=== PATIENT | male | born 1960 | race African-American/Black ===

== ENCOUNTER 2016-07-22 11:38 | Emergency (ER) | payer MEDICARE ==
--- NOTE | 2016-07-22 11:50 | ER Document Report ---
ED Medical Screen (RME) - General Stated Complaint: ABSCESS UNDER RIGHT ARM Mode of Arrival: Ambulatory Information source: Patient Notes: Patient complains of tender swollen knot under right axilla for the past 2 weeks. Patient states area has been gradually getting larger and more tender. I have greeted and performed a rapid initial assessment of this patient. A comprehensive ED assessment and evaluation of the patient, analysis of test results and completion of the medical decision making process will be conducted by additional ED providers. TRAVEL OUTSIDE OF THE [place] IN LAST 30 DAYS: No - Related Data Allergies/Adverse Reactions: naproxen [From Naprosyn] Allergy (Unknown, Verified 09/23/11 21:40) Past Medical History Endocrine Medical History: Reports: Hx Diabetes Mellitus Type 2 Past Surgical History: Reports: Hx Orthopedic Surgery - spine - Immunizations Hx Diphtheria, Pertussis, Tetanus Vaccination: Yes Physical Exam - Skin Irregularity with: Swelling, Tenderness, Inflammation - Right axilla
== END 2016-07-22 12:56 | disposition left against medical advice (07) ==
LOC: ER 11:38
DX: L02.411 Cutaneous abscess of right axilla (principal); E11.9 Type 2 diabetes mellitus without complications; Z53.20 Procedure and treatment not carried out because of patient's decision for unspecified reasons
CPT/HCPCS: 99281

== ENCOUNTER 2016-07-28 16:12 | Emergency (ER) | payer MEDICARE ==
[2016-07-28] MEDS ORDERED: SULFAMETHOXAZOLE/TRIMETHOPRIM 800-160 MG TABLET PO ONE (16:56)
[2016-07-28] MEDS ORDERED: ONDANSETRON 4 MG TAB.RAPDIS PO ONE (16:56)
[2016-07-28] MEDS ORDERED: OXYCODONE-ACETAMINOPHEN 5-325 MG TABLET PO ONE (16:56)
--- NOTE | 2016-07-28 16:57 | ER Document Report ---
ED Medical Screen (RME) - General Chief Complaint: Abscess Stated Complaint: ABSCESS UNDER RIGHT ARM Time seen by provider: 16:56 Mode of Arrival: Ambulatory Information source: Patient Notes: 55-year-old male with an abscess under his left axilla for one week. It started to get bigger and more painful. I have greeted and performed a rapid initial assessment of this patient. A comprehensive ED assessment, evaluation of the patient, analysis of test results , and completion of the medical decision making process will be contacted by additional ED providers. TRAVEL OUTSIDE OF THE [place] IN LAST 30 DAYS: No - Related Data Allergies/Adverse Reactions: naproxen [From Naprosyn] Allergy (Unknown, Verified 07/22/16 11:51) Past Medical History Endocrine Medical History: Reports: Hx Diabetes Mellitus Type 2 Renal/ Medical History: Denies: Hx Peritoneal Dialysis Past Surgical History: Reports: Hx Orthopedic Surgery - spine - Immunizations Hx Diphtheria, Pertussis, Tetanus Vaccination: Yes Physical Exam - Vital signs Vitals: Temp Pulse Resp BP Pulse Ox 97.9 F 77 16 132/77 H 100 07/28/16 16:40 07/28/16 16:40 07/28/16 16:40 07/28/16 16:40 07/28/16 16:40 Course - Vital Signs Vital signs: Temp Pulse Resp BP Pulse Ox 97.9 F 77 16 132/77 H 100 07/28/16 16:40 07/28/16 16:40 07/28/16 16:40 07/28/16 16:40 07/28/16 16:40
[2016-07-28] MEDS ORDERED: LIDOCAINE 1%/EPINEPHRINE INJ 20 ML VIAL INJ ONE (22:42)
--- NOTE | 2016-07-28 23:10 | ER Document Report ---
ED Skin Rash/Insect Bite/Abscs - General Mode of Arrival: Ambulatory Information source: Patient TRAVEL OUTSIDE OF THE [place] IN LAST 30 DAYS: No - HPI Patient complains to provider of: Other - abscess <ELISA TAYLOR - Last Filed: 07/28/16 23:05> <WANDER TORRES - Last Filed: 07/29/16 05:05> - General Chief Complaint: Abscess Stated Complaint: ABSCESS UNDER RIGHT ARM Notes: Patient is a 55 year old male who presents to the emergency department complaining of an abscess under his right upper arm near his armpit. Patient states that the swelling began about a week ago and has progressively worsened, patient states that the area is tender and painful to touch. Patient reports he has never had an abscess before. (ELISA TAYLOR) - Related Data Allergies/Adverse Reactions: naproxen [From Naprosyn] Allergy (Unknown, Verified 07/22/16 11:51) Past Medical History - General Information source: Patient - Social History Smoking Status: Unknown if Ever Smoked Family History: Reviewed & Not Pertinent Patient has suicidal ideation: No Patient has homicidal ideation: No Endocrine Medical History: Reports: Hx Diabetes Mellitus Type 2 Past Surgical History: Reports: Hx Orthopedic Surgery - spine - Immunizations Hx Diphtheria, Pertussis, Tetanus Vaccination: Yes <ELISA TAYLOR - Last Filed: 07/28/16 23:05> Review of Systems - Review of Systems Constitutional: No symptoms reported EENT: No symptoms reported Cardiovascular: No symptoms reported Respiratory: No symptoms reported Gastrointestinal: No symptoms reported Genitourinary: No symptoms reported Male Genitourinary: No symptoms reported Musculoskeletal: No symptoms reported Skin: See HPI, Other - abscess Hematologic/Lymphatic: No symptoms reported Neurological/Psychological: No symptoms reported -: Yes All other systems reviewed and negative <ELISA TAYLOR - Last Filed: 07/28/16 23:05> Physical Exam - Vital signs Interpretation: Normal - General General appearance: Appears well, Alert - HEENT Head: Normocephalic, Atraumatic - Respiratory Respiratory status: No respiratory distress - Extremities General lower extremity: Normal inspection - Neurological Neuro grossly intact: Yes Cognition: Normal Orientation: AAOx4 Messi Coma Scale Eye Opening: Spontaneous [place] Coma Scale Verbal: Oriented Messi Coma Scale Motor: Obeys Commands [place] Coma Scale Total: 15 Speech: Normal - Psychological Associated symptoms: Normal affect, Normal mood - Skin Skin Temperature: Warm Skin Moisture: Dry Skin Color: Normal Skin irregularity: Abscess - large abscess around 6cm in diameter that is located on proximal volar distal to the right axilla that is tender to palpation and fluctuant <ELISA TAYLOR - Last Filed: 07/28/16 23:05> Course <ELISA TAYLOR - Last Filed: 07/28/16 23:05> <WANDER TORRES - Last Filed: 07/29/16 05:05> - Re-evaluation Re-evalutation: 07/28 Patient is a 55-year-old male who comes in with an abscess to his right arm. Incision and drainage was performed. Purulent discharge. Packing was placed. Patient is to follow-up in 48-72 hours for packing removal and probable replacement. He'll be discharged home with doxycycline and and is to return sooner if he has any further concerns. No other complaints. Stable for discharge. (WANDER TORRES) - Vital Signs Vital signs: Temp Pulse Resp BP Pulse Ox 97.9 F 74 18 127/76 H 98 07/28/16 16:40 07/28/16 23:38 07/28/16 23:26 07/28/16 23:38 07/28/16 23:38 (ELISA TAYLOR) (WANDER TORRES) Procedures - Incision and Drainage Right Arm Type: Simple Anesthetic type: 1% Lidocaine w/epi Blade size: 11 I&D procedure: Betadine prep applied, Shurclens applied Incision Method: Incision made by scalpel Amount/type of drainage: 15 cc purulent d/c <WANDER TORRES - Last Filed: 07/29/16 05:05> Discharge <ELISA TAYLOR - Last Filed: 07/28/16 23:05> <WANDER TORRES - Last Filed: 07/29/16 05:05> - Discharge Clinical Impression: Abscess Condition: Stable Disposition: HOME, SELF-CARE Instructions: Abscess ([facility]), Post Incision and Drainage Additional Instructions: Please return within 2-3 days for re-evaluation, packing removal and replacement. Prescriptions: Doxycycline Hyclate 100 mg PO BID #20 capsule Scribe Attestation: 07/29/16 05:05 I personally performed the services described in the documentation, reviewed and edited the documentation which was dictated to the scribe in my presence, and it accurately records my words and actions. (WANDER TORRES) Scribe Documentation - Scribe Written by Scribe:: angela Nguyen, 07/28/16, [id number] acting as scribe for :: Negar <ELISA TAYLOR - Last Filed: 07/28/16 23:05>
[2016-07-28] MEDS ORDERED: HYDROCODONE/ACETAMINOPHEN 5-325 MG 6 TAB/DSPK PO PRN (23:26)
[2016-07-28 23:42] VITALS: BP 127/76
== END 2016-07-28 23:42 | disposition home or self-care (01) ==
LOC: ER 16:12
PROC: 0H9BXZZ Drainage of Right Upper Arm Skin, External Approach (ICD-10-PCS; principal; 2016-07-28)
DX: L02.413 Cutaneous abscess of right upper limb (principal); E11.9 Type 2 diabetes mellitus without complications
CPT/HCPCS: 99283; 87070; 87205; 87075; 87077; 87186; 10060; A9270 ×4; J3490; S0119

== ENCOUNTER 2016-07-30 21:39 | Emergency (ER) | payer MEDICARE ==
[2016-07-30] MEDS ORDERED: IBUPROFEN 600 MG TABLET PO ONE (22:09)
--- NOTE | 2016-07-30 22:09 | ER Document Report ---
ED Medical Screen (RME) - General Stated Complaint: WOUND RECHECK Time seen by provider: 22:08 Mode of Arrival: Ambulatory Information source: Patient Notes: 55-year-old male presents to ED for wound recheck for abscess to his right upper arm. He is was seen here on Friday for an I&D of the abscess and was told to return today for recheck and repack. He states he still in pain. I have greeted and performed a rapid initial assessment of this patient. A comprehensive ED assessment and evaluation of the patient, analysis of test results and completion of medical decision making process will be conducted by an additional ED providers. TRAVEL OUTSIDE OF THE [place] IN LAST 30 DAYS: No - Related Data Allergies/Adverse Reactions: naproxen [From Naprosyn] Allergy (Unknown, Verified 07/22/16 11:51) Past Medical History Endocrine Medical History: Reports: Hx Diabetes Mellitus Type 2 Renal/ Medical History: Denies: Hx Peritoneal Dialysis Past Surgical History: Reports: Hx Orthopedic Surgery - spine - Immunizations Hx Diphtheria, Pertussis, Tetanus Vaccination: Yes
--- NOTE | 2016-07-30 23:05 | ER Document Report ---
ED Skin Rash/Insect Bite/Abscs - General Mode of Arrival: Ambulatory Information source: Patient TRAVEL OUTSIDE OF THE [place] IN LAST 30 DAYS: No - HPI Patient complains to provider of: Skin rash/lesion, Tender/swollen area Onset: Other - see narrative Onset/Duration: Persistent Skin Character: Abscess Quality of rash: Painful Similar symptoms previously: Yes Recently seen / treated by doctor: Yes - General Chief Complaint: Wound Recheck Stated Complaint: WOUND RECHECK Notes: Patient is a 55-year-old male that presents to the emergency department today for an abscess recheck. Patient states he has been taking the antibiotic as prescribed. Patient had an I&D here in this emergency department on 07/22/16 and he was rechecked on 07/28/16. Patient states he feels like "there is still something in there". (IVON ASTUDILLO) - Related Data Allergies/Adverse Reactions: naproxen [From Naprosyn] Allergy (Unknown, Verified 07/22/16 11:51) Past Medical History - General Information source: Patient, [facility] Records - Social History Smoking Status: Current Every Day Smoker Cigarette use (# per day): Yes Chew tobacco use (# tins/day): No Frequency of alcohol use: Rare Drug Abuse: None Lives with: Family Family History: Reviewed & Not Pertinent Patient has suicidal ideation: No Patient has homicidal ideation: No Endocrine Medical History: Reports: Hx Diabetes Mellitus Type 2 Renal/ Medical History: Denies: Hx Peritoneal Dialysis GI Medical History: Reports: Hx Hiatal Hernia Past Surgical History: Reports: Hx Abdominal Surgery - hiatal hernia repair, Hx Orthopedic Surgery - l4-l5 w/ hardware - Immunizations Hx Diphtheria, Pertussis, Tetanus Vaccination: Yes Review of Systems - Review of Systems Constitutional: No symptoms reported EENT: No symptoms reported Cardiovascular: No symptoms reported Respiratory: No symptoms reported Gastrointestinal: No symptoms reported Genitourinary: No symptoms reported Male Genitourinary: No symptoms reported Musculoskeletal: No symptoms reported Skin: See HPI, Other - Abscess to right arm, recheck Hematologic/Lymphatic: No symptoms reported Neurological/Psychological: No symptoms reported -: Yes All other systems reviewed and negative Physical Exam - Vital signs Vitals: Temp Pulse Resp BP Pulse Ox 98.3 F 95 19 147/67 H 99 07/30/16 21:50 07/30/16 21:50 07/30/16 21:50 02/14/17 21:50 07/30/16 21:50 (IOVN ASTUDILLO) (WANDER TORRES) - Notes Notes: Physical Exam: General: Alert, appears well. HEENT: Normocephalic. Atraumatic. PERRL. Extraocular movements intact. Oropharynx clear. Neck: Supple. Respiratory: No respiratory distress. Abdominal: Normal Inspection. No distension. Extremities: Moves all four extremities. Neurological: Normal cognition. AAOx4. Normal speech. Psychological: Normal affect. Normal Mood. Skin: Abscess to right proximal, dorsal humerus with erythema and tenderness with palpation. (IVON ASTUDILLO) Course - Re-evaluation Re-evalutation: 07/30/16 Patient is a 55-year-old male who returns for abscess reevaluation. The patient had packing removed or replaced. No purulent discharge at this time. Wound is more shallow currently. Wound culture has not finalized. Patient is instructed to continue his antibiotics and call for results. Understands and agrees with plan. Return within 24-48 hours for reevaluation. (WANDER TORRES) - Vital Signs Vital signs: Temp Pulse Resp BP Pulse Ox 98.2 F 88 16 132/77 H 99 07/31/16 00:03 07/31/16 00:03 07/31/16 00:03 07/31/16 00:03 07/31/16 00:03 (IVON ASTUDILLO) (WANDER TORRES) Discharge - Discharge Clinical Impression: Abscess re-check Condition: Stable Disposition: HOME, SELF-CARE Instructions: Abscess ([facility]) Additional Instructions: Please return within 48 hours for wound re-evaluation. Please call [phone] for your wound culture results. Scribe Attestation: 07/31/16 03:44 I personally performed the services described in the documentation, reviewed and edited the documentation which was dictated to the scribe in my presence, and it accurately records my words and actions. (WANDER TORRES) Scribe Documentation - Scribe Written by Mayae:: Yulia Lucas, 07/30/2016 [id number] acting as scribe for :: Negar
[2016-07-30] MEDS ORDERED: LIDOCAINE 1%/EPINEPHRINE INJ 20 ML VIAL INJ ONE (23:06)
[2016-07-30] MEDS ORDERED: CEFTRIAXONE INJ 1000 MG VIAL IM ONE (23:40)
[2016-07-30] MEDS ORDERED: LIDOCAINE 1% INJ-PF (10 MG/ML) 30 ML SDV INFIL ONE (23:40)
[2016-07-31 00:17] VITALS: BP 132/77
== END 2016-07-31 00:15 | disposition home or self-care (01) ==
LOC: ER 21:39
DX: Z48.01 Encounter for change or removal of surgical wound dressing (principal); L02.413 Cutaneous abscess of right upper limb; E11.9 Type 2 diabetes mellitus without complications; F17.210 Nicotine dependence, cigarettes, uncomplicated
CPT/HCPCS: 99282; A9270; J3490 ×2; J0696

== ENCOUNTER 2016-11-26 16:21 | Emergency (ER) | payer MEDICARE ==
--- NOTE | 2016-11-26 18:13 | ER Document Report ---
ED Skin Rash/Insect Bite/Abscs - General Chief Complaint: Abscess Stated Complaint: ABSCESS Time Seen by Provider: 11/26/16 17:39 Mode of Arrival: Ambulatory Information source: Patient Notes: 56-year-old male presents to ED for abscess to the left axilla. States he has had this for about a month he has been squeezing it and getting drainage out of it but now there is no drainage coming out and the pain is increasing. Still has low back pain that he has chronic pain that goes down the left leg. TRAVEL OUTSIDE OF THE [place] IN LAST 30 DAYS: No - HPI Patient complains to provider of: Tender/swollen area Onset: Other - Noah Onset/Duration: Intermittent Quality of pain: Sharp, Throbbing Severity: Severe Pain Level: 5 Skin Character: Abscess - The patella, Other - There has back pain that is chronic Skin Temperature: Warm Quality of rash: Painful Identify cause: No Exacerbated by: Denies Relieved by: Denies Similar symptoms previously: Yes Recently seen / treated by doctor: No - Related Data Allergies/Adverse Reactions: naproxen [From Naprosyn] Allergy (Unknown, Verified 11/26/16 16:31) Past Medical History - General Information source: Patient - Social History Smoking Status: Current Every Day Smoker Cigarette use (# per day): Yes - 2-3 cigarettes a day Chew tobacco use (# tins/day): No Smoking Education Provided: Yes - Less than 2 minutes Frequency of alcohol use: None Drug Abuse: None Occupation: [employer] Lives with: Family Family History: None. denies: Arthritis, CAD, COPD, CVA, DM, Hyperlipidemia, Hypertension, Malignancy, Thyroid Disfunction Patient has suicidal ideation: No Patient has homicidal ideation: No - Past Medical History Cardiac Medical History: Reports: None Pulmonary Medical History: Reports: None EENT Medical History: Reports: None Neurological Medical History: Reports: None Endocrine Medical History: Reports: Hx Diabetes Mellitus Type 2 Renal/ Medical History: Reports: None Malignancy Medical History: Reports None GI Medical History: Reports: Hx Hiatal Hernia Musculoskeltal Medical History: Reports Hx Arthritis, Reports Hx Musculoskeletal Deformity, Reports Hx Musculoskeletal Trauma Skin Medical History: Reports Hx Cellulitis Psychiatric Medical History: Reports: None Traumatic Medical History: Reports: None Infectious Medical History: Reports: None Past Surgical History: Reports: Hx Abdominal Surgery - hiatal hernia repair, Hx Orthopedic Surgery - l4-l5 w/ hardware - Immunizations Hx Diphtheria, Pertussis, Tetanus Vaccination: Yes Review of Systems - Review of Systems Constitutional: No symptoms reported EENT: No symptoms reported Cardiovascular: No symptoms reported Respiratory: No symptoms reported Gastrointestinal: No symptoms reported Genitourinary: No symptoms reported Male Genitourinary: No symptoms reported Musculoskeletal: Back pain - Chronic pain states is nothing new to this pain is the same pain he always has in his lower back that goes down his left leg Skin: Other - Abscess 2 small to the left axilla Hematologic/Lymphatic: No symptoms reported Neurological/Psychological: No symptoms reported -: Yes All other systems reviewed and negative Physical Exam - Vital signs Vitals: Temp Pulse Resp BP Pulse Ox 98.5 F 94 16 116/68 97 11/26/16 16:31 11/26/16 16:31 11/26/16 16:31 11/26/16 16:31 11/26/16 16:31 Interpretation: Normal - General General appearance: Appears well, Alert - HEENT Head: Normocephalic, Atraumatic Eyes: Normal Pupils: PERRL - Respiratory Respiratory status: No respiratory distress Chest status: Nontender Breath sounds: Normal Chest palpation: Normal - Cardiovascular Rhythm: Regular Heart sounds: Normal auscultation Murmur: No - Abdominal Inspection: Normal Distension: No distension Bowel sounds: Normal Tenderness: Nontender Organomegaly: No organomegaly - Back Back: Normal, Tender. No: Deformity/step-off, CVA tenderness, Vertebra tenderness, Scars, Scoliosis, Wounds - Extremities General upper extremity: Normal inspection, Nontender, Normal color, Normal ROM , Normal temperature General lower extremity: Normal inspection, Nontender, Normal color, Normal ROM , Normal temperature, Normal weight bearing. No: Sole's sign - Neurological Neuro grossly intact: Yes Cognition: Normal Orientation: AAOx4 Messi Coma Scale Eye Opening: Spontaneous [place] Coma Scale Verbal: Oriented [place] Coma Scale Motor: Obeys Commands [place] Coma Scale Total: 15 Speech: Normal Motor strength normal: LUE, RUE, LLE, RLE Sensory: Normal - Psychological Associated symptoms: Normal affect, Normal mood - Skin Skin Temperature: Warm Skin Moisture: Dry Skin Color: Normal Skin irregularity: Abscess Location of irregularity: Other - Left axilla 2 Irregularity with: Swelling, Tenderness, Inflammation. negative: Warmth Course - Vital Signs Vital signs: Temp Pulse Resp BP Pulse Ox 98.4 F 91 18 124/63 99 11/26/16 18:34 11/26/16 18:34 11/26/16 18:34 11/26/16 18:34 11/26/16 18:34 Procedures - Incision and Drainage Left axilla Type: Multiple Anesthetic type: Other mL's of anesthetic: 0 Blade size: Other - 18-gauge needle 2 I&D procedure: Betadine prep applied, Sterile dressing applied Incision Method: Incision made with needle Amount/type of drainage: Drainage from either Discharge - Discharge Clinical Impression: Abscess Condition: Stable Disposition: HOME, SELF-CARE Instructions: Family Physicians / Practices Additional Instructions: ABSCESS: You have an abscess (boil). This a pus-forming infection, usually due to staph. Some boils may be left to drain on their own, but most require lancing. From the time the tender lump first appears, it may be three or four days before the abscess is ready to douglas. Local heat and rest help at this stage of treatment. An antibiotic may prevent spread of the infection. Once the abscess is opened, packing may be placed into it. This is done so pus is not sealed inside by premature closure of the cavity. The packing will be removed at your follow-up visit or you may be advised to remove it yourself at home. Sometimes this packing must be replaced a few times during healing. The wound will heal with surprisingly little scar. Depending on the size and location of an abscess, healing can take one to four weeks. You may shower and wash the area around the incision site two or three times a day. Antibiotics may be prescribed, but are usually not necessary after an abscess has been drained. If you develop fever, chills, worsening pain, or increasing swelling in the area, call the doctor or return immediately. POST INCISION AND DRAINAGE: You have had an incision made to allow drainage of an abscess. The incision must remain open so that pus and debris can drain from the wound. If the abscess cavity is large, packing is placed. This keeps the tissues from collapsing and trapping pus inside, while the body shrinks the cavity. The packing may need to be replaced every day or two. The physician will instruct you on the packing. Keep a bulky dressing over the area. Replace it if it becomes saturated with blood or pus. Do not disturb the packing (if present). You may shower and cleanse the area with gentle soap and warm water two or three times a day. Local warmth may be soothing, and may promote faster healing. Return if you develop high fever or chills, or if you note spreading redness, increasing swelling, or increasing tenderness. ORAL NARCOTIC MEDICATION: You have been given a prescription for pain control. This medication is a narcotic. It's best taken with food, as nausea can result if taken on an empty stomach. Don't operate machinery or drive within six hours of taking this medication. Do not combine this medicine with alcohol, or with any medication which can cause sedation (such as cold tablets or sleeping pills) unless you get permission from the physician. Narcotics tend to cause constipation. If possible, drink plenty of fluids and eat a diet high in fiber and fruits. CEPHALEXIN: The antibiotic you've been prescribed is a member of the cephalosporin class. This type of antibiotic covers a wide variety of infections, including those of the skin, lungs, and urinary tract. It's useful for staph infections. This antibiotic is slightly similar to the penicillin family. In rare cases , a person who is allergic to penicillin will also be allergic to this medication. If you have had a severe allergic reaction to penicillin, and have not taken this antibiotic since that time, notify your doctor. Antibiotics which cover many germs ("broad spectrum" antibiotics) are more likely to cause diarrhea or "yeast" infections. Women prone to vaginal yeast problems may suffer an attack after taking this antibiotic. In infants, oral thrush (white spots "stuck" on the cheek) or yeast diaper rash may result. See your doctor if these problems occur. Call at once if you develop itching, hives , shortness of breath, or lightheadedness. TRIMETHOPRIM-SULFA: You have been given a prescription for trimethoprim-sulfa (TMS, Septra, Bactrim). This is a combination antibiotic of the sulfa class, often used for urinary tract infections, middle ear infections, bronchitis, shigella intestinal infection, and Pneumocystis pneumonia. TMS is usually well-tolerated. Occasional side effects include nausea and decreased appetite. Septra is not recommended for infants less than two months of age. Do not take this medication if you have experienced severe side effects or allergy to sulfa medicine. You should stop this medicine at once and contact your physician if you develop any rash, joint pain, shortness of breath, bruising, or jaundice ( yellow color in the skin), or if you develop any other new or unusual symptoms. Epsom Salt Soaks Soak the wound area in a container of warm epsom salt water. If you can't get the wound area into a bucket or che, use a folded towel soaked in the epsom salt solution and apply to the area. Use clean hot tap water (about the temperature of a very warm bath), mixing in about one (1) teaspoon for every pint of water. Two gallon --> 16 teaspoons Epsom Salts One gallon --> 8 teaspoons Epsom Salts Two quarts --> 4 teaspoons Epsom Salts One quart --> 2 teaspoons Epsom Salts Soak the wound for about 20 minutes while gently moving it around in the water. Repeat this four (4) times a day. FOLLOW-UP CARE: Most simple abscesses will not require a follow up visit. If you had packing placed in the abscess, remove it as instructed by the physician. If you have been referred to a physician for follow-up care, call the physicians office for an appointment as you were instructed or within the next two days. If you experience worsening or a significant change in your symptoms, return to the Emergency Department at any time for re-evaluation. Prescriptions: Hydrocodone/Acetaminophen [[place] 5-325 mg Tablet] 1 tab PO Q6HP PRN #14 tablet PRN Reason: Cephalexin Monohydrate [Keflex 500 mg Capsule] 500 mg PO QID #20 capsule Sulfamethoxazole/Trimethoprim [Septra-Ds 800-160 mg Tablet] 1 tab PO BID #20 tablet Forms: Smoking Cessation Education
[2016-11-26] MEDS ORDERED: SULFAMETHOXAZOLE/TRIMETHOPRIM 800-160 MG TABLET PO ONE (18:17)
[2016-11-26] MEDS ORDERED: HYDROCODONE/ACETAMINOPHEN 5-325 MG TABLET PO ONE (18:17)
[2016-11-26] MEDS ORDERED: CEPHALEXIN 500 MG CAPSULE PO ONE (18:17)
[2016-11-26 18:36] VITALS: BP 124/63
== END 2016-11-26 18:35 | disposition home or self-care (01) ==
LOC: ER 16:21
PROC: 0H9CXZZ Drainage of Left Upper Arm Skin, External Approach (ICD-10-PCS; principal; 2016-11-26)
DX: L02.412 Cutaneous abscess of left axilla (principal); G89.29 Other chronic pain; M54.5 Low back pain; F17.210 Nicotine dependence, cigarettes, uncomplicated; E11.9 Type 2 diabetes mellitus without complications
CPT/HCPCS: 99283; 10061; A9270 ×3

== ENCOUNTER 2018-08-20 09:36 | Inpatient (IN) | payer MEDICARE ==
--- NOTE | 2018-08-20 10:43 | ER Document Report ---
ED Medical Screen (RME) - General Chief Complaint: Foot Pain Stated Complaint: LEFT TOE PAIN Time Seen by Provider: 08/20/18 10:41 Mode of Arrival: Ambulatory Information source: Patient Notes: This is a 57-year-old man with a history of insulin going diabetes who presents to the emergency room went to an officer to the left fifth toe along with erythema, warmth and tenderness over the foot. She denies fever. TRAVEL OUTSIDE OF THE [place] IN LAST 30 DAYS: No - Related Data Allergies/Adverse Reactions: naproxen [From Naprosyn] Allergy (Unknown, Verified 08/20/18 09:57) Past Medical History - Social History Chew tobacco use (# tins/day): No Frequency of alcohol use: None Drug Abuse: None Endocrine Medical History: Reports: Hx Diabetes Mellitus Type 2 Renal/ Medical History: Denies: Hx Peritoneal Dialysis GI Medical History: Reports: Hx Hiatal Hernia Musculoskeltal Medical History: Reports Hx Arthritis, Reports Hx Musculoskeletal Deformity, Reports Hx Musculoskeletal Trauma Skin Medical History: Reports Hx Cellulitis Past Surgical History: Reports: Hx Abdominal Surgery - hiatal hernia repair, Hx Orthopedic Surgery - l4-l5 w/ hardware - Immunizations Hx Diphtheria, Pertussis, Tetanus Vaccination: Yes Physical Exam - Vital signs Vitals: Temp Pulse Resp BP Pulse Ox 98.4 F 101 H 18 108/55 L 99 08/20/18 09:58 08/20/18 09:58 08/20/18 09:58 08/20/18 09:58 08/20/18 09:58 Course - Vital Signs Vital signs: Temp Pulse Resp BP Pulse Ox 98.4 F 101 H 18 108/55 L 99 08/20/18 09:58 08/20/18 09:58 08/20/18 09:58 08/20/18 09:58 08/20/18 09:58
--- NOTE | 2018-08-20 11:26 | RADIOLOGY REPORT (SQ) ---
EXAM DESCRIPTION: FOOT LEFT COMPLETE COMPLETED DATE/TIME: 08/20/2018 11:04 am REASON FOR STUDY: ulcer 5th toe. cellulitis COMPARISON: None. NUMBER OF VIEWS: Three views. TECHNIQUE: AP, lateral and oblique radiographic images acquired of the left foot. LIMITATIONS: None. FINDINGS: MINERALIZATION: Normal. BONES: No fracture or dislocation. No evidence of osteomyelitis. JOINTS: No effusions. SOFT TISSUES: No soft tissue swelling. No foreign body. OTHER: No other significant finding. IMPRESSION: There is no evidence of osteomyelitis. There is no acute finding. TECHNICAL DOCUMENTATION: JOB ID: [id number] [employer]- All Rights Reserved Reading location - IP/workstation name: [email or web address]
[2018-08-20] MEDS ORDERED: VANCOMYCIN HCL INJ 1000 MG VIAL IV ONE (11:33)
[2018-08-20] MEDS ORDERED: PIPERACILLIN/TAZOBACTAM 3.375 GM VIAL IV ONE (11:33)
[2018-08-20 11:34] LABS: ABSOLUTE BASOPHILS # (AUTO) 0.1 10^3/uL (0.0-0.2); ABSOLUTE EOSINOPHILS # (AUTO) 0.2 10^3/uL (0.0-0.6); ABSOLUTE LYMPHOCYTES (AUTO) 1.5 10^3/uL (0.5-4.7); ABSOLUTE MONOCYTES (AUTO) 0.5 10^3/uL (0.1-1.4); BASOPHILS % (AUTO) 1.2 % (0-2); EOSINOPHILS % (AUTO) 2.7 % (0-6); HEMATOCRIT 39.9 % (37.9-51.0); HEMOGLOBIN 13.4 g/dL (13.5-17.0); LYMPHOCYTES % (AUTO) 20.5 % (13-45); MEAN CORPUSCULAR HEMOGLOBIN 32.2 pg (27.0-33.4); MEAN CORPUSCULAR HGB CONC 33.6 g/dL (32.0-36.0); MEAN CORPUSCULAR VOLUME 96 fl (80-97); MONOCYTES % (AUTO) 6.9 % (3-13); PLATELET COUNT 268 10^3/uL (150-450); RED BLOOD COUNT 4.16 10^6/uL (4.35-5.55); RED CELL DISTRIBUTION WIDTH 13.5 % (11.5-14.0); SEGMENTED NEUTROPHILS % (AUTO) 68.7 % (42-78); TOTAL CELLS COUNTED % (AUTO) 100 %; WHITE BLOOD COUNT 7.2 10^3/uL (4.0-10.5)
[2018-08-20 11:55] LABS: ALANINE AMINOTRANSFERASE 24 U/L (21-72); ALBUMIN 4.6 g/dL (3.5-5.0); ALKALINE PHOSPHATASE 211 U/L (38-126); ANION GAP 12 (5-19); ASPARTATE AMINO TRANSFERASE 20 U/L (17-59); BILIRUBIN,DIRECT 0.2 mg/dL (0.0-0.4); BILIRUBIN,TOTAL 0.7 mg/dL (0.2-1.3); BLOOD UREA NITROGEN 6 mg/dL (7-20); CALCIUM 10.2 mg/dL (8.4-10.2); CARBON DIOXIDE 34 mmol/L (22-30); CHLORIDE 93 mmol/L (98-107); POTASSIUM 4.8 mmol/L (3.6-5.0); SODIUM 138.8 mmol/L (137-145)
[2018-08-20 12:04] LABS: GLUCOSE 581 mg/dL (75-110)
[2018-08-20] MEDS ORDERED: INSULIN REG, HUMAN 100 UNIT/ML 3 ML VIAL (PYX) IV ONE (12:38)
--- NOTE | 2018-08-20 12:51 | ER Document Report ---
ED General - General Chief Complaint: Foot Pain Stated Complaint: LEFT TOE PAIN Time Seen by Provider: 08/20/18 10:41 Mode of Arrival: Ambulatory TRAVEL OUTSIDE OF THE [place] IN LAST 30 DAYS: No - HPI Notes: Patient presents emergency department for evaluation of the left fifth toe wound. He is unsure as to how long it has been there. He states is been worse over the last several days. Denies any fever or chills. No nausea or vomiting. He is in fact a diabetic. He states he is not currently taking any medications for that. He is to have a primary care physician in [place]. He decided that was too long to drive so he has not seen a physician in some time. - Related Data Allergies/Adverse Reactions: naproxen [From Naprosyn] Allergy (Unknown, Verified 08/20/18 09:57) Past Medical History - General Information source: Patient - Social History Smoking Status: Current Every Day Smoker Chew tobacco use (# tins/day): No Frequency of alcohol use: None Drug Abuse: None Family History: None. denies: Arthritis, CAD, COPD, CVA, DM, Hyperlipidemia, Hypertension, Malignancy, Thyroid Disfunction Patient has suicidal ideation: No Patient has homicidal ideation: No Endocrine Medical History: Reports: Hx Diabetes Mellitus Type 2 Renal/ Medical History: Denies: Hx Peritoneal Dialysis GI Medical History: Reports: Hx Hiatal Hernia Musculoskeletal Medical History: Reports Hx Arthritis, Reports Hx Musculoskeletal Deformity, Reports Hx Musculoskeletal Trauma Skin Medical History: Reports Hx Cellulitis Past Surgical History: Reports: Hx Abdominal Surgery - hiatal hernia repair, Hx Orthopedic Surgery - l4-l5 w/ hardware - Immunizations Hx Diphtheria, Pertussis, Tetanus Vaccination: Yes Review of Systems - Review of Systems Constitutional: No symptoms reported Cardiovascular: No symptoms reported Respiratory: No symptoms reported Gastrointestinal: No symptoms reported Genitourinary: No symptoms reported Musculoskeletal: No symptoms reported Skin: See HPI Neurological/Psychological: No symptoms reported Physical Exam - Vital signs Vitals: Temp Pulse Resp BP Pulse Ox 98.4 F 101 H 18 108/55 L 99 08/20/18 09:58 08/20/18 09:58 08/20/18 09:58 08/20/18 09:58 08/20/18 09:58 - Notes Notes: Vital signs reviewed, please refer to chart. Patient is normocephalic, atraumatic. Pupils equal round, reactive to light. Neck is supple without meningismus. Heart is regular rate and rhythm. Lungs are clear to auscultation bilaterally. Abdomen is soft, nontender, normoactive bowel sounds throughout. Extremities without cyanosis, clubbing. Peripheral pulses are equal. Examination of the left foot yields a ulceration over the lateral aspect of the fifth phalanx. He has erythema with lymphangitic streaking that extends to the mid tibia. Extensive onychomycosis. Sensation is intact to light touch. Skin is warm and dry. Patient is awake, alert, neurological exam is nonfocal. Course - Re-evaluation Re-evalutation: 08/20/18 12:50 Patient presents emergency department for evaluation. He is a noncompliant diabetic. He no longer has any sort of medications for his diabetes. His white count is normal, but he does have an extensive lymphangitic infection. His x- ray was negative for signs of osteomyelitis, but his CRP is markedly elevated. Certainly x-ray is not sensitive enough to completely exclude it. He was treate d here with Zosyn and vancomycin. He does have a history of MRSA. Given IV insulin to cover for his marked hyperglycemia. I spoke with SHIVA Shankar, who will evaluate the patient. 08/20/18 12:51 08/20/18 14:13 SHIVA Hudson has evidently evaluated the patient. I did not speak to him directly following this evaluation. The patient was notified that he will be admitted to the hospital. Admission orders being placed. - Vital Signs Vital signs: Temp Pulse Resp BP Pulse Ox 98.4 F 101 H 18 108/55 L 99 08/20/18 09:58 08/20/18 09:58 08/20/18 09:58 08/20/18 09:58 08/20/18 09:58 - Laboratory Result Diagrams: 08/20/18 11:02 08/20/18 11:02 Laboratory results interpreted by me: 08/20/18 08/20/18 08/20/18 11:02 11:02 11:02 RBC 4.16 L Hgb 13.4 L Chloride 93 L Carbon Dioxide 34 H BUN 6 L Glucose 581 H* Alkaline Phosphatase 211 H C-Reactive Protein 41.7 H Discharge - Discharge Clinical Impression: Lymphangitis, Hyperglycemia Cellulitis Qualifiers: Site of cellulitis of extremity: toe Laterality: left Condition: Stable Disposition: ADMITTED INPATIENT Admitting Provider: Hospitalist - [facility] Unit Admitted: Medical Floor
[2018-08-20] MEDS ORDERED: INSULIN REG, HUMAN 100 UNIT/ML 3 ML VIAL (PYX) ONE (13:03)
[2018-08-20] MEDS ORDERED: ACETAMINOPHEN 325 MG TABLET PO PRN (13:42)
[2018-08-20] MEDS ORDERED: NORMAL SALINE 1000 ML 1,000 ML IV PRN (13:42)
[2018-08-20] MEDS ORDERED: GLUCAGON,HUMAN RECOMB 1 MG INJ IM PRN (13:49)
[2018-08-20] MEDS ORDERED: DEXTROSE 40% GEL 15 GM TUBE PO PRN ×2 (13:49)
[2018-08-20] MEDS ORDERED: DEXTROSE 50%-WATER 25 GM/50 ML DISP.SYRIN IV PRN ×2 (13:49)
--- NOTE | 2018-08-20 13:59 | PDOC H&P ---
History of Present Illness Admission Date/PCP: 08/20/18 Patient complains of: foot redness History of Present Illness: MEG GHOTRA is a 57 year old male presents to the ER with a complaint of foot pain and redness he states started approximately 3-4 days ago and has been getting progressively worse. When he woke this morning he noticed that the swelling and redness had moved from his left little toe to the fourth toe. He states he is having some pain from the area. He denies any drainage. Denies any fevers chills nausea vomiting constipation diarrhea. His previous PCP was located in [place] and he stated that was too far to travel. He has not been back to see his PCP in the last 2 months. Also states that his home blood sugars have been running over 300 for the past several days. Past Medical History Cardiac Medical History: Reports: Hypertension Endocrine Medical History: Reports: Diabetes Mellitus Type 2 GI Medical History: Reports: Hiatal Hernia Musculoskeltal Medical History: Reports: Arthritis Past Surgical History Past Surgical History: Reports: Orthopedic Surgery - l4-l5 w/ hardware Social History Smoking Status: Current Every Day Smoker Family History Family History: None. denies: Arthritis, CAD, COPD, CVA, DM, Hyperlipidemia, Hypertension, Malignancy, Thyroid Disfunction Parental Family History Reviewed: Yes Children Family History Reviewed: Yes Sibling(s) Family History Reviewed.: Yes Medication/Allergy Home Medications: Insulin Glargine,Hum.rec.anlog [Lantus] 100 unit SQ BID 09/23/11 Hydrocodone Bit/Acetaminophen [Hydrocodon-Acetaminophen 5-325] 1 each PO ASDIR PRN #15 tablet 07/24/15 Doxycycline Hyclate 100 mg PO BID #20 capsule 07/28/16 Cephalexin Monohydrate [Keflex 500 mg Capsule] 500 mg PO QID #20 capsule 11/26/16 Hydrocodone/Acetaminophen [[place] 5-325 mg Tablet] 1 tab PO Q6HP PRN #14 tablet 11/26/16 Sulfamethoxazole/Trimethoprim [Septra-Ds 800-160 mg Tablet] 1 tab PO BID #20 tablet 11/26/16 Allergies/Adverse Reactions: naproxen [From Naprosyn] Allergy (Unknown, Verified 08/20/18 09:57) Review of Systems Constitutional: ABSENT: chills, fatigue, fever(s), headache(s), night sweats, weakness Nose, Mouth, and Throat: ABSENT: sore throat Cardiovascular: ABSENT: edema, palpitations Gastrointestinal: ABSENT: abdominal pain, constipation, diarrhea, nausea, vomiting Integumentary: PRESENT: erythema. ABSENT: pruritus, rash Endocrine: ABSENT: polydipsia, polyuria Physical Exam Vital Signs: Temp Pulse Resp BP Pulse Ox 98.4 F 101 H 18 108/55 L 99 08/20/18 09:58 08/20/18 09:58 08/20/18 09:58 08/20/18 09:58 08/20/18 09:58 Intake & Output 08/19/18 08/20/18 08/21/18 06:59 06:59 06:59 Weight 59.9 kg General appearance: PRESENT: no acute distress, cooperative, thin Eye exam: PRESENT: EOMI, PERRLA. ABSENT: scleral icterus Mouth exam: PRESENT: moist, neck supple Neck exam: ABSENT: full ROM, JVD, lymphadenopathy, tenderness, thyromegaly, tracheal deviation Respiratory exam: PRESENT: clear to auscultation nora, unlabored Cardiovascular exam: PRESENT: RRR GI/Abdominal exam: PRESENT: normal bowel sounds, soft. ABSENT: ascites, tenderness Extremities exam: PRESENT: full ROM. ABSENT: tenderness Neurological exam: PRESENT: alert, oriented to person, oriented to place, oriented to time, oriented to situation Psychiatric exam: ABSENT: anxious Skin exam: PRESENT: other - Positive ulceration to the little toe of the left foot. Positive erythema and swelling along the lateral aspect of the left foot. No pus or drainage is expressed from the area. Results Laboratory Results: 08/20/18 11:02 08/20/18 11:02 08/20/18 08/20/18 08/20/18 11:02 11:02 11:02 WBC 7.2 RBC 4.16 L Hgb 13.4 L Hct 39.9 MCV 96 MCH 32.2 MCHC 33.6 RDW 13.5 Plt Count 268 Seg Neutrophils % 68.7 Lymphocytes % 20.5 Monocytes % 6.9 Eosinophils % 2.7 Basophils % 1.2 Absolute Neutrophils 5.0 Absolute Lymphocytes 1.5 Absolute Monocytes 0.5 Absolute Eosinophils 0.2 Absolute Basophils 0.1 Sodium 138.8 Potassium 4.8 Chloride 93 L Carbon Dioxide 34 H Anion Gap 12 BUN 6 L Creatinine 0.65 Est GFR ( Amer) > 60 Est GFR (Non-Af Amer) > 60 Glucose 581 H* Calcium 10.2 Total Bilirubin 0.7 AST 20 ALT 24 Alkaline Phosphatase 211 H C-Reactive Protein 41.7 H Total Protein 8.0 Albumin 4.6 Impressions: Foot X-Ray 08/20/18 10:41 IMPRESSION: There is no evidence of osteomyelitis. There is no acute finding. Assessment & Plan - Diagnosis (1) Cellulitis Qualifiers: Site of cellulitis of extremity: toe Laterality: left Is this a current diagnosis for this admission?: Yes Plan: We will admit to the medical floor. Surgical consult for the ulceration on his skin on his little toe. Patient on Vanco and Zosyn. Order an A1c to check his diabetes. In the meantime start him on sliding scale. (2) Diabetes type 2, uncontrolled Qualifiers: Glycemic state: with hyperglycemia Qualified Code(s): E11.65 - Type 2 diabetes mellitus with hyperglycemia Is this a current diagnosis for this admission?: Yes Plan: We will start the patient on sliding scale insulin. Diabetic diet. Order hemoglobin A1c. Adjust his medications accordingly. - Time Time Spent: 30 to 50 Minutes Medications reviewed and adjusted accordingly: Yes Anticipated discharge: Home
[2018-08-20] MEDS ORDERED: PIPERACILLIN/TAZOBACTAM 3.375 GM VIAL IV SCH (14:00)
[2018-08-20] MEDS: OXYCODONE-ACETAMINOPHEN 5-325 MG TABLET PO PRN (16:58)
[2018-08-20] MEDS: INSULIN REG, HUMAN 100 UNIT/ML 3 ML VIAL (PYX) SUBCUT SCH ×2 (16:59→23:00)
--- NOTE | 2018-08-20 20:19 | PDOC CONSULTATION ---
History of Present Illness Admission Date/PCP: 08/20/18 14:39 Patient complains of: Left foot pain and redness. History of Present Illness: MEG GHOTRA is a 57 year old male with diabetes who has noted pain at the lateral aspect of his left foot along with an ulcer in the last couple of days. He has noted some redness along this area but no drainage and no fever. Patient was noted with markedly elevated glucose in the ER. He has had no prior history of diabetic foot infections. No known history of peripheral vascular disease. Past Medical History Cardiac Medical History: Reports: Hypertension Endocrine Medical History: Reports: Diabetes Mellitus Type 2 GI Medical History: Reports: Hiatal Hernia Musculoskeltal Medical History: Reports: Arthritis Past Surgical History Past Surgical History: Reports: Orthopedic Surgery - l4-l5 w/ hardware, Other - Ventral hernia repair in the past Social History Smoking Status: Current Every Day Smoker Frequency of Alcohol Use: Rare Hx Recreational Drug Use: No Hx Prescription Drug Abuse: No Family History Family History: None. denies: Arthritis, CAD, COPD, CVA, DM, Hyperlipidemia, Hypertension, Malignancy, Thyroid Disfunction Parental Family History Reviewed: Yes - Father with diabetes Children Family History Reviewed: Yes Sibling(s) Family History Reviewed.: Yes Medication/Allergy Home Medications: No Home Medications 08/20/18 Allergies/Adverse Reactions: naproxen [From Naprosyn] Allergy (Unknown, Verified 08/20/18 09:57) Review of Systems All systems: reviewed and no additional remarkable complaints except as stated Musculoskeletal: PRESENT: as per HPI Neurological: PRESENT: tingling - Some paresthesias to his bilateral feet Physical Exam Vital Signs: Temp Pulse Resp BP Pulse Ox 98.2 F 91 16 123/67 98 08/20/18 16:42 08/20/18 16:42 08/20/18 16:42 08/20/18 16:42 08/20/18 16:42 Intake & Output 08/19/18 08/20/18 08/21/18 06:59 06:59 06:59 Weight 59.9 kg General appearance: PRESENT: cooperative Eye exam: PRESENT: conjunctiva pink Neck exam: PRESENT: other - Supple with no masses and no tenderness Respiratory exam: PRESENT: clear to auscultation nora Cardiovascular exam: PRESENT: RRR Pulses: PRESENT: +2 pedal pulses bilateral GI/Abdominal exam: PRESENT: other - Soft, nondistended, nontender to palpation. Extremities exam: PRESENT: other - Very subtle erythema along the distal lateral aspect of the left foot with no induration and very subtle edema. There is a small blister along the anterolateral aspect of the fourth toe. At the anterolateral aspect of the fifth toe there is a ulcer with overlying eschar and no drainage and no underlying fluctuance. No crepitus. There is some tenderness along the distal lateral aspect of the left foot. No abnormalities of the right foot are noted other than dystrophic nails. Patient has 2+ bilateral dorsalis pedis pulses. Results Laboratory Results: 08/20/18 11:02 08/20/18 11:02 08/20/18 08/20/18 08/20/18 11: 11: 11:02 WBC 7.2 RBC 4.16 L Hgb 13.4 L Hct 39.9 MCV 96 MCH 32.2 MCHC 33.6 RDW 13.5 Plt Count 268 Seg Neutrophils % 68.7 Lymphocytes % 20.5 Monocytes % 6.9 Eosinophils % 2.7 Basophils % 1.2 Absolute Neutrophils 5.0 Absolute Lymphocytes 1.5 Absolute Monocytes 0.5 Absolute Eosinophils 0.2 Absolute Basophils 0.1 Sodium 138.8 Potassium 4.8 Chloride 93 L Carbon Dioxide 34 H Anion Gap 12 BUN 6 L Creatinine 0.65 Est GFR ( Amer) > 60 Est GFR (Non-Af Amer) > 60 Glucose 581 H* Calcium 10.2 Total Bilirubin 0.7 AST 20 ALT 24 Alkaline Phosphatase 211 H C-Reactive Protein 41.7 H Total Protein 8.0 Albumin 4.6 Impressions: Foot X-Ray 08/20/18 10:41 IMPRESSION: There is no evidence of osteomyelitis. There is no acute finding. Assessment & Plan - Diagnosis (1) Cellulitis Qualifiers: Site of cellulitis of extremity: lower extremity Laterality: left Is this a current diagnosis for this admission?: Yes Plan: Cellulitis of the left lateral distal foot with associated ulcer on the fifth toe. I do not appreciate any evidence of undrained abscess. There is very subtle erythema and edema. Patient has good pedal pulses. Agree with admitting to the medical service on IV antibiotics and control of his hyperglycemia. Surgical service will follow closely along to ensure that he does not develop need for surgical debridement.
[2018-08-20] MEDS ORDERED: PIPERACILLIN SODIUM/TAZOBACTAM 3.375 GM in NORMAL SALINE 100 ML IV SCH (22:00)
[2018-08-20] MEDS ORDERED: VANCOMYCIN HCL INJ 1000 MG VIAL IV SCH (22:00)
[2018-08-20] MEDS: VANCOMYCIN HCL 1,000 MG in DEXTROSE 5%-WATER 250 ML IV SCH (23:01)
[2018-08-21] MEDS: PIPERACILLIN SODIUM/TAZOBACTAM 3.375 GM in NORMAL SALINE 100 ML IV SCH ×3 (01:09→18:24)
[2018-08-21] MEDS: OXYCODONE-ACETAMINOPHEN 5-325 MG TABLET PO PRN ×3 (01:58→20:01)
[2018-08-21 07:30] LABS: ABSOLUTE EOSINOPHILS # (AUTO) 0.2 10^3/uL (0.0-0.6); ABSOLUTE LYMPHOCYTES (AUTO) 2.4 10^3/uL (0.5-4.7); ABSOLUTE MONOCYTES (AUTO) 0.4 10^3/uL (0.1-1.4); ABSOLUTE NEUT (AUTO) 2.7 10^3/uL (1.7-8.2); BASOPHILS % (AUTO) 0.7 % (0-2); EOSINOPHILS % (AUTO) 3.5 % (0-6); HEMATOCRIT 35.3 % (37.9-51.0); HEMOGLOBIN 12.1 g/dL (13.5-17.0); LYMPHOCYTES % (AUTO) 42.3 % (13-45); MEAN CORPUSCULAR HEMOGLOBIN 32.2 pg (27.0-33.4); MEAN CORPUSCULAR HGB CONC 34.4 g/dL (32.0-36.0); MEAN CORPUSCULAR VOLUME 94 fl (80-97); MONOCYTES % (AUTO) 6.6 % (3-13); PLATELET COUNT 226 10^3/uL (150-450); RED BLOOD COUNT 3.77 10^6/uL (4.35-5.55); RED CELL DISTRIBUTION WIDTH 13.1 % (11.5-14.0); SEGMENTED NEUTROPHILS % (AUTO) 46.9 % (42-78); TOTAL CELLS COUNTED % (AUTO) 100 %; WHITE BLOOD COUNT 5.7 10^3/uL (4.0-10.5)
[2018-08-21 07:50] LABS: ANION GAP 9 (5-19); BLOOD UREA NITROGEN 9 mg/dL (7-20); CALCIUM 9.6 mg/dL (8.4-10.2); CARBON DIOXIDE 30 mmol/L (22-30); CHLORIDE 99 mmol/L (98-107); GLUCOSE 100 mg/dL (75-110); SODIUM 137.6 mmol/L (137-145)
[2018-08-21] MEDS: INSULIN REG, HUMAN 100 UNIT/ML 3 ML VIAL (PYX) SUBCUT SCH ×4 (08:00→22:26)
--- NOTE | 2018-08-21 08:28 | PROGRESS NOTE E ---
Progress Note NAME: MEG GHOTRA : 1960 AGE: 57Y DATE: 08/21/2018 ROOM: 207 SUBJECTIVE: The patient is currently sitting up in bed. He states that he feels a little better than when he came in. He feels that his redness has improved. The patient denies any nausea, vomiting, diarrhea. No shortness of breath, dizziness, chest pain. No fevers, chills. The patient has been afebrile. Blood pressure has been in a good range and the patient does not voice any other concerns at this time. REVIEW OF SYSTEMS: Rest of review of systems negative. MEDICATIONS: Medications have been reviewed. OBJECTIVE: GENERAL: The patient is a 57-year-old -[place] male who is awake, alert, and oriented to person, place, time, and situation. He is verbal, conversational, does not appear to be in any acute distress. VITAL SIGNS: Temperature is 98.2, pulse 74, respirations 18, blood pressure is 129/74, oxygen saturation is 97% on room air. SKIN: Warm and dry. No rash. Not diaphoretic. HEENT: Pupils equal, round, and reactive to light and accommodation. Conjunctiva is pink. No evidence of JVP. CARDIOVASCULAR SYSTEM: Heart is regular. There is no murmur or rub. CHEST: Clear, symmetrical, unlabored. ABDOMEN: Soft, nontender, nondistended. BACK: No CVA tenderness or sacral edema. EXTREMITIES: No clubbing, cyanosis, edema. PSYCHIATRIC: Appropriate affect, pleasant mood. DIAGNOSTICS: Lab values are as follows: Hematology obtained on 08/21/2018: WBCs are 5.7, hemoglobin is 12.1, hematocrit is 35.3, platelet count is 226,000. Chemistry obtained on 08/21/2018: A1c is 13.6, glucose this morning was 149. Blood cultures obtained on 08/20/2018 are still pending. IMPRESSION AND PLAN: 1. CELLULITIS OF THE LEFT FOOT. The patient continues on vanco and Zosyn. The patient has a previous history of MRSA. Will discuss the case with Dr. Anderson with wound care and follow. 2. UNCONTROLLED DIABETES MELLITUS TYPE 2 NONOBESE. The patient readily admits to noncompliance with this. His A1c is 13.8. I have continued basal dose insulin as well as sliding scale coverage. Glucoses appear in a good range. DISPOSITION: The patient is a FULL CODE. Pending patient's symptomatology and diagnostic findings, will re-evaluate in the a.m. Time spent on this followup including assessment, plan, physical examination, patient education, and review of records is 20 minutes. DICTATING PHYSICIAN: RUBINA JUNG NP [id number] PHY#: [id number] ID: [id number] JOB#: [id number] ACCT: [id number] cc: >
[2018-08-21 09:19] LABS: POTASSIUM 3.6 mmol/L (3.6-5.0)
[2018-08-21] MEDS ORDERED: ENOXAPARIN SODIUM INJ 40 MG/0.4 ML DISP.SYRIN SUBCUT SCH (10:00)
[2018-08-21] MEDS: VANCOMYCIN HCL 1,000 MG in DEXTROSE 5%-WATER 250 ML IV SCH ×2 (10:48→21:34)
--- NOTE | 2018-08-21 16:34 | PDOC PROGRESS REPORT ---
Subjective Progress Note for:: 08/21/18 Subjective:: no c/o Reason For Visit: CELLULITIS WITH DIABETIC ULCER Physical Exam Vital Signs: Temp Pulse Resp BP Pulse Ox 97.9 F 87 16 147/82 H 97 08/21/18 11:15 08/21/18 11:15 08/21/18 11:15 08/21/18 11:15 08/21/18 11:15 Intake & Output 08/20/18 08/21/18 08/22/18 06:59 06:59 06:59 Intake Total 250 Balance 250 Weight 61.9 kg General appearance: PRESENT: no acute distress Musculoskeletal exam: PRESENT: other - Left small digit with large area of necoris and paronichial cellulitis Results Laboratory Results: 08/21/18 06:23 08/21/18 06:23 08/21/18 08/21/18 06:23 06:23 WBC 5.7 RBC 3.77 L Hgb 12.1 L Hct 35.3 L MCV 94 MCH 32.2 MCHC 34.4 RDW 13.1 Plt Count 226 Seg Neutrophils % 46.9 Lymphocytes % 42.3 Monocytes % 6.6 Eosinophils % 3.5 Basophils % 0.7 Absolute Neutrophils 2.7 Absolute Lymphocytes 2.4 Absolute Monocytes 0.4 Absolute Eosinophils 0.2 Absolute Basophils 0.0 Sodium 137.6 Potassium 3.6 D Chloride 99 Carbon Dioxide 30 Anion Gap 9 BUN 9 Creatinine 0.54 Est GFR ( Amer) > 60 Est GFR (Non-Af Amer) > 60 Glucose 100 Calcium 9.6 Magnesium 2.0 Impressions: Foot X-Ray 08/20/18 10:41 IMPRESSION: There is no evidence of osteomyelitis. There is no acute finding. Assessment & Plan - Diagnosis (1) Gangrene of toe of left foot Is this a current diagnosis for this admission?: Yes - Plan Summary Plan Summary: A/ Left foot small toe gangrene with paronechial cellulitis Diabetes LLE sensate P/ Patient offered both options (conservative managment vs. toe amputation): he prefers the toe amputation. Plan: left small toe amputation tomorrow. Procedure, risks, benefits complications explained to family and patient, he understands all the above, his questions were answered and he decides to proceed.
[2018-08-21] MEDS ORDERED: GLUCAGON,HUMAN RECOMB 1 MG INJ SUBCUT PRN (16:35)
[2018-08-21] MEDS ORDERED: DEXTROSE 40% GEL 15 GM TUBE PO PRN ×2 (16:35)
[2018-08-21] MEDS ORDERED: DEXTROSE 50%-WATER 25 GM/50 ML DISP.SYRIN IV PRN ×2 (16:35)
[2018-08-21] MEDS: NORMAL SALINE 1000 ML 1,000 ML IV PRN (20:00)
--- NOTE | 2018-08-21 20:54 | EKG REPORT ---
SEVERITY:- OTHERWISE NORMAL ECG - SINUS RHYTHM BORDERLINE LEFT AXIS DEVIATION : Confirmed by: Ana Luisa Spaulding MD 21-Aug-2018 20:54:23
[2018-08-22] MEDS: PIPERACILLIN SODIUM/TAZOBACTAM 3.375 GM in NORMAL SALINE 100 ML IV SCH ×3 (02:58→22:11)
[2018-08-22] MEDS: NORMAL SALINE 1000 ML 1,000 ML IV PRN (06:01)
[2018-08-22] MEDS: INSULIN REG, HUMAN 100 UNIT/ML 3 ML VIAL (PYX) SUBCUT SCH ×4 (07:53→22:29)
[2018-08-22] MEDS ORDERED: FENTANYL CITRATE INJ/PF 100 MCG/2 ML AMPUL ONE (09:02)
[2018-08-22] MEDS ORDERED: PROPOFOL INJ 200 MG/20 ML VIAL IV ONE (09:02)
[2018-08-22] MEDS ORDERED: MIDAZOLAM 2 MG/2 ML INJ ONE (09:02)
[2018-08-22] MEDS ORDERED: ONDANSETRON HCL INJ/PF 4 MG/2 ML SDV ONE (09:02)
[2018-08-22] MEDS ORDERED: LIDOCAINE 1% INJ-PF (10 MG/ML) 30 ML SDV ONE (09:07)
[2018-08-22] MEDS ORDERED: BUPIVACAINE HCL 0.5 % INJ/PF 30 ML SDV ONE (09:07)
[2018-08-22] MEDS ORDERED: PROMETHAZINE HCL INJ 25 MG/1 ML VIAL IV PRN (09:26)
[2018-08-22] MEDS ORDERED: MEPERIDINE HCL/PF INJ 25 MG/1 ML DISP.SYRIN IV PRN (09:26)
[2018-08-22] MEDS ORDERED: DIPHENHYDRAMINE HCL 50 MG/ML VIAL IV PRN (09:26)
[2018-08-22] MEDS ORDERED: FENTANYL CITRATE INJ/PF 100 MCG/2 ML AMPUL IV PRN ×3 (09:26)
--- NOTE | 2018-08-22 10:29 | Operative Report ---
Nonrecallable Operative Report DATE OF SURGERY: 08/22/18 PREOPERATIVE DIAGNOSIS: ulcerated left small toe POSTOPERATIVE DIAGNOSIS: same OPERATION: left small toe amputation SURGEON: CAMERON HAMMER ANESTHESIA: LMAC - plus 20 mL 1% lidocaine TISSUE REMOVED OR ALTERED: left small toe COMPLICATIONS: none ESTIMATED BLOOD LOSS: none INTRAOPERATIVE FINDINGS: ulcerated > 50% skin surface left small toe PROCEDURE: see dictation
[2018-08-22] MEDS: MORPHINE SULFATE 10 MG/ML INJ IV PRN ×3 (12:26→20:04)
[2018-08-22] MEDS: ENOXAPARIN SODIUM INJ 40 MG/0.4 ML DISP.SYRIN SUBCUT SCH (12:29)
[2018-08-22] MEDS: VANCOMYCIN HCL 1,000 MG in DEXTROSE 5%-WATER 250 ML IV SCH (12:40)
[2018-08-22] MEDS: OXYCODONE-ACETAMINOPHEN 5-325 MG TABLET PO PRN ×2 (13:23→22:12)
--- NOTE | 2018-08-22 13:48 | OPERATIVE REPORT E ---
Operative Report NAME: MEG GHOTRA : 1960 AGE: 57Y DATE OF SURGERY: 08/22/2018 ROOM: 207 PREOPERATIVE DIAGNOSIS: ULCERATION LEFT SMALL TOE. POSTOPERATIVE DIAGNOSIS: ULCERATION LEFT SMALL TOE. OPERATION: AMPUTATION LEFT SMALL TOE. SURGEON: CAMERON HAMMER M.D. DRYING ROOM OPERATOR: None. ESTIMATED BLOOD LOSS: None. COMPLICATIONS: None. ANESTHESIA: IV sedation plus 30 mL of 1% lidocaine without epinephrine. FLUIDS: 800 mL TOURNIQUET TIME: 25 minutes. INDICATION/FINDINGS: This 57-year-old male with diabetes presented to the hospital complaining of left foot pain and found to have an ulcerated left small toe. On physical exam, there was no cellulitis; however, a large skin ulceration was covering more than 50% of the lateral aspect of the left small toe, and the patient was given the option to treat the area conservatively or to amputate it, and he decided to undergo amputation of the left small toe. PROCEDURE: The procedure was done in the operating room. The patient was placed in a supine position and IV sedation provided by the anesthesiologist via MAC. The left foot and leg were prepped and draped in the usual fashion. Turniquet was placed in the proximal left calf. The base of the left small toe was marked with a surgical marker to outline the line of incision. The foot was then exsanguinated with Esmarch bandage, and the tourniquet pressure was increased to 250 mmHg. The area was infiltrated with 1% lidocaine without epinephrine, and using a 15 blade following the surgical marker tracing, the toe was amputated. The tendons were divided and specimen was then removed from the surgical field and sent to Pathology. Using a periosteum elevator, the distal head of the 5th metatarsal bone was trimmed and removed with a rongeur. The cartilage was removed and the surface was smoothed with the rongeur as well. The edges of the skin were then approximated with deep inverted interrupted 2-0 Vicryl sutures. The skin was closed with interrupted mattress 3-0 Nylon sutures. Xeroform gauze, sterile dressings, ABDs, Kerlix, and Scooby bandage applied. The patient tolerated the procedure well and transferred to the recovery room in satisfactory condition. DICTATING PHYSICIAN: CAMERON HAMMER M.D. [id number] PHY#: [id number] ID: [id number] JOB#: [id number] ACCT: [id number] cc:CAMERON HAMMER M.D. > JONI
--- NOTE | 2018-08-22 16:18 | PROGRESS NOTE E ---
Progress Note NAME: MEG GHOTRA : 1960 AGE: 57Y DATE: 08/22/2018 ROOM: 207 SUBJECTIVE: The patient is to go to the OR today. Patient apparently has had some pain in the toe every night. The patient has had no reported episodes of vomiting nor diarrhea. He has been afebrile. Blood pressure has been in good range. The patient does not voice any specific concerns at this time. REVIEW OF SYSTEMS: The rest of the review of systems is negative. MEDICATIONS: Reviewed. OBJECTIVE: GENERAL: The patient is a 57-year-old -[place] male who is awake, alert. He is oriented to person, place, time and situation. He is verbal and conversational. Does not appear to be in distress. VITAL SIGNS: Temperature is 97.6, pulse 66, respirations 12, blood pressure is 101/63, oxygen saturation is 97% on room air. SKIN: Warm and dry. No rash. He is not diaphoretic. HEENT: Pupils equal, round, reactive to light and accommodation. Conjunctivae are pink. No evidence of JVP. HEART: Regular. No rub. CHEST: Clear, symmetrical, unlabored. ABDOMEN: Soft, nontender. EXTREMITIES: No edema. PSYCHIATRIC: Appropriate affect. Pleasant mood. DIAGNOSTICS: Lab values are as follows: Hematology obtained on 08/21/2018: WBCs are 5.7, hemoglobin is 12.1, hematocrit is 35.3, platelet count is 226,000. Chemistry obtained on 08/21/2018: Sodium is 137, potassium is 3.6, chloride is 99, carbon dioxide is 30, BUN 9, creatinine is 0.54, glucose 100. Calcium is 9.6. Magnesium is 2.0. Blood cultures obtained on 08/20/2018 revealed no growth. Wound cultures obtained on 08/21/2018 reveals gram-positive cocci in clusters. IMPRESSION AND PLAN: 1. CELLULIITS OF THE LEFT FOOT. The patient is to go to the OR today for amputation. Will continue MRSA coverage and follow. 2. UNCONTROLLED DIABETES MELLITUS, TYPE 2, IN THE NON-OBESE. The patient readily admits to noncompliance. Have resumed a basal dose of insulin and will continue with sliding scale coverage. DISPOSITION: The patient is a FULL CODE. Pending patient's symptomatology and diagnostic findings, will reevaluate in the a.m. Time spent on this followup, including assessment, plan, physical examination, patient education and review of records is 15 minutes. DICTATING PHYSICIAN: RUBINA JUNG NP [id number] PHY#: [id number] ID: [id number] JOB#: [id number] ACCT: [id number] cc: >
[2018-08-22] MEDS: VANCOMYCIN HCL 750 MG in DEXTROSE 5%-WATER 250 ML IV SCH (22:46)
[2018-08-23] MEDS: NORMAL SALINE 1000 ML 1,000 ML IV PRN (04:48)
[2018-08-23] MEDS: PIPERACILLIN SODIUM/TAZOBACTAM 3.375 GM in NORMAL SALINE 100 ML IV SCH ×2 (06:22→13:53)
[2018-08-23 06:24] LABS: HEMATOCRIT 31.4 % (37.9-51.0); HEMOGLOBIN 10.8 g/dL (13.5-17.0); MEAN CORPUSCULAR HEMOGLOBIN 32.8 pg (27.0-33.4); MEAN CORPUSCULAR HGB CONC 34.5 g/dL (32.0-36.0); MEAN CORPUSCULAR VOLUME 95 fl (80-97); PLATELET COUNT 234 10^3/uL (150-450); RED CELL DISTRIBUTION WIDTH 13.6 % (11.5-14.0); WHITE BLOOD COUNT 7.4 10^3/uL (4.0-10.5)
[2018-08-23] MEDS: VANCOMYCIN HCL 750 MG in DEXTROSE 5%-WATER 250 ML IV SCH ×3 (06:58→23:24)
[2018-08-23 06:59] LABS: ANION GAP 5 (5-19); BLOOD UREA NITROGEN 6 mg/dL (7-20); CALCIUM 8.6 mg/dL (8.4-10.2); CARBON DIOXIDE 27 mmol/L (22-30); CHLORIDE 103 mmol/L (98-107); GLUCOSE 158 mg/dL (75-110); POTASSIUM 3.9 mmol/L (3.6-5.0); SODIUM 135.3 mmol/L (137-145)
--- NOTE | 2018-08-23 07:57 | PDOC PROGRESS REPORT ---
Subjective Progress Note for:: 08/23/18 Subjective:: no c/o, comfortable Reason For Visit: CELLULITIS WITH DIABETIC ULCER Physical Exam Vital Signs: Temp Pulse Resp BP Pulse Ox 98.5 F 81 14 106/64 100 08/23/18 04:36 08/23/18 04:36 08/23/18 04:36 08/23/18 04:36 08/23/18 04:36 Intake & Output 08/22/18 08/23/18 08/24/18 05:59 06:59 06:59 Intake Total Output Total Balance Weight General appearance: PRESENT: no acute distress Extremities exam: PRESENT: other - LLE= foot ampoutation site C/D/I, no odor or drainage Results Laboratory Results: 08/23/18 05:04 08/23/18 05:04 08/23/18 08/23/18 05:04 05:04 WBC 7.4 RBC 3.30 L Hgb 10.8 L Hct 31.4 L MCV 95 MCH 32.8 MCHC 34.5 RDW 13.6 Plt Count 234 Sodium 135.3 L Potassium 3.9 Chloride 103 Carbon Dioxide 27 Anion Gap 5 BUN 6 L Creatinine 0.57 Est GFR ( Amer) > 60 Est GFR (Non-Af Amer) > 60 Glucose 158 H Calcium 8.6 Magnesium 1.8 Impressions: Foot X-Ray 08/20/18 10:41 IMPRESSION: There is no evidence of osteomyelitis. There is no acute finding. Assessment & Plan - Diagnosis (1) Gangrene of toe of left foot Is this a current diagnosis for this admission?: Yes - Plan Summary Plan Summary: A/ POD#1 after amoutation left small toe VSS, AF wound exam reveals surgical site C/D/I CBC with low H/H most likely dilutional P/ Stop IVF Stop IV narcotics Add Toradol oral Daily dressing changes PT to see patient for walker or wheelchair today Continue Bedrest No weight bearing on left foot allowed x 6 weeks
[2018-08-23] MEDS: OXYCODONE-ACETAMINOPHEN 5-325 MG TABLET PO PRN ×2 (08:37→17:28)
[2018-08-23] MEDS: INSULIN REG, HUMAN 100 UNIT/ML 3 ML VIAL (PYX) SUBCUT SCH ×4 (08:37→23:23)
[2018-08-23] MEDS: ENOXAPARIN SODIUM INJ 40 MG/0.4 ML DISP.SYRIN SUBCUT SCH (09:54)
[2018-08-23] MEDS: INSULIN GLARGINE,HUM.REC.ANLOG 300 UNIT/3 ML INSULN.PEN SUBCUT SCH (13:03)
--- NOTE | 2018-08-23 15:28 | PROGRESS NOTE E ---
Progress Note NAME: MEG GHOTRA : 1960 AGE: 57Y DATE: 08/23/2018 ROOM: 207 SUBJECTIVE: The patient is lying in bed. He states that he is sleepy today. His pain has been relatively well-controlled. Patient is postoperative day #1 from diabetic toe removal. The patient denies any nausea, vomiting, diarrhea. No shortness of breath, dizziness, chest pain. No fevers or chills. Patient has been afebrile. Blood pressure has been in good range. Patient does not voice any other concerns at this time. BRIEF HISTORY: Patient is a 57-year-old -Af[place] male that presented to the hospital with a wound of his left toe. The patient was seen by Surgery and was actually taken to the OR on 08/22/2018. The patient was covered in the interim with broad spectrum antibiotic coverage. The patient still has a pending intraoperative culture of gram-positive cocci. I have scaled antibiotics back, but will continue vancomycin until this is finalized. The patient may be able to discontinue antibiotics altogether, but just waiting to see what this reveals. REVIEW OF SYSTEMS: The rest of the review of systems is negative. MEDICATIONS: Reviewed. OBJECTIVE: GENERAL: The patient is a 57-year-old -[place] male who is awake, alert and oriented to person, place, time and situation. He is verbal and conversational. Does not appear to be in any acute distress. VITAL SIGNS: Temperature is 98.4, pulse is 99, respirations 16, blood pressure 124/69, oxygen saturation 95% on room air. SKIN: Warm and dry. No rash. Not diaphoretic. HEENT: Pupils equal, round, reactive to light and accommodation. Conjunctivae pink. No evidence of JVP. CVS: Heart is regular. No murmurs or rubs. CHEST: Symmetrical, unlabored. ABDOMEN: Nondistended. EXTREMITIES: No edema. Lower extremity is wrapped in appropriate dressing. DIAGNOSTICS: Lab values are as follows: Hematology obtained on 08/23/2018: WBCs are 9.4, hemoglobin is 10.9, hematocrit is 41.4, platelet count is 234,000. Chemistry obtained on 08/23/2018: Sodium is 135, potassium 3.9, chloride is 103, carbon dioxide 27, BUN 6, creatinine is 0.57, glucose 158, calcium is 8.6, magnesium is 1.8. IMPRESSION AND PLAN: 1. CELLULITIS OF THE LEFT FOOT. This does appear to be resolved. The patient is status post amputation day #1 of toes. Do appreciate Surgical help with this. The patient has a history of MRSA; therefore, will continue vanc until his culture is finalized. 2. UNCONTROLLED DIABETES MELLITUS TYPE 2 IN THE NON-OBESE. The patient readily admits to noncompliance. Have resumed his basal insulin and continue sliding scale coverage. DISPOSITION: The patient is a FULL CODE. Pending patient's symptomatology and diagnostic findings, will reevaluate in the a.m. Time spent on this followup, including assessment, plan, physical examination and patient education, is 20 minutes. DICTATING PHYSICIAN: RUBINA JUNG NP [id number] PHY#: [id number] ID: [id number] JOB#: [id number] ACCT: [id number] cc: >
[2018-08-23] MEDS: KETOROLAC TROMETHAMINE 10 MG TABLET PO PRN (16:06)
[2018-08-23 21:59] LABS: VANCOMYCIN,TROUGH 11.1 ug/mL (5.0-20.0)
[2018-08-24] MEDS: KETOROLAC TROMETHAMINE 10 MG TABLET PO PRN ×2 (00:35→10:17)
[2018-08-24] MEDS: OXYCODONE-ACETAMINOPHEN 5-325 MG TABLET PO PRN ×4 (01:57→22:20)
[2018-08-24] MEDS: VANCOMYCIN HCL 750 MG in DEXTROSE 5%-WATER 250 ML IV SCH ×3 (06:44→22:19)
[2018-08-24] MEDS: INSULIN REG, HUMAN 100 UNIT/ML 3 ML VIAL (PYX) SUBCUT SCH ×4 (08:01→22:24)
[2018-08-24] MEDS: ENOXAPARIN SODIUM INJ 40 MG/0.4 ML DISP.SYRIN SUBCUT SCH (10:17)
[2018-08-24] MEDS: INSULIN GLARGINE,HUM.REC.ANLOG 300 UNIT/3 ML INSULN.PEN SUBCUT SCH (10:17)
[2018-08-24] MEDS ORDERED: OXYCODONE-ACETAMINOPHEN 5-325 MG TABLET PO PRN ×2 (12:37→13:26)
--- NOTE | 2018-08-24 15:14 | PDOC PROGRESS REPORT ---
Subjective Progress Note for:: 08/24/18 Subjective:: 57 y.o. M with a PMH of HTN, DM, arthritis, hiatal hernia presents to [facility] with an ulcer on his 5th L toe. The patient readily admits to noncompliance with his HTN and DM medications. Following evaluation by surgery, the patient was taken to the OR on 08/22 for a toe amputation. Patient was seen this afternoon on rounds, he is resting comfortably in bed on room air. He endorses a moderate amount of pain to the left foot and surgical site. Patient states that IV Toradol does not offer any pain relief and the 1 tab of percocet is not enough. On exam, the L foot is pink, warm, dry. The surgical site is free of drainage, erythema or edema. +2 DP and PT pulses. Continue IV abx. NWB L foot. Will increase Percocet to 2 tablets. Reason For Visit: CELLULITIS WITH DIABETIC ULCER Physical Exam Vital Signs: Temp Pulse Resp BP Pulse Ox 97.8 F 71 16 140/73 H 99 08/24/18 11:14 08/24/18 11:14 08/24/18 11:14 08/24/18 11:14 08/24/18 11:14 Intake & Output 08/23/18 08/24/18 08/25/18 06:59 06:59 06:59 Intake Total 2190 500 Output Total 3075 650 Balance -885 -150 Weight 65.7 kg General appearance: PRESENT: thin Eye exam: PRESENT: conjunctiva pink, PERRLA Mouth exam: PRESENT: moist Teeth exam: PRESENT: poor dentation Neck exam: PRESENT: full ROM Respiratory exam: PRESENT: clear to auscultation nora, symmetrical, unlabored Cardiovascular exam: PRESENT: +S1, +S2 Pulses: PRESENT: normal radial pulses, normal dorsalis pedis pul Vascular exam: PRESENT: normal capillary refill GI/Abdominal exam: PRESENT: soft. ABSENT: distended, tenderness Rectal exam: PRESENT: deferred Extremities exam: PRESENT: full ROM. ABSENT: pedal edema Musculoskeletal exam: PRESENT: ambulatory, full ROM, tenderness - around the surgical site on L foot. ABSENT: normal inspection Neurological exam: PRESENT: alert, awake, oriented to person, oriented to place, oriented to time, oriented to situation Psychiatric exam: PRESENT: appropriate affect Skin exam: PRESENT: dry, intact, normal color Results Laboratory Results: 08/23/18 05:04 08/23/18 21:20 08/23/18 21:20 Creatinine 0.75 Est GFR ( Amer) > 60 Est GFR (Non-Af Amer) > 60 08/21/18 08:17 Toe - Diabetic Ulcer Gram Stain - Final 08/21/18 08:17 Toe - Diabetic Ulcer Wound Culture - Final Staphylococcus Aureus Impressions: Foot X-Ray 08/20/18 10:41 IMPRESSION: There is no evidence of osteomyelitis. There is no acute finding. Status: Imported from PACS Assessment & Plan - Diagnosis (1) Gangrene of toe of left foot Is this a current diagnosis for this admission?: Yes Plan: POD # 2 L 5th toe amputation Cellulitis appears to be resolved Surgical site is C/D/I Continue IV vancomycin 1-2 tablets of Percocet as needed Toradol IV as needed (2) Cellulitis Qualifiers: Site of cellulitis of extremity: lower extremity Laterality: left Is this a current diagnosis for this admission?: Yes Plan: Improved Status post amputation of left fifth toe Wound culture positive for staph aureus Continue IV vancomycin Vancomycin REGINALD 1 = good antibiotic coverage/penetration (3) Diabetes type 2, uncontrolled Qualifiers: Glycemic state: with hyperglycemia Qualified Code(s): E11.65 - Type 2 diabetes mellitus with hyperglycemia Is this a current diagnosis for this admission?: Yes Plan: Non-compliant Hgb A1c 13% Continue basal insulin and sliding scale coverage We will have childbirth educator meet with patient prior to discharge - Time Time Spent with patient: 15-24 minutes Medications reviewed and adjusted accordingly: Yes Anticipated discharge: Home - Inpatient Certification Based on my medical assessment, after consideration of the patient's comorbidities, presenting symptoms, or acuity I expect that the services needed warrant INPATIENT care.: Yes I certify that my determination is in accordance with my understanding of Medicare's requirements for reasonable and necessary INPATIENT services [42 CFR 412.3e].: Yes Medical Necessity: Need for IV Antibiotics, Risk of Complication if Not Cared For in Hospital
--- NOTE | 2018-08-24 16:14 | PDOC PROGRESS REPORT ---
Subjective Progress Note for:: 08/24/18 Subjective:: Patient has no complaints; states his uncle recently and needs to get to [place] for . Reason For Visit: CELLULITIS WITH DIABETIC ULCER Physical Exam Vital Signs: Temp Pulse Resp BP Pulse Ox 97.8 F 71 16 140/73 H 99 08/24/18 11:14 08/24/18 11:14 08/24/18 11:14 08/24/18 11:14 08/24/18 11:14 Intake & Output 08/23/18 08/24/18 08/25/18 06:59 06:59 06:59 Intake Total 2190 500 Output Total 3075 650 Balance -885 -150 Weight 65.7 kg General appearance: PRESENT: no acute distress Extremities exam: PRESENT: other - Dressing removed, sutures intact; minimal erythema dorsal surface left foot. No edema no foul smell. Results Laboratory Results: 08/23/18 05:04 08/23/18 21:20 08/23/18 21:20 Creatinine 0.75 Est GFR ( Amer) > 60 Est GFR (Non-Af Amer) > 60 08/21/18 08:17 Toe - Diabetic Ulcer Gram Stain - Final 08/21/18 08:17 Toe - Diabetic Ulcer Wound Culture - Final Staphylococcus Aureus Impressions: Foot X-Ray 08/20/18 10:41 IMPRESSION: There is no evidence of osteomyelitis. There is no acute finding. Assessment & Plan - Diagnosis (1) Gangrene of toe of left foot Is this a current diagnosis for this admission?: Yes Plan: Impression: Second postoperative day, doing well, no complications thus far. On appropriate intravenous vancomycin for staph aureus infection left foot. Recommendations: 1. Continue intravenous antibiotics for another 24 hours but then convert to p.o. if clinically appropriate 2. Keep leg elevated at all times 3. Dressing change including Xeroform and 4 x 4's 4. Surgical sandal ordered 5. Will sign off; have patient follow-up with [facility] in 1 week
[2018-08-25] MEDS: OXYCODONE-ACETAMINOPHEN 5-325 MG TABLET PO PRN ×2 (04:38→10:27)
[2018-08-25] MEDS: VANCOMYCIN HCL 750 MG in DEXTROSE 5%-WATER 250 ML IV SCH (05:53)
[2018-08-25] MEDS: INSULIN REG, HUMAN 100 UNIT/ML 3 ML VIAL (PYX) SUBCUT SCH ×2 (08:29→13:07)
[2018-08-25] MEDS: INSULIN GLARGINE,HUM.REC.ANLOG 300 UNIT/3 ML INSULN.PEN SUBCUT SCH (10:27)
[2018-08-25] MEDS: ENOXAPARIN SODIUM INJ 40 MG/0.4 ML DISP.SYRIN SUBCUT SCH (10:29)
[2018-08-25] MEDS ORDERED: CLINDAMYCIN HCL 150 MG CAPSULE PO SCH (14:00)
[2018-08-25 15:56] VITALS: BP 130/75
--- NOTE | 2018-08-25 17:21 | PDOC DISCHARGE SUMMARY ---
General - Admit/Disc Date/PCP Admission Date/Primary Care Provider: 08/20/18 14:39 Discharge Date: 08/25/18 - Discharge Diagnosis (1) Cellulitis Is this a current diagnosis for this admission?: Yes Summary: Resolved; secondary to gangrene of left fifth toe. Now status post amputation. Blood cultures positive first pansensitive staph aureus. Blood cultures negative at 5 days. He was initially treated with IV vancomycin; have transition to p.o. clindamycin based on wound culture sensitivities. He is provided a prescription for clindamycin 300 mg every 8 hours x10 days. He is advised to follow-up with his primary care provider and with the [facility] within 1 week. He is instructed on the importance of maintaining appropriate glucose control. (2) Diabetes type 2, uncontrolled Is this a current diagnosis for this admission?: Yes Summary: Hgb A1c 13%; secondary to noncompliance. He is strongly encouraged to follow diabetic diet and to take his insulin as prescribed. He was provided opportunity meet with a environmental educator. At discharge, the patient is provided prescriptions for glucometer, test strips, lancets, Lantus 20 units daily, and sliding scale NovoLog. He is advised to follow-up with his primary care provider within 1 week. He is instructed to check his blood sugar before meals and at bedtime, keep a log, and present this to his PCP at follow-up appointment. (3) Gangrene of toe of left foot Is this a current diagnosis for this admission?: Yes Summary: Postop day #3 left fifth toe amputation. Cellulitis at the site appears to have resolved. Surgical site is clean dry and intact. Appreciate surgery's assistance; request the patient to follow-up at the [facility] in 1 week. He is provided a prescription for clindamycin 300 mg every 8 hours x10 days. He is provided prescriptions for Percocet and p.o. Toradol as needed for pain control. - Additional Information Resuscitation Status: Full Code Discharge Diet: Diabetic Discharge Activity: Activity As Tolerated, Balance Activity w/Rest Prescriptions: Blood Sugar Diagnostic [Blood Glucose Test] 1 each ACHS #120 strip Blood-Glucose Meter [Blood Glucose Meter] 1 unit ACHS #1 unit Clindamycin HCl [Cleocin 150 mg Capsule] 300 mg PO Q8 #30 capsule Insulin Glargine,Hum.rec.anlog [Lantus Insulin 100 Unit/mL] 20 unit SUBCUT DAILY #1 insuln.pen Insulin Aspart [Novolog Flexpen] 0 - 12 unit SUBCUT .SLD SCALE #1 pen Ketorolac Tromethamine [Toradol 10 mg Tablet] 10 mg PO Q8HP PRN #21 tablet PRN Reason: Lancets [Blood Lancets] 1 each ACHS #120 each Oxycodone HCl/Acetaminophen [Percocet 5-325 mg Tablet] 1 - 2 tab PO Q6HP PRN #24 tablet PRN Reason: For Pain Pen Needle, Diabetic [1St Tier Unifine Pentips Plus] 1 each ACHS #100 dis.needle Home Medications: Acetaminophen [Tylenol 325 mg Tablet] 650 mg PO Q4HP PRN tablet 08/25/18 Blood Sugar Diagnostic [Blood Glucose Test] 1 each ACHS #120 strip 08/25/18 Blood-Glucose Meter [Blood Glucose Meter] 1 unit ACHS #1 unit 08/25/18 Clindamycin HCl [Cleocin 150 mg Capsule] 300 mg PO Q8 #30 capsule 08/25/18 Insulin Aspart [Novolog Flexpen] 0 - 12 unit SUBCUT .SLD SCALE #1 pen 08/25/18 Insulin Glargine,Hum.rec.anlog [Lantus Insulin 100 Unit/mL] 20 unit SUBCUT DAILY #1 insuln.pen 08/25/18 Ketorolac Tromethamine [Toradol 10 mg Tablet] 10 mg PO Q8HP PRN #21 tablet 08/25/18 Lancets [Blood Lancets] 1 each ACHS #120 each 08/25/18 Oxycodone HCl/Acetaminophen [Percocet 5-325 mg Tablet] 1 - 2 tab PO Q6HP PRN #24 tablet 08/25/18 Pen Needle, Diabetic [1St Tier Unifine Pentips Plus] 1 each ACHS #100 dis.needle 08/25/18 History of Present Illness History of Present Illness: Per H&P by Lewis Hudson PA-C:MEG GHOTRA is a 57 year old male presents to the ER with a complaint of foot pain and redness he states started approximately 3-4 days ago and has been getting progressively worse. When he woke this morning he noticed that the swelling and redness had moved from his left little toe to the fourth toe. He states he is having some pain from the area. He denies any drainage. Denies any fevers chills nausea vomiting constipation diarrhea. His previous PCP was located in [place] and he stated that was too far to travel. He has not been back to see his PCP in the last 2 months. Also states that his home blood sugars have been running over 300 for the past several days. Physical Exam Vital Signs: Temp Pulse Resp BP Pulse Ox 97.5 F 74 15 130/75 H 98 08/25/18 15:53 08/25/18 15:53 08/25/18 15:53 08/25/18 15:53 08/25/18 15:53 Intake & Output 08/24/18 08/25/18 08/26/18 06:59 06:59 06:59 Intake Total 2190 1000 250 Output Total 3075 900 700 Balance -885 100 -450 Weight 65.7 kg 65.8 kg General appearance: PRESENT: no acute distress, cooperative, well-developed, well-nourished Head exam: PRESENT: atraumatic, normocephalic Eye exam: PRESENT: conjunctiva pink, EOMI, PERRLA. ABSENT: scleral icterus Mouth exam: PRESENT: moist, tongue midline Teeth exam: PRESENT: poor dentation Neck exam: ABSENT: carotid bruit, JVD, lymphadenopathy, thyromegaly Respiratory exam: PRESENT: clear to auscultation nora, symmetrical, unlabored. ABSENT: rales, rhonchi, wheezes Cardiovascular exam: PRESENT: RRR. ABSENT: diastolic murmur, rubs, systolic murmur Pulses: PRESENT: normal dorsalis pedis pul Vascular exam: PRESENT: normal capillary refill GI/Abdominal exam: PRESENT: normal bowel sounds, soft. ABSENT: distended, guarding, mass, organolmegaly, rebound, tenderness Rectal exam: PRESENT: deferred Extremities exam: PRESENT: full ROM. ABSENT: calf tenderness, clubbing, pedal edema Musculoskeletal exam: PRESENT: ambulatory - With crutches Neurological exam: PRESENT: alert, awake, oriented to person, oriented to place, oriented to time, oriented to situation, CN II-XII grossly intact. ABSENT: motor sensory deficit Psychiatric exam: PRESENT: appropriate affect, normal mood. ABSENT: homicidal ideation, suicidal ideation Skin exam: PRESENT: dry, warm, other - Amputation of left fifth toe; cellulitis is resolved, surgical incision clean dry and intact. ABSENT: cyanosis, rash Results Laboratory Results: 08/23/18 05:04 08/23/18 21:20 08/20/18 12:35 Blood Blood Culture - Final NO GROWTH IN 5 DAYS 08/20/18 11:02 Blood Blood Culture - Final NO GROWTH IN 5 DAYS Impressions: Foot X-Ray 08/20/18 10:41 IMPRESSION: There is no evidence of osteomyelitis. There is no acute finding. Qualifiers - * PATIENT BEING DISCHARGED WITH ANY OF THE FOLLOWING DIAGNOSIS: No Plan Discharge Plan: Patient is discharged home with self-care. Follow-up with primary care provider within 1 week. Follow-up with the [facility] in 1 week. Continue Clindamycin x10 days. Return to the emergency department as needed for any concerning symptoms. Time Spent: Greater than 30 Minutes
== END 2018-08-25 16:10 | disposition home or self-care (01) | DRG 617 ==
LOC: ER 09:36 → EH 14:39 → 2N 22:30
PROVIDERS: ADMIT Internal Medicine; ATTEND Internal Medicine
PROC: 0Y6Y0Z3 Detachment at Left 5th Toe, Low, Open Approach (ICD-10-PCS; principal; 2018-08-22 09:00)
DX: E11.628 Type 2 diabetes mellitus with other skin complications (principal); E11.52 Type 2 diabetes mellitus with diabetic peripheral angiopathy with gangrene; I96 Gangrene, not elsewhere classified; L03.032 Cellulitis of left toe; E11.65 Type 2 diabetes mellitus with hyperglycemia; I10 Essential (primary) hypertension; K44.9 Diaphragmatic hernia without obstruction or gangrene; B95.61 Methicillin susceptible Staphylococcus aureus infection as the cause of diseases classified elsewhere; F17.210 Nicotine dependence, cigarettes, uncomplicated; Z91.19 Patient's noncompliance with other medical treatment and regimen
CPT/HCPCS: 01480; 36415; 80048; 80053; 80202; 82565; 82962; 83036; 83735; 85025; 85027; 86140; 87040; 87070; 87077; 87186; 87205; 88305; 93005; 93010; 96365; 96368; 99284; J1650; J1815; J2250; J2270; J2405; J2543; J2704; J3010; J3370; J3490; J7030; J7060

== ENCOUNTER 2018-11-11 09:32 | Emergency (ER) | payer MEDICARE ==
--- NOTE | 2018-11-11 10:54 | ER Document Report ---
HPI - HPI Patient complains to provider of: left foot pain Time Seen by Provider: 11/11/18 10:44 Onset: Other - 3 days ago Quality of pain: Throbbing Severity: Severe Pain Level: 4 Context: Patient presents emergency department with complaints of left foot pain. Patient reports approximately 3 days ago he was walking with his sandals on in the complex around his house and stepped on a screw. He reports the screw did puncture his skin. Patient is a diabetic. He reports now feels like he is got a toothache in the foot. Denies other symptoms such as fever vomiting diarrhea. Patient reports his left fifth digit toe was amputated 3 months ago due to his his diabetes. He reports the scab is gone but now it is back. He was supposed to meet with Dr. Anderson this morning but Dr. Anderson is unavailable. Patient is asking for something for pain, Ultram. Reports he is taking that in the past Associated Symptoms: None Exacerbated by: Walking Relieved by: Denies Similar symptoms previously: No Recently seen / treated by doctor: No - DERM Skin Color: Normal Past Medical History - General Information source: Patient - Social History Smoking Status: Current Some Day Smoker Cigarette use (# per day): Yes Frequency of alcohol use: None Drug Abuse: None Family History: None. denies: Arthritis, CAD, COPD, CVA, DM, Hyperlipidemia, Hypertension, Malignancy, Thyroid Disfunction Patient has suicidal ideation: No Patient has homicidal ideation: No - Past Medical History Cardiac Medical History: Reports: Hx Hypertension Endocrine Medical History: Reports: Hx Diabetes Mellitus Type 2 Renal/ Medical History: Denies: Hx Peritoneal Dialysis GI Medical History: Reports: Hx Hiatal Hernia Musculoskeletal Medical History: Reports Hx Arthritis, Reports Hx Musculoskeletal Deformity, Reports Hx Musculoskeletal Trauma Skin Medical History: Reports Hx Cellulitis Past Surgical History: Reports: Hx Abdominal Surgery - hiatal hernia repair, Hx Orthopedic Surgery - l4-l5 w/ hardware, 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, Other - Ventral hernia repair in the past - Immunizations Hx Diphtheria, Pertussis, Tetanus Vaccination: Yes Vertical Provider Document - CONSTITUTIONAL Agree With Documented VS: Yes Exam Limitations: No Limitations General Appearance: WD/WN, No Apparent Distress - INFECTION CONTROL TRAVEL OUTSIDE OF THE [place] IN LAST 30 DAYS: No - HEENT HEENT: Atraumatic, Normocephalic - NECK Neck: Supple - RESPIRATORY Respiratory: No Respiratory Distress - CARDIOVASCULAR Cardiovascular: Regular Rate - MUSCULOSKELETAL/EXTREMETIES Musculoskeletal/Extremeties: MAEW, Tender - Left plantar foot distally laterally with reports of pain. No erythema no warmth no swelling no obvious deformity healing scab noted over amputated area - NEURO Level of Consciousness: Awake, Alert, Appropriate Course - Re-evaluation Re-evalutation: 11/11/18 10:58 Appointment obtained for patient tomorrow at 315 with the surgical clinic. 11/11/18 12:[address] hart regarding radiology read of possible osteomyelitis. Patient is stable vital signs stable, patient is safe to follow-up with his appointment tomorrow at 315. Patient informed of all results. He verbalized understanding to the importance of follow-up with the surgical clinic tomorrow at 315. Dictation of this chart was performed using voice recognition software; therefore, there may be some unintended grammatical errors. - Vital Signs Vital signs: Temp Pulse Resp BP Pulse Ox 98.4 F 91 16 124/76 96 11/11/18 09:44 11/11/18 09:44 11/11/18 09:44 11/11/18 09:44 11/11/18 09:44 - Diagnostic Test Radiology reviewed: Image reviewed, Reports reviewed - EXAM DESCRIPTION: FOOT LEFT COMPLETE COMPLETED DATE/TIME: 11/11/2018 11:43 am REASON FOR STUDY: stepped on screw, pain, COMPARISON: None. NUMBER OF VIEWS: Three views. TECHNIQUE: AP, lateral and oblique radiographic images acquired of the left foot. LIMITATIONS: None. FINDINGS: MINERALIZATION: Normal. BONES: Prior amputation of the 5th digit at the level of the metatarsal head. There is slight irregularity of the distal metatarsals. Osteomyelitis in the differential. JOINTS: No effusions. SOFT TISSUES: No soft tissue swelling. No foreign body. OTHER: No other significant finding. IMPRESSION: No foreign body at the site of acute injury. Irregular changes of the distal 5th metatarsal worrisome for osteomyelitis. Discharge - Discharge Clinical Impression: Puncture wound of left foot Condition: Stable Disposition: HOME, SELF-CARE Instructions: Cephalexin ([facility]), Puncture Wound ([facility]), Ultram ([facility]) Additional Instructions: *You have been treated for a foot puncture wound *Take medication as prescribed *Monitor the site for signs of infection such as increasing pain, redness, swelling, warmth *keep your foot clean, wear good supporting foot wear *Follow up with the [facility] tomorrow November 12 at 3:15 pm *Return to ED for signs of infection, worsening condition, changes, needs Prescriptions: Cephalexin Monohydrate [Keflex 500 mg Capsule] 500 mg PO QID #20 capsule Tramadol HCl [Ultram 50 mg Tablet] 50 mg PO Q6H PRN #10 tablet PRN Reason: Referrals: [facility] [Provider Group] - 11/12/18 3:15 pm
--- NOTE | 2018-11-11 12:11 | RADIOLOGY REPORT (SQ) ---
EXAM DESCRIPTION: FOOT LEFT COMPLETE COMPLETED DATE/TIME: 11/11/2018 11:43 am REASON FOR STUDY: stepped on screw, pain, COMPARISON: None. NUMBER OF VIEWS: Three views. TECHNIQUE: AP, lateral and oblique radiographic images acquired of the left foot. LIMITATIONS: None. FINDINGS: MINERALIZATION: Normal. BONES: Prior amputation of the 5th digit at the level of the metatarsal head. There is slight irregu larity of the distal metatarsals. Osteomyelitis in the differential. JOINTS: No effusions. SOFT TISSUES: No soft tissue swelling. No foreign body. OTHER: No other significant finding. IMPRESSION: No foreign body at the site of acute injury. Irregular changes of the distal 5th metatarsal worrisome for osteomyelitis. TECHNICAL DOCUMENTATION: JOB ID: [id number] [employer]- All Rights Reserved Reading location - IP/workstation name: [email or web address]
[2018-11-11 12:25] VITALS: BP 123/76
== END 2018-11-11 12:29 | disposition home or self-care (01) ==
LOC: ER 09:32
DX: S91.332A Puncture wound without foreign body, left foot, initial encounter (principal); M79.672 Pain in left foot; W27.8XXA Contact with other nonpowered hand tool, initial encounter; E11.9 Type 2 diabetes mellitus without complications; I10 Essential (primary) hypertension; F17.210 Nicotine dependence, cigarettes, uncomplicated; Z89.422 Acquired absence of other left toe(s)
CPT/HCPCS: 99283

== ENCOUNTER 2018-11-20 16:14 | Observation (INO) | payer MEDICARE ==
[2018-11-20] MEDS ORDERED: RINGERS SOLUTION,LACTATED 1,000 ML IV ONE (17:12)
[2018-11-20] MEDS ORDERED: ONDANSETRON HCL INJ/PF 4 MG/2 ML SDV IV ONE (17:13)
--- NOTE | 2018-11-20 17:17 | ER Document Report ---
ED Medical Screen (RME) - General Chief Complaint: Nausea/Vomiting Stated Complaint: NAUSEA/VOMITING Time Seen by Provider: 11/20/18 17:12 Primary Care Provider: JEANCARLOS DALTON MD [Primary Care Provider] - Follow up as needed Notes: Patient is a 58-year-old male history of diabetes presents to the emergency department for nausea, vomiting, generalized abdominal pain. EMS reports a blood sugar of 305. EMS gave the patient 4 mg of IV Zofran and 50 mg of IV Benadryl. Patient is requesting something to drink at this time. ABDOMEN: Soft, generalized tenderness all 4 quadrants. Non-distended. Bowel sounds present in all 4 quadrants. I have greeted and performed a rapid initial assessment of this patient. A comprehensive ED assessment and evaluation of the patient, analysis of test results and completion of the medical decision making process will be conducted by additional ED providers. This medical record was dictated with voice recognizing software. There may be grammatical, syntax errors that are unintended. TRAVEL OUTSIDE OF THE [place] IN LAST 30 DAYS: No - Related Data Allergies/Adverse Reactions: naproxen [From Naprosyn] Allergy (Unknown, Verified 11/11/18 09:32) RASH Past Medical History - Past Medical History Cardiac Medical History: Reports: Hx Hypertension Endocrine Medical History: Reports: Hx Diabetes Mellitus Type 2 Renal/ Medical History: Denies: Hx Peritoneal Dialysis GI Medical History: Reports: Hx Hiatal Hernia Musculoskeltal Medical History: Reports Hx Arthritis, Reports Hx Musculoskeletal Deformity, Reports Hx Musculoskeletal Trauma Skin Medical History: Reports Hx Cellulitis Past Surgical History: Reports: Hx Abdominal Surgery - hiatal hernia repair, Hx Orthopedic Surgery - l4-l5 w/ hardware, 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, Other - Ventral hernia repair in the past - Immunizations Hx Diphtheria, Pertussis, Tetanus Vaccination: Yes Physical Exam - Vital signs Vitals: Temp Pulse Resp BP Pulse Ox 98.7 F 114 H 16 125/76 95 11/20/18 16:15 11/20/18 16:15 11/20/18 16:15 11/20/18 16:15 11/20/18 16:15 Course - Vital Signs Vital signs: Temp Pulse Resp BP Pulse Ox 98.7 F 114 H 16 125/76 95 11/20/18 16:15 11/20/18 16:15 11/20/18 16:15 11/20/18 16:15 11/20/18 16:15 Doctor's Discharge - Discharge Referrals: JEANCARLOS DALTON MD [Primary Care Provider] - Follow up as needed
[2018-11-20 17:42] LABS: ABSOLUTE BASOPHILS # (AUTO) 0.1 10^3/uL (0.0-0.2); ABSOLUTE LYMPHOCYTES (AUTO) 1.9 10^3/uL (0.5-4.7); ABSOLUTE MONOCYTES (AUTO) 0.8 10^3/uL (0.1-1.4); ABSOLUTE NEUT (AUTO) 7.2 10^3/uL (1.7-8.2); BASOPHILS % (AUTO) 0.7 % (0-2); EOSINOPHILS % (AUTO) 0.1 % (0-6); HEMATOCRIT 47.2 % (37.9-51.0); LYMPHOCYTES % (AUTO) 19.5 % (13-45); MEAN CORPUSCULAR HEMOGLOBIN 31.5 pg (27.0-33.4); MEAN CORPUSCULAR HGB CONC 33.9 g/dL (32.0-36.0); MEAN CORPUSCULAR VOLUME 93 fl (80-97); MONOCYTES % (AUTO) 8.2 % (3-13); PLATELET COUNT 274 10^3/uL (150-450); RED BLOOD COUNT 5.07 10^6/uL (4.35-5.55); RED CELL DISTRIBUTION WIDTH 13.6 % (11.5-14.0); SEGMENTED NEUTROPHILS % (AUTO) 71.5 % (42-78); TOTAL CELLS COUNTED % (AUTO) 100 %; VENOUS BLOOD BASE EXCESS 0.3 mmol/L; VENOUS BLOOD HCO3 25.3 mmol/L (20-32); VENOUS BLOOD PCO2 41.8 mmHg (35-63); VENOUS BLOOD PH 7.4 (7.30-7.42)
[2018-11-20 18:02] LABS: ALANINE AMINOTRANSFERASE 12 U/L (21-72); ALBUMIN 4.6 g/dL (3.5-5.0); ALKALINE PHOSPHATASE 97 U/L (38-126); ANION GAP 19 (5-19); ASPARTATE AMINO TRANSFERASE 20 U/L (17-59); BILIRUBIN,DIRECT 0.4 mg/dL (0.0-0.4); BILIRUBIN,TOTAL 1.4 mg/dL (0.2-1.3); BLOOD UREA NITROGEN 33 mg/dL (7-20); CARBON DIOXIDE 23 mmol/L (22-30); CHLORIDE 94 mmol/L (98-107); GLUCOSE 320 mg/dL (75-110); LIPASE 31.7 U/L (23-300); POTASSIUM 4.3 mmol/L (3.6-5.0); SODIUM 135.5 mmol/L (137-145); TOTAL PROTEIN 8.6 g/dL (6.3-8.2)
[2018-11-20] MEDS ORDERED: METOCLOPRAMIDE HCL INJ/PF 10 MG/2 ML SDV IV ONE (19:34)
[2018-11-20] MEDS ORDERED: DIPHENHYDRAMINE HCL 50 MG/ML VIAL IV ONE (19:35)
--- NOTE | 2018-11-20 19:36 | ER Document Report ---
ED General - General Chief Complaint: Nausea/Vomiting Stated Complaint: NAUSEA/VOMITING Time Seen by Provider: 11/20/18 17:12 Mode of Arrival: Ambulatory Information source: Patient Notes: This is a 58-year-old man with a history of insulin the emergency room with persistent nausea, vomiting and abdominal discomfort for the past 2 days. Patient denies any fever. He is unable to hold any fluids down. TRAVEL OUTSIDE OF THE [place] IN LAST 30 DAYS: No - HPI Onset: Yesterday Onset/Duration: Gradual Quality of pain: Cramping, Dull Severity: Mild Pain Level: 1 Associated symptoms: denies: Chest pain, Fever, Shortness of breath Exacerbated by: Denies Relieved by: Denies Similar symptoms previously: Yes Recently seen / treated by doctor: No - Related Data Allergies/Adverse Reactions: naproxen [From Naprosyn] Allergy (Unknown, Verified 11/11/18 09:32) RASH Past Medical History - General Information source: Patient - Social History Smoking Status: Current Every Day Smoker Cigarette use (# per day): Yes - 1 pack/day Chew tobacco use (# tins/day): No Frequency of alcohol use: None Drug Abuse: None Lives with: Family Family History: None. denies: Arthritis, CAD, COPD, CVA, DM, Hyperlipidemia, Hypertension, Malignancy, Thyroid Disfunction Patient has suicidal ideation: No Patient has homicidal ideation: No - Past Medical History Cardiac Medical History: Reports: Hx Hypertension Endocrine Medical History: Reports: Hx Diabetes Mellitus Type 2 Renal/ Medical History: Denies: Hx Peritoneal Dialysis GI Medical History: Reports: Hx Hiatal Hernia Musculoskeletal Medical History: Reports Hx Arthritis, Reports Hx Musculoskeletal Deformity, Reports Hx Musculoskeletal Trauma Skin Medical History: Reports Hx Cellulitis Past Surgical History: Reports: Hx Abdominal Surgery - hiatal hernia repair, Hx Orthopedic Surgery - l4-l5 w/ hardware, 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, Other - Ventral hernia repair in the past - Immunizations Hx Diphtheria, Pertussis, Tetanus Vaccination: Yes Review of Systems - Review of Systems Constitutional: denies: Chills, Fever EENT: No symptoms reported Cardiovascular: No symptoms reported Respiratory: No symptoms reported Gastrointestinal: See HPI Genitourinary: No symptoms reported Male Genitourinary: No symptoms reported Musculoskeletal: No symptoms reported Skin: No symptoms reported Hematologic/Lymphatic: No symptoms reported Neurological/Psychological: No symptoms reported Physical Exam - Vital signs Vitals: Temp Pulse Resp BP Pulse Ox 98.7 F 114 H 16 125/76 95 11/20/18 16:15 11/20/18 16:15 11/20/18 16:15 11/20/18 16:15 11/20/18 16:15 Notes: Physical exam: GENERAL: Weak appearing 58-year-old male in, alert and oriented x3. HEAD: Atraumatic, normocephalic. EYES: Pupils equal round and reactive to light, extraocular movements intact, sclera anicteric, conjunctiva are normal. ENT: TMs normal, nares patent, oropharynx clear without exudates. Moist mucous membranes. NECK: Normal range of motion, supple without obvious mass or JVD. LUNGS: Breath sounds clear to auscultation bilaterally and equal. No wheezes rales or rhonchi. HEART: Regular rate and rhythm without murmurs, rubs or gallops. ABDOMEN: Soft, hypoactive bowel sounds. Mild tenderness to the lower quadrants. No guarding, no rebound. No masses appreciated. EXTREMITIES: Normal range of motion, no pitting or edema. No clubbing or cyanosis. NEUROLOGICAL: Cranial nerves II through XII grossly intact. Normal speech, moving all extremities. PSYCH: Normal mood, normal affect. SKIN: Warm, Dry, normal turgor, no rashes or lesions noted. Course - Vital Signs Vital signs: Temp Pulse Resp BP Pulse Ox 99.6 F 104 H 16 133/73 H 99 11/21/18 00:06 11/21/18 00:06 11/21/18 00:06 11/21/18 00:06 11/21/18 00:06 - Laboratory Result Diagrams: 11/20/18 17:30 11/20/18 17:30 Laboratory results interpreted by me: 11/20/18 11/20/18 11/20/18 17:28 17:30 20:06 Sodium 135.5 L Chloride 94 L BUN 33 H Glucose 320 H POC Glucose 298 H Total Bilirubin 1.4 H ALT 12 L Total Protein 8.6 H Urine Protein 30 H Urine Glucose (UA) >=500 H Urine Ketones 80 H Urine Blood SMALL H - Diagnostic Test Radiology reviewed: Image reviewed, Reports reviewed - CT shows no evidence of obstruction - EKG Interpretation by Me Rate: Normal Rhythm: NSR - EKG shows normal sinus rhythm with a ventricular rate of 1, no acute ST-T wave changes Discharge - Discharge Clinical Impression: Acute kidney injury, Dehydration, Vomiting with nausea Condition: Stable Disposition: ADMITTED OBSERVATION Admitting Provider: Sunil Salazar is covering Unit Admitted: Medical Floor
--- NOTE | 2018-11-20 20:16 | RADIOLOGY REPORT (SQ) ---
CT ABDOMEN PELVIS WITH IV CONTRAST HISTORY: Abdominal pain. COMPARISON: None. TECHNIQUE: CT scan of the abdomen and pelvis was performed with IV contrast. This exam was performed according to our departmental dose-optimization program, which includes automated exposure control, adjustment of the mA and/or kV according to patient size and/or use of iterative reconstruction technique. FINDINGS: The lung bases are clear. No pleural or pericardial effusions. There is no hiatal hernia. The liver, gallbladder, spleen, pancreas, adrenal glands, and left kidney are normal. There is a 2.2 cm septated hypodense lesion in the inferior pole of the right kidney. No hydronephrosis. The pelvic organs are normal. No diverticulitis or small bowel obstruction. Appendix is not well visualized. No intraperitoneal free fluid or free air is seen. Lumbosacral fixation hardware is seen. No acute bony findings however. Aorta is unremarkable. Prior ventral hernia repair is present. IMPRESSION: 1. No acute abdominal or pelvic pathology. 2. 2.2 cm septated hypodense lesion in the right kidney inferior pole. This may represent a complex cyst. Attention on follow-up imaging.
[2018-11-20 20:28] LABS: APPEARANCE,URINE CLEAR; BILIRUBIN,URINE NEGATIVE (NEGATIVE); COLOR,URINE YELLOW; GLUCOSE, URINE >=500 mg/dL (NEGATIVE); KETONES,URINE 80 mg/dL (NEGATIVE); LEUKOCYTE ESTERASE,URINE NEGATIVE (NEGATIVE); NITRITE,URINE NEGATIVE (NEGATIVE); PROTEIN,URINE 30 mg/dL (NEGATIVE); URINE SPECIFIC GRAVITY 1.032; UROBILINOGEN,URINE NEGATIVE mg/dL (<2.0)
--- NOTE | 2018-11-20 22:21 | EKG REPORT ---
SEVERITY:- ABNORMAL ECG - SINUS RHYTHM PROBABLE LEFT ATRIAL ABNORMALITY LEFT ANTERIOR FASCICULAR BLOCK : Confirmed by: Matt Eubanks MD 20-Nov-2018 22:21:18
[2018-11-20] MEDS ORDERED: NORMAL SALINE 1000 ML 1,000 ML IV ONE (23:58)
[2018-11-21] MEDS ORDERED: ONDANSETRON HCL INJ/PF 4 MG/2 ML SDV IV PRN (06:36)
[2018-11-21] MEDS ORDERED: NORMAL SALINE 1000 ML 1,000 ML IV PRN (06:36)
[2018-11-21] MEDS ORDERED: DEXTROSE 40% GEL 15 GM TUBE X 2 PO PRN (07:00)
[2018-11-21] MEDS ORDERED: GLUCAGON,HUMAN RECOMB 1 MG INJ IM PRN (07:00)
[2018-11-21] MEDS ORDERED: DEXTROSE 50%-WATER SYRINGE 12.5 GM/25 ML DOSE IV PRN (07:00)
[2018-11-21] MEDS ORDERED: DEXTROSE 40% GEL 15 GM TUBE PO PRN (07:00)
[2018-11-21] MEDS ORDERED: DEXTROSE 50%-WATER SYRINGE 25 GM/50 ML DOSE IV PRN (07:00)
[2018-11-21 07:58] LABS: ALANINE AMINOTRANSFERASE 16 U/L (21-72); ALBUMIN 3.8 g/dL (3.5-5.0); ALKALINE PHOSPHATASE 79 U/L (38-126); ANION GAP 13 (5-19); ASPARTATE AMINO TRANSFERASE 13 U/L (17-59); BILIRUBIN,DIRECT 0.4 mg/dL (0.0-0.4); BILIRUBIN,TOTAL 1.3 mg/dL (0.2-1.3); BLOOD UREA NITROGEN 20 mg/dL (7-20); CALCIUM 9.2 mg/dL (8.4-10.2); CARBON DIOXIDE 25 mmol/L (22-30); CHLORIDE 97 mmol/L (98-107); GLUCOSE 275 mg/dL (75-110); POTASSIUM 4.1 mmol/L (3.6-5.0); SODIUM 135.1 mmol/L (137-145); TOTAL PROTEIN 6.7 g/dL (6.3-8.2)
[2018-11-21] MEDS: INSULIN LISPRO 100 UNIT/ML 3 ML VIAL SUBCUT SCH ×4 (08:00→21:55)
[2018-11-21] MEDS: LEVOFLOXACIN 500 MG/D5W RTU 500 MG/100 ML RTUPB IV SCH (08:26)
--- NOTE | 2018-11-21 11:51 | PDOC H&P ---
History of Present Illness Admission Date/PCP: 11/21/18 02:50 LINDA DALTON MD Patient complains of: Nausea and vomiting History of Present Illness: MEG GHOTRA is a 58 year old male of Dr. Linda Dalton who presented to the ED with complain of nausea and vomiting x 2 days prior to his presentation. Patient admitted to eating hamburgers prior to onset of his symptoms. He denied any other person in household eating same burgers or with similar symptoms. There was initial associated diarrhea that since resolved. He denied any mucous in stool, hematochezia or tarry stool. There is associated abdominal pain. No urinary frequency, dysuria, or flank pain. No fever or chills. he admitted to not usinghis insulin at home for 2 days. His initial evaluation on the ED was significant for lower abdominal tenderness, hyperglycemia, prerenal azotemia, persistent episode of nausea and vomiting. He was advised admission for further evaluation and management on observation bed. His morbidities include Hypertension, Diabetes Mellitus Type 2, and Osteoarthritis. Past Medical History Cardiac Medical History: Reports: Hypertension Endocrine Medical History: Reports: Diabetes Mellitus Type 2 GI Medical History: Reports: Hiatal Hernia Musculoskeltal Medical History: Reports: Arthritis Psychiatric Medical History: Denies: Depression Past Surgical History Past Surgical History: Reports: Orthopedic Surgery - l4-l5 w/ hardware, 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, Other - Ventral hernia repair in the past Social History Lives with: Family Smoking Status: Unknown if Ever Smoked Frequency of Alcohol Use: None Hx Recreational Drug Use: No Drugs: None Hx Prescription Drug Abuse: No - Advance Directive Resuscitation Status: Full Code Family History Family History: None. denies: Arthritis, CAD, COPD, CVA, DM, Hyperlipidemia, Hypertension, Malignancy, Thyroid Disfunction Parental Family History Reviewed: Yes Children Family History Reviewed: Yes Sibling(s) Family History Reviewed.: Yes Medication/Allergy Home Medications: Cephalexin Monohydrate [Keflex 500 mg Capsule] 500 mg PO QID 11/21/18 Insulin Glargine,Hum.rec.anlog [Lantus Insulin 100 Unit/1 ml 10 ml] 20 units SQ DAILY 11/21/18 Allergies/Adverse Reactions: naproxen [From Naprosyn] Allergy (Unknown, Verified 11/11/18 09:32) RASH Review of Systems Constitutional: ABSENT: chills, fever(s), headache(s), weight gain, weight loss Eyes: ABSENT: visual disturbances Ears: ABSENT: hearing changes Nose, Mouth, and Throat: ABSENT: as per HPI, headache(s), mouth pain, sore throat, vertigo, other Cardiovascular: ABSENT: chest pain, dyspnea on exertion, edema, orthropnea, palpitations Respiratory: ABSENT: cough, hemoptysis Gastrointestinal: PRESENT: abdominal pain, nausea, vomiting. ABSENT: as per HPI, bloating, coffee ground emesis, constipation, diarrhea, dysphagia, heartburn, hematemesis, hematochezia, melena, other Genitourinary: ABSENT: dysuria, hematuria Musculoskeletal: ABSENT: joint swelling Integumentary: ABSENT: rash, wounds Neurological: ABSENT: abnormal gait, abnormal speech, confusion, dizziness, focal weakness, syncope Psychiatric: ABSENT: anxiety, depression, homidical ideation, suicidal ideation Endocrine: ABSENT: cold intolerance, heat intolerance, polydipsia, polyuria Hematologic/Lymphatic: ABSENT: easy bleeding, easy bruising, lymphadenopathy Allergic/Immunologic: ABSENT: seasonal rhinorrhea Physical Exam Vital Signs: Temp Pulse Resp BP Pulse Ox 98.5 F 85 16 166/80 H 98 11/21/18 08:00 11/21/18 08:00 11/21/18 08:00 11/21/18 08:00 11/21/18 08:00 Intake & Output 11/20/18 11/21/18 11/22/18 06:59 06:59 06:59 Intake Total 1666 100 Output Total 725 Balance 941 100 Weight 59.9 kg General appearance: PRESENT: no acute distress Head exam: PRESENT: atraumatic, normocephalic Eye exam: PRESENT: conjunctiva pink, EOMI, PERRLA. ABSENT: scleral icterus Ear exam: PRESENT: normal external ear exam Mouth exam: PRESENT: moist Neck exam: PRESENT: full ROM. ABSENT: carotid bruit, JVD, lymphadenopathy, thyromegaly Respiratory exam: PRESENT: clear to auscultation nora Cardiovascular exam: PRESENT: RRR. ABSENT: diastolic murmur, rubs, systolic murmur Vascular exam: PRESENT: normal capillary refill. ABSENT: pallor GI/Abdominal exam: PRESENT: normal bowel sounds, soft. ABSENT: distended, guarding, mass, organolmegaly, rebound, tenderness Rectal exam: PRESENT: deferred Extremities exam: ABSENT: pedal edema Musculoskeletal exam: PRESENT: normal inspection Neurological exam: PRESENT: alert, awake, oriented to person, oriented to place, oriented to time, oriented to situation, CN II-XII grossly intact. ABSENT: motor sensory deficit Psychiatric exam: PRESENT: appropriate affect, normal mood. ABSENT: homicidal ideation, suicidal ideation Skin exam: PRESENT: dry, warm Results Laboratory Results: 11/20/18 17:30 11/21/18 06:21 11/20/18 11/20/18 11/20/18 17:30 17:30 17:30 WBC 10.0 RBC 5.07 Hgb 16.0 Hct 47.2 MCV 93 MCH 31.5 MCHC 33.9 RDW 13.6 Plt Count 274 Seg Neutrophils % 71.5 Lymphocytes % 19.5 Monocytes % 8.2 Eosinophils % 0.1 Basophils % 0.7 Absolute Neutrophils 7.2 Absolute Lymphocytes 1.9 Absolute Monocytes 0.8 Absolute Eosinophils 0.0 Absolute Basophils 0.1 VBG pH 7.40 VBG pCO2 41.8 VBG HCO3 25.3 VBG Base Excess 0.3 Sodium 135.5 L Potassium 4.3 Chloride 94 L Carbon Dioxide 23 Anion Gap 19 BUN 33 H Creatinine 0.77 Est GFR ( Amer) > 60 Est GFR (Non-Af Amer) > 60 Glucose 320 H Calcium 10.0 Total Bilirubin 1.4 H AST 20 ALT 12 L Alkaline Phosphatase 97 Total Protein 8.6 H Albumin 4.6 Lipase 31.7 Urine Color Urine Appearance Urine pH Ur Specific [place] Urine Protein Urine Glucose (UA) Urine Ketones Urine Blood Urine Nitrite Ur Leukocyte Esterase Urine WBC (Auto) Urine RBC (Auto) 11/20/18 11/21/18 20:06 06:21 WBC RBC Hgb Hct MCV MCH MCHC RDW Plt Count Seg Neutrophils % Lymphocytes % Monocytes % Eosinophils % Basophils % Absolute Neutrophils Absolute Lymphocytes Absolute Monocytes Absolute Eosinophils Absolute Basophils VBG pH VBG pCO2 VBG HCO3 VBG Base Excess Sodium 135.1 L Potassium 4.1 Chloride 97 L Carbon Dioxide 25 Anion Gap 13 BUN 20 Creatinine 0.64 Est GFR ( Amer) > 60 Est GFR (Non-Af Amer) > 60 Glucose 275 H Calcium 9.2 Total Bilirubin 1.3 AST 13 L ALT 16 L Alkaline Phosphatase 79 Total Protein 6.7 Albumin 3.8 Lipase Urine Color YELLOW Urine Appearance CLEAR Urine pH 6.0 Ur Specific [place] 1.032 Urine Protein 30 H Urine Glucose (UA) >=500 H Urine Ketones 80 H Urine Blood SMALL H Urine Nitrite NEGATIVE Ur Leukocyte Esterase NEGATIVE Urine WBC (Auto) 0 Urine RBC (Auto) 0 Impressions: Abdomen/Pelvis CT 11/20/18 19:34 IMPRESSION: 1. No acute abdominal or pelvic pathology. 2. 2.2 cm septated hypodense lesion in the right kidney inferior pole. This may represent a complex cyst. Attention on follow-up imaging. Assessment & Plan - Diagnosis (1) Acute kidney failure Qualifiers: Acute renal failure type: unspecified Qualified Code(s): N17.9 - Acute kidney failure, unspecified Is this a current diagnosis for this admission?: Yes Plan: See admitting covering attending physician orders for care plan details. (2) Gastroenteritis Is this a current diagnosis for this admission?: Yes Plan: See admitting covering attending physician orders for care plan details. (3) Diabetes type 2, uncontrolled Qualifiers: Glycemic state: with hyperglycemia Qualified Code(s): E11.65 - Type 2 diabetes mellitus with hyperglycemia Is this a current diagnosis for this admission?: Yes - Time Time Spent: 50 to 70 Minutes Medications reviewed and adjusted accordingly: Yes Anticipated discharge: Home Within: Other - Inpatient Certification Based on my medical assessment, after consideration of the patient's comorbidities, presenting symptoms, or acuity I expect that the services needed warrant INPATIENT care.: No I certify that my determination is in accordance with my understanding of Medicare's requirements for reasonable and necessary INPATIENT services [42 CFR 412.3e].: No Post Hospital 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
[2018-11-21] MEDS: NORMAL SALINE 1000 ML 1,000 ML IV PRN (12:22)
[2018-11-21 13:05] LABS: ANION GAP 9 (5-19); BLOOD UREA NITROGEN 20 mg/dL (7-20); CALCIUM 9.6 mg/dL (8.4-10.2); CARBON DIOXIDE 27 mmol/L (22-30); CHLORIDE 97 mmol/L (98-107); GLUCOSE 228 mg/dL (75-110); POTASSIUM 4.4 mmol/L (3.6-5.0); SODIUM 133.4 mmol/L (137-145)
[2018-11-21] MEDS: TRAMADOL HCL 50 MG TABLET PO PRN ×2 (13:41→20:42)
[2018-11-21] MEDS ORDERED: MAG HYDROX/AL HYDROX/SIMETH SUSP 30 ML UDCUP PO PRN (18:30)
[2018-11-22] MEDS: TRAMADOL HCL 50 MG TABLET PO PRN ×3 (03:06→19:21)
[2018-11-22] MEDS: NORMAL SALINE 1000 ML 1,000 ML IV PRN (03:06)
[2018-11-22] MEDS: LEVOFLOXACIN 500 MG/D5W RTU 500 MG/100 ML RTUPB IV SCH (08:21)
[2018-11-22] MEDS: INSULIN LISPRO 100 UNIT/ML 3 ML VIAL SUBCUT SCH ×4 (08:24→21:19)
[2018-11-22] MEDS ORDERED: INSULIN GLARGINE,HUM.REC.ANLOG 1,000 UNIT/10 ML VIAL SUBCUT SCH (10:00)
[2018-11-22] MEDS: INSULIN GLARGINE,HUM.REC.ANLOG 1,000 UNIT/10 ML VIAL SUBCUT SCH (10:31)
--- NOTE | 2018-11-22 14:06 | PDOC PROGRESS REPORT ---
Subjective Progress Note for:: 11/22/18 Subjective:: No nausea or vomiting. Poor appetite and p.o intake remain a challenge. Abdominal soreness persist. No diarrhea. No chest pain or difficulty with breathing. Reason For Visit: ACUTE KIDNEY INJURY AND DEHYDRATION Physical Exam Vital Signs: Temp Pulse Resp BP Pulse Ox 98.3 F 78 16 154/94 H 97 11/22/18 10:55 11/22/18 10:55 11/22/18 10:55 11/22/18 10:55 11/22/18 10:55 Intake & Output 11/21/18 11/22/18 11/23/18 06:59 06:59 06:59 Intake Total 1666 1500 240 Output Total 725 1 Balance 941 1499 240 Weight 59.9 kg 61.4 kg General appearance: PRESENT: no acute distress Head exam: PRESENT: atraumatic, normocephalic Eye exam: PRESENT: conjunctiva pink. ABSENT: scleral icterus Ear exam: PRESENT: normal external ear exam Mouth exam: PRESENT: moist Respiratory exam: PRESENT: clear to auscultation nora Cardiovascular exam: PRESENT: RRR. ABSENT: diastolic murmur, rubs, systolic murmur Vascular exam: ABSENT: pallor GI/Abdominal exam: PRESENT: normal bowel sounds, soft. ABSENT: distended, guarding, mass, organolmegaly, rebound, tenderness Extremities exam: ABSENT: pedal edema Neurological exam: PRESENT: alert, awake, oriented to person, oriented to place, oriented to time, oriented to situation, CN II-XII grossly intact. ABSENT: motor sensory deficit Psychiatric exam: PRESENT: appropriate affect, normal mood. ABSENT: homicidal ideation, suicidal ideation Skin exam: PRESENT: dry, intact, warm. ABSENT: cyanosis, rash Results Laboratory Results: 11/20/18 17:30 11/21/18 12:38 Impressions: Abdomen/Pelvis CT 11/20/18 19:34 IMPRESSION: 1. No acute abdominal or pelvic pathology. 2. 2.2 cm septated hypodense lesion in the right kidney inferior pole. This may represent a complex cyst. Attention on follow-up imaging. Assessment & Plan - Diagnosis (1) Acute kidney failure Qualifiers: Acute renal failure type: unspecified Qualified Code(s): N17.9 - Acute kidney failure, unspecified Is this a current diagnosis for this admission?: Yes (2) Gastroenteritis Is this a current diagnosis for this admission?: Yes (3) Diabetes type 2, uncontrolled Qualifiers: Glycemic state: with hyperglycemia Qualified Code(s): E11.65 - Type 2 diabetes mellitus with hyperglycemia Is this a current diagnosis for this admission?: Yes - Time Time Spent with patient: 25-34 minutes Medications reviewed and adjusted accordingly: Yes Anticipated discharge: Home Within: Other - Inpatient Certification Based on my medical assessment, after consideration of the patient's comorbidities, presenting symptoms, or acuity I expect that the services needed warrant INPATIENT care.: No I certify that my determination is in accordance with my understanding of Medicare's requirements for reasonable and necessary INPATIENT services [42 CFR 412.3e].: No Post Hospital Care: D/C [employer] Documentation - Plan Summary Plan Summary: Advance diet as tolerated. Maintain on current medication management.
[2018-11-23] MEDS: NORMAL SALINE 1000 ML 1,000 ML IV PRN (00:43)
[2018-11-23] MEDS: TRAMADOL HCL 50 MG TABLET PO PRN ×4 (01:45→22:38)
[2018-11-23] MEDS: INSULIN LISPRO 100 UNIT/ML 3 ML VIAL SUBCUT SCH ×4 (08:08→22:33)
[2018-11-23] MEDS: LEVOFLOXACIN 500 MG/D5W RTU 500 MG/100 ML RTUPB IV SCH (08:43)
--- NOTE | 2018-11-23 09:26 | PDOC PROGRESS REPORT ---
Subjective Progress Note for:: 11/23/18 Subjective:: Patient was admitted with abdominal pain and diagnosed with the possible gastroenteritis Patient is currently doing much better Patient's p.o. intake is good Denied abdominal pain no nausea no vomiting Reason For Visit: ACUTE KIDNEY INJURY AND DEHYDRATION Physical Exam Vital Signs: Temp Pulse Resp BP Pulse Ox 98.3 F 81 20 144/96 H 97 11/23/18 08:00 11/23/18 08:00 11/23/18 08:00 11/23/18 08:00 11/23/18 08:00 Intake & Output 11/22/18 11/23/18 11/24/18 06:59 06:59 06:59 Intake Total 2500 1797 1000 Output Total 1 2150 Balance 2499 -353 1000 Weight 61.4 kg 61.8 kg General appearance: PRESENT: no acute distress, well-developed, well-nourished Head exam: PRESENT: atraumatic, normocephalic Eye exam: PRESENT: conjunctiva pink, EOMI, PERRLA. ABSENT: scleral icterus Ear exam: PRESENT: normal external ear exam Mouth exam: PRESENT: moist, tongue midline Neck exam: PRESENT: full ROM. ABSENT: carotid bruit, JVD, lymphadenopathy, thyromegaly Respiratory exam: PRESENT: clear to auscultation nora Cardiovascular exam: PRESENT: RRR. ABSENT: diastolic murmur, rubs, systolic murmur Pulses: PRESENT: normal dorsalis pedis pul, +2 pedal pulses bilateral Vascular exam: PRESENT: normal capillary refill GI/Abdominal exam: PRESENT: normal bowel sounds, soft. ABSENT: distended, guarding, mass, organolmegaly, rebound, tenderness Rectal exam: PRESENT: deferred Neurological exam: PRESENT: alert, awake, oriented to person, oriented to place, oriented to time, oriented to situation, CN II-XII grossly intact. ABSENT: motor sensory deficit Psychiatric exam: PRESENT: appropriate affect, normal mood. ABSENT: homicidal ideation, suicidal ideation Skin exam: PRESENT: dry, intact, warm. ABSENT: cyanosis, rash Results Laboratory Results: 11/20/18 17:30 11/21/18 12:38 Impressions: Abdomen/Pelvis CT 11/20/18 19:34 IMPRESSION: 1. No acute abdominal or pelvic pathology. 2. 2.2 cm septated hypodense lesion in the right kidney inferior pole. This may represent a complex cyst. Attention on follow-up imaging. Assessment & Plan - Diagnosis (1) Acute kidney failure Qualifiers: Acute renal failure type: unspecified Qualified Code(s): N17.9 - Acute kidney failure, unspecified Is this a current diagnosis for this admission?: Yes Plan: All resolved (2) Gastroenteritis Is this a current diagnosis for this admission?: Yes Plan: All resolved (3) Diabetes type 2, uncontrolled Qualifiers: Glycemic state: with hyperglycemia Qualified Code(s): E11.65 - Type 2 diabetes mellitus with hyperglycemia Is this a current diagnosis for this admission?: Yes Plan: Continues insulin - Time Time Spent with patient: 15-24 minutes Medications reviewed and adjusted accordingly: Yes Anticipated discharge: Other Within: Other - Plan Summary Plan Summary: Patients do not want any endoscopy or colonoscopy I think patient is getting better We will repeat the blood work encourage more p.o. intake if remains stable discharge tomorrow home
[2018-11-23] MEDS: INSULIN GLARGINE,HUM.REC.ANLOG 1,000 UNIT/10 ML VIAL SUBCUT SCH (10:04)
--- NOTE | 2018-11-23 23:54 | RADIOLOGY REPORT (SQ) ---
CLINICAL HISTORY: renal cyst COMPARISON: None. TECHNIQUE: US RETROPERITONEUM LIMITED on 11/23/2018 12:00 AM CDT FINDINGS: Right kidney measures 9.8 cm and left kidney measures 9.7 cm in greatest dimension. Both kidneys are echogenic without hydronephrosis. There is a probable cyst in the inferior the right kidney measuring 2.3 cm. IMPRESSION: Small probable cyst in the lower pole right kidney. No hydronephrosis bilaterally.
[2018-11-24 05:22] LABS: ABSOLUTE EOSINOPHILS # (AUTO) 0.1 10^3/uL (0.0-0.6); ABSOLUTE LYMPHOCYTES (AUTO) 2.4 10^3/uL (0.5-4.7); ABSOLUTE MONOCYTES (AUTO) 0.4 10^3/uL (0.1-1.4); ABSOLUTE NEUT (AUTO) 1.8 10^3/uL (1.7-8.2); BASOPHILS % (AUTO) 0.6 % (0-2); HEMOGLOBIN 12.7 g/dL (13.5-17.0); LYMPHOCYTES % (AUTO) 50.6 % (13-45); MEAN CORPUSCULAR HEMOGLOBIN 31.6 pg (27.0-33.4); MEAN CORPUSCULAR HGB CONC 34.3 g/dL (32.0-36.0); MEAN CORPUSCULAR VOLUME 92 fl (80-97); MONOCYTES % (AUTO) 8.3 % (3-13); PLATELET COUNT 222 10^3/uL (150-450); RED BLOOD COUNT 4.01 10^6/uL (4.35-5.55); SEGMENTED NEUTROPHILS % (AUTO) 37.5 % (42-78); TOTAL CELLS COUNTED % (AUTO) 100 %; WHITE BLOOD COUNT 4.7 10^3/uL (4.0-10.5)
[2018-11-24 05:50] LABS: ANION GAP 9 (5-19); BLOOD UREA NITROGEN 9 mg/dL (7-20); CALCIUM 9.7 mg/dL (8.4-10.2); CARBON DIOXIDE 29 mmol/L (22-30); CHLORIDE 98 mmol/L (98-107); GLUCOSE 112 mg/dL (75-110); POTASSIUM 3.5 mmol/L (3.6-5.0); SODIUM 136.1 mmol/L (137-145)
[2018-11-24] MEDS ORDERED: POTASSIUM CHLORIDE 10 MEQ CAPSULE.ER PO ONE ×2 (06:33→10:30)
[2018-11-24] MEDS: INSULIN LISPRO 100 UNIT/ML 3 ML VIAL SUBCUT SCH ×2 (08:37→11:43)
[2018-11-24 10:02] VITALS: BP 123/78
[2018-11-24] MEDS: LEVOFLOXACIN 500 MG/D5W RTU 500 MG/100 ML RTUPB IV SCH (10:20)
[2018-11-24] MEDS: TRAMADOL HCL 50 MG TABLET PO PRN (10:20)
[2018-11-24] MEDS: INSULIN GLARGINE,HUM.REC.ANLOG 1,000 UNIT/10 ML VIAL SUBCUT SCH (10:31)
--- NOTE | 2018-11-24 11:40 | PDOC DISCHARGE SUMMARY ---
General - Admit/Disc Date/PCP Admission Date/Primary Care Provider: 11/21/18 02:50 JEANCARLOS DALTON MD Discharge Date: 11/24/18 - Discharge Diagnosis (1) Acute kidney failure Is this a current diagnosis for this admission?: Yes Summary: Currently all resolved (2) Gastroenteritis Is this a current diagnosis for this admission?: Yes Summary: Currently all resolved Patient is refused for endoscopy and colonoscopy will talk about his outpatients (3) Diabetes type 2, uncontrolled Is this a current diagnosis for this admission?: Yes Summary: Patient is to insulin - Additional Information Resuscitation Status: Full Code Discharge Diet: Diabetic Discharge Activity: Activity As Tolerated Prescriptions: Omeprazole 40 mg PO DAILY #30 capsule. Home Medications: Insulin Glargine,Hum.rec.anlog [Lantus Insulin 100 Unit/1 ml 10 ml] 20 units SQ DAILY 11/21/18 Omeprazole 40 mg PO DAILY #30 capsule. 11/24/18 History of Present Illness History of Present Illness: MEG GHOTRA is a 58 year old male Hospital for abdominal nausea diagnosed with the gastroenteritis treated with IV fluids IV antibiotics Hospital Course Hospital Course: This is a 58-year-old male fairly new patient per clinic came to the emergency departments for the abdominal pain nausea patient underwent for the CT scan of the abdomen pelvis did not find any acute changes diagnosed with a possible gastroenteritis Patient was treated with the IV antibiotic and IV fluids Patient so slowly increased the diabetic diet Patient is a response very well Patients move around in the hallway without any problem Patient is back to the baseline's Discussed with the patient about further evaluation about endoscopy and colonoscopy for patients refused for that Will refer outpatients as per discussed with the GI Dr. Shah for further evaluation of the patient's wants to do it Try to call the patient's family member unable to answer to update the patient information's Patient is going home with a stable conditions follow outpatients Physical Exam Vital Signs: Temp Pulse Resp BP Pulse Ox 97.5 F 76 14 123/78 96 11/24/18 11:18 11/24/18 11:18 11/24/18 11:18 11/24/18 11:18 11/24/18 11:18 Intake & Output 11/23/18 11/24/18 11/25/18 06:59 06:59 06:59 Intake Total 1797 2104 Output Total 2150 Balance -353 4 Weight 61.8 kg 61.4 kg General appearance: PRESENT: no acute distress, well-developed, well-nourished Head exam: PRESENT: atraumatic, normocephalic Eye exam: PRESENT: conjunctiva pink, EOMI, PERRLA. ABSENT: scleral icterus Ear exam: PRESENT: normal external ear exam Mouth exam: PRESENT: moist, tongue midline Neck exam: PRESENT: full ROM. ABSENT: carotid bruit, JVD, lymphadenopathy, thyromegaly Respiratory exam: PRESENT: clear to auscultation nora Cardiovascular exam: PRESENT: RRR. ABSENT: diastolic murmur, rubs, systolic murmur Pulses: PRESENT: normal dorsalis pedis pul, +2 pedal pulses bilateral Vascular exam: PRESENT: normal capillary refill GI/Abdominal exam: PRESENT: normal bowel sounds, soft. ABSENT: distended, guarding, mass, organolmegaly, rebound, tenderness Rectal exam: PRESENT: deferred Musculoskeletal exam: PRESENT: ambulatory Neurological exam: PRESENT: alert, awake, oriented to person, oriented to place, oriented to time, oriented to situation, CN II-XII grossly intact. ABSENT: motor sensory deficit Psychiatric exam: PRESENT: appropriate affect, normal mood. ABSENT: homicidal ideation, suicidal ideation Skin exam: PRESENT: dry, intact, warm. ABSENT: cyanosis, rash Results Laboratory Results: 11/24/18 05:14 11/24/18 05:14 11/24/18 11/24/18 05:14 05:14 WBC 4.7 RBC 4.01 L Hgb 12.7 L Hct 37.0 L MCV 92 MCH 31.6 MCHC 34.3 RDW 13.0 Plt Count 222 Seg Neutrophils % 37.5 L Lymphocytes % 50.6 H Monocytes % 8.3 Eosinophils % 3.0 Basophils % 0.6 Absolute Neutrophils 1.8 Absolute Lymphocytes 2.4 Absolute Monocytes 0.4 Absolute Eosinophils 0.1 Absolute Basophils 0.0 Sodium 136.1 L Potassium 3.5 L Chloride 98 Carbon Dioxide 29 Anion Gap 9 BUN 9 Creatinine 0.61 Est GFR ( Amer) > 60 Est GFR (Non-Af Amer) > 60 Glucose 112 H Calcium 9.7 Impressions: Abdomen/Pelvis CT 11/20/18 19:34 IMPRESSION: 1. No acute abdominal or pelvic pathology. 2. 2.2 cm septated hypodense lesion in the right kidney inferior pole. This may represent a complex cyst. Attention on follow-up imaging. Renal Ultrasound 11/23/18 00:00 IMPRESSION: Small probable cyst in the lower pole right kidney. No hydronephrosis bilaterally. Qualifiers - * PATIENT BEING DISCHARGED WITH ANY OF THE FOLLOWING DIAGNOSIS: No VTE patient discharged on overlapping Therapy?: Yes Acute Heart Failure - Is this a Heart Failure Patient?: No LVEF < 40%?: No- if no continue to question #3 3. Anticoagulant therapy for permanect/persistent/paraoxysmal Afib or Aflutter: N/A Reason(s) not discharged on anticoagulant therapy for permanect/persistent/paraoxysmal Afib or Aflutter: Other Follow-up Appointment scheduled within 7 days?: Yes Plan Time Spent: Greater than 30 Minutes
== END 2018-11-24 11:37 | disposition home or self-care (01) ==
LOC: ER 16:14 → EH 11-21 02:50 → 5 11-21 04:40
PROVIDERS: ADMIT Family Medicine; ATTEND Family Medicine
DX: N17.9 Acute kidney failure, unspecified (principal); K52.9 Noninfective gastroenteritis and colitis, unspecified; E86.0 Dehydration; E11.65 Type 2 diabetes mellitus with hyperglycemia; I10 Essential (primary) hypertension; M19.90 Unspecified osteoarthritis, unspecified site; F17.210 Nicotine dependence, cigarettes, uncomplicated; Z79.4 Long term (current) use of insulin; Z91.14 Patient's other noncompliance with medication regimen; Z83.3 Family history of diabetes mellitus; Z82.49 Family history of ischemic heart disease and other diseases of the circulatory system; Z88.8 Allergy status to other drugs, medicaments and biological substances
CPT/HCPCS: 93005; 99285; 96361; 96374; 96375; 36415 ×3; 82962 ×5; 83690; 85025 ×2; 80048; 80053 ×2; 81001; 82803; 76775; 74177; 93010; G0378 ×4; J1956 ×4; A9270 ×10; J1200; J2765; J2405; J7030 ×3; J7120; J1815

== ENCOUNTER 2019-07-15 08:55 | Emergency (ER) | payer MEDICARE ==
--- NOTE | 2019-07-15 09:49 | ER Document Report ---
ED Medical Screen (RME) - General Chief Complaint: Foot Pain Stated Complaint: RIGHT FOOT PAIN/HEAD PAIN Time Seen by Provider: 07/15/19 09:41 Primary Care Provider: JEANCARLOS DALTON MD [Primary Care Provider] - Follow up as needed TRAVEL OUTSIDE OF THE [place] IN LAST 30 DAYS: No - HPI Notes: 07/15/19 10:04 58-year-old male to the emergency department with complaints of progressively worsening right foot pain and ulcer since Friday. He states that he is diabetic and has had to have some of his toes amputated in the past. He states it started as a little blister on the bottom of his foot and then has become progressively bigger with pain and redness. He also states that yesterday he lost his balance in his home and struck the right side of his head on a coffee table. He has a hematoma and abrasion to the side of the scalp and says it is very tender. Denies loss of consciousness but states that he was very dizzy after it happened and had to lay on the floor except for a minutes. Denies any nausea or vomiting, vision changes. He looks older than his stated age. I performed a brief medical screening exam on the patient determined that he will need further evaluation and management by main side provider. I have placed initial orders to help expedite his care - Related Data Allergies/Adverse Reactions: naproxen [From Naprosyn] Allergy (Unknown, Verified 11/11/18 09:32) RASH Home Medications: Lantus. Metformin Past Medical History - Past Medical History Cardiac Medical History: Reports: Hx Hypertension Endocrine Medical History: Reports: Hx Diabetes Mellitus Type 2 Renal/ Medical History: Denies: Hx Peritoneal Dialysis GI Medical History: Reports: Hx Hiatal Hernia Musculoskeltal Medical History: Reports Hx Arthritis, Reports Hx Musculoskeletal Deformity, Reports Hx Musculoskeletal Trauma Skin Medical History: Reports Hx Cellulitis Psychiatric Medical History: Denies: Hx Depression Past Surgical History: Reports: Hx Abdominal Surgery - hiatal hernia repair, Hx Orthopedic Surgery - l4-l5 w/ hardware, 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, Other - Ventral hernia repair in the past - Immunizations Hx Diphtheria, Pertussis, Tetanus Vaccination: Yes Physical Exam - Vital signs Vitals: Temp Pulse Resp BP Pulse Ox 98.0 F 96 16 127/70 H 99 07/15/19 09:02 07/15/19 09:02 07/15/19 09:02 07/15/19 09:02 07/15/19 09:02 Course - Vital Signs Vital signs: Temp Pulse Resp BP Pulse Ox 98.0 F 96 16 127/70 H 99 07/15/19 09:02 07/15/19 09:02 07/15/19 09:02 07/15/19 09:02 07/15/19 09:02 Doctor's Discharge - Discharge Referrals: JEANCARLOS DALTON MD [Primary Care Provider] - Follow up as needed
--- NOTE | 2019-07-15 10:21 | RADIOLOGY REPORT (SQ) ---
EXAM DESCRIPTION: CT HEAD WITHOUT COMPLETED DATE/TIME: 07/15/2019 10:04 am REASON FOR STUDY: fall, head injury COMPARISON: CT brain 06/24/2008 TECHNIQUE: Axial images acquired through the brain without intravenous contrast. Images reviewed wi th bone, brain and subdural windows. Additional sagittal and coronal reconstructions were generated. Images stored on PACS. All CT scanners at this facility use dose modulation, iterative reconstruction, and/or weight based d osing when appropriate to reduce radiation dose to as low as reasonably achievable (ALARA). [facility]: Dose Right [facility]: CareDose [facility]: Dose Right [facility]: Teradose 4D [facility]: [employer] RADIATION DOSE: CT Rad equipment meets quality standard of care and radiation dose reduction techniq ues were employed. CTDIvol: 53.2 mGy. DLP: 1044 mGy-cm. mGy. LIMITATIONS: None. FINDINGS: VENTRICLES: Normal size and contour. CEREBRUM: No masses. No hemorrhage. No midline shift. No evidence for acute infarction. Normal gra y/white matter differentiation. No areas of low density in the white matter. CEREBELLUM: No masses. No hemorrhage. No alteration of density. No evidence for acute infarction. EXTRAAXIAL SPACES: No fluid collections. No masses. ORBITS AND GLOBE: No intra- or extraconal masses. Normal contour of globe without masses. CALVARIUM: No fracture. PARANASAL SINUSES: No fluid or mucosal thickening. SOFT TISSUES: Right parietal scalp hematoma is present best shown on coronal image 40. No underlying skull fracture or acute intracranial changes OTHER: No other significant finding. IMPRESSION: Right parietal scalp hematoma without underlying skull fracture or acute intracranial ch anges. EVIDENCE OF ACUTE STROKE: NO. COMMENT: Quality ID # [id number]: Final reports with documentation of one or more dose reduction techniques (e.g., Automated exposure control, adjustment of the mA and/or kV according to patient size, use of iterative reconstruction technique) TECHNICAL DOCUMENTATION: JOB ID: [id number] [employer]- All Rights Reserved Reading location - IP/workstation name: [email or web address]
--- NOTE | 2019-07-15 10:34 | RADIOLOGY REPORT (SQ) ---
EXAM DESCRIPTION: FOOT RIGHT COMPLETE COMPLETED DATE/TIME: 07/15/2019 10:07 am REASON FOR STUDY: right great toe foot ulcer COMPARISON: Right foot 04/19/2009 NUMBER OF VIEWS: Three views. TECHNIQUE: AP, lateral and oblique radiographic images acquired of the right foot. LIMITATIONS: None. FINDINGS: MINERALIZATION: Normal. BONES: No acute fracture or dislocation. No worrisome bone lesions. JOINTS: No effusions. SOFT TISSUES: Soft tissue swelling along the medial aspect of the right forefoot at the level of the 1st metatarsophalangeal joint. No deep penetrating ulcer. No 1st metatarsophalangeal joint gas. No radiopaque foreign body. OTHER: No other significant finding. IMPRESSION: Soft tissue swelling along the medial aspect 1st MTP joint. No underlying aggressive anni ny demineralization worrisome for osteomyelitis TECHNICAL DOCUMENTATION: JOB ID: [id number]- All Rights Reserved Reading location - IP/workstation name: [email or web address]
[2019-07-15 11:27] LABS: ABSOLUTE BASOPHILS # (AUTO) 0.1 10^3/uL (0.0-0.2); ABSOLUTE EOSINOPHILS # (AUTO) 0.1 10^3/uL (0.0-0.6); ABSOLUTE LYMPHOCYTES (AUTO) 1.3 10^3/uL (0.5-4.7); ABSOLUTE MONOCYTES (AUTO) 0.6 10^3/uL (0.1-1.4); ABSOLUTE NEUT (AUTO) 7.5 10^3/uL (1.7-8.2); BASOPHILS % (AUTO) 0.6 % (0-2); EOSINOPHILS % (AUTO) 0.9 % (0-6); HEMATOCRIT 41.5 % (37.9-51.0); HEMOGLOBIN 14.1 g/dL (13.5-17.0); LYMPHOCYTES % (AUTO) 13.4 % (13-45); MEAN CORPUSCULAR HEMOGLOBIN 32.7 pg (27.0-33.4); MEAN CORPUSCULAR VOLUME 96 fl (80-97); MONOCYTES % (AUTO) 5.8 % (3-13); PLATELET COUNT 253 10^3/uL (150-450); RED BLOOD COUNT 4.32 10^6/uL (4.35-5.55); RED CELL DISTRIBUTION WIDTH 13.1 % (11.5-14.0); SEGMENTED NEUTROPHILS % (AUTO) 79.3 % (42-78); TOTAL CELLS COUNTED % (AUTO) 100 %; WHITE BLOOD COUNT 9.5 10^3/uL (4.0-10.5)
[2019-07-15 11:41] LABS: ALBUMIN 4.3 g/dL (3.5-5.0); ALKALINE PHOSPHATASE 126 U/L (38-126); ANION GAP 10 (5-19); ASPARTATE AMINO TRANSFERASE 16 U/L (17-59); BILIRUBIN,DIRECT 0.3 mg/dL (0.0-0.4); BILIRUBIN,TOTAL 0.4 mg/dL (0.2-1.3); BLOOD UREA NITROGEN 6 mg/dL (7-20); CALCIUM 9.7 mg/dL (8.4-10.2); CARBON DIOXIDE 31 mmol/L (22-30); CHLORIDE 98 mmol/L (98-107); GLUCOSE 290 mg/dL (75-110); POTASSIUM 3.7 mmol/L (3.6-5.0); TOTAL PROTEIN 8.5 g/dL (6.3-8.2)
[2019-07-15] MEDS ORDERED: LEVOFLOXACIN 750 MG/D5W RTU 750 MG/150 ML RTUPB IV ONE (12:14)
[2019-07-15] MEDS ORDERED: MUPIROCIN 2% OINTMENT 22 GM TP ONE (12:15)
--- NOTE | 2019-07-15 12:21 | ER Document Report ---
ED General - General Chief Complaint: Foot Pain Stated Complaint: RIGHT FOOT PAIN/HEAD PAIN Time Seen by Provider: 07/15/19 09:41 Primary Care Provider: JEANCARLOS DALTON MD [Primary Care Provider] - Follow up as needed Mode of Arrival: Ambulatory Information source: Patient TRAVEL OUTSIDE OF THE [place] IN LAST 30 DAYS: No - HPI Onset: Other - This week patient drug his feet on the floor and tripped and hit his right head with continued headache; CT of head reveals hematoma on right but no intracranial bleed. Also x-ray of right foot with no osteomyelitis but soft tissue Onset/Duration: Sudden Quality of pain: Achy Severity: Mild Pain Level: 1 Associated symptoms: Headache, Other - Right foot pain Exacerbated by: Movement Relieved by: Remaining still Similar symptoms previously: Yes - In past patient had his fifth left toe amputated because of diabetes Recently seen / treated by doctor: No - Related Data Allergies/Adverse Reactions: naproxen [From Naprosyn] Allergy (Unknown, Verified 11/11/18 09:32) RASH Home Medications: Lantus. Metformin Past Medical History - General Information source: Patient - Social History Smoking Status: Unknown if Ever Smoked Cigarette use (# per day): No Chew tobacco use (# tins/day): No Smoking Education Provided: No Frequency of alcohol use: Occasional Drug Abuse: None Occupation: Retired Family History: None. denies: Arthritis, CAD, COPD, CVA, DM, Hyperlipidemia, Hypertension, Malignancy, Thyroid Disfunction Patient has suicidal ideation: No Patient has homicidal ideation: No - Past Medical History Cardiac Medical History: Reports: Hx Hypertension Endocrine Medical History: Reports: Hx Diabetes Mellitus Type 2 Renal/ Medical History: Denies: Hx Peritoneal Dialysis GI Medical History: Reports: Hx Hiatal Hernia Musculoskeletal Medical History: Reports Hx Arthritis, Reports Hx Musculoskeletal Deformity, Reports Hx Musculoskeletal Trauma Skin Medical History: Reports Hx Cellulitis Psychiatric Medical History: Denies: Hx Depression Past Surgical History: Reports: Hx Abdominal Surgery - hiatal hernia repair, Hx Orthopedic Surgery - l4-l5 w/ hardware, 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, Other - Ventral hernia repair in the past - Immunizations Hx Diphtheria, Pertussis, Tetanus Vaccination: Yes Review of Systems - Review of Systems Constitutional: Malaise EENT: Sinus pressure Cardiovascular: No symptoms reported - Bilateral Respiratory: No symptoms reported Gastrointestinal: No symptoms reported Genitourinary: No symptoms reported Male Genitourinary: No symptoms reported Musculoskeletal: Other - Right first toe plantar skin erosion bleb around 3 cm diameter traction water blister type Hematologic/Lymphatic: No symptoms reported Neurological/Psychological: Gait changes - Secondary to pain of right foot Physical Exam - Vital signs Vitals: Temp Pulse Resp BP Pulse Ox 98.0 F 96 16 127/70 H 99 07/15/19 09:02 07/15/19 09:02 07/15/19 09:02 07/15/19 09:02 07/15/19 09:02 Interpretation: Normal - HEENT Head: Normocephalic Eyes: Normal Conjunctiva: Normal Cornea: Normal Extraocular movements intact: Yes Eyelashes: Normal Pupils: PERRL Sinus: Frontal, Tenderness Mouth/Lips: Normal Mucous membranes: Normal Pharynx: Normal - Respiratory Respiratory status: No respiratory distress Chest status: Nontender Breath sounds: Normal Chest palpation: Normal - Cardiovascular Rhythm: Regular Heart sounds: Normal auscultation Murmur: No Friction rub: No Stef's crunch: No - Abdominal Inspection: Normal Distension: No distension Bowel sounds: Normal Tenderness: Nontender - Extremities General upper extremity: Normal inspection General lower extremity: Tender - R>L foot with s/p left 5th amputated and R 1st toe plantar with traction bleb 3 cm juliann with skin tear... 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 Sensory: Altered light touch - To bilateral lower feet - Psychological Associated symptoms: Normal affect - Skin Skin Temperature: Warm Skin Moisture: Dry Course - Vital Signs Vital signs: Temp Pulse Resp BP Pulse Ox 98.0 F 96 16 127/70 H 99 07/15/19 09:02 07/15/19 09:02 07/15/19 09:02 07/15/19 09:02 07/15/19 09:02 - Laboratory Result Diagrams: 07/15/19 11:01 07/15/19 11:01 Laboratory results interpreted by me: 0107/15/19 07/15/19 10:28 11:01 11:01 RBC 4.32 L Seg Neutrophils % 79.3 H Carbon Dioxide 31 H BUN 6 L Glucose 290 H POC Glucose 282 H AST 16 L Total Protein 8.5 H - Diagnostic Test Radiology reviewed: Reports reviewed Critical Care Note - Critical Care Note Total time excluding time spent on procedures (mins): 90 Comments: I advised patient to return to the ER for recheck of his right first toe within 1 to 2 days; also follow-up with his personal doctor and keep wound clean and dry. Patient is to remove the dressing gently at nighttime to allow the toe to completely dry but to rewrap it and keep this area clean if he has to stand again. Avoid getting this wound wet at all cost. Avoid reinjuring this wound at all cost. The integrity of this first toe depends on your diligence on this matter. Otherwise you may in the future face degradation of the soft tissue surrounding this toe. Patient was given Levaquin IV Discharge - Discharge Clinical Impression: Traumatic hematoma of head, Fall, IDDM (insulin dependent diabetes mellitus), Tear of skin of plantar aspect of right foot Condition: Fair Disposition: HOME, SELF-CARE Additional Instructions: Keep this wound clean and dry. You may wash your right foot and Hibiclens with 1 teaspoon per quart of lukewarm water; have someone else measure the temperature or use a thermometer. Do not use extreme temperatures of hot or cold for this water. Pat this wound dry after you soak it for approximately 2 to 3 minutes.. Allow this wound to dry and then apply Bactroban ointment; take Levaquin medicines by mouth as directed; you may take your Parafon forte pain medicine only if severe pain occurs. Return to ER in 1 to 2 days for reinspection of your right foot wound and also follow-up with your doctors within 3 days. Prescriptions: Levofloxacin [Levaquin 750 mg Tablet] 750 mg PO DAILY #10 tablet Chlorzoxazone [Parafon Forte Dsc 500 Mg Tablet] 500 mg PO BID #14 tablet Referrals: JEANCARLOS DALTON MD [Primary Care Provider] - Follow up as needed
[2019-07-15] MEDS ORDERED: NORMAL SALINE 1000 ML 1,000 ML IV ONE (14:06)
[2019-07-15 14:52] VITALS: BP 166/87
== END 2019-07-15 14:52 | disposition home or self-care (01) ==
LOC: ER 08:55
DX: S91.311A Laceration without foreign body, right foot, initial encounter (principal); S00.93XA Contusion of unspecified part of head, initial encounter; M79.671 Pain in right foot; R53.81 Other malaise; R51 Headache; W01.10XA Fall on same level from slipping, tripping and stumbling with subsequent striking against unspecified object, initial encounter; I10 Essential (primary) hypertension; E11.9 Type 2 diabetes mellitus without complications; Z79.4 Long term (current) use of insulin
CPT/HCPCS: 36415; 87040; 82962; 85025; 80053; 73630; 70450; J7030; A9270; J1956; J3490

== ENCOUNTER 2019-08-14 11:10 | Emergency (ER) | payer MEDICARE ==
--- NOTE | 2019-08-14 11:50 | ER Document Report ---
ED Medical Screen (RME) - General Chief Complaint: Foot Pain Stated Complaint: RIGHT FOOT PAIN Time Seen by Provider: 08/14/19 11:41 Primary Care Provider: JEANCARLOS DALTON MD [Primary Care Provider] - Follow up as needed TRAVEL OUTSIDE OF THE [place] IN LAST 30 DAYS: No - HPI Notes: 08/14/19 11:48 Patient is a 58-year-old male with a history of diabetes who presents complaining of right foot pain for the past 4 weeks. Patient states that he has some wounds to his toes and darkened skin. He is also had redness to his foot and blistering. No fever. He does have some amputations on his other foot. I have treated and performed a rapid initial assessment of this patient. A comprehensive ED assessment and evaluation of the patient, analysis of test results and completion of medical decision making process will be conducted by additional ED providers. PHYSICAL EXAMINATION: GENERAL: Well-appearing, well-nourished and in no acute distress. A&Ox4. Answers questions appropriately. Right foot: The foot is erythemic with bolus formations throughout. He does have 2+ pulse noted to his dorsalis pedis. He also has chronic appearing wounds to his plantar surface of his toes with some darkened skin color distally. - Related Data Allergies/Adverse Reactions: naproxen [From Naprosyn] Allergy (Unknown, Verified 08/14/19 11:39) RASH Past Medical History - Past Medical History Cardiac Medical History: Reports: Hx Hypertension Endocrine Medical History: Reports: Hx Diabetes Mellitus Type 2 Renal/ Medical History: Denies: Hx Peritoneal Dialysis GI Medical History: Reports: Hx Hiatal Hernia Musculoskeltal Medical History: Reports Hx Arthritis, Reports Hx Musculoskeletal Deformity, Reports Hx Musculoskeletal Trauma Skin Medical History: Reports Hx Cellulitis Psychiatric Medical History: Denies: Hx Depression Past Surgical History: Reports: Hx Abdominal Surgery - hiatal hernia repair, Hx Orthopedic Surgery - l4-l5 w/ hardware, 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
[2019-08-14] MEDS ORDERED: OXYCODONE HCL IR 5 MG TABLET PO ONE (11:51)
[2019-08-14 12:23] LABS: ABSOLUTE EOSINOPHILS # (AUTO) 0.2 10^3/uL (0.0-0.6); ABSOLUTE LYMPHOCYTES (AUTO) 1.5 10^3/uL (0.5-4.7); ABSOLUTE MONOCYTES (AUTO) 0.3 10^3/uL (0.1-1.4); ABSOLUTE NEUT (AUTO) 2.8 10^3/uL (1.7-8.2); EOSINOPHILS % (AUTO) 3.2 % (0-6); HEMOGLOBIN 11.7 g/dL (13.5-17.0); LYMPHOCYTES % (AUTO) 30.7 % (13-45); MEAN CORPUSCULAR HEMOGLOBIN 32.2 pg (27.0-33.4); MEAN CORPUSCULAR HGB CONC 33.5 g/dL (32.0-36.0); MEAN CORPUSCULAR VOLUME 96 fl (80-97); MONOCYTES % (AUTO) 6.9 % (3-13); PLATELET COUNT 246 10^3/uL (150-450); RED BLOOD COUNT 3.64 10^6/uL (4.35-5.55); RED CELL DISTRIBUTION WIDTH 14.9 % (11.5-14.0); SEGMENTED NEUTROPHILS % (AUTO) 58.2 % (42-78); TOTAL CELLS COUNTED % (AUTO) 100 %; WHITE BLOOD COUNT 4.8 10^3/uL (4.0-10.5)
[2019-08-14 12:36] LABS: ALBUMIN 4.1 g/dL (3.5-5.0); ALKALINE PHOSPHATASE 97 U/L (38-126); ANION GAP 10 (5-19); ASPARTATE AMINO TRANSFERASE 18 U/L (17-59); BILIRUBIN,DIRECT 0.2 mg/dL (0.0-0.4); BILIRUBIN,TOTAL 0.6 mg/dL (0.2-1.3); BLOOD UREA NITROGEN 7 mg/dL (7-20); CALCIUM 9.4 mg/dL (8.4-10.2); CARBON DIOXIDE 29 mmol/L (22-30); CHLORIDE 100 mmol/L (98-107); GLUCOSE 304 mg/dL (75-110); POTASSIUM 3.6 mmol/L (3.6-5.0); TOTAL PROTEIN 7.7 g/dL (6.3-8.2)
--- NOTE | 2019-08-14 13:05 | RADIOLOGY REPORT (SQ) ---
EXAM DESCRIPTION: FOOT RIGHT COMPLETE COMPLETED DATE/TIME: 08/14/2019 12:52 pm REASON FOR STUDY: toe pain, chronic wound, DM COMPARISON: 07/15/2019. NUMBER OF VIEWS: Three views. TECHNIQUE: AP, lateral and oblique without weight bearing radiographic images acquired of the right foot. LIMITATIONS: None. FINDINGS: MINERALIZATION: Normal. BONES: No acute fracture or dislocation. No worrisome bone lesions. No significant osteophytes. JOINTS: No erosions. No tom-articular osteopenia. No chondrocalcinosis. SOFT TISSUES: No swelling. No calcifications. OTHER: No other significant finding. IMPRESSION: NEGATIVE STUDY OF THE RIGHT FOOT. TECHNICAL DOCUMENTATION: JOB ID: [id number] 2010 [employer]- All Rights Reserved Reading location - IP/workstation name: [email or web address]
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
[2019-08-14] MEDS ORDERED: MORPHINE SULFATE 10 MG/ML INJ IV ONE ×2 (13:51→16:06)
[2019-08-14] MEDS ORDERED: LEVOFLOXACIN 750 MG/D5W RTU 750 MG/150 ML RTUPB IV ONE (13:52)
[2019-08-14] MEDS ORDERED: BACITRACIN ZINC OINTMENT 15 GM TP ONE (13:53)
[2019-08-14] MEDS ORDERED: KETOROLAC TROMETHAMINE INJ/PF 30 MG/1 ML SDV IV ONE (16:06)
[2019-08-14] MEDS ORDERED: FENTANYL CITRATE INJ/PF 100 MCG/2 ML AMPUL IV ONE (18:32)
[2019-08-14 19:27] VITALS: BP 141/85
== END 2019-08-14 20:20 | disposition short-term general hospital (02) ==
LOC: ER 11:10
DX: T25.221A Burn of second degree of right foot, initial encounter (principal); X08.8XXA Exposure to other specified smoke, fire and flames, initial encounter; E11.40 Type 2 diabetes mellitus with diabetic neuropathy, unspecified; F17.200 Nicotine dependence, unspecified, uncomplicated; I10 Essential (primary) hypertension; Z88.8 Allergy status to other drugs, medicaments and biological substances
CPT/HCPCS: 96376; 99291; 99292; 96375; 96365; 36415; 87040; 85025; 80053; 73630; J3010; J1885; J2270; A9270; J1956; J3490

== ENCOUNTER 2019-11-16 10:42 | Emergency (ER) | payer MEDICARE ==
[2019-11-16] MEDS ORDERED: OXYCODONE-ACETAMINOPHEN 5-325 MG TABLET PO ONE (11:14)
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
[2019-11-16 11:40] LABS: ABSOLUTE EOSINOPHILS # (AUTO) 0.2 10^3/uL (0.0-0.6); ABSOLUTE LYMPHOCYTES (AUTO) 1.3 10^3/uL (0.5-4.7); ABSOLUTE MONOCYTES (AUTO) 0.4 10^3/uL (0.1-1.4); ABSOLUTE NEUT (AUTO) 3.7 10^3/uL (1.7-8.2); BASOPHILS % (AUTO) 0.8 % (0-2); EOSINOPHILS % (AUTO) 3.6 % (0-6); HEMATOCRIT 38.2 % (37.9-51.0); LYMPHOCYTES % (AUTO) 23.6 % (13-45); MEAN CORPUSCULAR HEMOGLOBIN 33.2 pg (27.0-33.4); MEAN CORPUSCULAR HGB CONC 34.1 g/dL (32.0-36.0); MEAN CORPUSCULAR VOLUME 97 fl (80-97); MONOCYTES % (AUTO) 7.4 % (3-13); PLATELET COUNT 290 10^3/uL (150-450); RED BLOOD COUNT 3.93 10^6/uL (4.35-5.55); RED CELL DISTRIBUTION WIDTH 14.1 % (11.5-14.0); SEGMENTED NEUTROPHILS % (AUTO) 64.6 % (42-78); TOTAL CELLS COUNTED % (AUTO) 100 %; WHITE BLOOD COUNT 5.7 10^3/uL (4.0-10.5)
[2019-11-16 11:59] LABS: ALBUMIN 4.3 g/dL (3.5-5.0); ALKALINE PHOSPHATASE 123 U/L (38-126); ANION GAP 5 (5-19); ASPARTATE AMINO TRANSFERASE 30 U/L (17-59); BILIRUBIN,DIRECT 0.1 mg/dL (0.0-0.4); BILIRUBIN,TOTAL 0.3 mg/dL (0.2-1.3); BLOOD UREA NITROGEN 10 mg/dL (7-20); CARBON DIOXIDE 32 mmol/L (22-30); CHLORIDE 99 mmol/L (98-107); GLUCOSE 360 mg/dL (75-110); POTASSIUM 4.5 mmol/L (3.6-5.0); TOTAL PROTEIN 7.7 g/dL (6.3-8.2)
--- NOTE | 2019-11-16 12:01 | RADIOLOGY REPORT (SQ) ---
EXAM DESCRIPTION: FOOT RIGHT COMPLETE IMAGES COMPLETED DATE/TIME: 11/16/2019 11:45 am REASON FOR STUDY: pain COMPARISON: 08/14/2019. NUMBER OF VIEWS: Three views. TECHNIQUE: AP, lateral and oblique without weight bearing radiographic images acquired of the right foot. LIMITATIONS: None. FINDINGS: MINERALIZATION: Normal. BONES: No acute fracture or dislocation. No worrisome bone lesions. No significant osteophytes. JOINTS: No erosions. No tom-articular osteopenia. No chondrocalcinosis. SOFT TISSUES: No swelling. No calcifications. OTHER: No other significant finding. IMPRESSION: NEGATIVE STUDY OF THE RIGHT FOOT. NO EXPLANATION FOR PAIN. TECHNICAL DOCUMENTATION: JOB ID: [id number] 2010 [employer]- All Rights Reserved Reading location - IP/workstation name: [email or web address]
[2019-11-16 12:08] LABS: C-REACTIVE PROTEIN < 5.0 mg/L (<10.0)
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
[2019-11-16 12:52] VITALS: BP 158/83
[2019-11-16 12:54] LABS: ERYTHROCYTE SEDIMENTATION RATE 29 mm/hr (0-20)
== END 2019-11-16 12:53 | disposition home or self-care (01) ==
LOC: ER 10:42
DX: M79.671 Pain in right foot (principal); M79.89 Other specified soft tissue disorders; F17.200 Nicotine dependence, unspecified, uncomplicated; I10 Essential (primary) hypertension; E11.9 Type 2 diabetes mellitus without complications
CPT/HCPCS: 99283; 36415; 85025; 85652; 86140; 80053; 73630; A9270

== ENCOUNTER 2020-01-05 18:15 | Inpatient (IN) | payer MEDICARE ==
[2020-01-05] MEDS ORDERED: ACETAMINOPHEN 325 MG TABLET PO ONE (18:39)
[2020-01-05] MEDS ORDERED: RINGERS SOLUTION,LACTATED 1,000 ML IV ONE (18:40)
[2020-01-05] MEDS ORDERED: ONDANSETRON HCL INJ/PF 4 MG/2 ML SDV IV ONE ×2 (18:41→22:32)
[2020-01-05] MEDS ORDERED: FENTANYL CITRATE INJ/PF 100 MCG/2 ML AMPUL IV ONE (18:41)
--- NOTE | 2020-01-05 19:18 | RADIOLOGY REPORT (SQ) ---
EXAM DESCRIPTION: CHEST SINGLE VIEW IMAGES COMPLETED DATE/TIME: 01/05/2020 5:59 pm REASON FOR STUDY: fever. COMPARISON: 07/24/2015 EXAM PARAMETERS: NUMBER OF VIEWS: One view. TECHNIQUE: Single frontal radiographic view of the chest acquired. RADIATION DOSE: NA LIMITATIONS: None. FINDINGS: LUNGS AND PLEURA: No opacities, masses or pneumothorax. No pleural effusion. MEDIASTINUM AND HILAR STRUCTURES: No masses. Contour normal. HEART AND VASCULAR STRUCTURES: Heart normal in size. Normal vasculature. BONES: No acute findings. HARDWARE: None in the chest. OTHER: No other significant finding. IMPRESSION: NO ACUTE RADIOGRAPHIC FINDING IN THE CHEST. TECHNICAL DOCUMENTATION: JOB ID: [id number] 2010 [employer]- All Rights Reserved Reading location - IP/workstation name: [email or web address]
--- NOTE | 2020-01-05 19:19 | RADIOLOGY REPORT (SQ) ---
EXAM DESCRIPTION: KNEE RIGHT 4 VIEWS IMAGES COMPLETED DATE/TIME: 01/05/2020 5:59 pm REASON FOR STUDY: r knee pain, swelling COMPARISON: None. NUMBER OF VIEWS: Four views. TECHNIQUE: AP, lateral, and both oblique radiographic images acquired of the right knee. LIMITATIONS: None. FINDINGS: MINERALIZATION: Normal. BONES: No acute fracture or dislocation. No worrisome bone lesions. JOINT: Moderate knee joint effusion. No intra-articular loose body. SOFT TISSUES: No soft tissue swelling. No radio-opaque foreign body. OTHER: No other significant finding. IMPRESSION: Moderate knee joint effusion. No acute fracture or dislocation. TECHNICAL DOCUMENTATION: JOB ID: [id number] 2010 [employer]- All Rights Reserved Reading location - IP/workstation name: [email or web address]
[2020-01-05 19:29] LABS: HEMATOCRIT 28.5 % (37.9-51.0); HEMOGLOBIN 9.5 g/dL (13.5-17.0); MEAN CORPUSCULAR HEMOGLOBIN 32.4 pg (27.0-33.4); MEAN CORPUSCULAR HGB CONC 33.5 g/dL (32.0-36.0); MEAN CORPUSCULAR VOLUME 97 fl (80-97); PLATELET COUNT 440 10^3/uL (150-450); RED BLOOD COUNT 2.94 10^6/uL (4.35-5.55); RED CELL DISTRIBUTION WIDTH 13.1 % (11.5-14.0)
[2020-01-05 19:35] LABS: VENOUS BLOOD BASE EXCESS 3.4 mmol/L; VENOUS BLOOD HCO3 28.4 mmol/L (20-32); VENOUS BLOOD PCO2 45.4 mmHg (35-63); VENOUS BLOOD PH 7.41 (7.30-7.42)
[2020-01-05 19:36] LABS: INTERNATIONAL RATION (INR) 1.09; PROTHROMBIN TIME 14.1 SEC (11.4-15.4)
[2020-01-05 19:42] LABS: ALKALINE PHOSPHATASE 175 U/L (38-126); ANION GAP 13 (5-19); ASPARTATE AMINO TRANSFERASE 24 U/L (17-59); BILIRUBIN,DIRECT 0.9 mg/dL (0.0-0.4); BILIRUBIN,TOTAL 1.9 mg/dL (0.2-1.3); BLOOD UREA NITROGEN 11 mg/dL (7-20); CALCIUM 9.3 mg/dL (8.4-10.2); CARBON DIOXIDE 28 mmol/L (22-30); CHLORIDE 87 mmol/L (98-107); GLUCOSE 356 mg/dL (75-110); POTASSIUM 3.8 mmol/L (3.6-5.0); TOTAL PROTEIN 8.1 g/dL (6.3-8.2); URIC ACID 3.1 mg/dL (3.5-8.5)
[2020-01-05 19:51] LABS: ABSOLUTE LYMPHOCYTES# (MANUAL) 0.5 10^3/uL (0.5-4.7); ABSOLUTE MONOCYTES # (MANUAL) 1.1 10^3/uL (0.1-1.4); BASOPHILS % (MANUAL) 0 % (0-2); EOSINOPHILS % (MANUAL) 0 % (0-6); LYMPHOCYTES % (MANUAL) 3 % (13-45); MONOCYTES % (MANUAL) 6 % (3-13); SEGMENTED NEUTROPHILS % (MAN) 91 % (42-78); TOTAL CELLS COUNTED 100
[2020-01-05 19:52] LABS: OVALOCYTES SLIGHT; PLATELET COMMENT ADEQUATE
[2020-01-05] MEDS ORDERED: LIDOCAINE 1.5% INJ-MPF (15 MG/ML) 20 ML AMPUL INJ ONE (22:16)
--- NOTE | 2020-01-05 22:16 | ER Document Report ---
Entered by YOUSUF STRANGE SCRIBE 01/05/20 [id number] Acting as scribe for:[facility], DO ED Extremity Problem, Lower - General Chief Complaint: Fever Stated Complaint: KNEE PAIN Time Seen by Provider: 01/05/20 18:35 Information source: Patient Notes: This 59 year old male patient presents to the emergency department today with complaints of right knee pain since x4 days ago and has been applying cream to it without relief. Patient states x3 days ago he noticed his right knee was red and reports he is unable to walk from the pain in his right knee and thigh. Patient reports a history of pantoja to his right foot x1 year ago. Patient states before x4 days ago he did not have trouble walking. Denies pain in left knee, burning when urinating, or other urinary symptoms. TRAVEL OUTSIDE OF THE [place] IN LAST 30 DAYS: No - Related Data Allergies/Adverse Reactions: naproxen [From Naprosyn] Allergy (Unknown, Verified 01/05/20 18:38) RASH Home Medications: gabapentin. dm Past Medical History - General Information source: Patient - Social History Smoking Status: Current Some Day Smoker Cigarette use (# per day): Yes Chew tobacco use (# tins/day): No Frequency of alcohol use: None Drug Abuse: None Lives with: Family Family History: None Patient has homicidal ideation: No - Past Medical History Cardiac Medical History: Reports: Hx Hypertension Endocrine Medical History: Reports: Hx Diabetes Mellitus Type 2 GI Medical History: Reports: Hx Hiatal Hernia Musculoskeletal Medical History: Reports Hx Arthritis, Reports Hx Musculoskeletal Deformity, Reports Hx Musculoskeletal Trauma Skin Medical History: Reports Hx Cellulitis Past Surgical History: Reports: Hx Abdominal Surgery - hiatal hernia repair, Hx Orthopedic Surgery - l4-l5 w/ hardware, 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 denies: Burning Male Genitourinary: No symptoms reported Musculoskeletal: See HPI, Other - R knee pain Skin: No symptoms reported Hematologic/Lymphatic: No symptoms reported Neurological/Psychological: No symptoms reported Physical Exam - Vital signs Vitals: Temp Pulse Resp BP Pulse Ox 102.0 F H 112 H 20 148/75 H 99 01/05/20 18:20 01/05/20 18:20 01/05/20 18:20 01/05/20 18:20 01/05/20 18:20 - General General appearance: Appears well, Alert - HEENT Head: Normocephalic, Atraumatic Eyes: Normal Pupils: PERRL - Respiratory Respiratory status: No respiratory distress Chest status: Nontender Breath sounds: Normal Chest palpation: Normal - Cardiovascular Rhythm: Regular Heart sounds: Normal auscultation Murmur: No - Abdominal Inspection: Normal Distension: No distension Bowel sounds: Normal Tenderness: Nontender - Extremities General upper extremity: Normal inspection. No: Edema Notes: Erythema of the lateral and medially inferior right knee. Moderate effusion of the right knee. Lichen on the anterior surface of the right foot and chronic changes to the nail bases. Cyst structure over the left knee 1-2 cm in size. Full ROM of left leg. Decreased sensation of bilateral LE. - Neurological Neuro grossly intact: Yes Cognition: Normal Orientation: AAOx4 Speech: Normal - Psychological Associated symptoms: Normal affect, Normal mood - Skin Skin Temperature: Warm Skin Moisture: Dry Skin Color: Normal Course - Re-evaluation Re-evalutation: 01/05/20 23:24 MDM 59 year old male DM with increased pain right knee since friday. Fever, effusion right knee and arthocentesis by me shows purulent material. Elevated WBC with left shift. IV cefazolin and vancomycin ordered and I have consulted Dr. Douglas. Dr. Barber is PCP. I have paged him and am awaiting a call back. - Vital Signs Vital signs: Temp Pulse Resp BP Pulse Ox 102 F H 89 20 144/70 H 99 01/05/20 22:37 01/05/20 22:27 01/05/20 18:20 01/05/20 22:27 01/05/20 22:27 - Laboratory Result Diagrams: 01/05/20 19:05 01/05/20 19:05 Laboratory results interpreted by me: 01/05/20 01/05/20 01/05/20 19:05 19:05 19:05 WBC 18.0 H RBC 2.94 L Hgb 9.5 L Hct 28.5 L Seg Neuts % (Manual) 91 H Lymphocytes % (Manual) 3 L Abs Neuts (Manual) 16.4 H Sodium 128.2 L Chloride 87 L Glucose 356 H POC Glucose Uric Acid 3.1 L Total Bilirubin 1.9 H Direct Bilirubin 0.9 H Alkaline Phosphatase 175 H C-Reactive Protein 421.9 H 01/05/20 19:08 WBC RBC Hgb Hct Seg Neuts % (Manual) Lymphocytes % (Manual) Abs Neuts (Manual) Sodium Chloride Glucose POC Glucose 359 H Uric Acid Total Bilirubin Direct Bilirubin Alkaline Phosphatase C-Reactive Protein - Diagnostic Test Radiology reviewed: Image reviewed, Reports reviewed - EKG Interpretation by Me EKG shows normal: Sinus rhythm Rate: Tachycardia Rhythm: NSR [place]/QRS: Left axis deviation - NSR left axis 108 BPM repolarization abnormality without st elevation or depression my interpretation. Procedures - Joint Aspiration Right Knee Time completed: 23:00 Consent obtained: Yes Joint aspiration pre-procedure: Betadine prep applied Anesthetic type: 1% Lidocaine mL's of anesthetic: 8 Needle size: 18 Amount/type of drainage: 20 Number of attempts: 1 Complications: No Notes: After timeout 8 ml of 1% lidocaine was injected medially and the right knee joint was aspirated using a sterile technique. Purulent fluid was returned and sent to the lab for analysis. Pt tolerated the procedure well without apparent complications. 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
[2020-01-05] MEDS ORDERED: HYDROMORPHONE HCL INJ/PF 2 MG/ML AMPULE IV ONE (22:31)
[2020-01-05] MEDS: LIDOCAINE 1% INJ-PF (10 MG/ML) 30 ML SDV ONE (22:42)
[2020-01-05] MEDS ORDERED: INSULIN REG, HUMAN 100 UNIT/ML 3 ML VIAL (PYX) IV ONE (22:54)
[2020-01-05] MEDS ORDERED: VANCOMYCIN HCL INJ 1000 MG VIAL IV ONE (23:12)
[2020-01-05] MEDS ORDERED: CEFAZOLIN 2 GM/D5W RTU 2 GM/50 ML RTUPB IV ONE (23:12)
[2020-01-06 00:48] LABS: FLUID APPEARANCE TURBID; FLUID COLOR ORANGE; FLUID SOURCE KNEE; FLUID TYPE SYNOVIAL
[2020-01-06 00:49] LABS: FLUID VISCOSITY SLIGHTLY VISCOUS
[2020-01-06] MEDS ORDERED: DEXTROSE 40% GEL 15 GM TUBE PO PRN ×2 (00:57)
[2020-01-06] MEDS ORDERED: GLUCAGON,HUMAN RECOMB 1 MG INJ SUBCUT PRN (00:57)
[2020-01-06] MEDS ORDERED: MAGNESIUM HYDROXIDE SUSP 30 ML UDCUP PO PRN (00:57)
[2020-01-06] MEDS ORDERED: MAG HYDROX/AL HYDROX/SIMETH SUSP 30 ML UDCUP PO PRN (00:57)
[2020-01-06] MEDS ORDERED: LEVALBUTEROL HCL NEB 0.63 MG/3 ML AMPUL NEB PRN (00:57)
[2020-01-06] MEDS ORDERED: DEXTROSE 50%-WATER 25 GM/50 ML DISP.SYRIN IV PRN ×2 (00:57)
[2020-01-06] MEDS ORDERED: PROMETHAZINE HCL INJ 25 MG/1 ML VIAL IV PRN ×3 (00:57→08:58)
[2020-01-06] MEDS ORDERED: LORAZEPAM INJ 2 MG/1 ML VIAL IV PRN (01:09)
[2020-01-06] MEDS ORDERED: HYDRALAZINE HCL INJ/PF 20 MG/1 ML SDV IV PRN (01:09)
[2020-01-06] MEDS ORDERED: INSULIN REG, HUMAN 100 UNIT/ML 3 ML VIAL (PYX) SUBCUT PRN (01:09)
[2020-01-06] MEDS ORDERED: GUAIFENESIN SYRP 200 MG/10 ML UDC PO PRN (01:09)
[2020-01-06] MEDS ORDERED: NICOTINE 21 MG/24 HR PATCH.TD24 TD PRN (01:09)
[2020-01-06] MEDS ORDERED: MORPHINE SULFATE 10 MG/ML INJ IV PRN ×3 (01:09→08:58)
[2020-01-06] MEDS: RINGERS SOLUTION,LACTATED 1,000 ML IV PRN ×2 (03:00→17:19)
[2020-01-06 03:01] LABS: CALCIUM PYROPHOSPHATE CRYSTALS NONE OBSERVED; MONOSODIUM URATE CRYSTALS NONE OBSERVED; OTHER CRYSTALS NONE OBSERVED
[2020-01-06 03:20] LABS: APPEARANCE,URINE CLEAR; BILIRUBIN,URINE NEGATIVE (NEGATIVE); COLOR,URINE YELLOW; GLUCOSE, URINE >=500 mg/dL (NEGATIVE); KETONES,URINE 80 mg/dL (NEGATIVE); PROTEIN,URINE 30 mg/dL (NEGATIVE); URINE SPECIFIC GRAVITY 1.024
[2020-01-06] MEDS: CEFAZOLIN 2 GM/D5W RTU 2 GM/50 ML RTUPB IV SCH ×4 (06:25→23:19)
[2020-01-06] MEDS: HEPARIN SOD (PORCINE) 5,000 UNIT/ML 1 ML VIAL SUBCUT SCH ×3 (06:25→21:47)
[2020-01-06] MEDS ORDERED: BUPIVACAINE HCL 0.5 % INJ/PF 30 ML SDV ONE ×2 (07:29→09:10)
[2020-01-06] MEDS ORDERED: KETOROLAC TROMETHAMINE INJ/PF 30 MG/1 ML SDV ONE (07:29)
[2020-01-06] MEDS ORDERED: LIDOCAINE 1% INJ-PF (10 MG/ML) 30 ML SDV ONE ×2 (07:29→09:10)
[2020-01-06] MEDS ORDERED: EPINEPHRINE INJ/PF 1 MG/1 ML AMPULE ONE (07:30)
[2020-01-06] MEDS ORDERED: TRIAMCINOLONE ACETONIDE INJ 40 MG/1 ML VIAL ONE (07:30)
[2020-01-06] MEDS ORDERED: ONDANSETRON HCL INJ/PF 4 MG/2 ML SDV ONE (08:03)
[2020-01-06] MEDS ORDERED: FENTANYL CITRATE INJ/PF 100 MCG/2 ML AMPUL ONE (08:03)
[2020-01-06] MEDS ORDERED: MIDAZOLAM 2 MG/2 ML INJ ONE (08:03)
[2020-01-06] MEDS ORDERED: PROPOFOL INJ 200 MG/20 ML VIAL IV ONE (08:03)
[2020-01-06] MEDS ORDERED: DEXAMETHASONE SOD PHOSPHATE INJ 4 MG/1 ML VIAL ONE (08:03)
[2020-01-06] MEDS ORDERED: LIDOCAINE 2% INJ-PF (20 MG/ML) 10 ML AMPUL ONE (08:04)
[2020-01-06] MEDS ORDERED: FENTANYL CITRATE INJ/PF 100 MCG/2 ML AMPUL IV PRN ×3 (08:58)
[2020-01-06] MEDS ORDERED: MEPERIDINE HCL/PF INJ 25 MG/1 ML DISP.SYRIN IV PRN (08:58)
[2020-01-06] MEDS ORDERED: DIPHENHYDRAMINE HCL 50 MG/ML VIAL IV PRN (08:58)
[2020-01-06] MEDS ORDERED: VANCOMYCIN HCL INJ 1000 MG VIAL IV ONE (09:00)
[2020-01-06] MEDS ORDERED: VANCOMYCIN HCL INJ 1000 MG VIAL ONE (09:24)
[2020-01-06] MEDS: LIDOCAINE 1% INJ-PF (10 MG/ML) 30 ML SDV ONE (09:31)
--- NOTE | 2020-01-06 09:31 | EKG REPORT ---
SEVERITY:- ABNORMAL ECG - SINUS TACHYCARDIA BORDERLINE LEFT AXIS DEVIATION PROBABLE ANTEROSEPTAL INFARCT, OLD : Confirmed by: Abbie Moeller 06-Jan-2020 09:30:57
[2020-01-06] MEDS: VANCOMYCIN HCL 1,000 MG in DEXTROSE 5%-WATER 250 ML IV SCH ×2 (09:42→17:53)
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
--- NOTE | 2020-01-06 10:11 | Operative Report ---
Operative Report DATE OF SURGERY: 01/06/20 PREOPERATIVE DIAGNOSIS: Right knee septic arthritis POSTOPERATIVE DIAGNOSIS: Right knee septic arthritis OPERATION: Right knee arthroscopic incision and drainage with debridement SURGEON: KATELYN EDUARDO JR ANESTHESIA: Spinal TISSUE REMOVED OR ALTERED: Cultures taken COMPLICATIONS: None ESTIMATED BLOOD LOSS: 5 cc PROCEDURE: Patient was brought to the operating suite and laid supine on the operating table. He was on continuous antibiotics at the time of surgery. He was placed under general anesthesia and the right lower extremity was then prepped and draped in sterile sterile fashion. After this a timeout was performed. The right lower extremity was marked an incision was made to the lateral portal. The trocar was introduced into the superior patellar pouch and immediately purulent drainage was evacuated through the trocar into a basin. This was collected for culture. Following this I introduced the camera and inspected the superior patellar pouch where gross purulence was found. This required a considerable amount of evacuation and irrigation in order to be able to visualize the anatomy. The patellofemoral compartment was found to have intact cartilage throughout aside from a small portion of the medial patellar facet that had a approximately 3 mm x 5 mm defect that appeared to be type III changes. Became was brought down into the medial gutter which was found to be clear of any debris or loose body. After this I directed the camera into the medial compartment. At this point a spinal needle was introduced to make the medial portal. A probe was introduced in the medial department was inspected and found to have an intact meniscus wit hout apparent damage, there was some softening of the medial tibial plateau and a small medial sided medial femoral condyle full-thickness cartilage defect that was approximately 5 x 5 mm otherwise aside from type I changes there is no severe cartilage loss throughout the medial compartment. The intercondylar notch was inspected and the PCL and ACL were found to be intact there was no loose bodies visualized up to this point of the procedure. The pros was introduced into the lateral compartment followed by bringing the leg into figure 4 and directed the camera into the lateral compartment. Again this was inspected and found to have intact cartilage with some type I changes of softening on both the femoral and tibial chondral surface however there is no large defects or advanced changes. The meniscus was found to be intact and stable. There is no loose bodies noted in the lateral compartment. Little was then directed into the lateral gutter which is also found to be free of debris or any loose body. We then returned our attention to the patellofemoral compartment which did have a large amount of synovial tissue that was hypertrophic. This tissue was resected with a suction shaver The remainder of 9 L was irrigated through the knee at this point including attempted milking of the posterior knee to encourage thorough evacuation of any potential recessed infectious fluid. A final evaluation of the knee found no loose debris or infected looking tissue. Fluid was evacuated. At this point the medial portal was closed with 3-0 nylon the car trocar was directed to the superior patellar pouch and a combination of local anesthetic as well as 1 g of vancomycin was then introduced. The trocar was removed and the lateral portal was closed with a 3-0 nylon portal stitch. A dressing was placed and the patient was then awakened from anesthesia in stable condition and transferred the PACU.
[2020-01-06] MEDS: MORPHINE SULFATE 10 MG/ML INJ ONE ×2 (10:30→10:35)
[2020-01-06] MEDS: FAMOTIDINE 20 MG TABLET PO SCH ×2 (13:24→21:46)
[2020-01-06] MEDS: DOCUSATE SODIUM 100 MG CAPSULE PO SCH ×2 (13:24→17:20)
[2020-01-06] MEDS: MORPHINE SULFATE 10 MG/ML INJ IV PRN ×4 (13:26→22:03)
[2020-01-06] MEDS: ACETAMINOPHEN 325 MG TABLET PO PRN ×2 (15:58→20:16)
--- NOTE | 2020-01-06 19:41 | PDOC PROGRESS REPORT ---
Subjective Progress Note for:: 01/06/20 Subjective:: Patient denies pain Reason For Visit: SEPTIC ARTHRITIS RIGHT KNEE,DIABETES MELLITUS Physical Exam Vital Signs: Temp Pulse Resp BP Pulse Ox 100.1 F 85 16 148/71 H 99 01/06/20 16:50 01/06/20 16:43 01/06/20 16:43 01/06/20 15:50 01/06/20 16:43 Intake & Output 01/05/20 01/06/20 01/07/20 06:59 06:59 06:59 Intake Total 1100 69993 Output Total 500 330 Balance 600 23884 Weight 63.6 kg General appearance: PRESENT: no acute distress, cooperative, well-developed, well-nourished Head exam: PRESENT: atraumatic, normocephalic Eye exam: PRESENT: conjunctiva pink Mouth exam: PRESENT: moist, tongue midline Neck exam: ABSENT: JVD Respiratory exam: PRESENT: clear to auscultation nora, symmetrical, unlabored. ABSENT: accessory muscle use Cardiovascular exam: PRESENT: RRR, +S1, +S2 Pulses: PRESENT: normal carotid pulses, normal radial pulses Vascular exam: PRESENT: normal capillary refill GI/Abdominal exam: PRESENT: normal bowel sounds, soft. ABSENT: distended, tenderness Rectal exam: PRESENT: deferred Extremities exam: ABSENT: calf tenderness Neurological exam: PRESENT: alert, awake, oriented to person, oriented to place, oriented to time, oriented to situation, CN II-XII grossly intact Psychiatric exam: ABSENT: agitated, anxious Skin exam: PRESENT: dry, normal color, warm, other - Right knee dressing C/D/I Results Laboratory Results: 01/05/20 19:05 01/05/20 19:05 01/05/20 01/05/20 01/05/20 19:05 19:05 19:05 WBC 18.0 H RBC 2.94 L Hgb 9.5 L Hct 28.5 L MCV 97 MCH 32.4 MCHC 33.5 RDW 13.1 Plt Count 440 Seg Neutrophils % Not Reportable VBG pH 7.41 VBG pCO2 45.4 VBG HCO3 28.4 VBG Base Excess 3.4 Sodium 128.2 L Potassium 3.8 Chloride 87 L Carbon Dioxide 28 Anion Gap 13 BUN 11 Creatinine 0.64 Est GFR ( Amer) > 60 Glucose 356 H Lactic Acid Uric Acid 3.1 L Calcium 9.3 Total Bilirubin 1.9 H AST 24 Alkaline Phosphatase 175 H C-Reactive Protein Total Protein 8.1 Albumin 4.0 Urine Color Urine Appearance Urine pH Ur Specific [place] Urine Protein Urine Glucose (UA) Urine Ketones Urine Blood Urine RBC (Auto) Fluid Type Fluid Source Fluid Color Fluid Appearance Fluid Viscosity Fluid WBC Fluid RBC 01/05/20 01/05/20 01/05/20 19:05 19:05 22:52 WBC RBC Hgb Hct MCV MCH MCHC RDW Plt Count Seg Neutrophils % VBG pH VBG pCO2 VBG HCO3 VBG Base Excess Sodium Potassium Chloride Carbon Dioxide Anion Gap BUN Creatinine Est GFR ( Amer) Glucose Lactic Acid 1.6 1.3 Uric Acid Calcium Total Bilirubin AST Alkaline Phosphatase C-Reactive Protein 421.9 H Total Protein Albumin Urine Color Urine Appearance Urine pH Ur Specific [place] Urine Protein Urine Glucose (UA) Urine Ketones Urine Blood Urine RBC (Auto) Fluid Type Fluid Source Fluid Color Fluid Appearance Fluid Viscosity Fluid WBC Fluid RBC 01/05/20 01/05/20 01/06/20 23:05 23:05 02:57 WBC RBC Hgb Hct MCV MCH MCHC RDW Plt Count Seg Neutrophils % VBG pH VBG pCO2 VBG HCO3 VBG Base Excess Sodium Potassium Chloride Carbon Dioxide Anion Gap BUN Creatinine Est GFR ( Amer) Glucose Lactic Acid Uric Acid Calcium Total Bilirubin AST Alkaline Phosphatase C-Reactive Protein Total Protein Albumin Urine Color YELLOW Urine Appearance CLEAR Urine pH 6.0 Ur Specific [place] 1.024 Urine Protein 30 H Urine Glucose (UA) >=500 H Urine Ketones 80 H Urine Blood SMALL H Urine RBC (Auto) 2 Fluid Type SYNOVIAL SYNOVIAL Fluid Source KNEE Fluid Color ORANGE Fluid Appearance TURBID Fluid Viscosity SLIGHTLY VISCOUS Fluid WBC 86882 Fluid RBC 12072 01/06/20 01/06/20 01/06/20 03:11 07:12 12:04 WBC RBC Hgb Hct MCV MCH MCHC RDW Plt Count Seg Neutrophils % VBG pH VBG pCO2 VBG HCO3 VBG Base Excess Sodium Potassium Chloride Carbon Dioxide Anion Gap BUN Creatinine Est GFR ( Amer) Glucose Lactic Acid 1.2 0.9 1.0 Uric Acid Calcium Total Bilirubin AST Alkaline Phosphatase C-Reactive Protein Total Protein Albumin Urine Color Urine Appearance Urine pH Ur Specific [place] Urine Protein Urine Glucose (UA) Urine Ketones Urine Blood Urine RBC (Auto) Fluid Type Fluid Source Fluid Color Fluid Appearance Fluid Viscosity Fluid WBC Fluid RBC Impressions: Chest X-Ray 01/05/20 18:40 IMPRESSION: NO ACUTE RADIOGRAPHIC FINDING IN THE CHEST. Knee X-Ray 01/05/20 18:41 IMPRESSION: Moderate knee joint effusion. No acute fracture or dislocation. Assessment and Plan - Diagnosis (1) Septic arthritis of knee, right Is this a current diagnosis for this admission?: Yes Plan: S/P right knee arthroscopic I&D with debridement on 01/06/2020 Intraoperative cultures pending Continue current antibiotics (vancomycin/cefazolin) (2) SIRS (systemic inflammatory response syndrome) Is this a current diagnosis for this admission?: Yes Plan: Antibiotics as noted above (3) Leucocytosis Is this a current diagnosis for this admission?: Yes Plan: Antibiotics as noted above Blood cultures pending Intraoperative cultures pending (4) Diabetes mellitus type 2 in nonobese Is this a current diagnosis for this admission?: Yes Plan: Continue FS BS with SSI correction scale but changed to lispro insulin Medication reconciliation does not list basal insulin but patient reports that he takes glargine insulin 20 units in the a.m. and 20 units in the p.m. Resume home basal insulin - Time Time Spent with patient: 25-34 minutes Medications reviewed and adjusted accordingly: Yes Anticipated discharge: Home Within: Other
[2020-01-06] MEDS: GABAPENTIN 300 MG CAPSULE PO SCH (21:46)
[2020-01-06] MEDS: INSULIN GLARGINE,HUM.REC.ANLOG 1,000 UNIT/10 ML VIAL SUBCUT SCH (21:46)
[2020-01-07] MEDS: MORPHINE SULFATE 10 MG/ML INJ IV PRN ×5 (01:53→20:50)
[2020-01-07] MEDS: VANCOMYCIN HCL 1,000 MG in DEXTROSE 5%-WATER 250 ML IV SCH ×2 (01:53→10:00)
[2020-01-07] MEDS: CEFAZOLIN 2 GM/D5W RTU 2 GM/50 ML RTUPB IV SCH ×4 (05:09→23:35)
[2020-01-07] MEDS: HEPARIN SOD (PORCINE) 5,000 UNIT/ML 1 ML VIAL SUBCUT SCH ×3 (05:10→21:52)
[2020-01-07] MEDS: RINGERS SOLUTION,LACTATED 1,000 ML IV PRN (05:10)
[2020-01-07] MEDS: GABAPENTIN 300 MG CAPSULE PO SCH ×3 (05:10→21:50)
[2020-01-07 05:13] LABS: HEMATOCRIT 22.9 % (37.9-51.0); MEAN CORPUSCULAR HEMOGLOBIN 32.5 pg (27.0-33.4); MEAN CORPUSCULAR HGB CONC 34.1 g/dL (32.0-36.0); MEAN CORPUSCULAR VOLUME 95 fl (80-97); PLATELET COUNT 344 10^3/uL (150-450); WHITE BLOOD COUNT 17.3 10^3/uL (4.0-10.5)
[2020-01-07 05:25] LABS: ANION GAP 7 (5-19); BLOOD UREA NITROGEN 6 mg/dL (7-20); CARBON DIOXIDE 30 mmol/L (22-30); CHLORIDE 93 mmol/L (98-107); GLUCOSE 175 mg/dL (75-110); POTASSIUM 3.5 mmol/L (3.6-5.0)
[2020-01-07 05:50] LABS: HEMOGLOBIN 7.8 g/dL (13.5-17.0)
[2020-01-07 08:33] LABS: ABSOLUTE LYMPHOCYTES# (MANUAL) 0.9 10^3/uL (0.5-4.7); ABSOLUTE MONOCYTES # (MANUAL) 1.9 10^3/uL (0.1-1.4); BASOPHILS % (MANUAL) 0 % (0-2); EOSINOPHILS % (MANUAL) 0 % (0-6); LYMPHOCYTES % (MANUAL) 5 % (13-45); MONOCYTES % (MANUAL) 11 % (3-13); SEGMENTED NEUTROPHILS % (MAN) 84 % (42-78); TOTAL CELLS COUNTED 100
[2020-01-07 08:34] LABS: ANISOCYTOSIS SLIGHT; PLATELET COMMENT ADEQUATE
[2020-01-07] MEDS: INSULIN LISPRO 100 UNIT/ML 3 ML VIAL SUBCUT SCH (08:53)
[2020-01-07] MEDS ORDERED: PHARMACY COMMUNICATION ORDER MC ONE (09:30)
[2020-01-07] MEDS: FAMOTIDINE 20 MG TABLET PO SCH ×2 (09:59→21:50)
[2020-01-07] MEDS: DOCUSATE SODIUM 100 MG CAPSULE PO SCH ×2 (09:59→17:27)
[2020-01-07] MEDS: INSULIN GLARGINE,HUM.REC.ANLOG 1,000 UNIT/10 ML VIAL SUBCUT SCH ×2 (10:01→21:52)
[2020-01-07 10:33] LABS: VANCOMYCIN,TROUGH 11.7 ug/mL (5.0-20.0)
[2020-01-07] MEDS: ACETAMINOPHEN 325 MG TABLET PO PRN (11:30)
--- NOTE | 2020-01-07 13:21 | PDOC PROGRESS REPORT ---
Subjective Progress Note for:: 01/07/20 Subjective:: Patient reports considerable improvement a day but has not had fevers or night. Still has difficulty ambulating, reportedly almost fell. Reason For Visit: SEPTIC ARTHRITIS RIGHT KNEE,DIABETES MELLITUS Physical Exam Vital Signs: Temp Pulse Resp BP Pulse Ox 102.2 F H 96 16 140/65 H 95 01/07/20 11:25 01/07/20 11:25 01/07/20 11:25 01/07/20 11:25 01/07/20 11:25 Intake & Output 01/06/20 01/07/20 01/08/20 06:59 06:59 06:59 Intake Total 1100 67548 240 Output Total 500 2200 900 Balance 600 96196 -660 Weight 63.6 kg 63.2 kg Physical Exam: No acute distress alert and orient x3 Right lower extremity -Mild to moderate effusion -Erythema about the knee -Skin intact otherwise no puncture wounds, draining wounds, or abrasions -Severe tenderness to palpation, severe tenderness with any potential motion of the right knee. -Right lower extremity otherwise neurovascular intact. -Wound is clean dry and intact Results Laboratory Results: 01/07/20 03:52 01/07/20 03:52 01/07/20 01/07/20 03:52 03:52 WBC 17.3 H RBC 2.40 L Hgb 7.8 L Hct 22.9 L MCV 95 MCH 32.5 MCHC 34.1 RDW 13.0 Plt Count 344 Seg Neutrophils % Not Reportable Sodium 129.5 L Potassium 3.5 L Chloride 93 L Carbon Dioxide 30 Anion Gap 7 BUN 6 L Creatinine 0.55 Est GFR ( Amer) > 60 Glucose 175 H Calcium 8.0 L Magnesium 2.0 Impressions: Chest X-Ray 01/05/20 18:40 IMPRESSION: NO ACUTE RADIOGRAPHIC FINDING IN THE CHEST. Knee X-Ray 01/05/20 18:41 IMPRESSION: Moderate knee joint effusion. No acute fracture or dislocation. Assessment & Plan - Diagnosis (1) Septic arthritis of knee, right Is this a current diagnosis for this admission?: Yes Plan: Keep n.p.o. tonight for potential repeat washout tomorrow. Initial washout did reveal hector purulence. Occasionally multiple washouts are needed to clear infection we will plan for this depending on his exam tomorrow. Continue antibiotics per medical team Follow cultures Weightbearing as tolerated Limit narcotics Physical therapy (2) Septic arthritis Qualifiers: Septic arthritis location: knee Septic arthritis organism: due to unspecified organism Laterality: right Qualified Code(s): M00.9 - Pyogenic arthritis, unspecified Is this a current diagnosis for this admission?: Yes - Time Time Spent with patient: Less than 15 minutes
--- NOTE | 2020-01-07 14:25 | PDOC PROGRESS REPORT ---
Subjective Progress Note for:: 01/07/20 Subjective:: Patient reports adequate pain control Reason For Visit: SEPTIC ARTHRITIS RIGHT KNEE,DIABETES MELLITUS Physical Exam Vital Signs: Temp Pulse Resp BP Pulse Ox 99.9 F 96 16 140/65 H 95 01/07/20 12:30 01/07/20 11:25 01/07/20 11:25 01/07/20 11:25 01/07/20 11:25 Intake & Output 01/06/20 01/07/20 01/08/20 06:59 06:59 06:59 Intake Total 1100 54208 240 Output Total 500 2200 900 Balance 600 46356 -660 Weight 63.6 kg 63.2 kg General appearance: PRESENT: no acute distress, cooperative, well-developed, well-nourished Head exam: PRESENT: atraumatic, normocephalic Eye exam: PRESENT: conjunctiva pink Mouth exam: PRESENT: moist, tongue midline Neck exam: ABSENT: JVD Respiratory exam: PRESENT: clear to auscultation nora, symmetrical, unlabored. ABSENT: accessory muscle use Cardiovascular exam: PRESENT: RRR, +S1, +S2 Pulses: PRESENT: normal radial pulses Vascular exam: PRESENT: normal capillary refill GI/Abdominal exam: PRESENT: normal bowel sounds, soft. ABSENT: distended, tenderness Rectal exam: PRESENT: deferred Extremities exam: ABSENT: calf tenderness, pedal edema Neurological exam: PRESENT: alert, awake, oriented to person, oriented to place, oriented to time, oriented to situation, CN II-XII grossly intact Psychiatric exam: ABSENT: agitated, anxious Skin exam: PRESENT: dry, normal color, warm Results Laboratory Results: 01/07/20 03:52 01/07/20 03:52 01/07/20 01/07/20 03:52 03:52 WBC 17.3 H RBC 2.40 L Hgb 7.8 L Hct 22.9 L MCV 95 MCH 32.5 MCHC 34.1 RDW 13.0 Plt Count 344 Seg Neutrophils % Not Reportable Sodium 129.5 L Potassium 3.5 L Chloride 93 L Carbon Dioxide 30 Anion Gap 7 BUN 6 L Creatinine 0.55 Est GFR ( Amer) > 60 Glucose 175 H Calcium 8.0 L Magnesium 2.0 Impressions: Chest X-Ray 01/05/20 18:40 IMPRESSION: NO ACUTE RADIOGRAPHIC FINDING IN THE CHEST. Knee X-Ray 01/05/20 18:41 IMPRESSION: Moderate knee joint effusion. No acute fracture or dislocation. Assessment and Plan - Diagnosis (1) Septic arthritis of knee, right Is this a current diagnosis for this admission?: Yes Plan: Ortho input/assistance appreciated S/P right knee arthroscopic I&D with debridement on 01/06/2020 Ortho plans to take patient for washout tomorrow Intraoperative cultures with GPC in clusters Blood culture NG at 24 hours Continue current antibiotics at this time (vancomycin/cefazolin) De-escalate antibiotics soon (2) SIRS (systemic inflammatory response syndrome) Is this a current diagnosis for this admission?: Yes Plan: Patient remains febrile and continues to have elevated WBC Nontoxic in appearance Antibiotics as noted above (3) Leucocytosis Is this a current diagnosis for this admission?: Yes Plan: Antibiotics as noted above Blood cultures NG at 24 hours Intraoperative cultures with GPC in clusters noted (4) Diabetes mellitus type 2 in nonobese Is this a current diagnosis for this admission?: Yes Plan: One episode of hypoglycemia this a.m. Continue current basal (glargine) 20 units subcutaneously twice daily Continue FS BS with SSI correction scale Check hemoglobin A1c in a.m. (5) Hyponatremia Is this a current diagnosis for this admission?: Yes Plan: Patient is asymptomatic Change IVF to NS Monitor (6) Hypokalemia Is this a current diagnosis for this admission?: Yes Plan: Replete with KCl 40 mEq p.o. x1 today Monitor (7) Anemia Is this a current diagnosis for this admission?: Yes Plan: There is likely a dilutional component Check iron studies Stool for occult blood Monitor - Time Time Spent with patient: 25-34 minutes Medications reviewed and adjusted accordingly: Yes Anticipated Discharge Disposition: Home, Self Care Anticipated Discharge: Other
[2020-01-07] MEDS ORDERED: POTASSIUM CHLORIDE 10 MEQ TABLET.ER PO ONE ×2 (15:00→17:20)
[2020-01-07] MEDS: VANCOMYCIN HCL 1,250 MG in DEXTROSE 5%-WATER 250 ML IV SCH (17:58)
[2020-01-08] MEDS: MORPHINE SULFATE 10 MG/ML INJ IV PRN ×6 (00:19→21:54)
[2020-01-08] MEDS: VANCOMYCIN HCL 1,250 MG in DEXTROSE 5%-WATER 250 ML IV SCH ×3 (02:56→17:30)
[2020-01-08] MEDS: CEFAZOLIN 2 GM/D5W RTU 2 GM/50 ML RTUPB IV SCH ×2 (05:35→13:47)
[2020-01-08] MEDS: HEPARIN SOD (PORCINE) 5,000 UNIT/ML 1 ML VIAL SUBCUT SCH ×3 (06:12→21:57)
[2020-01-08] MEDS: GABAPENTIN 300 MG CAPSULE PO SCH ×3 (06:12→21:59)
[2020-01-08 06:54] LABS: ABSOLUTE RETICS # 0.051 10^6/uL (0.028-0.122); HEMATOCRIT 22.3 % (37.9-51.0); MEAN CORPUSCULAR HEMOGLOBIN 32.6 pg (27.0-33.4); MEAN CORPUSCULAR HGB CONC 34.2 g/dL (32.0-36.0); MEAN CORPUSCULAR VOLUME 95 fl (80-97); PLATELET COUNT 402 10^3/uL (150-450); RED BLOOD COUNT 2.34 10^6/uL (4.35-5.55); RED CELL DISTRIBUTION WIDTH 13.5 % (11.5-14.0); RETICULOCYTE COUNT (AUTO) 2.16 % (0.66-2.85); WHITE BLOOD COUNT 16.6 10^3/uL (4.0-10.5)
[2020-01-08 07:08] LABS: BLOOD UREA NITROGEN 4 mg/dL (7-20); CARBON DIOXIDE 32 mmol/L (22-30); CHLORIDE 95 mmol/L (98-107); GLUCOSE 189 mg/dL (75-110); IRON(TIBC) 21.3 ug/dL (49-181); POTASSIUM 3.7 mmol/L (3.6-5.0)
[2020-01-08 07:09] LABS: HEMOGLOBIN 7.6 g/dL (13.5-17.0)
--- NOTE | 2020-01-08 07:48 | PDOC PROGRESS REPORT ---
Subjective Progress Note for:: 01/08/20 Subjective:: Patient seen and examined this morning, is having ongoing severe right knee pain that prevents him from the ability to ambulate. Denies any improvement overnight and potential worsening. Nursing staff reports a low-grade fever overnight. Reason For Visit: SEPTIC ARTHRITIS RIGHT KNEE,DIABETES MELLITUS Physical Exam Vital Signs: Temp Pulse Resp BP Pulse Ox 100.0 F 93 17 128/54 H 91 L 01/08/20 04:15 01/08/20 04:15 01/08/20 04:15 01/08/20 04:15 01/08/20 04:15 Intake & Output 01/07/20 01/08/20 01/09/20 06:59 06:59 06:59 Intake Total 83655 2730 Output Total 2200 3300 Balance 91716 -570 Weight 63.2 kg 62 kg Physical Exam: No acute distress alert and orient x3 Right lower extremity -Mild to moderate effusion -Erythema about the knee -Skin intact otherwise no puncture wounds, draining wounds, or abrasions -Severe tenderness to palpation, severe tenderness with any potential motion of the right knee. -Right lower extremity otherwise neurovascular intact. -Wound is clean dry and intact Results Laboratory Results: 01/08/20 06:25 01/07/20 01/08/20 03:52 06:25 WBC 17.3 H 16.6 H RBC 2.40 L 2.34 L Hgb 7.8 L 7.6 L Hct 22.9 L 22.3 L MCV 95 95 MCH 32.5 32.6 MCHC 34.1 34.2 RDW 13.0 13.5 Plt Count 344 402 Seg Neutrophils % Not Reportable Retic Count (auto) 2.16 Impressions: Chest X-Ray 01/05/20 18:40 IMPRESSION: NO ACUTE RADIOGRAPHIC FINDING IN THE CHEST. Knee X-Ray 01/05/20 18:41 IMPRESSION: Moderate knee joint effusion. No acute fracture or dislocation. Assessment & Plan - Diagnosis (1) Septic arthritis of knee, right Is this a current diagnosis for this admission?: Yes Plan: We will plan for repeat washout of right knee today Continue antibiotics per medical team Follow cultures Weightbearing as tolerated Limit narcotics Physical therapy (2) Septic arthritis Qualifiers: Septic arthritis location: knee Septic arthritis organism: due to unspecified organism Laterality: right Qualified Code(s): M00.9 - Pyogenic arthritis, unspecified Is this a current diagnosis for this admission?: Yes - Time Time Spent with patient: Less than 15 minutes
[2020-01-08 08:14] LABS: FOLATE 6.01 ng/mL (>2.76)
[2020-01-08 08:16] LABS: ANION GAP 4 (5-19)
[2020-01-08] MEDS ORDERED: PROMETHAZINE HCL INJ 25 MG/1 ML VIAL IV PRN (08:43)
[2020-01-08] MEDS ORDERED: MEPERIDINE HCL/PF INJ 25 MG/1 ML DISP.SYRIN IV PRN (08:43)
[2020-01-08] MEDS ORDERED: DIPHENHYDRAMINE HCL 50 MG/ML VIAL IV PRN (08:43)
[2020-01-08] MEDS ORDERED: FENTANYL CITRATE INJ/PF 100 MCG/2 ML AMPUL IV PRN ×3 (08:43)
[2020-01-08] MEDS ORDERED: MIDAZOLAM 2 MG/2 ML INJ ONE (10:40)
[2020-01-08] MEDS ORDERED: ONDANSETRON HCL INJ/PF 4 MG/2 ML SDV ONE (10:40)
[2020-01-08] MEDS ORDERED: FENTANYL CITRATE INJ/PF 100 MCG/2 ML AMPUL ONE (10:40)
[2020-01-08] MEDS ORDERED: PROPOFOL INJ 200 MG/20 ML VIAL IV ONE (10:40)
[2020-01-08] MEDS ORDERED: BACITRACIN INJ 50,000 UNIT VIAL ONE (10:46)
[2020-01-08] MEDS ORDERED: GENTAMICIN SULFATE INJ 80 MG/2 ML VIAL ONE (10:46)
[2020-01-08] MEDS: INSULIN LISPRO 100 UNIT/ML 3 ML VIAL SUBCUT SCH (11:44)
[2020-01-08] MEDS: DOCUSATE SODIUM 100 MG CAPSULE PO SCH ×2 (11:45→17:30)
[2020-01-08] MEDS ORDERED: BUPIVACAINE HCL 0.25 % INJ/PF (2.5 MG/1 ML) 30 ML VIAL ONE (11:53)
[2020-01-08] MEDS ORDERED: LIDOCAINE 2% INJ (20 MG/ML) 20 ML MDV ONE (11:53)
--- NOTE | 2020-01-08 12:14 | Operative Report ---
Operative Report DATE OF SURGERY: 01/08/20 PREOPERATIVE DIAGNOSIS: Right knee septic arthritis POSTOPERATIVE DIAGNOSIS: Right knee septic arthritis OPERATION: Right knee arthroscopic irrigation and debridement SURGEON: KATELYN EDUARDO JR ANESTHESIA: GA TISSUE REMOVED OR ALTERED: Cultures taken COMPLICATIONS: None ESTIMATED BLOOD LOSS: 10 cc PROCEDURE: Patient was brought to the operating suite laid supine on the operating table. They are placed under general anesthesia. The patient is on continuous antibiotics this time. The right lower extremities prepped and draped in standard sterile fashion. A timeout was performed. The lateral portal suture was removed and was entered with a trocar. Sanguinous fluid returned with some streaks of potential purulence. This was sent for culture. The camera was introduced to the superior patellar pouch. There is no gross debris aside from multiple pieces of what appeared to be prior clot. Dilute Betadine irrigation of 3 L was passed through the knee. Subsequent to that 3 L of sterile saline was then passed through the knee. At this time a suction shaver was introduced into the medial portal and the debris was removed. A diagnostic exam was performed and no further debris was found in the gutters or posterior knee. The tourniquet was deflated and no overt bleeding was encountered. A final 3 L of irrigation fluid was passed to the knee this time with gentamicin and bacitracin. A drain was placed in the superior lateral portal of the patellar pouch and sutured in place with 3-0 nylon The knee was evacuated of all remaining fluid, a combination of lidocaine and Marcaine local anesthetic was injected into the knee through the trocar. The portal sites were closed with 3-0 nylon portal sutures.. Sterile dressing was placed. The patient was then awakened from anesthesia and transferred the PACU in stable condition.
[2020-01-08] MEDS: FAMOTIDINE 20 MG TABLET PO SCH ×2 (14:40→21:59)
[2020-01-08] MEDS: INSULIN GLARGINE,HUM.REC.ANLOG 1,000 UNIT/10 ML VIAL SUBCUT SCH ×2 (14:45→21:57)
--- NOTE | 2020-01-08 15:59 | PDOC PROGRESS REPORT ---
Subjective Progress Note for:: 01/08/20 Subjective:: Patient just returned from the OR at the time of exam and was complaining of knee pain Reason For Visit: SEPTIC ARTHRITIS RIGHT KNEE,DIABETES MELLITUS Physical Exam Vital Signs: Temp Pulse Resp BP Pulse Ox 98.8 F 89 18 141/71 H 97 01/08/20 14:14 01/08/20 14:14 01/08/20 14:14 01/08/20 14:14 01/08/20 14:14 Intake & Output 01/07/20 01/08/20 01/09/20 06:59 06:59 06:59 Intake Total 26831 2980 700 Output Total 2200 3300 25 Balance 57653 -320 675 Weight 63.2 kg 62 kg General appearance: PRESENT: cooperative, mild distress - 2/2 pain, well- developed, well-nourished Head exam: PRESENT: atraumatic, normocephalic Eye exam: PRESENT: conjunctiva pink Mouth exam: PRESENT: moist, tongue midline Neck exam: ABSENT: JVD Respiratory exam: PRESENT: clear to auscultation nora, symmetrical, unlabored. ABSENT: accessory muscle use Cardiovascular exam: PRESENT: RRR, +S1, +S2 Pulses: PRESENT: normal carotid pulses, normal radial pulses Vascular exam: PRESENT: normal capillary refill GI/Abdominal exam: PRESENT: normal bowel sounds, soft. ABSENT: distended, tenderness Rectal exam: PRESENT: deferred Extremities exam: ABSENT: calf tenderness, pedal edema Neurological exam: PRESENT: alert, awake, oriented to person, oriented to place, oriented to time, oriented to situation, CN II-XII grossly intact Psychiatric exam: PRESENT: appropriate affect, normal mood. ABSENT: agitated, anxious Skin exam: PRESENT: dry, normal color, warm Results Laboratory Results: 01/08/20 06:25 01/08/20 06:25 01/08/20 01/08/20 06:25 06:25 WBC 16.6 H RBC 2.34 L Hgb 7.6 L Hct 22.3 L MCV 95 MCH 32.6 MCHC 34.2 RDW 13.5 Plt Count 402 Retic Count (auto) 2.16 Sodium 130.9 L Potassium 3.7 Chloride 95 L Carbon Dioxide 32 H Anion Gap 4 L BUN 4 L Creatinine 0.52 Est GFR ( Amer) > 60 Glucose 189 H Calcium 8.0 L Iron 21.3 L TIBC 162 L % Saturation 13 Ferritin 723.00 H Vitamin B12 606.0 Folate 6.01 01/06/20 09:11 Knee - Right Gram Stain - Final 01/06/20 09:11 Knee - Right Wound Culture - Final Mrsa (Meth Resis Staph Aureus) No Anaerobic Organisms 01/05/20 23:05 Knee Fluid - Right Gram Stain - Final 01/05/20 23:05 Knee Fluid - Right Body Fluid Culture - Final Mrsa (Meth Resis Staph Aureus) No Anaerobic Organisms Impressions: Chest X-Ray 01/05/20 18:40 IMPRESSION: NO ACUTE RADIOGRAPHIC FINDING IN THE CHEST. Knee X-Ray 01/05/20 18:41 IMPRESSION: Moderate knee joint effusion. No acute fracture or dislocation. Assessment and Plan - Diagnosis (1) Septic arthritis of knee, right Is this a current diagnosis for this admission?: Yes Plan: Ortho input/assistance appreciated S/P right knee arthroscopic I&D with debridement on 01/06/2020 and and arthroscopic irrigation and debridement with drain placement on 01/08/2020 Intraoperative cultures 01/06/2020: MRSA Stop cefazolin Continue vancomycin per pharmacy protocol (2) SIRS (systemic inflammatory response syndrome) Is this a current diagnosis for this admission?: Yes Plan: Patient remains febrile and continues to have elevated WBC Nontoxic in appearance Antibiotics as noted above (3) Leucocytosis Is this a current diagnosis for this admission?: Yes Plan: Antibiotics as noted above Blood cultures 01/05/20 1/2 GPC in clusters Intraoperative cultures with MRSA (4) Diabetes mellitus type 2 in nonobese Is this a current diagnosis for this admission?: Yes Plan: Hemoglobin A1c 8.5 No further episodes of hypoglycemia Continue current basal (glargine) 20 units subcutaneously twice daily, may need to titrate but will continue to monitor at this time Continue FS BS with SSI correction scale (5) Hyponatremia Is this a current diagnosis for this admission?: Yes Plan: Patient is asymptomatic Continue NS at 100 cc/h Monitor (6) Hypokalemia Is this a current diagnosis for this admission?: Yes Plan: Serum K+ now WNL Monitor (7) Anemia Is this a current diagnosis for this admission?: Yes Plan: There is likely a dilutional component Iron studies reviewed, likely acute phase response Stool for occult blood pending Monitor - Time Time Spent with patient: 25-34 minutes Medications reviewed and adjusted accordingly: Yes Anticipated Discharge Disposition: Home, Self Care Anticipated Discharge: Other
[2020-01-08 17:50] LABS: VANCOMYCIN,TROUGH 15.8 ug/mL (5.0-20.0)
[2020-01-09] MEDS: VANCOMYCIN HCL 1,250 MG in DEXTROSE 5%-WATER 250 ML IV SCH ×3 (02:14→17:32)
[2020-01-09] MEDS: MORPHINE SULFATE 10 MG/ML INJ IV PRN ×7 (02:27→22:10)
[2020-01-09] MEDS: GABAPENTIN 300 MG CAPSULE PO SCH ×3 (06:04→21:52)
[2020-01-09] MEDS: HEPARIN SOD (PORCINE) 5,000 UNIT/ML 1 ML VIAL SUBCUT SCH ×3 (06:05→21:53)
[2020-01-09 06:19] LABS: HEMATOCRIT 21.2 % (37.9-51.0); MEAN CORPUSCULAR HGB CONC 34.7 g/dL (32.0-36.0); MEAN CORPUSCULAR VOLUME 95 fl (80-97); PLATELET COUNT 443 10^3/uL (150-450); RED BLOOD COUNT 2.23 10^6/uL (4.35-5.55); RED CELL DISTRIBUTION WIDTH 13.4 % (11.5-14.0); WHITE BLOOD COUNT 14.7 10^3/uL (4.0-10.5)
[2020-01-09 06:44] LABS: BLOOD UREA NITROGEN 5 mg/dL (7-20); CALCIUM 8.1 mg/dL (8.4-10.2); POTASSIUM 3.7 mmol/L (3.6-5.0)
[2020-01-09 06:46] LABS: HEMOGLOBIN 7.3 g/dL (13.5-17.0)
[2020-01-09 06:49] LABS: CARBON DIOXIDE 32 mmol/L (22-30); CHLORIDE 95 mmol/L (98-107)
[2020-01-09 06:55] LABS: GLUCOSE 54 mg/dL (75-110)
[2020-01-09 07:43] LABS: ANION GAP 4 (5-19)
[2020-01-09] MEDS: INSULIN LISPRO 100 UNIT/ML 3 ML VIAL SUBCUT SCH ×2 (07:49→22:02)
--- NOTE | 2020-01-09 07:59 | PDOC PROGRESS REPORT ---
Subjective Progress Note for:: 01/09/20 Subjective:: Patient reports doing much better today. He reports improved pain. No acute events overnight. Still running a low-grade temperature Reason For Visit: SEPTIC ARTHRITIS RIGHT KNEE,DIABETES MELLITUS Physical Exam Vital Signs: Temp Pulse Resp BP Pulse Ox 100.5 F H 99 18 137/68 H 98 01/09/20 00:45 01/09/20 00:45 01/09/20 00:45 01/09/20 00:45 01/09/20 00:45 Intake & Output 01/08/20 01/09/20 01/10/20 06:59 06:59 06:59 Intake Total 2980 1940 Output Total 3300 1340 Balance -320 600 Weight 62 kg 63.5 kg Physical Exam: No acute distress, alert and orient x3. Right lower extremity currently well dressed in a lightly compressive dressing. The drain produced 65 cc of slightly serous fluid that does not appear infectious. Right lower extremity is neurovascular intact. Results Laboratory Results: 01/09/20 05:49 01/09/20 05:49 01/08/20 01/08/20 01/09/20 06:25 17:00 05:49 WBC 14.7 H RBC 2.23 L Hgb 7.3 L Hct 21.2 L MCV 95 MCH 33.0 MCHC 34.7 RDW 13.4 Plt Count 443 Sodium 130.9 L Potassium 3.7 Chloride 95 L Carbon Dioxide 32 H Anion Gap 4 L BUN 4 L Creatinine 0.52 0.54 Est GFR ( Amer) > 60 > 60 Glucose 189 H Calcium 8.0 L Iron 21.3 L TIBC 162 L % Saturation 13 Ferritin 723.00 H Vitamin B12 606.0 Folate 6.01 01/09/20 05:49 WBC RBC Hgb Hct MCV MCH MCHC RDW Plt Count Sodium 131.4 L Potassium 3.7 Chloride 95 L Carbon Dioxide 32 H Anion Gap 4 L BUN 5 L Creatinine 0.67 Est GFR ( Amer) > 60 Glucose 54 L Calcium 8.1 L Iron TIBC % Saturation Ferritin Vitamin B12 Folate 01/06/20 09:11 Knee - Right Gram Stain - Final 01/06/20 09:11 Knee - Right Wound Culture - Final Mrsa (Meth Resis Staph Aureus) No Anaerobic Organisms 01/05/20 23:05 Knee Fluid - Right Gram Stain - Final 01/05/20 23:05 Knee Fluid - Right Body Fluid Culture - Final Mrsa (Meth Resis Staph Aureus) No Anaerobic Organisms Impressions: Chest X-Ray 01/05/20 18:40 IMPRESSION: NO ACUTE RADIOGRAPHIC FINDING IN THE CHEST. Knee X-Ray 01/05/20 18:41 IMPRESSION: Moderate knee joint effusion. No acute fracture or dislocation. Assessment & Plan - Diagnosis (1) Septic arthritis of knee, right Is this a current diagnosis for this admission?: Yes Plan: He appears to be improving at this time, will reevaluate tomorrow. If drainage slows, may be able to pull drain tomorrow. Potential DC tomorrow. Encourage ambulation and out of bed and gentle range of motion of the right knee. Physical therapy. Antibiotics per hospitalist (2) Septic arthritis Qualifiers: Septic arthritis location: knee Septic arthritis organism: due to unspecified organism Laterality: right Qualified Code(s): M00.9 - Pyogenic arthritis, unspecified Is this a current diagnosis for this admission?: Yes - Time Time Spent with patient: Less than 15 minutes
[2020-01-09] MEDS: INSULIN GLARGINE,HUM.REC.ANLOG 1,000 UNIT/10 ML VIAL SUBCUT SCH ×2 (09:13→21:52)
[2020-01-09] MEDS: FAMOTIDINE 20 MG TABLET PO SCH ×2 (09:13→21:52)
[2020-01-09] MEDS: DOCUSATE SODIUM 100 MG CAPSULE PO SCH ×2 (09:14→17:33)
--- NOTE | 2020-01-09 23:32 | PDOC PROGRESS REPORT ---
Subjective Progress Note for:: 01/09/20 Subjective:: No complaints Reason For Visit: SEPTIC ARTHRITIS RIGHT KNEE,DIABETES MELLITUS Physical Exam Vital Signs: Temp Pulse Resp BP Pulse Ox 99.3 F 94 16 118/57 L 99 01/09/20 20:08 01/09/20 20:08 01/09/20 20:08 01/09/20 20:08 01/09/20 20:08 Intake & Output 01/08/20 01/09/20 01/10/20 06:59 06:59 06:59 Intake Total 2980 1940 750 Output Total 3300 1340 825 Balance -320 600 -75 Weight 62 kg 63.5 kg General appearance: PRESENT: no acute distress, cooperative, well-developed, well-nourished Head exam: PRESENT: atraumatic, normocephalic Eye exam: PRESENT: conjunctiva pink Mouth exam: PRESENT: moist, tongue midline Neck exam: ABSENT: JVD Respiratory exam: PRESENT: clear to auscultation nora, symmetrical, unlabored Cardiovascular exam: PRESENT: RRR, +S1, +S2 Vascular exam: PRESENT: normal capillary refill GI/Abdominal exam: PRESENT: normal bowel sounds, soft. ABSENT: distended, tenderness Rectal exam: PRESENT: deferred Extremities exam: ABSENT: calf tenderness, pedal edema Neurological exam: PRESENT: alert, awake, oriented to person, oriented to place, oriented to time, oriented to situation, CN II-XII grossly intact Psychiatric exam: ABSENT: agitated, anxious Skin exam: PRESENT: dry, normal color, warm Results Laboratory Results: 01/09/20 05:49 01/09/20 05:49 01/09/20 01/09/20 05:49 05:49 WBC 14.7 H RBC 2.23 L Hgb 7.3 L Hct 21.2 L MCV 95 MCH 33.0 MCHC 34.7 RDW 13.4 Plt Count 443 Sodium 131.4 L Potassium 3.7 Chloride 95 L Carbon Dioxide 32 H Anion Gap 4 L BUN 5 L Creatinine 0.67 Est GFR ( Amer) > 60 Glucose 54 L Calcium 8.1 L 01/05/20 20:17 Blood Blood Culture - Final Mrsa (Meth Resis Staph Aureus) Impressions: Chest X-Ray 01/05/20 18:40 IMPRESSION: NO ACUTE RADIOGRAPHIC FINDING IN THE CHEST. Knee X-Ray 01/05/20 18:41 IMPRESSION: Moderate knee joint effusion. No acute fracture or dislocation. Assessment and Plan - Diagnosis (1) Septic arthritis of knee, right Is this a current diagnosis for this admission?: Yes Plan: Ortho input/assistance appreciated S/P right knee arthroscopic I&D with debridement on 01/06/2020 and and arthroscopic irrigation and debridement with drain placement on 01/08/2020 Intraoperative cultures 01/06/2020: MRSA Continue vancomycin per pharmacy protocol (2) SIRS (systemic inflammatory response syndrome) Is this a current diagnosis for this admission?: Yes Plan: Patient remains febrile and continues to have elevated WBC Nontoxic in appearance Antibiotics as noted above (3) Leucocytosis Is this a current diagnosis for this admission?: Yes Plan: Antibiotics as noted above Blood cultures 01/05/20 1/2 MRSA Intraoperative cultures with MRSA (4) Diabetes mellitus type 2 in nonobese Is this a current diagnosis for this admission?: Yes Plan: Hemoglobin A1c 8.5 Blood sugars labile Patient with 1 hypoglycemic episode today now hyperglycemic Continue current basal (glargine) 20 units subcutaneously twice daily, may need to titrate but will continue to monitor at this time Continue FS BS with SSI correction scale (5) Hyponatremia Is this a current diagnosis for this admission?: Yes Plan: Sodium trending up Patient is asymptomatic Continue NS at 100 cc/h Monitor (6) Hypokalemia Is this a current diagnosis for this admission?: Yes Plan: Serum K+ now WNL Monitor (7) Anemia Is this a current diagnosis for this admission?: Yes Plan: There is likely a dilutional component Iron studies reviewed, likely acute phase response Stool for occult blood pending Transfuse for Hgb < 7.0 Monitor - Time Time Spent with patient: 25-34 minutes Medications reviewed and adjusted accordingly: Yes Anticipated Discharge Disposition: Intermediate Care Facility Anticipated Discharge: Other
[2020-01-10] MEDS: MORPHINE SULFATE 10 MG/ML INJ IV PRN ×7 (00:51→22:03)
[2020-01-10] MEDS: VANCOMYCIN HCL 1,250 MG in DEXTROSE 5%-WATER 250 ML IV SCH ×3 (01:25→18:01)
[2020-01-10 05:22] LABS: ANION GAP 6 (5-19); BLOOD UREA NITROGEN 7 mg/dL (7-20); CALCIUM 7.9 mg/dL (8.4-10.2); CARBON DIOXIDE 30 mmol/L (22-30); CHLORIDE 95 mmol/L (98-107); GLUCOSE 133 mg/dL (75-110); POTASSIUM 3.9 mmol/L (3.6-5.0)
[2020-01-10] MEDS: HEPARIN SOD (PORCINE) 5,000 UNIT/ML 1 ML VIAL SUBCUT SCH ×3 (05:45→22:04)
[2020-01-10] MEDS: GABAPENTIN 300 MG CAPSULE PO SCH ×3 (05:45→22:06)
[2020-01-10 07:21] LABS: ALBUMIN 2.4 g/dL (3.5-5.0); ALKALINE PHOSPHATASE 210 U/L (38-126); ASPARTATE AMINO TRANSFERASE 20 U/L (17-59); BILIRUBIN,DIRECT 0.1 mg/dL (0.0-0.4); BILIRUBIN,TOTAL 0.7 mg/dL (0.2-1.3); TOTAL PROTEIN 5.9 g/dL (6.3-8.2)
[2020-01-10] MEDS: INSULIN LISPRO 100 UNIT/ML 3 ML VIAL SUBCUT SCH ×4 (07:45→22:04)
--- NOTE | 2020-01-10 07:52 | PDOC PROGRESS REPORT ---
Subjective Progress Note for:: 01/10/20 Subjective:: Patient reports improvement in the right knee today. Soreness has decreased, improved ability to range knee, swelling has also decreased. The patient feels much better today reportedly. Pain is improved. Does report a new complaint of chronic left great toe pain that has been present for weeks, he had not mentioned it previously. Ultimately the sensation is more that of insensate left great toe with some associated discomfort. Reason For Visit: SEPTIC ARTHRITIS RIGHT KNEE,DIABETES MELLITUS Physical Exam Vital Signs: Temp Pulse Resp BP Pulse Ox 98.8 F 95 17 111/52 L 97 01/10/20 00:00 01/10/20 00:00 01/10/20 00:00 01/10/20 00:00 01/10/20 00:00 Intake & Output 01/09/20 01/10/20 01/11/20 06:59 06:59 06:59 Intake Total 1940 1240 Output Total 1340 2445 Balance 600 -1205 Weight 63.5 kg 62.8 kg Physical Exam: No acute distress, alert and orient x3. Right lower extremity currently well dressed in a lightly compressive dressing. The drain produced 65 cc of slightly serous fluid that does not appear infectious. Right lower extremity is neurovascular intact. Left lower extremity -Pulses 2+ distally -Compartments soft -Sensation grossly intact to L3-4-5 S1, decreased sensation diffusely in the distal left foot. Incision is present with deep palpation. -Motor grossly intact to EHL TA gastroc and quad -The left great toe appears necrotic distal to the IP joint on the volar aspect there appears to be some potential purulence. Results Laboratory Results: 01/09/20 05:49 01/10/20 04:24 01/10/20 01/10/20 04:24 04:24 Sodium 131.4 L Potassium 3.9 Chloride 95 L Carbon Dioxide 30 Anion Gap 6 BUN 7 Creatinine 0.59 Est GFR ( Amer) > 60 Glucose 133 H Calcium 7.9 L Total Bilirubin 0.7 AST 20 Alkaline Phosphatase 210 H Total Protein 5.9 L Albumin 2.4 L 01/05/20 20:17 Blood Blood Culture - Final Mrsa (Meth Resis Staph Aureus) Impressions: Chest X-Ray 01/05/20 18:40 IMPRESSION: NO ACUTE RADIOGRAPHIC FINDING IN THE CHEST. Knee X-Ray 01/05/20 18:41 IMPRESSION: Moderate knee joint effusion. No acute fracture or dislocation. Assessment & Plan - Diagnosis (1) Septic arthritis of knee, right Is this a current diagnosis for this admission?: Yes Plan: Right knee continues to improve, output from drain was 20 cc overnight 15 during the day shift yesterday -I will return this afternoon to pull the drain continues to decrease his output. If patient is doing better tomorrow may be able to be discharged on appropriate antibiotics. 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 The patient is stable at this time. I would consider referral to Dr. Azul as an outpatient on bridging antibiotics for potential left great toe amputation. I will discuss with Dr. Azul today. - Time Time Spent with patient: Less than 15 minutes
[2020-01-10] MEDS: FAMOTIDINE 20 MG TABLET PO SCH ×2 (10:49→22:06)
[2020-01-10] MEDS: DOCUSATE SODIUM 100 MG CAPSULE PO SCH ×2 (10:49→18:01)
[2020-01-10] MEDS: INSULIN GLARGINE,HUM.REC.ANLOG 1,000 UNIT/10 ML VIAL SUBCUT SCH ×2 (11:15→22:05)
--- NOTE | 2020-01-10 15:17 | PDOC PROGRESS REPORT ---
Subjective Progress Note for:: 01/10/20 Subjective:: Patient complains of only minimal knee pain today Reason For Visit: SEPTIC ARTHRITIS RIGHT KNEE,DIABETES MELLITUS Physical Exam Vital Signs: Temp Pulse Resp BP Pulse Ox 98.2 F 92 16 124/61 100 01/10/20 12:00 01/10/20 12:00 01/10/20 12:00 01/10/20 12:00 01/10/20 12:00 Intake & Output 01/09/20 01/10/20 01/11/20 06:59 06:59 06:59 Intake Total 2390 1490 550 Output Total 1365 2445 600 Balance 1025 -955 -50 Weight 63.5 kg 62.8 kg General appearance: PRESENT: no acute distress, cooperative, well-developed, well-nourished Head exam: PRESENT: atraumatic, normocephalic Eye exam: PRESENT: conjunctiva pink Mouth exam: PRESENT: moist, tongue midline Neck exam: ABSENT: JVD Respiratory exam: PRESENT: clear to auscultation nora, symmetrical, unlabored Cardiovascular exam: PRESENT: RRR, +S1, +S2 Vascular exam: PRESENT: normal capillary refill GI/Abdominal exam: PRESENT: normal bowel sounds, soft. ABSENT: distended, tenderness Rectal exam: PRESENT: deferred Extremities exam: ABSENT: calf tenderness, clubbing, pedal edema Musculoskeletal exam: PRESENT: ambulatory Neurological exam: PRESENT: alert, awake, oriented to person, oriented to place, oriented to time, oriented to situation, CN II-XII grossly intact Psychiatric exam: PRESENT: depressed - Mildly depressed affect. ABSENT: agitated, anxious Skin exam: PRESENT: intact, normal color, warm Results Laboratory Results: 01/09/20 05:49 01/10/20 04:24 01/10/20 01/10/20 04:24 04:24 Sodium 131.4 L Potassium 3.9 Chloride 95 L Carbon Dioxide 30 Anion Gap 6 BUN 7 Creatinine 0.59 Est GFR ( Amer) > 60 Glucose 133 H Calcium 7.9 L Total Bilirubin 0.7 AST 20 Alkaline Phosphatase 210 H Total Protein 5.9 L Albumin 2.4 L 01/08/20 11:24 Knee - Right Gram Stain - Final 01/06/20 09:11 Knee - Right Fungal Smear - Final 01/06/20 09:11 Knee - Right Fungal Smear - Final 01/06/20 09:11 Knee - Right AFB Smear Concentration - Final 01/06/20 09:11 Knee - Right Acid Fast Bacilli Smear - Final 01/05/20 20:17 Blood Blood Culture - Final Mrsa (Meth Resis Staph Aureus) Impressions: Chest X-Ray 01/05/20 18:40 IMPRESSION: NO ACUTE RADIOGRAPHIC FINDING IN THE CHEST. Knee X-Ray 01/05/20 18:41 IMPRESSION: Moderate knee joint effusion. No acute fracture or dislocation. Assessment and Plan - Diagnosis (1) Septic arthritis of knee, right Is this a current diagnosis for this admission?: Yes Plan: Ortho input/assistance appreciated S/P right knee arthroscopic I&D with debridement on 01/06/2020 and and arthroscopic irrigation and debridement with drain placement on 01/08/2020 Intraoperative cultures 01/06/2020: MRSA Continue vancomycin per pharmacy protocol (2) Bacteremia Is this a current diagnosis for this admission?: Yes Plan: 1/ blood cultures from 01/05/2020 positive for MRSA Repeat blood cultures on 01/09/2020 NG at 24 hours Patient already on vancomycin for MRSA (septic arthritis, right knee) as noted above (3) SIRS (systemic inflammatory response syndrome) Is this a current diagnosis for this admission?: Yes Plan: Patient afebrile for past 24 hours Leukocytosis improving Nontoxic in appearance Antibiotics as noted above (4) Leucocytosis Is this a current diagnosis for this admission?: Yes Plan: WBC trending down Antibiotics as noted above Blood cultures 01/05/20 1/ MRSA Intraoperative cultures with MRSA (5) Diabetes mellitus type 2 in nonobese Is this a current diagnosis for this admission?: Yes Plan: Hemoglobin A1c 8.5 Blood sugars labile but much better controlled since peak last evening at 21:14 No further hypoglycemic episodes since yesterday at 06:30 Continue current basal (glargine) 20 units subcutaneously twice daily Continue FS BS with SSI correction scale (6) Hyponatremia Is this a current diagnosis for this admission?: Yes Plan: Serum sodium stable over last 24 hours Patient is asymptomatic Continue NS at 100 cc/h Move sodium restriction from diet and initiate 1500 cc fluid restriction Monitor (7) Hypokalemia Is this a current diagnosis for this admission?: Yes Plan: Serum K+ remains WNL Monitor (8) Anemia Is this a current diagnosis for this admission?: Yes Plan: There is likely a dilutional component, but H/H continues to trend down Iron studies reviewed, likely acute phase response Stool for occult blood pending, patient has note had a BM Transfuse for Hgb < 7.0 Monitor (9) Toe necrosis Is this a current diagnosis for this admission?: Yes Plan: Left great toe with area of necrosis Plan for referral to Dr. Azul as outpatient for potential left great toe amputation - Time Time Spent with patient: 25-34 minutes Medications reviewed and adjusted accordingly: Yes Anticipated Discharge Disposition: Home, Self Care Anticipated Discharge: Other
[2020-01-10] MEDS: POLYETHYLENE GLYCOL 3350 POWDER 17 GM/1 PACKET PO SCH (16:19)
--- NOTE | 2020-01-10 18:10 | Progress Note ---
Provider Note Provider Note: Patient reevaluated. Approximately 20 cc out over the course of the day. Drain removed today. Depending on improvement tomorrow can potentially be discharged.
[2020-01-11] MEDS: MORPHINE SULFATE 10 MG/ML INJ IV PRN ×2 (01:13→05:44)
[2020-01-11] MEDS: NORMAL SALINE 1000 ML 1,000 ML IV PRN (01:15)
[2020-01-11] MEDS: VANCOMYCIN HCL 1,250 MG in DEXTROSE 5%-WATER 250 ML IV SCH ×2 (01:21→14:12)
[2020-01-11] MEDS: HEPARIN SOD (PORCINE) 5,000 UNIT/ML 1 ML VIAL SUBCUT SCH ×3 (05:44→22:50)
[2020-01-11] MEDS: GABAPENTIN 300 MG CAPSULE PO SCH ×3 (05:44→22:48)
[2020-01-11] MEDS: INSULIN LISPRO 100 UNIT/ML 3 ML VIAL SUBCUT SCH ×4 (07:32→22:49)
[2020-01-11 07:55] LABS: BLOOD UREA NITROGEN 8 mg/dL (7-20); CALCIUM 8.3 mg/dL (8.4-10.2); GLUCOSE 104 mg/dL (75-110)
[2020-01-11 08:00] LABS: CARBON DIOXIDE 31 mmol/L (22-30); CHLORIDE 96 mmol/L (98-107)
[2020-01-11 08:07] LABS: ANION GAP 5 (5-19)
[2020-01-11] MEDS ORDERED: SULFAMETHOXAZOLE/TRIMETHOPRIM 800-160 MG TABLET PO SCH (10:00)
[2020-01-11 10:35] LABS: ABSOLUTE BASOPHILS # (AUTO) 0.1 10^3/uL (0.0-0.2); ABSOLUTE EOSINOPHILS # (AUTO) 0.1 10^3/uL (0.0-0.6); ABSOLUTE LYMPHOCYTES (AUTO) 1.4 10^3/uL (0.5-4.7); ABSOLUTE MONOCYTES (AUTO) 1.4 10^3/uL (0.1-1.4); ABSOLUTE NEUT (AUTO) 8.8 10^3/uL (1.7-8.2); BASOPHILS % (AUTO) 1.2 % (0-2); EOSINOPHILS % (AUTO) 0.8 % (0-6); HEMATOCRIT 19.3 % (37.9-51.0); LYMPHOCYTES % (AUTO) 11.8 % (13-45); MEAN CORPUSCULAR HGB CONC 33.7 g/dL (32.0-36.0); MEAN CORPUSCULAR VOLUME 95 fl (80-97); MONOCYTES % (AUTO) 11.7 % (3-13); PLATELET COUNT 509 10^3/uL (150-450); RED BLOOD COUNT 2.03 10^6/uL (4.35-5.55); RED CELL DISTRIBUTION WIDTH 14.2 % (11.5-14.0); SEGMENTED NEUTROPHILS % (AUTO) 74.5 % (42-78); TOTAL CELLS COUNTED % (AUTO) 100 %; WHITE BLOOD COUNT 11.8 10^3/uL (4.0-10.5)
[2020-01-11 10:37] LABS: HEMOGLOBIN 6.5 g/dL (13.5-17.0)
[2020-01-11] MEDS: OXYCODONE-ACETAMINOPHEN 5-325 MG TABLET PO PRN ×3 (10:40→20:45)
[2020-01-11] MEDS: FAMOTIDINE 20 MG TABLET PO SCH ×2 (10:40→22:48)
[2020-01-11] MEDS: DOCUSATE SODIUM 100 MG CAPSULE PO SCH ×2 (10:40→17:35)
[2020-01-11] MEDS: INSULIN GLARGINE,HUM.REC.ANLOG 1,000 UNIT/10 ML VIAL SUBCUT SCH ×2 (10:42→22:48)
[2020-01-11] MEDS: POLYETHYLENE GLYCOL 3350 POWDER 17 GM/1 PACKET PO SCH (10:42)
[2020-01-11] MEDS ORDERED: NORMAL SALINE 250 ML IV PRN (11:06)
--- NOTE | 2020-01-11 12:48 | RADIOLOGY REPORT (SQ) ---
EXAM DESCRIPTION: FOOT LEFT 2 VIEWS IMAGES COMPLETED DATE/TIME: 01/11/2020 11:18 am REASON FOR STUDY: diabetic foot wound E11.65 TYPE 2 DIABETES MELLITUS WITH HYPERGLYCEMIA A41.89 OT HER SPECIFIED SEPSIS COMPARISON: None. NUMBER OF VIEWS: Three views. TECHNIQUE: AP, lateral and oblique radiographic images acquired of the left foot. LIMITATIONS: None. FINDINGS: MINERALIZATION: Normal. BONES: Amputation of the 5th digit file the neck of the 5th metatarsal. There appears to be some bon e resorption and heterogeneity in the terminal tuft of the great toe. JOINTS: No effusions. SOFT TISSUES: Wound on the great toe. OTHER: No other significant finding. IMPRESSION: Cannot exclude osteomyelitis in the 1st distal phalanx. TECHNICAL DOCUMENTATION: JOB ID: [id number] 2010 [employer]- All Rights Reserved Reading location - IP/workstation name: [email or web address]
--- NOTE | 2020-01-11 13:41 | PDOC PROGRESS REPORT ---
Subjective Progress Note for:: 01/11/20 Subjective:: Patient was seen on morning rounds. He is found resting in bed, comfortably, on room air. He reports continued right knee pain, although improved. His primary concern today is his left great toe; states that he was told that he was waiting a surgical consultation for possible amputation. Otherwise, he has no questions or concerns at this time. He denies fever, chills, chest pain, palpitations, dyspnea, orthopnea, abdominal pain, nausea vomiting diarrhea. Reports good appetite. No concerns per nursing. Reason For Visit: SEPTIC ARTHRITIS RIGHT KNEE,DIABETES MELLITUS Physical Exam Vital Signs: Temp Pulse Resp BP Pulse Ox 98.3 F 91 18 118/59 L 97 01/11/20 11:42 01/11/20 11:42 01/11/20 11:42 01/11/20 11:42 01/11/20 11:42 Intake & Output 01/10/20 01/11/20 01/12/20 06:59 06:59 06:59 Intake Total 1490 1290 Output Total 2445 2050 Balance -955 -760 Weight 62.8 kg 62.8 kg General appearance: PRESENT: no acute distress, cooperative, well-developed, well-nourished Head exam: PRESENT: atraumatic, normocephalic Eye exam: PRESENT: conjunctiva pink, EOMI, PERRLA. ABSENT: scleral icterus Mouth exam: PRESENT: moist, tongue midline Respiratory exam: PRESENT: clear to auscultation nora, symmetrical, unlabored. ABSENT: rales, rhonchi, wheezes Cardiovascular exam: PRESENT: RRR. ABSENT: diastolic murmur, rubs, systolic murmur Pulses: PRESENT: normal dorsalis pedis pul Vascular exam: PRESENT: normal capillary refill Extremities exam: PRESENT: full ROM, tenderness - Rt knee; mp wrap in place. ABSENT: calf tenderness, clubbing, pedal edema Neurological exam: PRESENT: alert, awake, oriented to person, oriented to place, oriented to time, oriented to situation, CN II-XII grossly intact. ABSENT: motor sensory deficit Psychiatric exam: PRESENT: appropriate affect, normal mood. ABSENT: homicidal ideation, suicidal ideation Skin exam: PRESENT: dry, warm, other - lt 1st toe w/ nacrotic appearance and edema. ABSENT: cyanosis, rash Results Laboratory Results: 01/11/20 09:56 07/28/20 06:45 01/11/20 01/11/20 01/11/20 06:45 06:45 09:56 WBC Cancelled 11.8 H RBC Cancelled 2.03 L Hgb Cancelled 6.5 L Hct Cancelled 19.3 L MCV Cancelled 95 MCH Cancelled 32.0 MCHC Cancelled 33.7 RDW Cancelled 14.2 H Plt Count Cancelled 509 H Seg Neutrophils % Cancelled 74.5 Sodium 132.0 L Potassium 4.0 Chloride 96 L Carbon Dioxide 31 H Anion Gap 5 BUN 8 Creatinine 0.58 Est GFR ( Amer) > 60 Glucose 104 Calcium 8.3 L 01/08/20 11:24 Knee - Right Gram Stain - Final 01/08/20 11:24 Knee - Right Wound Culture - Final Mrsa (Meth Resis Staph Aureus) No Anaerobic Organisms 01/05/20 19:05 Blood Blood Culture - Final NO GROWTH IN 5 DAYS 01/06/20 09:11 Knee - Right Fungal Smear - Final 01/06/20 09:11 Knee - Right Fungal Smear - Final 01/06/20 09:11 Knee - Right AFB Smear Concentration - Final 01/06/20 09:11 Knee - Right Acid Fast Bacilli Smear - Final Impressions: Chest X-Ray 01/05/20 18:40 IMPRESSION: NO ACUTE RADIOGRAPHIC FINDING IN THE CHEST. Knee X-Ray 01/05/20 18:41 IMPRESSION: Moderate knee joint effusion. No acute fracture or dislocation. Foot X-Ray 01/11/20 00:00 IMPRESSION: Cannot exclude osteomyelitis in the 1st distal phalanx. Assessment and Plan - Diagnosis (1) Gangrene of toe of left foot Is this a current diagnosis for this admission?: Yes Plan: Plain film cannot exclude osteomyelitis to the first distal phalanx. Noted to have necrosis and edema. Surgery is consulted; appreciate Dr. Singh's evaluation and recommendations. We will continue IV vancomycin. Infectious disease consulted to guide antibiotic course (MRSA bacteremia). Obtain tight glycemic control. (2) Septic arthritis of knee, right Is this a current diagnosis for this admission?: Yes Plan: Orthopedics was consulted; appreciate Dr. Douglas's assistance. VANDANA drain removed 01/10/2020. Cleared for discharge from orthopedic standpoint regarding right knee. However, patient remains in house secondary to MRSA bacteremia and left toe necrosis. Follow-up with Dr. Douglas in 10 days. (3) Bacteremia Is this a current diagnosis for this admission?: Yes Plan: / blood cultures from 01/05/2020 positive for MRSA Repeat blood cultures on 01/09/2020 NG at 48 hours Patient already on vancomycin for MRSA (septic arthritis, right knee) as noted above Is potentially the patient's septic right knee, however, is noted to have gangrene of the left toe. We will need to continue IV vancomycin until definitive management of the toe is been established. Obtain infectious disease consultation. Possible PICC line tomorrow if cultures remain negative. Will obtain TTE to eval for endocarditis. Anticipate 4-6 weeks IV abx. (4) Anemia Qualifiers: Anemia type: iron deficiency Is this a current diagnosis for this admission?: Yes Plan: There is likely a dilutional component, but H/H continues to trend down Hgb 9.5-> 6.5 Iron studies reviewed, likely acute phase response with mild iron deficiency Stool for occult blood pending We will transfuse 2 units PRBC Start daily ferrous sulfate supplementation. Follow-up CBC. (5) Diabetes mellitus type 2 in nonobese Is this a current diagnosis for this admission?: Yes Plan: Hemoglobin A1c 8.5 Continue current basal (glargine) 20 units subcutaneously twice daily Continue FS BS with SSI correction scale Hypoglycemia protocol in place. Registered dietitian and clinical educator consulted. (6) Hypokalemia Is this a current diagnosis for this admission?: Yes Plan: Replete (7) Hyponatremia Is this a current diagnosis for this admission?: Yes Plan: Gradual upward trend. Patient is asymptomatic Continue NS at 100 cc/h Liberalize dietary sodium. Fluid restrict 1.5 L daily Follow-up chemistry - Time Time Spent with patient: 35 or more minutes Medications reviewed and adjusted accordingly: Yes Anticipated Discharge Disposition: Home with Home Health Anticipated Discharge: Other
[2020-01-11] MEDS ORDERED: VANCOMYCIN HCL 0 MG in DEXTROSE 5%-WATER 250 ML IV NR (13:45)
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
[2020-01-12] MEDS: OXYCODONE-ACETAMINOPHEN 5-325 MG TABLET PO PRN ×5 (01:04→22:49)
[2020-01-12] MEDS: VANCOMYCIN HCL 1,250 MG in DEXTROSE 5%-WATER 250 ML IV SCH ×3 (02:37→14:04)
[2020-01-12] MEDS: GABAPENTIN 300 MG CAPSULE PO SCH ×3 (05:55→21:49)
[2020-01-12] MEDS: HEPARIN SOD (PORCINE) 5,000 UNIT/ML 1 ML VIAL SUBCUT SCH ×3 (05:55→21:50)
[2020-01-12 06:18] LABS: HEMATOCRIT 27.1 % (37.9-51.0); MEAN CORPUSCULAR HEMOGLOBIN 32.6 pg (27.0-33.4); MEAN CORPUSCULAR HGB CONC 34.8 g/dL (32.0-36.0); MEAN CORPUSCULAR VOLUME 94 fl (80-97); PLATELET COUNT 475 10^3/uL (150-450); RED BLOOD COUNT 2.89 10^6/uL (4.35-5.55); RED CELL DISTRIBUTION WIDTH 14.4 % (11.5-14.0); WHITE BLOOD COUNT 10.5 10^3/uL (4.0-10.5)
[2020-01-12 06:20] LABS: HEMOGLOBIN 9.4 g/dL (13.5-17.0)
[2020-01-12 06:34] LABS: ANION GAP 5 (5-19); BLOOD UREA NITROGEN 8 mg/dL (7-20); CALCIUM 8.2 mg/dL (8.4-10.2); CARBON DIOXIDE 28 mmol/L (22-30); CHLORIDE 100 mmol/L (98-107); GLUCOSE 119 mg/dL (75-110); POTASSIUM 4.2 mmol/L (3.6-5.0)
[2020-01-12] MEDS: INSULIN LISPRO 100 UNIT/ML 3 ML VIAL SUBCUT SCH ×4 (08:01→21:50)
[2020-01-12] MEDS ORDERED: LIDOCAINE 1% INJ-PF (10 MG/ML) 30 ML SDV ONE (10:17)
[2020-01-12] MEDS ORDERED: BUPIVACAINE HCL 0.5 % INJ/PF 30 ML SDV ONE (10:17)
[2020-01-12] MEDS ORDERED: FENTANYL CITRATE INJ/PF 100 MCG/2 ML AMPUL ONE (10:18)
[2020-01-12] MEDS ORDERED: PROPOFOL INJ 200 MG/20 ML VIAL IV ONE (10:19)
[2020-01-12] MEDS ORDERED: MIDAZOLAM 2 MG/2 ML INJ ONE (10:19)
[2020-01-12] MEDS ORDERED: FENTANYL CITRATE INJ/PF 100 MCG/2 ML AMPUL IV PRN ×3 (11:05)
[2020-01-12] MEDS ORDERED: MEPERIDINE HCL/PF INJ 25 MG/1 ML DISP.SYRIN IV PRN (11:05)
[2020-01-12] MEDS ORDERED: PROMETHAZINE HCL INJ 25 MG/1 ML VIAL IV PRN ×2 (11:05)
[2020-01-12] MEDS ORDERED: OXYCODONE-ACETAMINOPHEN 5-325 MG TABLET PO PRN ×2 (11:05)
[2020-01-12] MEDS ORDERED: DIPHENHYDRAMINE HCL 50 MG/ML VIAL IV PRN (11:05)
--- NOTE | 2020-01-12 11:43 | PDOC PROGRESS REPORT ---
Subjective Progress Note for:: 01/12/20 Reason For Visit: SEPTIC ARTHRITIS RIGHT KNEE,DIABETES MELLITUS Physical Exam Vital Signs: Temp Pulse Resp BP Pulse Ox 98.5 F 88 17 118/61 97 01/12/20 08:07 01/12/20 08:07 01/12/20 08:07 01/12/20 08:07 01/12/20 08:07 Intake & Output 01/11/20 01/12/20 01/13/20 06:59 06:59 06:59 Intake Total 1290 2420 950 Output Total 2050 2500 Balance -760 -80 950 Weight 62.8 kg 62.8 kg Results Laboratory Results: 01/12/20 05:08 01/12/20 05:08 01/11/20 01/12/20 01/12/20 11:56 05:08 05:08 WBC 10.5 RBC 2.89 L Hgb 9.4 L D Hct 27.1 L MCV 94 MCH 32.6 MCHC 34.8 RDW 14.4 H Plt Count 475 H Sodium 132.9 L Potassium 4.2 Chloride 100 Carbon Dioxide 28 Anion Gap 5 BUN 8 Creatinine 0.56 Est GFR ( Amer) > 60 Glucose 119 H Calcium 8.2 L Blood Type O POSITIVE Antibody Screen NEGATIVE Impressions: Chest X-Ray 01/05/20 18:40 IMPRESSION: NO ACUTE RADIOGRAPHIC FINDING IN THE CHEST. Knee X-Ray 01/05/20 18:41 IMPRESSION: Moderate knee joint effusion. No acute fracture or dislocation. Foot X-Ray 01/11/20 00:00 IMPRESSION: Cannot exclude osteomyelitis in the 1st distal phalanx. Assessment & Plan - Diagnosis (1) Osteomyelitis of great toe of left foot Is this a current diagnosis for this admission?: Yes - Time Anticipated Discharge Disposition: unknown Anticipated Discharge Timeframe: unknown - Plan Summary Plan Summary: 59-year-old diabetic male with a diabetic foot infection (left great toe) with osteomyelitis. Plan for operative intervention today. This has been discussed with the patient at length. Risks/benefits discussed, informed consent obtained, and all questions answered.
--- NOTE | 2020-01-12 11:48 | Operative Report ---
Nonrecallable Operative Report DATE OF SURGERY: 01/12/20 PREOPERATIVE DIAGNOSIS: 1. Osteomyelitis of left great toe. 2. Diabetic foot infection, left great toe POSTOPERATIVE DIAGNOSIS: Same as above OPERATION: Ray amputation of left great toe SURGEON: JOVANNI MCCOY ANESTHESIA: LMAC - With local block TISSUE REMOVED OR ALTERED: Left great toe COMPLICATIONS: None apparent ESTIMATED BLOOD LOSS: Minimal PROCEDURE: Drains/implants: None. Procedure in detail: After informed consent was obtained, the patient was taken to the operating room and laid in the supine position. The area of the left foot was prepped and draped in a normal sterile fashion. A tennis racquet incision was created around the left great toe, at its base. Dissection was carried through the soft tissues using sharp dissection and electrocautery. The left great toe was disarticulated. The metatarsal head was divided and resected using large bone cutters. The bone at the metatarsal head, as well as the proximal phalanx appeared healthy. Secondary to this, closure of the wound was felt appropriate. The soft tissues were closed using 3-0 Vicryl suture in simple interrupted fashion. The skin was loosely approximated using 3-0 Vicryl suture in interrupted subcuticular fashion. A dressing was then placed, and the procedure was concluded. All sponge, instrument, and needle counts were correct. Condition: Fair.
--- NOTE | 2020-01-12 12:23 | PDOC PROGRESS REPORT ---
Subjective Progress Note for:: 01/11/20 Subjective:: Patient doing well this AM. Reports improvement in pain in right knee. Able to begin ROM with knee without pain. Minimal ambulation with PT yesterday. Reason For Visit: SEPTIC ARTHRITIS RIGHT KNEE,DIABETES MELLITUS Physical Exam Vital Signs: Temp Pulse Resp BP Pulse Ox 98.5 F 88 17 118/61 97 01/12/20 08:07 01/12/20 08:07 01/12/20 08:07 01/12/20 08:07 01/12/20 08:07 Intake & Output 01/11/20 01/12/20 01/13/20 06:59 06:59 06:59 Intake Total 1290 2420 950 Output Total 2050 2500 Balance -760 -80 950 Weight 62.8 kg 62.8 kg Physical Exam: No acute distress, alert and orient x3. Right lower extremity currently well dressed in a lightly compressive dressing. Removed at bedside today Right lower extremity is neurovascular intact. Left lower extremity -Pulses 2+ distally -Compartments soft -Sensation grossly intact to L3-4-5 S1, decreased sensation diffusely in the distal left foot. Incision is present with deep palpation. -Motor grossly intact to EHL TA gastroc and quad - Improved ability to range knee in bed, 0-20 degrees without pain. -The left great toe appears necrotic distal to the IP joint on the volar aspect there appears to be some potential purulence. Results Laboratory Results: 01/12/20 05:08 01/12/20 05:08 01/11/20 01/12/20 01/12/20 11:56 05:08 05:08 WBC 10.5 RBC 2.89 L Hgb 9.4 L D Hct 27.1 L MCV 94 MCH 32.6 MCHC 34.8 RDW 14.4 H Plt Count 475 H Sodium 132.9 L Potassium 4.2 Chloride 100 Carbon Dioxide 28 Anion Gap 5 BUN 8 Creatinine 0.56 Est GFR ( Amer) > 60 Glucose 119 H Calcium 8.2 L Blood Type O POSITIVE Antibody Screen NEGATIVE Impressions: Chest X-Ray 01/05/20 18:40 IMPRESSION: NO ACUTE RADIOGRAPHIC FINDING IN THE CHEST. Knee X-Ray 01/05/20 18:41 IMPRESSION: Moderate knee joint effusion. No acute fracture or dislocation. Foot X-Ray 01/11/20 00:00 IMPRESSION: Cannot exclude osteomyelitis in the 1st distal phalanx. Assessment & Plan - Diagnosis (1) Septic arthritis of knee, right Is this a current diagnosis for this admission?: Yes Plan: WBAT RLE with PT - Dressing change PRN - Encourage OOB - Antibiotics per Hospitalist team (2) Septic arthritis Qualifiers: Septic arthritis location: knee Septic arthritis organism: due to unspecified organism Laterality: right Qualified Code(s): M00.9 - Pyogenic arthritis, unspecified Is this a current diagnosis for this admission?: Yes (3) Osteomyelitis of great toe of left foot Is this a current diagnosis for this admission?: Yes - Time Time Spent with patient: Less than 15 minutes
[2020-01-12] MEDS: FAMOTIDINE 20 MG TABLET PO SCH ×2 (12:57→21:49)
[2020-01-12] MEDS: FERROUS SULFATE 325 MG TABLET PO SCH (12:57)
[2020-01-12] MEDS: DOCUSATE SODIUM 100 MG CAPSULE PO SCH ×2 (12:58→18:13)
[2020-01-12] MEDS: POLYETHYLENE GLYCOL 3350 POWDER 17 GM/1 PACKET PO SCH (13:08)
[2020-01-12] MEDS: INSULIN GLARGINE,HUM.REC.ANLOG 1,000 UNIT/10 ML VIAL SUBCUT SCH ×2 (13:15→21:50)
[2020-01-12 14:30] LABS: VANCOMYCIN,TROUGH 20.7 ug/mL (5.0-20.0)
[2020-01-12] MEDS: NORMAL SALINE 1000 ML 1,000 ML IV PRN ×2 (15:54→18:06)
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
--- NOTE | 2020-01-12 16:54 | PDOC PROGRESS REPORT ---
Subjective Progress Note for:: 01/12/20 Subjective:: Patient was seen on afternoon rounds after return from the OR; s/p left toe amputation. He is found resting in bed, comfortably, on room air. Very hungry; lunch has just arrived. He denies pain to left foot or right knee. Discussed needed TTE and likely long course of antibiotics. All questions answered. He denies fever, chills, chest pain, palpitations, dyspnea, orthopnea, abdominal pain, nausea vomiting diarrhea. No concerns per nursing. Reason For Visit: SEPTIC ARTHRITIS RIGHT KNEE,DIABETES MELLITUS Physical Exam Vital Signs: Temp Pulse Resp BP Pulse Ox 98.0 F 99 17 106/61 100 01/12/20 12:30 01/12/20 12:30 01/12/20 12:30 01/12/20 12:30 01/12/20 12:30 Intake & Output 01/11/20 01/12/20 01/13/20 06:59 06:59 06:59 Intake Total 1290 2420 1740 Output Total 2050 2500 505 Balance -760 -80 1235 Weight 62.8 kg 62.8 kg General appearance: PRESENT: no acute distress, well-developed, well-nourished Head exam: PRESENT: atraumatic, normocephalic Eye exam: PRESENT: conjunctiva pink, EOMI, PERRLA. ABSENT: scleral icterus Mouth exam: PRESENT: moist, tongue midline Respiratory exam: PRESENT: clear to auscultation nora, symmetrical, unlabored. ABSENT: rales, rhonchi, wheezes Cardiovascular exam: PRESENT: RRR, +S1, +S2. ABSENT: diastolic murmur, rubs, systolic murmur Pulses: PRESENT: normal dorsalis pedis pul Vascular exam: PRESENT: normal capillary refill Extremities exam: ABSENT: calf tenderness, clubbing, full ROM - Right knee, pedal edema Neurological exam: PRESENT: alert, awake, oriented to person, oriented to place, oriented to time, oriented to situation, CN II-XII grossly intact. ABSENT: motor sensory deficit Psychiatric exam: PRESENT: appropriate affect, normal mood. ABSENT: homicidal ideation, suicidal ideation Skin exam: PRESENT: dry, warm. ABSENT: cyanosis, intact - s/p rt knee arthorcentesis and lt 1st toe amputation, rash Results Laboratory Results: 01/12/20 05:08 01/12/20 05:08 01/11/20 01/12/20 01/12/20 11:56 05:08 05:08 WBC 10.5 RBC 2.89 L Hgb 9.4 L D Hct 27.1 L MCV 94 MCH 32.6 MCHC 34.8 RDW 14.4 H Plt Count 475 H Sodium 132.9 L Potassium 4.2 Chloride 100 Carbon Dioxide 28 Anion Gap 5 BUN 8 Creatinine 0.56 Est GFR ( Amer) > 60 Glucose 119 H Calcium 8.2 L Blood Type O POSITIVE Antibody Screen NEGATIVE Impressions: Chest X-Ray 01/05/20 18:40 IMPRESSION: NO ACUTE RADIOGRAPHIC FINDING IN THE CHEST. Knee X-Ray 01/05/20 18:41 IMPRESSION: Moderate knee joint effusion. No acute fracture or dislocation. Foot X-Ray 01/11/20 00:00 IMPRESSION: Cannot exclude osteomyelitis in the 1st distal phalanx. Assessment and Plan - Diagnosis (1) Gangrene of toe of left foot Is this a current diagnosis for this admission?: Yes Plan: s/p amputation by Dr. Rajput today Plain film cannot exclude osteomyelitis to the first distal phalanx. Surgery is consulted; appreciate their assistance. We will continue IV vancomycin. Infectious disease consulted to guide antibiotic course (MRSA bacteremia). Obtain tight glycemic control. (2) Septic arthritis of knee, right Is this a current diagnosis for this admission?: Yes Plan: Orthopedics was consulted; appreciate Dr. Douglas's assistance. VANDANA drain removed 01/10/2020. Cleared for discharge from orthopedic standpoint regarding right knee. However, patient remains in house secondary to MRSA bacteremia and left toe necrosis. Follow-up with Dr. Douglas in 10 days. (3) Bacteremia Is this a current diagnosis for this admission?: Yes Plan: 06/19 blood cultures from 01/05/2020 positive for MRSA Repeat blood cultures on 01/09/2020 NG at 72 hours Patient already on vancomycin for MRSA (septic arthritis, right knee) as noted above Is potentially the patient's septic right knee, however, is noted to have gangrene of the left toe. Infectious disease consulted; appreciate recommendations. Request PICC line tomorrow if cultures remain negative. Will obtain TTE to eval for endocarditis. Anticipate 4-6 weeks IV abx. - Per ID; if TTE and bone pathology is negative, then 4 weeks abx. If either is positive, then 6 weeks of therapy. (4) Anemia Qualifiers: Anemia type: iron deficiency Is this a current diagnosis for this admission?: Yes Plan: There is likely a dilutional component, but H/H continues to trend down Hgb 9.5-> 6.5-> 9.4 (s/p 2 units PRBC) Iron studies reviewed, likely acute phase response with mild iron deficiency Stool for occult blood pending Has received 2 units PRBC Continue daily ferrous sulfate supplementation. Follow-up CBC. (5) Diabetes mellitus type 2 in nonobese Is this a current diagnosis for this admission?: Yes Plan: Hemoglobin A1c 8.5 Continue current basal (glargine) 20 units subcutaneously twice daily Continue FS BS with SSI correction scale Hypoglycemia protocol in place. Registered dietitian and clinical unit educator consulted. (6) Hypokalemia Is this a current diagnosis for this admission?: Yes Plan: Replete (7) Hyponatremia Is this a current diagnosis for this admission?: Yes Plan: Gradual upward trend. Patient is asymptomatic Liberalize dietary sodium. Fluid restrict 1.5 L daily Follow-up chemistry - Time Time Spent with patient: 35 or more minutes Medications reviewed and adjusted accordingly: Yes Anticipated Discharge Disposition: Home, Self Care Anticipated Discharge Timeframe: other
[2020-01-12] MEDS: VANCOMYCIN HCL 1,000 MG in DEXTROSE 5%-WATER 250 ML IV SCH (21:51)
[2020-01-13] MEDS: GABAPENTIN 300 MG CAPSULE PO SCH ×3 (05:40→22:40)
[2020-01-13] MEDS: OXYCODONE-ACETAMINOPHEN 5-325 MG TABLET PO PRN ×5 (05:40→22:38)
[2020-01-13 05:41] LABS: HEMATOCRIT 24.9 % (37.9-51.0); HEMOGLOBIN 8.6 g/dL (13.5-17.0); MEAN CORPUSCULAR HEMOGLOBIN 32.5 pg (27.0-33.4); MEAN CORPUSCULAR HGB CONC 34.3 g/dL (32.0-36.0); MEAN CORPUSCULAR VOLUME 95 fl (80-97); PLATELET COUNT 526 10^3/uL (150-450); RED BLOOD COUNT 2.63 10^6/uL (4.35-5.55); RED CELL DISTRIBUTION WIDTH 14.9 % (11.5-14.0); WHITE BLOOD COUNT 13.9 10^3/uL (4.0-10.5)
[2020-01-13] MEDS: HEPARIN SOD (PORCINE) 5,000 UNIT/ML 1 ML VIAL SUBCUT SCH ×3 (05:41→22:40)
[2020-01-13] MEDS: VANCOMYCIN HCL 1,000 MG in DEXTROSE 5%-WATER 250 ML IV SCH ×3 (05:42→22:43)
[2020-01-13 06:09] LABS: ALBUMIN 2.8 g/dL (3.5-5.0); ALKALINE PHOSPHATASE 206 U/L (38-126); ASPARTATE AMINO TRANSFERASE 30 U/L (17-59); BILIRUBIN,DIRECT 0.3 mg/dL (0.0-0.4); BILIRUBIN,TOTAL 0.8 mg/dL (0.2-1.3); BLOOD UREA NITROGEN 7 mg/dL (7-20); CALCIUM 8.4 mg/dL (8.4-10.2); POTASSIUM 4.4 mmol/L (3.6-5.0); TOTAL PROTEIN 6.8 g/dL (6.3-8.2)
[2020-01-13 06:12] LABS: ANION GAP 6 (5-19); CARBON DIOXIDE 27 mmol/L (22-30); CHLORIDE 101 mmol/L (98-107)
[2020-01-13 06:14] LABS: GLUCOSE 62 mg/dL (75-110)
[2020-01-13 06:23] LABS: C-REACTIVE PROTEIN 182.2 mg/L (<10.0)
[2020-01-13 07:00] LABS: ERYTHROCYTE SEDIMENTATION RATE > 120 mm/hr (0-20)
--- NOTE | 2020-01-13 07:08 | XCELERA REPORT ---
[address] [address] Transthoracic Echocardiogram Report Name: MEG GHOTRA Age: 59 yrs Gender: Male : 1960 Patient Status: Inpatient Patient Location: [address] [place] [address] Study Date: 01/12/2020 05:53 PM Height: 69 in Weight: 138 lb BSA: 1.8 m2 Procedure: A complete two-dimensional transthoracic echocardiogram was performed (2D, M-mode, spectral and color flow Doppler). The study was technically adequate with some images being suboptimal in quality. Reason For Study: MRSA bacteremia Ordering Physician: ROB ALMONTE Performed By: Viry Maldonado Interpretation Summary The left ventricle is grossly normal size. Left ventricular systolic function is normal. The Ejection Fraction estimate is 65-70%. Doppler measurements suggest normal left ventricular diastolic function. No regional wall motion abnormalities noted. There is no thrombus. Mild MR, mild TR. No gross echocardiographic evidence of valvular vegetations or significant valvular regurgitation to suggest valvular vegetations however a surface study may miss small valvular vegetations. Consider transesophageal echocardiography if clinically indicated. MMode/2D Measurements & Calculations RVDd: 2.6 cm LVIDd: 4.8 cm FS: 39.3 % Ao root diam: 3.1 cm IVSd: 0.85 cm LVIDs: 2.9 cm EDV(Teich): 109.0 ml Ao root area: 7.4 cm2 LVPWd: 0.95 cm ESV(Teich): 33.1 ml LA dimension: 2.9 cm EF(Teich): 69.6 % Doppler Measurements & Calculations MV E max elaina: MV P1/2t max elaina: Ao V2 max: LV V1 max P.3 cm/sec 124.1 cm/sec 139.8 cm/sec 4.3 mmHg MV A max elaina: MV P1/2t: 67.5 msec Ao max P.8 mmHgLV V1 max: 80.5 cm/sec MVA(P1/2t): 3.3 cm2 103.2 cm/sec MV E/A: 1.2 MV dec slope: 538.2 cm/sec2 MV dec time: 0.24 sec PA V2 max: TR max elaina: MV P1/2t-pr_phl: 100.7 cm/sec 200.9 cm/sec 67.5 msec PA max PG: TR max P.1 mmHg 4.1 mmHg Left Ventricle The left ventricle is grossly normal size. Left ventricular systolic function is normal. The Ejection Fraction estimate is 65-70%. Doppler measurements suggest normal left ventricular diastolic function. No regional wall motion abnormalities noted. There is no thrombus. Right Ventricle The right ventricle is normal in size, thickness and function. The right ventricular systolic function is normal. Atria The right atrium is normal. The left atrial size is normal. The interatrial septum is intact with no evidence for an atrial septal defect. Mitral Valve The mitral valve is grossly normal. There is no evidence of mitral valve prolapse. There is no mitral valve stenosis. There is a mild amount of mitral regurgitation. Aortic Valve The aortic valve is grossly normal. There is no aortic valvular vegetation. There is no aortic valve stenosis. No aortic regurgitation is present. Tricuspid Valve The tricuspid valve is not well visualized, but is grossly normal. There is no tricuspid valve prolapse. There is no tricuspid stenosis. There is a mild amount of tricuspid regurgitation. Pulmonic Valve The pulmonic valve is not well seen, but is grossly normal. There is no vegetation on the pulmonic valve. There is no pulmonic valvular stenosis. There is no pulmonic valvular regurgitation. Effusions There is no pericardial effusion. There is no pleural effusion. : ROB ALMONTE Antonio
[2020-01-13] MEDS: INSULIN LISPRO 100 UNIT/ML 3 ML VIAL SUBCUT SCH ×4 (07:58→22:41)
[2020-01-13] MEDS: FAMOTIDINE 20 MG TABLET PO SCH ×2 (09:34→22:40)
[2020-01-13] MEDS: INSULIN GLARGINE,HUM.REC.ANLOG 1,000 UNIT/10 ML VIAL SUBCUT SCH ×2 (09:34→22:41)
[2020-01-13] MEDS: FERROUS SULFATE 325 MG TABLET PO SCH (09:34)
[2020-01-13] MEDS: DOCUSATE SODIUM 100 MG CAPSULE PO SCH ×2 (09:34→18:06)
[2020-01-13] MEDS: POLYETHYLENE GLYCOL 3350 POWDER 17 GM/1 PACKET PO SCH (09:35)
--- NOTE | 2020-01-13 09:36 | PDOC PROGRESS REPORT ---
Subjective Progress Note for:: 01/13/20 Subjective:: No complaints. Reason For Visit: SEPTIC ARTHRITIS RIGHT KNEE,DIABETES MELLITUS Physical Exam Vital Signs: Temp Pulse Resp BP Pulse Ox 99.8 F 99 18 115/46 L 98 01/13/20 07:23 01/13/20 07:23 01/13/20 07:23 01/13/20 07:23 01/13/20 07:23 Intake & Output 01/12/20 01/13/20 01/14/20 06:59 06:59 06:59 Intake Total 2420 3910 Output Total 2500 1825 Balance -80 2085 Weight 62.8 kg 62.5 kg General appearance: PRESENT: no acute distress, cooperative Extremities exam: PRESENT: other - Great toe amputation site appears clean with no drainage. Subtle surrounding erythema. Results Laboratory Results: 01/13/20 05:25 01/13/20 05:25 01/13/20 01/13/20 05:25 05:25 WBC 13.9 H RBC 2.63 L Hgb 8.6 L Hct 24.9 L MCV 95 MCH 32.5 MCHC 34.3 RDW 14.9 H Plt Count 526 H Sodium 133.6 L Potassium 4.4 Chloride 101 Carbon Dioxide 27 Anion Gap 6 BUN 7 Creatinine 0.64 Est GFR ( Amer) > 60 Glucose 62 L Calcium 8.4 Total Bilirubin 0.8 AST 30 Alkaline Phosphatase 206 H C-Reactive Protein 182.2 H Total Protein 6.8 Albumin 2.8 L Impressions: Chest X-Ray 01/05/20 18:40 IMPRESSION: NO ACUTE RADIOGRAPHIC FINDING IN THE CHEST. Knee X-Ray 01/05/20 18:41 IMPRESSION: Moderate knee joint effusion. No acute fracture or dislocation. Foot X-Ray 01/11/20 00:00 IMPRESSION: Cannot exclude osteomyelitis in the 1st distal phalanx. Assessment & Plan - Diagnosis (1) Osteomyelitis of great toe of left foot Is this a current diagnosis for this admission?: Yes Plan: Status post ray amputation. The wound looks good. Some surrounding erythema however. Continue antibiotics. - Time Critical Time spent with patient: Less than 15 minutes Anticipated Discharge Disposition: Home, Self Care Anticipated Discharge Timeframe: within 72 hours
[2020-01-13] MEDS: NORMAL SALINE 1000 ML 1,000 ML IV PRN (13:56)
--- NOTE | 2020-01-13 14:30 | RADIOLOGY REPORT (SQ) ---
EXAM DESCRIPTION: PICC INSERTION IMAGES COMPLETED DATE/TIME: 01/13/2020 1:21 pm REASON FOR STUDY: IV abx x4-6 weeks E11.65 TYPE 2 DIABETES MELLITUS WITH HYPERGLYCEMIA A41.89 OTHE R SPECIFIED SEPSIS COMPARISON: None. FLUOROSCOPY TIME: 31 seconds 1 images saved to PACS. TECHNIQUE: Fluoroscopic and ultrasound guided PICC placement. LIMITATIONS: None. PROCEDURE: After written consent and assessment were obtained, the patient was brought into the fluo roscopy room and placed supine on the table. Ultrasound evaluation of potential access sites were per formed. After successfully identifying a patent right basilic vein, the right arm was prepped and cheri ped in a sterile fashion along with the ultrasound probe. The entry site was anesthetized with 1% lid ocaine. A 21 gauge 7 cm needle was advanced through the skin and into the basilic vein under live ult rasound guidance. An ultrasound image was saved to PACS confirming access site. A .018 guide wire w as then inserted through the needle and into the venous system. The needle was then removed and an 11 blade scalpel was used to make a 1cm skin incision. A 5 fr peel-away sheath was advanced over the w edwige and into the venous system. A measurement was then made using the existing wire and live fluorosc opic guidance. The wire was then removed and trimmed. The PICC was advanced through the peel-away she ath and into the venous system. The peel-away sheath was removed and the catheter was adhered to the patients arm with a stat lock. The catheter was then aspirated and flushed and a sterile bandage was placed over the access site. A fluoroscopic spot image was saved to PACS confirming the catheter tip within the superior vena cava. IMPRESSION: SUCCESSFUL PLACEMENT OF A 5 FR DUAL LUMEN 32 CM PICC IN THE RIGHT BASILIC VEIN. COMMENT: Patient medication list reviewed: Yes- Quality ID# [id number]:Eligible professional attests to doc umenting in the medical record they obtained, updated, or reviewed the patient's current medications. . Quality ID 145: Final reports for procedures using fluoroscopy that document radiation exposure jose juan cynthia, or exposure time and number of fluorographic images (if radiation exposure indices are not avail able) Quality ID #76: The patient was prepped and draped using maximum sterile barrier technique including cap, mask, sterile gown, sterile gloves, a large sterile sheet, hand hygiene, and 2% Chlorhexidine fo r cutaneous antisepsis. When ultrasound is used, sterile ultrasound techniques are followed requiring sterile gel and sterile probes. TECHNICAL DOCUMENTATION: JOB ID: [id number] 2010 [employer]- All Rights Reserved rev-10/31 Reading location - IP/workstation name: [email or web address]
--- NOTE | 2020-01-13 19:36 | PDOC PROGRESS REPORT ---
Subjective Progress Note for:: 01/13/20 Subjective:: Patient was seen on morning rounds. He is found resting in the recliner, comfortably, on room air. States he does not feel well but is unable to specify further and denies all symptoms as prompted by ROS. He does appear to be fatigued today. He denies fever, chills, chest pain, palpitations, dyspnea, orthopnea, abdominal pain, nausea vomiting diarrhea. No concerns per nursing. Reason For Visit: SEPTIC ARTHRITIS RIGHT KNEE,DIABETES MELLITUS Physical Exam Vital Signs: Temp Pulse Resp BP Pulse Ox 98.2 F 89 18 141/66 H 99 01/13/20 16:00 01/13/20 16:00 01/13/20 16:00 01/13/20 16:00 01/13/20 16:00 Intake & Output 01/12/20 01/13/20 01/14/20 06:59 06:59 06:59 Intake Total 2420 3910 2412 Output Total 2500 1825 1200 Balance -80 2085 1212 Weight 62.8 kg 62.5 kg General appearance: PRESENT: no acute distress, cooperative, thin, well- developed Head exam: PRESENT: atraumatic, normocephalic Eye exam: PRESENT: conjunctiva pink, EOMI, PERRLA. ABSENT: scleral icterus Mouth exam: PRESENT: moist, tongue midline Respiratory exam: PRESENT: clear to auscultation nora, symmetrical, unlabored. ABSENT: rales, rhonchi, wheezes Cardiovascular exam: PRESENT: RRR, +S1, +S2. ABSENT: diastolic murmur, rubs, systolic murmur Pulses: PRESENT: normal dorsalis pedis pul GI/Abdominal exam: PRESENT: normal bowel sounds, soft. ABSENT: distended, guarding, mass, organolmegaly, rebound, tenderness Rectal exam: PRESENT: deferred Extremities exam: PRESENT: tenderness - Right knee. ABSENT: calf tenderness, clubbing, pedal edema Neurological exam: PRESENT: alert, awake, oriented to person, oriented to place, oriented to time, oriented to situation, CN II-XII grossly intact. ABSENT: motor sensory deficit Psychiatric exam: PRESENT: appropriate affect, normal mood. ABSENT: homicidal ideation, suicidal ideation Skin exam: PRESENT: dry, warm, other - s/p rt knee arthorcentesis and lt 1st toe amputation. ABSENT: cyanosis, rash Results Laboratory Results: 01/13/20 05:25 01/13/20 05:25 01/13/20 01/13/20 05:25 05:25 WBC 13.9 H RBC 2.63 L Hgb 8.6 L Hct 24.9 L MCV 95 MCH 32.5 MCHC 34.3 RDW 14.9 H Plt Count 526 H Sodium 133.6 L Potassium 4.4 Chloride 101 Carbon Dioxide 27 Anion Gap 6 BUN 7 Creatinine 0.64 Est GFR ( Amer) > 60 Glucose 62 L Calcium 8.4 Total Bilirubin 0.8 AST 30 Alkaline Phosphatase 206 H C-Reactive Protein 182.2 H Total Protein 6.8 Albumin 2.8 L Impressions: Chest X-Ray 01/05/20 18:40 IMPRESSION: NO ACUTE RADIOGRAPHIC FINDING IN THE CHEST. Knee X-Ray 01/05/20 18:41 IMPRESSION: Moderate knee joint effusion. No acute fracture or dislocation. Foot X-Ray 01/11/20 00:00 IMPRESSION: Cannot exclude osteomyelitis in the 1st distal phalanx. PICC Line Insertion 01/13/20 00:00 IMPRESSION: SUCCESSFUL PLACEMENT OF A 5 FR DUAL LUMEN 32 CM PICC IN THE RIGHT BASILIC VEIN. Assessment and Plan - Diagnosis (1) Gangrene of toe of left foot Is this a current diagnosis for this admission?: Yes Plan: s/p amputation by Dr. Rajput; POD 1 Plain film cannot exclude osteomyelitis to the first distal phalanx. Surgery is consulted; appreciate their assistance. Continue IV vancomycin. Infectious disease consulted to guide antibiotic course (MRSA bacteremia). Obtain tight glycemic control. (2) Septic arthritis of knee, right Is this a current diagnosis for this admission?: Yes Plan: Orthopedics was consulted; appreciate Dr. Douglas's assistance. VANDANA drain removed 01/10/2020. Cleared for discharge from orthopedic standpoint regarding right knee. However, patient remains in house secondary to MRSA bacteremia and left toe ne crosis. Follow-up with Dr. Douglas in 10 days. (3) Bacteremia Is this a current diagnosis for this admission?: Yes Plan: 06/19 blood cultures from 01/05/2020 positive for MRSA Repeat blood cultures on 01/09/2020 NG at 72 hours Patient already on vancomycin for MRSA (septic arthritis, right knee) as noted above Potentially the patient's septic right knee, however, is noted to have gangrene of the left toe. Infectious disease consulted; appreciate recommendations. Will obtain TTE to eval for endocarditis. Anticipate 4-6 weeks IV abx. - Per ID; if TTE and bone pathology is negative, then 4 weeks abx. If either is positive, then 6 weeks of therapy. (4) Anemia Qualifiers: Anemia type: iron deficiency Is this a current diagnosis for this admission?: Yes Plan: There is likely a dilutional component, but H/H continues to trend down Hgb 9.5-> 6.5-> 9.4 (s/p 2 units PRBC)-> 8.6 Iron studies reviewed, likely acute phase response with mild iron deficiency Stool for occult blood pending Has received 2 units PRBC Continue daily ferrous sulfate supplementation. Follow-up CBC. (5) Diabetes mellitus type 2 in nonobese Is this a current diagnosis for this admission?: Yes Plan: Hemoglobin A1c 8.5 Continue current basal (glargine) 20 units subcutaneously twice daily Continue FS BS with SSI correction scale Hypoglycemia protocol in place. Registered dietitian and community health educator consulted. (6) Hypokalemia Is this a current diagnosis for this admission?: Yes Plan: Replete (7) Hyponatremia Is this a current diagnosis for this admission?: Yes Plan: Gradual upward trend. Patient is asymptomatic Liberalize dietary sodium. Fluid restrict 1.5 L daily Follow-up chemistry - Time Time Spent with patient: 25-34 minutes Medications reviewed and adjusted accordingly: Yes Anticipated Discharge Disposition: Home, Self Care - vs SNF for abx Anticipated Discharge Timeframe: other
[2020-01-13 22:18] LABS: VANCOMYCIN,TROUGH 16.6 ug/mL (5.0-20.0)
[2020-01-13] MEDS: NORMAL SALINE 10 ML SDV (SCHEDULED) IV SCH (22:42)
[2020-01-14] MEDS ORDERED: MORPHINE SULFATE 10 MG/ML INJ IV PRN (01:24)
[2020-01-14] MEDS: VANCOMYCIN HCL 1,000 MG in DEXTROSE 5%-WATER 250 ML IV SCH ×3 (05:55→23:30)
[2020-01-14] MEDS: HEPARIN SOD (PORCINE) 5,000 UNIT/ML 1 ML VIAL SUBCUT SCH ×3 (05:55→21:15)
[2020-01-14] MEDS: GABAPENTIN 300 MG CAPSULE PO SCH ×3 (05:55→21:14)
[2020-01-14 06:32] LABS: HEMATOCRIT 23.1 % (37.9-51.0); MEAN CORPUSCULAR HEMOGLOBIN 32.5 pg (27.0-33.4); MEAN CORPUSCULAR HGB CONC 33.9 g/dL (32.0-36.0); MEAN CORPUSCULAR VOLUME 96 fl (80-97); PLATELET COUNT 487 10^3/uL (150-450); RED BLOOD COUNT 2.42 10^6/uL (4.35-5.55); WHITE BLOOD COUNT 11.3 10^3/uL (4.0-10.5)
[2020-01-14 06:35] LABS: HEMOGLOBIN 7.9 g/dL (13.5-17.0)
[2020-01-14] MEDS ORDERED: OXYCODONE-ACETAMINOPHEN 5-325 MG TABLET PO PRN (06:37)
[2020-01-14 06:49] LABS: ANION GAP 5 (5-19); BLOOD UREA NITROGEN 7 mg/dL (7-20); CARBON DIOXIDE 28 mmol/L (22-30); CHLORIDE 101 mmol/L (98-107); GLUCOSE 117 mg/dL (75-110); POTASSIUM 4.2 mmol/L (3.6-5.0)
[2020-01-14] MEDS: OXYCODONE-ACETAMINOPHEN 5-325 MG TABLET PO PRN ×4 (07:04→21:13)
[2020-01-14] MEDS: INSULIN LISPRO 100 UNIT/ML 3 ML VIAL SUBCUT SCH ×4 (09:25→21:41)
[2020-01-14] MEDS: INSULIN GLARGINE,HUM.REC.ANLOG 1,000 UNIT/10 ML VIAL SUBCUT SCH ×2 (09:30→21:42)
[2020-01-14] MEDS: FERROUS SULFATE 325 MG TABLET PO SCH (09:31)
[2020-01-14] MEDS: FAMOTIDINE 20 MG TABLET PO SCH ×2 (09:31→21:14)
[2020-01-14] MEDS: DOCUSATE SODIUM 100 MG CAPSULE PO SCH ×2 (09:31→17:08)
[2020-01-14] MEDS: POLYETHYLENE GLYCOL 3350 POWDER 17 GM/1 PACKET PO SCH (09:32)
[2020-01-14] MEDS: NORMAL SALINE 10 ML SDV (SCHEDULED) IV SCH ×2 (09:32→21:44)
--- NOTE | 2020-01-14 11:17 | PDOC PROGRESS REPORT ---
Subjective Progress Note for:: 01/14/20 Reason For Visit: SEPTIC ARTHRITIS RIGHT KNEE,DIABETES MELLITUS Physical Exam Vital Signs: Temp Pulse Resp BP Pulse Ox 99.1 F 92 14 121/55 L 100 01/14/20 07:32 01/14/20 07:32 01/14/20 07:32 01/14/20 07:32 01/14/20 07:32 Intake & Output 01/13/20 01/14/20 01/15/20 06:59 06:59 06:59 Intake Total 3910 3462 Output Total 1825 2120 Balance 2085 1342 Weight 62.5 kg 62.5 kg General appearance: PRESENT: no acute distress Head exam: PRESENT: normocephalic Eye exam: PRESENT: EOMI Ear exam: PRESENT: normal external ear exam Mouth exam: PRESENT: moist Teeth exam: PRESENT: poor dentation Neck exam: PRESENT: full ROM Respiratory exam: PRESENT: clear to auscultation nora Cardiovascular exam: PRESENT: RRR Pulses: PRESENT: normal radial pulses, normal femoral pulses Vascular exam: PRESENT: normal capillary refill Breast: PRESENT: Normal GI/Abdominal exam: PRESENT: soft Rectal exam: PRESENT: deferred Extremities exam: PRESENT: full ROM Musculoskeletal exam: PRESENT: full ROM Neurological exam: PRESENT: alert, awake, oriented to person, oriented to place Psychiatric exam: PRESENT: appropriate affect Skin exam: PRESENT: dry - s/p left great toe amputation wound closed recommend no wt bearing for 2-4 wks. pt can f/u in surgery clinic please reconsult surgery as necessary. Results Laboratory Results: 01/14/20 06:05 01/14/20 06:05 01/13/20 01/14/20 01/14/20 21:29 06:05 06:05 WBC 11.3 H RBC 2.42 L Hgb 7.9 L Hct 23.1 L MCV 96 MCH 32.5 MCHC 33.9 RDW 15.0 H Plt Count 487 H Sodium 134.3 L Potassium 4.2 Chloride 101 Carbon Dioxide 28 Anion Gap 5 BUN 7 Creatinine 0.56 0.61 Est GFR ( Amer) > 60 > 60 Glucose 117 H Calcium 8.0 L Impressions: Chest X-Ray 01/05/20 18:40 IMPRESSION: NO ACUTE RADIOGRAPHIC FINDING IN THE CHEST. Knee X-Ray 01/05/20 18:41 IMPRESSION: Moderate knee joint effusion. No acute fracture or dislocation. Foot X-Ray 01/11/20 00:00 IMPRESSION: Cannot exclude osteomyelitis in the 1st distal phalanx. PICC Line Insertion 01/13/20 00:00 IMPRESSION: SUCCESSFUL PLACEMENT OF A 5 FR DUAL LUMEN 32 CM PICC IN THE RIGHT BASILIC VEIN. Assessment & Plan - Time Time Spent: 30 to 50 Minutes Critical Time spent with patient: 25-34 minutes Smoking Cessation Education: over 10 minutes Medications reviewed and adjusted accordingly: No Anticipated Discharge Disposition: Home, Self Care Anticipated Discharge Timeframe: within 36 hours
--- NOTE | 2020-01-14 14:00 | PDOC PROGRESS REPORT ---
Subjective Progress Note for:: 01/14/20 Subjective:: Patient was seen on morning rounds. He is found resting in bed, comfortably, on room air. States he is feeling much better today; unsure why he felt unwell yesterday but had no specific symptoms to comment on. He denies fever, chills, chest pain, palpitations, dyspnea, orthopnea, abdominal pain, nausea vomiting diarrhea. He has no new questions or concerns. No concerns per nursing. Reason For Visit: SEPTIC ARTHRITIS RIGHT KNEE,DIABETES MELLITUS Physical Exam Vital Signs: Temp Pulse Resp BP Pulse Ox 98.5 F 86 16 120/57 L 98 01/14/20 11:24 01/14/20 11:24 01/14/20 11:24 01/14/20 11:24 01/14/20 11:24 Intake & Output 01/13/20 01/14/20 01/15/20 06:59 06:59 06:59 Intake Total 3910 3462 310 Output Total 1825 2120 925 Balance 2085 1342 -615 Weight 62.5 kg 62.5 kg General appearance: PRESENT: no acute distress, thin, well-developed, well- nourished Head exam: PRESENT: atraumatic, normocephalic Eye exam: PRESENT: conjunctiva pink, EOMI, PERRLA. ABSENT: scleral icterus Mouth exam: PRESENT: moist, tongue midline Respiratory exam: PRESENT: clear to auscultation nora, symmetrical, unlabored. ABSENT: rales, rhonchi, wheezes Cardiovascular exam: PRESENT: RRR. ABSENT: diastolic murmur, rubs, systolic murmur Pulses: PRESENT: normal dorsalis pedis pul Vascular exam: PRESENT: normal capillary refill GI/Abdominal exam: PRESENT: normal bowel sounds, soft. ABSENT: distended, guarding, mass, organolmegaly, rebound, tenderness Rectal exam: PRESENT: deferred Extremities exam: PRESENT: full ROM, tenderness - rt knee; improved. ABSENT: calf tenderness, clubbing, pedal edema Neurological exam: PRESENT: alert, awake, oriented to person, oriented to place, oriented to time, oriented to situation, CN II-XII grossly intact. ABSENT: motor sensory deficit Psychiatric exam: PRESENT: appropriate affect, normal mood. ABSENT: homicidal ideation, suicidal ideation Skin exam: PRESENT: dry, warm, other - s/p rt knee arthorcentesis and lt 1st toe amputation. ABSENT: cyanosis, rash Results Laboratory Results: 01/14/20 06:05 01/14/20 06:05 01/13/20 01/14/20 01/14/20 21:29 06:05 06:05 WBC 11.3 H RBC 2.42 L Hgb 7.9 L Hct 23.1 L MCV 96 MCH 32.5 MCHC 33.9 RDW 15.0 H Plt Count 487 H Sodium 134.3 L Potassium 4.2 Chloride 101 Carbon Dioxide 28 Anion Gap 5 BUN 7 Creatinine 0.56 0.61 Est GFR ( Amer) > 60 > 60 Glucose 117 H Calcium 8.0 L 01/09/20 12:10 Blood Blood Culture - Final NO GROWTH IN 5 DAYS 01/09/20 12:05 Blood Blood Culture - Final NO GROWTH IN 5 DAYS Impressions: Chest X-Ray 01/05/20 18:40 IMPRESSION: NO ACUTE RADIOGRAPHIC FINDING IN THE CHEST. Knee X-Ray 01/05/20 18:41 IMPRESSION: Moderate knee joint effusion. No acute fracture or dislocation. Foot X-Ray 01/11/20 00:00 IMPRESSION: Cannot exclude osteomyelitis in the 1st distal phalanx. PICC Line Insertion 01/13/20 00:00 IMPRESSION: SUCCESSFUL PLACEMENT OF A 5 FR DUAL LUMEN 32 CM PICC IN THE RIGHT BASILIC VEIN. Assessment and Plan - Diagnosis (1) Bacteremia Is this a current diagnosis for this admission?: Yes Plan: 1/ blood cultures from 01/05/2020 positive for MRSA Repeat blood cultures on 01/09/2020 NG at 5 days Potentially the patient's septic right knee, however, is noted to have gangrene of the left toe. TTE is negative for vegetations Infectious disease consulted; appreciate recommendations. Will obtain TTE to eval for endocarditis. Anticipate 4-6 weeks IV abx. - Continue IV Vancomycin. - Per ID; if TTE and bone pathology is negative, then 4 weeks abx. If either is positive, then 6 weeks of therapy. - EOT date not yet determined. (2) Gangrene of toe of left foot Is this a current diagnosis for this admission?: Yes Plan: s/p amputation by Dr. Rajput; POD 2 Plain film cannot exclude osteomyelitis to the first distal phalanx. Pathology pending. Surgery has signed off. Continue IV vancomycin. Infectious disease consulted to guide antibiotic course (MRSA bacteremia). Obtain tight glycemic control. (3) Septic arthritis of knee, right Is this a current diagnosis for this admission?: Yes Plan: Improved. Orthopedics was consulted; appreciate Dr. Douglas's assistance. VANDANA drain removed 01/10/2020. Cleared for discharge from orthopedic standpoint regarding right knee. However, patient remains in house secondary to MRSA bacteremia and left toe necrosis. Follow-up with Dr. Douglas in 10 days. (4) Anemia Qualifiers: Anemia type: iron deficiency Is this a current diagnosis for this admission?: Yes Plan: There is likely a dilutional component, but H/H continues to trend down Hgb 9.5-> 6.5-> 9.4 (s/p 2 units PRBC)-> 8.6-> 7.9 Iron studies reviewed, likely acute phase response with mild iron deficiency Stool for occult blood pending Has received 2 units PRBC Continue daily ferrous sulfate supplementation. Follow-up CBC. (5) Diabetes mellitus type 2 in nonobese Is this a current diagnosis for this admission?: Yes Plan: Hemoglobin A1c 8.5 Continue current basal (glargine) 20 units subcutaneously twice daily Continue FS BS with SSI correction scale Hypoglycemia protocol in place. Registered dietitian and special educator consulted. (6) Hypokalemia Is this a current diagnosis for this admission?: Yes Plan: Replete (7) Hyponatremia Is this a current diagnosis for this admission?: Yes Plan: Gradual upward trend. Patient is asymptomatic Liberalize dietary sodium. Fluid restrict 1.5 L daily Follow-up chemistry - Time Time Spent with patient: 15-24 minutes Medications reviewed and adjusted accordingly: Yes Anticipated Discharge Disposition: Home with Home Health Anticipated Discharge Timeframe: > 72 hrs
[2020-01-15] MEDS: NORMAL SALINE 1000 ML 1,000 ML IV PRN ×2 (02:11→21:58)
[2020-01-15] MEDS: OXYCODONE-ACETAMINOPHEN 5-325 MG TABLET PO PRN ×5 (02:11→21:57)
[2020-01-15] MEDS: VANCOMYCIN HCL 1,000 MG in DEXTROSE 5%-WATER 250 ML IV SCH ×3 (05:49→21:57)
[2020-01-15] MEDS: HEPARIN SOD (PORCINE) 5,000 UNIT/ML 1 ML VIAL SUBCUT SCH ×3 (05:51→21:56)
[2020-01-15] MEDS: GABAPENTIN 300 MG CAPSULE PO SCH ×3 (06:13→21:57)
[2020-01-15 07:03] LABS: HEMATOCRIT 23.8 % (37.9-51.0); HEMOGLOBIN 8.2 g/dL (13.5-17.0); MEAN CORPUSCULAR HEMOGLOBIN 33.2 pg (27.0-33.4); MEAN CORPUSCULAR HGB CONC 34.6 g/dL (32.0-36.0); MEAN CORPUSCULAR VOLUME 96 fl (80-97); PLATELET COUNT 537 10^3/uL (150-450); RED BLOOD COUNT 2.47 10^6/uL (4.35-5.55); WHITE BLOOD COUNT 10.9 10^3/uL (4.0-10.5)
[2020-01-15] MEDS: INSULIN LISPRO 100 UNIT/ML 3 ML VIAL SUBCUT SCH ×3 (07:32→16:40)
[2020-01-15] MEDS: INSULIN GLARGINE,HUM.REC.ANLOG 1,000 UNIT/10 ML VIAL SUBCUT SCH ×2 (09:11→21:56)
[2020-01-15] MEDS: FERROUS SULFATE 325 MG TABLET PO SCH (09:12)
[2020-01-15] MEDS: NORMAL SALINE 10 ML SDV (SCHEDULED) IV SCH ×2 (09:12→21:58)
[2020-01-15] MEDS: DOCUSATE SODIUM 100 MG CAPSULE PO SCH ×2 (09:12→17:56)
[2020-01-15] MEDS: FAMOTIDINE 20 MG TABLET PO SCH ×2 (09:12→21:57)
[2020-01-15] MEDS: POLYETHYLENE GLYCOL 3350 POWDER 17 GM/1 PACKET PO SCH (09:13)
--- NOTE | 2020-01-15 10:58 | RADIOLOGY REPORT (SQ) ---
EXAM DESCRIPTION: KNEE RIGHT 2 VIEWS IMAGES COMPLETED DATE/TIME: 01/15/2020 10:40 am REASON FOR STUDY: increased swelling E11.65 TYPE 2 DIABETES MELLITUS WITH HYPERGLYCEMIA A41.89 OTH ER SPECIFIED SEPSIS COMPARISON: Right knee radiographs 01/05/2020 NUMBER OF VIEWS: 2 TECHNIQUE: AP and oblique radiographic images acquired of the right knee. LIMITATIONS: None. FINDINGS: MINERALIZATION: Normal. BONES: No acute fracture or dislocation. No worrisome bone lesions. No significant osteophytes. JOINT: Moderate knee joint effusion remains. No chondrocalcinosis. OTHER: Vascular calcifications are present in the soft tissues. IMPRESSION: Moderate knee joint effusion. No acute fracture or dislocation. TECHNICAL DOCUMENTATION: JOB ID: [id number] 2010 [employer]- All Rights Reserved Reading location - IP/workstation name: [email or web address]
[2020-01-15] MEDS: HYDROMORPHONE HCL INJ/PF 2 MG/ML AMPULE IV PRN ×2 (11:57→22:46)
--- NOTE | 2020-01-15 15:39 | PDOC PROGRESS REPORT ---
Subjective Progress Note for:: 01/15/20 Subjective:: Patient was seen on morning rounds. He is found resting in bed, comfortably, on room air. States he is feeling much better today. Does complain of worsening knee pain and swelling; requests adjustments to pain medications. He denies fever, chills, chest pain, palpitations, dyspnea, orthopnea, abdominal pain, nausea vomiting diarrhea. He has no new questions or concerns. No concerns per nursing. Reason For Visit: SEPTIC ARTHRITIS RIGHT KNEE,DIABETES MELLITUS Physical Exam Vital Signs: Temp Pulse Resp BP Pulse Ox 98.8 F 84 16 130/68 H 98 01/15/20 12:00 01/15/20 12:00 01/15/20 12:00 01/15/20 12:00 01/15/20 12:00 Intake & Output 01/14/20 01/15/20 01/16/20 06:59 06:59 06:59 Intake Total 3462 2800 866 Output Total 2120 3245 700 Balance 1342 -445 166 Weight 62.5 kg 62.5 kg General appearance: PRESENT: no acute distress, thin, well-developed Head exam: PRESENT: atraumatic, normocephalic Eye exam: PRESENT: conjunctiva pink, EOMI, PERRLA. ABSENT: scleral icterus Mouth exam: PRESENT: moist, tongue midline Respiratory exam: PRESENT: clear to auscultation nora, symmetrical, unlabored. ABSENT: rales, rhonchi, wheezes Cardiovascular exam: PRESENT: RRR. ABSENT: diastolic murmur, rubs, systolic murmur Pulses: PRESENT: normal dorsalis pedis pul Vascular exam: PRESENT: normal capillary refill Extremities exam: PRESENT: full ROM, joint swelling - right knee, tenderness - right knee. ABSENT: calf tenderness, clubbing, pedal edema Neurological exam: PRESENT: alert, awake, oriented to person, oriented to place, oriented to time, oriented to situation, CN II-XII grossly intact. ABSENT: motor sensory deficit Psychiatric exam: PRESENT: appropriate affect, normal mood. ABSENT: homicidal ideation, suicidal ideation Skin exam: PRESENT: dry, warm, other - s/p lt 1st toe amputation. ABSENT: cyanosis, rash Results Laboratory Results: 01/15/20 06:35 01/14/20 06:05 01/15/20 01/15/20 05:55 06:35 WBC 10.9 H RBC 2.47 L Hgb 8.2 L Hct 23.8 L MCV 96 MCH 33.2 MCHC 34.6 RDW 15.0 H Plt Count 537 H C-Reactive Protein 169.0 H 01/09/20 12:10 Blood Blood Culture - Final NO GROWTH IN 5 DAYS 01/09/20 12:05 Blood Blood Culture - Final NO GROWTH IN 5 DAYS Impressions: Chest X-Ray 01/05/20 18:40 IMPRESSION: NO ACUTE RADIOGRAPHIC FINDING IN THE CHEST. Foot X-Ray 01/11/20 00:00 IMPRESSION: Cannot exclude osteomyelitis in the 1st distal phalanx. PICC Line Insertion 01/13/20 00:00 IMPRESSION: SUCCESSFUL PLACEMENT OF A 5 FR DUAL LUMEN 32 CM PICC IN THE RIGHT BASILIC VEIN. Knee X-Ray 01/15/20 00:00 IMPRESSION: Moderate knee joint effusion. No acute fracture or dislocation. Assessment and Plan - Diagnosis (1) Bacteremia Is this a current diagnosis for this admission?: Yes Plan: 1/ blood cultures from 01/05/2020 positive for MRSA Repeat blood cultures on 01/09/2020 NG at 5 days Potentially the patient's septic right knee, however, is noted to have gangrene of the left toe. TTE is negative for vegetations Infectious disease consulted; appreciate recommendations. Will obtain TTE to eval for endocarditis. Anticipate 4-6 weeks IV abx. - Continue IV Vancomycin. - Per ID; if TTE and bone pathology is negative, then 4 weeks abx. If either is positive, then 6 weeks of therapy. - EOT date not yet determined. (2) Gangrene of toe of left foot Is this a current diagnosis for this admission?: Yes Plan: s/p amputation by Dr. Rajput; POD 2 Plain film cannot exclude osteomyelitis to the first distal phalanx. Pathology pending. Surgery has signed off. Continue IV vancomycin. Infectious disease consulted to guide antibiotic course (MRSA bacteremia). Obtain tight glycemic control. (3) Septic arthritis of knee, right Is this a current diagnosis for this admission?: Yes Plan: Improved. Slight increase in edema. Xray shows moderate effusion CRP trending down Orthopedics was consulted; appreciate Dr. Douglas's assistance. VANDANA drain removed 01/10/2020. Discussed with Dr. Douglas this morning; recommends daily CRP. (4) Anemia Qualifiers: Anemia type: iron deficiency Is this a current diagnosis for this admission?: Yes Plan: There is likely a dilutional component, but H/H continues to trend down Hgb 9.5-> 6.5-> 9.4 (s/p 2 units PRBC)-> 8.6-> 7.9-> 8.2 Iron studies reviewed, likely acute phase response with mild iron deficiency Stool for occult blood pending Has received 2 units PRBC Continue daily ferrous sulfate supplementation. Follow-up CBC. (5) Diabetes mellitus type 2 in nonobese Is this a current diagnosis for this admission?: Yes Plan: Hemoglobin A1c 8.5 Continue current basal (glargine) 20 units subcutaneously twice daily Continue FS BS with SSI correction scale Hypoglycemia protocol in place. Registered dietitian and perinatal educator consulted. (6) Hypokalemia Is this a current diagnosis for this admission?: Yes Plan: Replete (7) Hyponatremia Is this a current diagnosis for this admission?: Yes Plan: Gradual upward trend. Patient is asymptomatic Liberalize dietary sodium. Fluid restrict 1.5 L daily Follow-up chemistry - Time Time Spent with patient: 25-34 minutes Medications reviewed and adjusted accordingly: Yes Anticipated Discharge Disposition: [facility] Anticipated Discharge Timeframe: within 48 hours - pending bone pathology and placement
--- NOTE | 2020-01-15 22:34 | PDOC PROGRESS REPORT ---
Subjective Progress Note for:: 01/15/20 Reason For Visit: SEPTIC ARTHRITIS RIGHT KNEE,DIABETES MELLITUS Patient doing well. No worsening of symptoms overnight. Reports continued improvement in ability to perform right knee ROM and weight bearing. Physical Exam Vital Signs: Temp Pulse Resp BP Pulse Ox 98.7 F 97 18 106/53 L 98 01/15/20 19:45 01/15/20 19:45 01/15/20 19:45 01/15/20 19:45 01/15/20 19:45 Intake & Output 01/14/20 01/15/20 01/16/20 06:59 06:59 06:59 Intake Total 3462 2800 2341 Output Total 2120 3245 700 Balance 1342 -445 1641 Weight 62.5 kg 62.5 kg Physical Exam: No acute distress, alert and orient x3. Right lower extremity -Pulses 2+ distally -Compartments soft -Sensation grossly intact to L3-4-5 S1, decreased sensation diffusely in the distal left foot. Incision is present with deep palpation. -Motor grossly intact to EHL TA gastroc and quad - Improved ability to range knee in bed, 0-90 degrees without pain. Results Laboratory Results: 01/15/20 06:35 01/14/20 06:05 01/15/20 01/15/20 01/15/20 05:55 06:35 16:20 WBC 10.9 H RBC 2.47 L Hgb 8.2 L Hct 23.8 L MCV 96 MCH 33.2 MCHC 34.6 RDW 15.0 H Plt Count 537 H C-Reactive Protein 169.0 H Stool Occult Blood NEGATIVE Impressions: Chest X-Ray 01/05/20 18:40 IMPRESSION: NO ACUTE RADIOGRAPHIC FINDING IN THE CHEST. Foot X-Ray 01/11/20 00:00 IMPRESSION: Cannot exclude osteomyelitis in the 1st distal phalanx. PICC Line Insertion 01/13/20 00:00 IMPRESSION: SUCCESSFUL PLACEMENT OF A 5 FR DUAL LUMEN 32 CM PICC IN THE RIGHT BASILIC VEIN. Knee X-Ray 01/15/20 00:00 IMPRESSION: Moderate knee joint effusion. No acute fracture or dislocation. Assessment & Plan - Diagnosis (1) Septic arthritis of knee, right Is this a current diagnosis for this admission?: Yes Plan: - No current signs of recurrence. Knee effusion which may be post operative reactive and at baseline for the past few days. - Trend CRP - Will continue to monitor - Ability to range knee and weight bear is a good sign (2) Septic arthritis Qualifiers: Septic arthritis location: knee Septic arthritis organism: due to unspecified organism Laterality: right Qualified Code(s): M00.9 - Pyogenic arthritis, unspecified Is this a current diagnosis for this admission?: Yes (3) Osteomyelitis of great toe of left foot Is this a current diagnosis for this admission?: Yes - Time Time Spent with patient: Less than 15 minutes
[2020-01-16] MEDS: INSULIN LISPRO 100 UNIT/ML 3 ML VIAL SUBCUT SCH ×5 (00:55→22:56)
[2020-01-16] MEDS: OXYCODONE-ACETAMINOPHEN 5-325 MG TABLET PO PRN ×4 (02:07→20:31)
[2020-01-16] MEDS: HYDROMORPHONE HCL INJ/PF 2 MG/ML AMPULE IV PRN ×4 (05:46→22:55)
[2020-01-16] MEDS: HEPARIN SOD (PORCINE) 5,000 UNIT/ML 1 ML VIAL SUBCUT SCH ×3 (05:46→22:56)
[2020-01-16] MEDS: GABAPENTIN 300 MG CAPSULE PO SCH ×3 (05:46→22:54)
[2020-01-16] MEDS: VANCOMYCIN HCL 1,000 MG in DEXTROSE 5%-WATER 250 ML IV SCH ×3 (05:48→22:57)
[2020-01-16 06:47] LABS: HEMATOCRIT 23.2 % (37.9-51.0); MEAN CORPUSCULAR HEMOGLOBIN 32.7 pg (27.0-33.4); MEAN CORPUSCULAR HGB CONC 34.5 g/dL (32.0-36.0); MEAN CORPUSCULAR VOLUME 95 fl (80-97); PLATELET COUNT 534 10^3/uL (150-450); RED BLOOD COUNT 2.44 10^6/uL (4.35-5.55); RED CELL DISTRIBUTION WIDTH 15.2 % (11.5-14.0); WHITE BLOOD COUNT 10.4 10^3/uL (4.0-10.5)
[2020-01-16] MEDS: DOCUSATE SODIUM 100 MG CAPSULE PO SCH ×2 (10:00→17:22)
[2020-01-16] MEDS: INSULIN GLARGINE,HUM.REC.ANLOG 1,000 UNIT/10 ML VIAL SUBCUT SCH ×2 (10:00→22:54)
[2020-01-16] MEDS: FAMOTIDINE 20 MG TABLET PO SCH ×2 (10:00→22:54)
[2020-01-16] MEDS: FERROUS SULFATE 325 MG TABLET PO SCH (10:00)
[2020-01-16] MEDS: POLYETHYLENE GLYCOL 3350 POWDER 17 GM/1 PACKET PO SCH (10:01)
[2020-01-16] MEDS: NORMAL SALINE 10 ML SDV (SCHEDULED) IV SCH ×2 (10:01→22:57)
--- NOTE | 2020-01-16 13:38 | PDOC PROGRESS REPORT ---
Subjective Progress Note for:: 01/16/20 Subjective:: Patient was seen on morning rounds while working with physical therapy. States he is feeling much better today. Reports right knee pain and swelling are unchanged; better range of movement today. Denies pain to left foot. Wants to know when he will discharge to SNF; states that he has not discussed placement with discharge planning yet. He denies fever, chills, chest pain, palpitations, dyspnea, orthopnea, abdominal pain, nausea vomiting diarrhea. He has no new questions or concerns. No concerns per nursing. Reason For Visit: SEPTIC ARTHRITIS RIGHT KNEE,DIABETES MELLITUS Physical Exam Vital Signs: Temp Pulse Resp BP Pulse Ox 98.6 F 78 16 112/61 99 01/16/20 07:15 01/16/20 07:15 01/16/20 07:15 01/16/20 07:15 01/16/20 07:15 Intake & Output 01/15/20 01/16/20 01/17/20 06:59 06:59 06:59 Intake Total 2800 3691 Output Total 3245 2700 Balance -445 991 Weight 62.5 kg 62.5 kg General appearance: PRESENT: no acute distress, cooperative, thin, well- developed, well-nourished Head exam: PRESENT: atraumatic, normocephalic Eye exam: PRESENT: conjunctiva pink, EOMI, PERRLA. ABSENT: scleral icterus Mouth exam: PRESENT: moist, tongue midline Respiratory exam: PRESENT: clear to auscultation nora, symmetrical, unlabored. ABSENT: rales, rhonchi, wheezes Cardiovascular exam: PRESENT: RRR. ABSENT: diastolic murmur, rubs, systolic murmur Vascular exam: PRESENT: normal capillary refill Extremities exam: PRESENT: tenderness - right knee. ABSENT: calf tenderness, clubbing, pedal edema Neurological exam: PRESENT: alert, awake, oriented to person, oriented to place, oriented to time, oriented to situation, CN II-XII grossly intact. ABSENT: motor sensory deficit Psychiatric exam: PRESENT: appropriate affect, normal mood. ABSENT: homicidal ideation, suicidal ideation Skin exam: PRESENT: dry, warm, other - s/p lt 1st toe amputation. ABSENT: cyanosis, rash Results Laboratory Results: 01/16/20 05:30 01/14/20 06:05 01/15/20 01/16/20 01/16/20 16:20 05:30 05:30 WBC 10.4 RBC 2.44 L Hgb 8.0 L Hct 23.2 L MCV 95 MCH 32.7 MCHC 34.5 RDW 15.2 H Plt Count 534 H C-Reactive Protein 165.4 H Stool Occult Blood NEGATIVE Impressions: Chest X-Ray 01/05/20 18:40 IMPRESSION: NO ACUTE RADIOGRAPHIC FINDING IN THE CHEST. Foot X-Ray 01/11/20 00:00 IMPRESSION: Cannot exclude osteomyelitis in the 1st distal phalanx. PICC Line Insertion 01/13/20 00:00 IMPRESSION: SUCCESSFUL PLACEMENT OF A 5 FR DUAL LUMEN 32 CM PICC IN THE RIGHT BASILIC VEIN. Knee X-Ray 01/15/20 00:00 IMPRESSION: Moderate knee joint effusion. No acute fracture or dislocation. Assessment and Plan - Diagnosis (1) Bacteremia Is this a current diagnosis for this admission?: Yes Plan: 1/ blood cultures from 01/05/2020 positive for MRSA Repeat blood cultures on 01/09/2020 NG at 5 days Potentially the patient's septic right knee, however, is noted to have gangrene of the left toe. TTE is negative for vegetations Infectious disease consulted; appreciate recommendations. Will obtain TTE to eval for endocarditis. Anticipate 4-6 weeks IV abx. - Continue IV Vancomycin. - Per ID; if TTE and bone pathology is negative, then 4 weeks abx. If either is positive, then 6 weeks of therapy. - EOT date not yet determined; waiting for bone pathology (2) Gangrene of toe of left foot Is this a current diagnosis for this admission?: Yes Plan: s/p amputation by Dr. Rajput; POD 2 Plain film cannot exclude osteomyelitis to the first distal phalanx. Pathology pending. Surgery has signed off. Continue IV vancomycin. Infectious disease consulted to guide antibiotic course (MRSA bacteremia). Obtain tight glycemic control. (3) Septic arthritis of knee, right Is this a current diagnosis for this admission?: Yes Plan: Improved. Slight increase in edema. Xray shows moderate effusion CRP trending down Orthopedics was consulted; appreciate Dr. Douglas's assistance. VANDANA drain removed 01/10/2020. Discussed with Dr. Douglas yesterday; recommends CRP monitoring. Will follow. (4) Anemia Qualifiers: Anemia type: iron deficiency Is this a current diagnosis for this admission?: Yes Plan: Stable Hgb 9.5-> 6.5-> 9.4 (s/p 2 units PRBC)-> 8.6-> 7.9-> 8.2-> 8.0 Iron studies reviewed, likely acute phase response with mild iron deficiency Stool for occult blood pending Has received 2 units PRBC Continue daily ferrous sulfate supplementation. Follow-up CBC. (5) Diabetes mellitus type 2 in nonobese Is this a current diagnosis for this admission?: Yes Plan: Hemoglobin A1c 8.5% Continue current basal (glargine) 20 units subcutaneously twice daily Continue FS BS with SSI correction scale Hypoglycemia protocol in place. Registered dietitian and hematology nurse educator consulted. (6) Hypokalemia Is this a current diagnosis for this admission?: Yes Plan: Replete (7) Hyponatremia Is this a current diagnosis for this admission?: Yes Plan: Gradual upward trend. Patient is asymptomatic Liberalize dietary sodium. Fluid restrict 1.5 L daily Follow-up chemistry - Time Time Spent with patient: 15-24 minutes Medications reviewed and adjusted accordingly: Yes Anticipated Discharge Disposition: Shelter Facility Anticipated Discharge Timeframe: pending path results and SNF placement
[2020-01-17] MEDS: OXYCODONE-ACETAMINOPHEN 5-325 MG TABLET PO PRN ×5 (00:58→22:30)
[2020-01-17] MEDS: HYDROMORPHONE HCL INJ/PF 2 MG/ML AMPULE IV PRN ×4 (02:56→19:51)
[2020-01-17] MEDS: HEPARIN SOD (PORCINE) 5,000 UNIT/ML 1 ML VIAL SUBCUT SCH ×3 (05:14→22:44)
[2020-01-17] MEDS: GABAPENTIN 300 MG CAPSULE PO SCH ×3 (05:15→22:30)
[2020-01-17] MEDS: VANCOMYCIN HCL 1,000 MG in DEXTROSE 5%-WATER 250 ML IV SCH ×3 (05:15→22:31)
[2020-01-17] MEDS: NORMAL SALINE 1000 ML 1,000 ML IV PRN (05:16)
[2020-01-17] MEDS: INSULIN LISPRO 100 UNIT/ML 3 ML VIAL SUBCUT SCH ×4 (07:50→21:59)
[2020-01-17] MEDS: FERROUS SULFATE 325 MG TABLET PO SCH (09:20)
[2020-01-17] MEDS: INSULIN GLARGINE,HUM.REC.ANLOG 1,000 UNIT/10 ML VIAL SUBCUT SCH ×2 (09:21→22:31)
[2020-01-17] MEDS: NORMAL SALINE 10 ML SDV (SCHEDULED) IV SCH ×2 (09:21→22:29)
[2020-01-17] MEDS: POLYETHYLENE GLYCOL 3350 POWDER 17 GM/1 PACKET PO SCH (09:21)
[2020-01-17] MEDS: FAMOTIDINE 20 MG TABLET PO SCH ×2 (09:21→22:30)
[2020-01-17] MEDS: DOCUSATE SODIUM 100 MG CAPSULE PO SCH ×2 (09:21→17:17)
--- NOTE | 2020-01-17 09:31 | PDOC PROGRESS REPORT ---
Subjective Progress Note for:: 01/17/20 Subjective:: Patient continues to do well. Reports continued improvement in pain and ability to ambulate as well as range the right knee. No new symptoms. Reason For Visit: SEPTIC ARTHRITIS RIGHT KNEE,DIABETES MELLITUS Physical Exam Vital Signs: Temp Pulse Resp BP Pulse Ox 99.3 F 86 16 129/58 H 100 01/17/20 00:00 01/17/20 00:00 01/17/20 00:00 01/17/20 00:00 01/17/20 00:00 Intake & Output 01/16/20 01/17/20 01/18/20 06:59 06:59 06:59 Intake Total 3691 3238 250 Output Total 2700 2600 Balance 991 638 250 Weight 62.5 kg 62.5 kg Physical Exam: AOx3, NAD RLE Sensation and motor function grossly intact aside from baseline neuropathy -Knee effusion stable without progression - Able to range the knee without considerable pain - No increasing redness or signs of infection recurrence, wounds C/D/I Results Laboratory Results: 01/16/20 05:30 01/14/20 06:05 01/17/20 05:58 C-Reactive Protein 162.8 H Impressions: Chest X-Ray 01/05/20 18:40 IMPRESSION: NO ACUTE RADIOGRAPHIC FINDING IN THE CHEST. Foot X-Ray 01/11/20 00:00 IMPRESSION: Cannot exclude osteomyelitis in the 1st distal phalanx. PICC Line Insertion 01/13/20 00:00 IMPRESSION: SUCCESSFUL PLACEMENT OF A 5 FR DUAL LUMEN 32 CM PICC IN THE RIGHT BASILIC VEIN. Knee X-Ray 01/15/20 00:00 IMPRESSION: Moderate knee joint effusion. No acute fracture or dislocation. Assessment & Plan - Diagnosis (1) Septic arthritis of knee, right Is this a current diagnosis for this admission?: Yes Plan: - Antibiotics per Hospitalist - CPR is trending down, though slowly - Patient appears orthopedically stable, no concern for right knee septic arthritis progression since his second washout - Continue PT ROM and WBAT (2) Septic arthritis Qualifiers: Septic arthritis location: knee Septic arthritis organism: due to unspecified organism Laterality: right Qualified Code(s): M00.9 - Pyogenic arthritis, unspecified Is this a current diagnosis for this admission?: Yes (3) Osteomyelitis of great toe of left foot Is this a current diagnosis for this admission?: Yes - Time Time Spent with patient: Less than 15 minutes
--- NOTE | 2020-01-17 15:32 | PDOC PROGRESS REPORT ---
Subjective Progress Note for:: 01/17/20 Subjective:: Patient was seen on morning rounds. He is found resting in bed, comfortably, on room air preparing to eat his breakfast. He reports that he is feeling well today. Continued discomfort to his knee, although, decreased swelling and improved range of motion today. No pain to his left foot. He denies fever, chills, chest pain, palpitations, dyspnea, orthopnea, abdominal pain, nausea vomiting diarrhea. He has no new questions or concerns. No concerns per nursing. Reason For Visit: SEPTIC ARTHRITIS RIGHT KNEE,DIABETES MELLITUS Physical Exam Vital Signs: Temp Pulse Resp BP Pulse Ox 99.3 F 86 16 129/58 H 100 01/17/20 00:00 01/17/20 00:00 01/17/20 00:00 01/17/20 00:00 01/17/20 00:00 Intake & Output 01/16/20 01/17/20 01/18/20 06:59 06:59 06:59 Intake Total 3691 3238 250 Output Total 2700 2600 Balance 991 638 250 Weight 62.5 kg 62.5 kg General appearance: PRESENT: no acute distress, cooperative, thin, well- developed, well-nourished Head exam: PRESENT: atraumatic, normocephalic Eye exam: PRESENT: conjunctiva pink, EOMI, PERRLA. ABSENT: scleral icterus Mouth exam: PRESENT: moist, tongue midline Teeth exam: PRESENT: poor dentation Respiratory exam: PRESENT: clear to auscultation nora, symmetrical, unlabored. ABSENT: rales, rhonchi, wheezes Cardiovascular exam: PRESENT: RRR, +S1, +S2. ABSENT: diastolic murmur, rubs, systolic murmur Pulses: PRESENT: normal dorsalis pedis pul Vascular exam: PRESENT: normal capillary refill Extremities exam: PRESENT: full ROM - Decreased range of motion right knee; improving, joint swelling - Right knee improved. ABSENT: calf tenderness, clubbing, pedal edema Neurological exam: PRESENT: alert, awake, oriented to person, oriented to place, oriented to time, oriented to situation, CN II-XII grossly intact. ABSENT: motor sensory deficit Psychiatric exam: PRESENT: appropriate affect, normal mood. ABSENT: homicidal ideation, suicidal ideation Skin exam: PRESENT: dry, warm, other - Status post first left toe amputation. ABSENT: cyanosis, rash Results Laboratory Results: 01/16/20 05:30 01/14/20 06:05 01/17/20 05:58 C-Reactive Protein 162.8 H Impressions: Chest X-Ray 01/05/20 18:40 IMPRESSION: NO ACUTE RADIOGRAPHIC FINDING IN THE CHEST. Foot X-Ray 01/11/20 00:00 IMPRESSION: Cannot exclude osteomyelitis in the 1st distal phalanx. PICC Line Insertion 01/13/20 00:00 IMPRESSION: SUCCESSFUL PLACEMENT OF A 5 FR DUAL LUMEN 32 CM PICC IN THE RIGHT BASILIC VEIN. Knee X-Ray 01/15/20 00:00 IMPRESSION: Moderate knee joint effusion. No acute fracture or dislocation. Assessment and Plan - Diagnosis (1) Bacteremia Is this a current diagnosis for this admission?: Yes Plan: 06/19 blood cultures from 01/05/2020 positive for MRSA Repeat blood cultures on 01/09/2020 NG at 5 days Potentially the patient's septic right knee, however, is noted to have gangrene of the left toe. TTE is negative for vegetations Toe pathology confirmed osteomyelitis. Infectious disease consulted; appreciate recommendations. - Continue IV Vancomycin x6 weeks; end of treatment February 23, 2020 (2) Gangrene of toe of left foot Is this a current diagnosis for this admission?: Yes Plan: s/p amputation by Dr. Rajput; POD 2 Plain film cannot exclude osteomyelitis to the first distal phalanx. Pathology pending. Surgery has signed off. Continue IV vancomycin. Infectious disease consulted to guide antibiotic course (MRSA bacteremia). Obtain tight glycemic control. (3) Septic arthritis of knee, right Is this a current diagnosis for this admission?: Yes Plan: Improved. Slight increase in edema. Xray shows moderate effusion CRP trending down Orthopedics was consulted; appreciate Dr. Douglas's assistance. VANDANA drain removed 01/10/2020. Discussed with Dr. Douglas yesterday; recommends CRP monitoring. Will follow. (4) Anemia Qualifiers: Anemia type: iron deficiency Is this a current diagnosis for this admission?: Yes Plan: Stable Hgb 9.5-> 6.5-> 9.4 (s/p 2 units PRBC)-> 8.6-> 7.9-> 8.2-> 8.0 Iron studies reviewed, likely acute phase response with mild iron deficiency Stool for occult blood pending Has received 2 units PRBC Continue daily ferrous sulfate supplementation. Follow-up CBC. (5) Diabetes mellitus type 2 in nonobese Is this a current diagnosis for this admission?: Yes Plan: Hemoglobin A1c 8.5% Continue current basal (glargine) 20 units subcutaneously twice daily Continue FS BS with SSI correction scale Hypoglycemia protocol in place. Registered dietitian and family educator consulted. (6) Hypokalemia Is this a current diagnosis for this admission?: Yes Plan: Replete (7) Hyponatremia Is this a current diagnosis for this admission?: Yes Plan: Gradual upward trend. Patient is asymptomatic Liberalize dietary sodium. Fluid restrict 1.5 L daily Follow-up chemistry - Time Smoking Cessation Education: over 10 minutes Anticipated Discharge Disposition: [facility] Facility Anticipated Discharge Timeframe: when bed available
[2020-01-18] MEDS: HYDROMORPHONE HCL INJ/PF 2 MG/ML AMPULE IV PRN ×6 (00:25→23:54)
[2020-01-18] MEDS: OXYCODONE-ACETAMINOPHEN 5-325 MG TABLET PO PRN ×5 (03:22→21:57)
[2020-01-18] MEDS: HEPARIN SOD (PORCINE) 5,000 UNIT/ML 1 ML VIAL SUBCUT SCH ×3 (05:26→21:56)
[2020-01-18] MEDS: GABAPENTIN 300 MG CAPSULE PO SCH ×3 (05:26→21:45)
[2020-01-18] MEDS: VANCOMYCIN HCL 1,000 MG in DEXTROSE 5%-WATER 250 ML IV SCH ×3 (06:00→21:44)
[2020-01-18] MEDS: INSULIN LISPRO 100 UNIT/ML 3 ML VIAL SUBCUT SCH ×4 (09:02→21:59)
[2020-01-18] MEDS: DOCUSATE SODIUM 100 MG CAPSULE PO SCH ×2 (10:30→17:19)
[2020-01-18] MEDS: POLYETHYLENE GLYCOL 3350 POWDER 17 GM/1 PACKET PO SCH (10:30)
[2020-01-18] MEDS: FERROUS SULFATE 325 MG TABLET PO SCH (10:32)
[2020-01-18] MEDS: INSULIN GLARGINE,HUM.REC.ANLOG 1,000 UNIT/10 ML VIAL SUBCUT SCH ×2 (10:33→21:45)
[2020-01-18] MEDS: FAMOTIDINE 20 MG TABLET PO SCH ×2 (10:34→22:00)
[2020-01-18] MEDS: NORMAL SALINE 10 ML SDV (SCHEDULED) IV SCH ×2 (10:34→21:45)
[2020-01-18 13:06] LABS: ABSOLUTE BASOPHILS # (AUTO) 0.1 10^3/uL (0.0-0.2); ABSOLUTE EOSINOPHILS # (AUTO) 0.1 10^3/uL (0.0-0.6); ABSOLUTE LYMPHOCYTES (AUTO) 1.2 10^3/uL (0.5-4.7); ABSOLUTE MONOCYTES (AUTO) 0.8 10^3/uL (0.1-1.4); ABSOLUTE NEUT (AUTO) 7.9 10^3/uL (1.7-8.2); BASOPHILS % (AUTO) 0.6 % (0-2); EOSINOPHILS % (AUTO) 0.8 % (0-6); HEMATOCRIT 22.4 % (37.9-51.0); LYMPHOCYTES % (AUTO) 11.6 % (13-45); MEAN CORPUSCULAR HEMOGLOBIN 32.9 pg (27.0-33.4); MEAN CORPUSCULAR HGB CONC 34.1 g/dL (32.0-36.0); MEAN CORPUSCULAR VOLUME 96 fl (80-97); MONOCYTES % (AUTO) 7.6 % (3-13); PLATELET COUNT 549 10^3/uL (150-450); RED BLOOD COUNT 2.32 10^6/uL (4.35-5.55); RED CELL DISTRIBUTION WIDTH 15.6 % (11.5-14.0); SEGMENTED NEUTROPHILS % (AUTO) 79.4 % (42-78); TOTAL CELLS COUNTED % (AUTO) 100 %; WHITE BLOOD COUNT 9.9 10^3/uL (4.0-10.5)
[2020-01-18 13:15] LABS: HEMOGLOBIN 7.6 g/dL (13.5-17.0)
[2020-01-18 13:18] LABS: ANION GAP 5 (5-19); BLOOD UREA NITROGEN 8 mg/dL (7-20); CALCIUM 8.4 mg/dL (8.4-10.2); CARBON DIOXIDE 29 mmol/L (22-30); CHLORIDE 101 mmol/L (98-107); GLUCOSE 93 mg/dL (75-110); POTASSIUM 4.2 mmol/L (3.6-5.0)
[2020-01-18 13:20] LABS: VANCOMYCIN,TROUGH 17.8 ug/mL (5.0-20.0)
[2020-01-18 14:27] LABS: ERYTHROCYTE SEDIMENTATION RATE > 120 mm/hr (0-20)
[2020-01-18] MEDS: NORMAL SALINE 1000 ML 1,000 ML IV PRN (17:48)
--- NOTE | 2020-01-18 17:50 | PDOC PROGRESS REPORT ---
Subjective Progress Note for:: 01/18/20 Subjective:: 01/18/2020. No acute events overnight. Resting in bed comfortably no apparent distress, complaining of mild pain in the right knee and awaiting denies any fever, chills, nausea, vomiting. Pending transfer to rehab. Reason For Visit: SEPTIC ARTHRITIS RIGHT KNEE,DIABETES MELLITUS Physical Exam Vital Signs: Temp Pulse Resp BP Pulse Ox 98.5 F 86 16 107/54 L 100 01/18/20 11:52 01/18/20 11:52 01/18/20 11:52 01/18/20 11:52 01/18/20 11:52 Intake & Output 01/17/20 01/18/20 01/19/20 06:59 06:59 06:59 Intake Total 3238 5368 500 Output Total 2600 3560 Balance 638 1808 500 Weight 62.5 kg 62.5 kg General appearance: PRESENT: no acute distress, well-developed, well-nourished Respiratory exam: PRESENT: clear to auscultation nora. ABSENT: rales, rhonchi, wheezes GI/Abdominal exam: PRESENT: normal bowel sounds, soft. ABSENT: distended, guarding, mass, organolmegaly, rebound, tenderness Musculoskeletal exam: PRESENT: other - Right knee wound site looks clean, mild tenderness, mild edema distally. Neurovascularly intact. Neurological exam: PRESENT: alert, awake, oriented to person, oriented to place, oriented to time, oriented to situation, CN II-XII grossly intact. ABSENT: motor sensory deficit Results Laboratory Results: 01/18/20 12:35 01/18/20 12:35 01/18/20 01/18/20 12:35 12:35 WBC 9.9 RBC 2.32 L Hgb 7.6 L Hct 22.4 L MCV 96 MCH 32.9 MCHC 34.1 RDW 15.6 H Plt Count 549 H Seg Neutrophils % 79.4 H Sodium 134.8 L Potassium 4.2 Chloride 101 Carbon Dioxide 29 Anion Gap 5 BUN 8 Creatinine 0.58 Est GFR ( Amer) > 60 Glucose 93 Calcium 8.4 Impressions: Chest X-Ray 01/05/20 18:40 IMPRESSION: NO ACUTE RADIOGRAPHIC FINDING IN THE CHEST. Foot X-Ray 01/11/20 00:00 IMPRESSION: Cannot exclude osteomyelitis in the 1st distal phalanx. PICC Line Insertion 01/13/20 00:00 IMPRESSION: SUCCESSFUL PLACEMENT OF A 5 FR DUAL LUMEN 32 CM PICC IN THE RIGHT BASILIC VEIN. Knee X-Ray 01/15/20 00:00 IMPRESSION: Moderate knee joint effusion. No acute fracture or dislocation. Assessment and Plan - Diagnosis (1) Septic arthritis of knee, right Is this a current diagnosis for this admission?: Yes Plan: Improved. Slight increase in edema. Xray shows moderate effusion CRP trending down Orthopedics was consulted; appreciate Dr. Douglas's assistance. VANDANA drain removed 01/10/2020. Discussed with Dr. Douglas yesterday; recommends CRP monitoring. Will follow. (2) Anemia Qualifiers: Anemia type: iron deficiency Is this a current diagnosis for this admission?: Yes Plan: Stable Hgb 9.5-> 6.5-> 9.4 (s/p 2 units PRBC)-> 8.6-> 7.9-> 8.2-> 8.0 Iron studies reviewed, likely acute phase response with mild iron deficiency Stool for occult blood pending Has received 2 units PRBC Continue daily ferrous sulfate supplementation. Follow-up CBC. (3) Bacteremia Is this a current diagnosis for this admission?: Yes Plan: 1/ blood cultures from 01/05/2020 positive for MRSA Repeat blood cultures on 01/09/2020 NG at 5 days Potentially the patient's septic right knee, however, is noted to have gangrene of the left toe. TTE is negative for vegetations Toe pathology confirmed osteomyelitis. Infectious disease consulted; appreciate recommendations. - Continue IV Vancomycin x6 weeks; end of treatment February 23, 2020 (4) Diabetes mellitus type 2 in nonobese Is this a current diagnosis for this admission?: Yes Plan: Hemoglobin A1c 8.5% Continue current basal (glargine) 20 units subcutaneously twice daily Continue FS BS with SSI correction scale Hypoglycemia protocol in place. Registered dietitian and stained glass painter consulted. (5) Gangrene of toe of left foot Is this a current diagnosis for this admission?: Yes Plan: s/p amputation by Dr. Rajput; POD 2 Plain film cannot exclude osteomyelitis to the first distal phalanx. Pathology pending. Surgery has signed off. Continue IV vancomycin. Infectious disease consulted to guide antibiotic course (MRSA bacteremia). Obtain tight glycemic control. (6) Hypokalemia Is this a current diagnosis for this admission?: Yes Plan: Replete (7) Hyponatremia Is this a current diagnosis for this admission?: Yes Plan: Gradual upward trend. Patient is asymptomatic Liberalize dietary sodium. Fluid restrict 1.5 L daily Follow-up chemistry (8) Septic arthritis of knee, right Is this a current diagnosis for this admission?: Yes Plan: Ortho input/assistance appreciated S/P right knee arthroscopic I&D with debridement on 01/06/2020 and and arthroscopic irrigation and debridement with drain placement on 01/08/2020 Intraoperative cultures 01/06/2020: MRSA Continue vancomycin per pharmacy protocol - Time Time Spent with patient: 25-34 minutes Anticipated Discharge Disposition: Longterm Facility Anticipated Discharge Timeframe: when bed available
[2020-01-19] MEDS: OXYCODONE-ACETAMINOPHEN 5-325 MG TABLET PO PRN ×5 (03:06→22:03)
[2020-01-19] MEDS: HYDROMORPHONE HCL INJ/PF 2 MG/ML AMPULE IV PRN ×5 (04:31→23:10)
[2020-01-19] MEDS: VANCOMYCIN HCL 1,000 MG in DEXTROSE 5%-WATER 250 ML IV SCH ×2 (05:54→13:28)
[2020-01-19] MEDS: GABAPENTIN 300 MG CAPSULE PO SCH ×3 (05:57→21:57)
[2020-01-19] MEDS: HEPARIN SOD (PORCINE) 5,000 UNIT/ML 1 ML VIAL SUBCUT SCH ×3 (05:57→21:55)
[2020-01-19 06:48] LABS: ABSOLUTE EOSINOPHILS # (AUTO) 0.1 10^3/uL (0.0-0.6); ABSOLUTE MONOCYTES (AUTO) 0.8 10^3/uL (0.1-1.4); ABSOLUTE NEUT (AUTO) 8.3 10^3/uL (1.7-8.2); BASOPHILS % (AUTO) 0.4 % (0-2); LYMPHOCYTES % (AUTO) 10.2 % (13-45); MEAN CORPUSCULAR HEMOGLOBIN 32.6 pg (27.0-33.4); MEAN CORPUSCULAR HGB CONC 33.8 g/dL (32.0-36.0); MEAN CORPUSCULAR VOLUME 97 fl (80-97); MONOCYTES % (AUTO) 7.6 % (3-13); PLATELET COUNT 551 10^3/uL (150-450); RED BLOOD COUNT 2.28 10^6/uL (4.35-5.55); RED CELL DISTRIBUTION WIDTH 15.4 % (11.5-14.0); SEGMENTED NEUTROPHILS % (AUTO) 80.8 % (42-78); TOTAL CELLS COUNTED % (AUTO) 100 %; WHITE BLOOD COUNT 10.2 10^3/uL (4.0-10.5)
[2020-01-19 06:52] LABS: ALBUMIN 2.6 g/dL (3.5-5.0); ALKALINE PHOSPHATASE 183 U/L (38-126); ASPARTATE AMINO TRANSFERASE 22 U/L (17-59); BILIRUBIN,TOTAL 0.5 mg/dL (0.2-1.3); BLOOD UREA NITROGEN 10 mg/dL (7-20); CALCIUM 8.7 mg/dL (8.4-10.2); GLUCOSE 78 mg/dL (75-110); POTASSIUM 4.3 mmol/L (3.6-5.0); TOTAL PROTEIN 7.1 g/dL (6.3-8.2)
[2020-01-19 06:53] LABS: HEMOGLOBIN 7.4 g/dL (13.5-17.0)
[2020-01-19 06:57] LABS: ANION GAP 5 (5-19); CARBON DIOXIDE 30 mmol/L (22-30); CHLORIDE 99 mmol/L (98-107)
[2020-01-19] MEDS: INSULIN LISPRO 100 UNIT/ML 3 ML VIAL SUBCUT SCH ×4 (09:19→21:56)
[2020-01-19] MEDS: DOCUSATE SODIUM 100 MG CAPSULE PO SCH ×2 (09:22→17:14)
[2020-01-19] MEDS: POLYETHYLENE GLYCOL 3350 POWDER 17 GM/1 PACKET PO SCH (09:22)
[2020-01-19] MEDS: INSULIN GLARGINE,HUM.REC.ANLOG 1,000 UNIT/10 ML VIAL SUBCUT SCH ×2 (09:48→21:56)
[2020-01-19] MEDS: FAMOTIDINE 20 MG TABLET PO SCH ×2 (09:49→21:57)
[2020-01-19] MEDS: FERROUS SULFATE 325 MG TABLET PO SCH (09:49)
[2020-01-19] MEDS: NORMAL SALINE 10 ML SDV (SCHEDULED) IV SCH ×2 (09:50→21:57)
--- NOTE | 2020-01-19 15:55 | PDOC PROGRESS REPORT ---
Subjective Progress Note for:: 01/19/20 Subjective:: No complaints currently. Patient states that earlier in the day he was ambulating in his room and noticed some drainage from his right knee Reason For Visit: SEPTIC ARTHRITIS RIGHT KNEE,DIABETES MELLITUS Physical Exam Vital Signs: Temp Pulse Resp BP Pulse Ox 98.1 F 81 17 116/56 L 98 01/19/20 08:14 01/19/20 08:14 01/19/20 08:14 01/19/20 08:14 01/19/20 08:14 Intake & Output 01/18/20 01/19/20 01/20/20 06:59 06:59 06:59 Intake Total 5368 2575 610 Output Total 3560 3030 1000 Balance 3832 -634 -217 Weight 62.5 kg 62.5 kg General appearance: PRESENT: no acute distress, cooperative, well-developed, well-nourished Head exam: PRESENT: atraumatic, normocephalic Eye exam: PRESENT: conjunctiva pink Mouth exam: PRESENT: moist, tongue midline Neck exam: ABSENT: JVD Respiratory exam: PRESENT: clear to auscultation nora, symmetrical, unlabored. ABSENT: accessory muscle use Cardiovascular exam: PRESENT: RRR, +S1, +S2 Vascular exam: PRESENT: normal capillary refill GI/Abdominal exam: PRESENT: normal bowel sounds, soft. ABSENT: distended, tenderness Rectal exam: PRESENT: deferred Extremities exam: PRESENT: pedal edema - Normal right foot edema. ABSENT: calf tenderness Musculoskeletal exam: PRESENT: ambulatory Neurological exam: PRESENT: alert, awake, oriented to person, oriented to place, oriented to time, oriented to situation, CN II-XII grossly intact Psychiatric exam: PRESENT: appropriate affect, normal mood. ABSENT: agitated, anxious Skin exam: PRESENT: dry, normal color, warm Results Laboratory Results: 01/19/20 06:20 01/19/20 06:20 01/19/20 01/19/20 06:20 06:20 WBC 10.2 RBC 2.28 L Hgb 7.4 L Hct 22.0 L MCV 97 MCH 32.6 MCHC 33.8 RDW 15.4 H Plt Count 551 H Seg Neutrophils % 80.8 H Sodium 134.3 L Potassium 4.3 Chloride 99 Carbon Dioxide 30 Anion Gap 5 BUN 10 Creatinine 0.66 Est GFR ( Amer) > 60 Glucose 78 Calcium 8.7 Magnesium 1.8 Total Bilirubin 0.5 AST 22 Alkaline Phosphatase 183 H Total Protein 7.1 Albumin 2.6 L Impressions: Chest X-Ray 01/05/20 18:40 IMPRESSION: NO ACUTE RADIOGRAPHIC FINDING IN THE CHEST. Foot X-Ray 01/11/20 00:00 IMPRESSION: Cannot exclude osteomyelitis in the 1st distal phalanx. PICC Line Insertion 01/13/20 00:00 IMPRESSION: SUCCESSFUL PLACEMENT OF A 5 FR DUAL LUMEN 32 CM PICC IN THE RIGHT BASILIC VEIN. Knee X-Ray 01/15/20 00:00 IMPRESSION: Moderate knee joint effusion. No acute fracture or dislocation. Assessment and Plan - Diagnosis (1) Septic arthritis of knee, right Is this a current diagnosis for this admission?: Yes Plan: Ortho input/assistance appreciated S/P right knee arthroscopic I&D with debridement on 01/06/2020 and and arthroscopic irrigation and debridement with drain placement on 01/08/2020 Intraoperative cultures 01/06/2020: MRSA Continue vancomycin per pharmacy protocol (2) Bacteremia Is this a current diagnosis for this admission?: Yes Plan: ID input appreciated, will need to continue IV vancomycin for 6 weeks treatment end date 02/23/2020/ blood cultures from 01/05/2020 positive for MRSA Repeat blood cultures on 01/09/2020 NG at 5 days Above potentially the patient's septic right knee however also noted to have gangrene of the left toe, s/p amputation of left great toe on 01/12/2020 Toe pathology confirmed osteomyelitis (3) SIRS (systemic inflammatory response syndrome) Is this a current diagnosis for this admission?: Yes Plan: Patient afebrile for past 24 hours Leucocytosis resolved Nontoxic in appearance Antibiotics as noted above (4) Leucocytosis Is this a current diagnosis for this admission?: Yes Plan: Resolved (5) Diabetes mellitus type 2 in nonobese Is this a current diagnosis for this admission?: Yes Plan: Hemoglobin A1c 8.5% Reasonable glucose control over past 48 hours with no further episodes of hypoglycemia since 01/17/20 at 16:49 Continue current basal (glargine) 20 units subcutaneously twice daily Continue FS BS with SSI correction scale Hypoglycemia protocol in place. Registered dietitian and public health educator consulted. (6) Hyponatremia Is this a current diagnosis for this admission?: Yes Plan: Overall gradual trend upward Patient remains asymptomatic Continue 1500 cc fluid restriction Liberalize dietary sodium Monitor periodically (7) Hypokalemia Is this a current diagnosis for this admission?: Yes Plan: Resolved Monitor (8) Anemia Qualifiers: Anemia type: iron deficiency Is this a current diagnosis for this admission?: Yes Plan: Patient received a total of 2 units PRBCs, posttransfusion hemoglobin 8.6 Since receiving transfusion H/H has trended down slowly Iron studies reviewed, likely acute phase response with mild iron deficiency Continue ferrous sulfate 325 mg p.o. daily I do not see documentation of stool Reorder stool for occult blood Recheck CBC in a.m. (9) Toe necrosis Is this a current diagnosis for this admission?: Yes Plan: S/P amputation of left great toe on 01/12/2020 Bone pathology consistent with osteomyelitis - Time Time Spent with patient: 25-34 minutes Medications reviewed and adjusted accordingly: Yes Anticipated Discharge Disposition: Intermediate Care Facility Anticipated Discharge Timeframe: within 24 hours
[2020-01-19] MEDS: NORMAL SALINE 1000 ML 1,000 ML IV PRN (21:58)
[2020-01-20] MEDS: HYDROMORPHONE HCL INJ/PF 2 MG/ML AMPULE IV PRN ×4 (03:33→22:22)
[2020-01-20] MEDS: GABAPENTIN 300 MG CAPSULE PO SCH ×3 (06:03→22:22)
[2020-01-20] MEDS: OXYCODONE-ACETAMINOPHEN 5-325 MG TABLET PO PRN ×3 (06:03→23:44)
[2020-01-20] MEDS: HEPARIN SOD (PORCINE) 5,000 UNIT/ML 1 ML VIAL SUBCUT SCH ×3 (06:03→22:23)
[2020-01-20 06:25] LABS: HEMATOCRIT 24.3 % (37.9-51.0); HEMOGLOBIN 8.2 g/dL (13.5-17.0); MEAN CORPUSCULAR HEMOGLOBIN 32.3 pg (27.0-33.4); MEAN CORPUSCULAR HGB CONC 33.5 g/dL (32.0-36.0); MEAN CORPUSCULAR VOLUME 96 fl (80-97); PLATELET COUNT 564 10^3/uL (150-450); RED BLOOD COUNT 2.52 10^6/uL (4.35-5.55); RED CELL DISTRIBUTION WIDTH 15.1 % (11.5-14.0); WHITE BLOOD COUNT 10.9 10^3/uL (4.0-10.5)
[2020-01-20 06:42] LABS: ANION GAP 5 (5-19); BLOOD UREA NITROGEN 10 mg/dL (7-20); CALCIUM 8.8 mg/dL (8.4-10.2); CARBON DIOXIDE 31 mmol/L (22-30); CHLORIDE 100 mmol/L (98-107); GLUCOSE 108 mg/dL (75-110); POTASSIUM 4.5 mmol/L (3.6-5.0)
--- NOTE | 2020-01-20 07:22 | PDOC PROGRESS REPORT ---
Subjective Progress Note for:: 01/20/20 Subjective:: Patient seen and examined this AM. Reports ability to perform range of motion exercises and weightbearing without substantial pain. However he does report overnight drainage from the right knee into the bed. No other acute changes. 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 Mildly cloudy serous fluid. -No increased erythema, other wounds clean dry and intact. Results Laboratory Results: 01/20/20 06:10 01/20/20 06:10 01/20/20 01/20/20 06:10 06:10 WBC 10.9 H RBC 2.52 L Hgb 8.2 L Hct 24.3 L MCV 96 MCH 32.3 MCHC 33.5 RDW 15.1 H Plt Count 564 H Sodium 135.8 L Potassium 4.5 Chloride 100 Carbon Dioxide 31 H Anion Gap 5 BUN 10 Creatinine 0.57 Est GFR ( Amer) > 60 Glucose 108 Calcium 8.8 Impressions: Chest X-Ray 01/05/20 18:40 IMPRESSION: NO ACUTE RADIOGRAPHIC FINDING IN THE CHEST. Foot X-Ray 01/11/20 00:00 IMPRESSION: Cannot exclude osteomyelitis in the 1st distal phalanx. PICC Line Insertion 01/13/20 00:00 IMPRESSION: SUCCESSFUL PLACEMENT OF A 5 FR DUAL LUMEN 32 CM PICC IN THE RIGHT BASILIC VEIN. Knee X-Ray 01/15/20 00:00 IMPRESSION: Moderate knee joint effusion. No acute fracture or dislocation. Assessment & Plan - Diagnosis (1) Septic arthritis of knee, right Is this a current diagnosis for this admission?: Yes Plan: Given his recurrent effusion and new onset drainage, cannot rule out recurrent septic arthritis at this time. -Keep n.p.o. -CRP appears to have plateaued at a high level. Subsequent CRP pending today. -We will plan for open operative debridement right knee today. -Continue antibiotics per hospitalist recommendations (2) Septic arthritis Qualifiers: Septic arthritis location: knee Septic arthritis organism: due to unspecified organism Laterality: right Qualified Code(s): M00.9 - Pyogenic arthritis, unspecified Is this a current diagnosis for this admission?: Yes (3) Osteomyelitis of great toe of left foot Is this a current diagnosis for this admission?: Yes - Time Time Spent with patient: Less than 15 minutes
[2020-01-20] MEDS: INSULIN LISPRO 100 UNIT/ML 3 ML VIAL SUBCUT SCH ×4 (07:45→22:23)
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
[2020-01-20] MEDS: INSULIN GLARGINE,HUM.REC.ANLOG 1,000 UNIT/10 ML VIAL SUBCUT SCH ×2 (09:56→23:03)
[2020-01-20] MEDS: FERROUS SULFATE 325 MG TABLET PO SCH (09:57)
[2020-01-20] MEDS: POLYETHYLENE GLYCOL 3350 POWDER 17 GM/1 PACKET PO SCH (09:57)
[2020-01-20] MEDS: DOCUSATE SODIUM 100 MG CAPSULE PO SCH ×2 (09:57→17:07)
[2020-01-20] MEDS: FAMOTIDINE 20 MG TABLET PO SCH ×2 (09:57→23:22)
[2020-01-20] MEDS: NORMAL SALINE 10 ML SDV (SCHEDULED) IV SCH ×2 (10:00→23:22)
--- NOTE | 2020-01-20 11:53 | PDOC PROGRESS REPORT ---
Subjective Progress Note for:: 01/20/20 Subjective:: Patient with slightly depressed affect today. Denies specific complaints Reason For Visit: SEPTIC ARTHRITIS RIGHT KNEE,DIABETES MELLITUS Physical Exam Vital Signs: Temp Pulse Resp BP Pulse Ox 99.2 F 97 18 136/61 H 96 01/20/20 08:14 01/20/20 08:14 01/20/20 08:14 01/20/20 08:14 01/20/20 08:14 Intake & Output 01/19/20 01/20/20 01/21/20 06:59 06:59 06:59 Intake Total 2575 2584 Output Total 3030 8050 Balance -455 -366 Weight 62.5 kg 64.6 kg General appearance: PRESENT: no acute distress, cooperative, well-developed, well-nourished Head exam: PRESENT: atraumatic, normocephalic Eye exam: PRESENT: conjunctiva pink Mouth exam: PRESENT: moist, tongue midline Neck exam: ABSENT: JVD Respiratory exam: PRESENT: clear to auscultation nora, symmetrical, unlabored Cardiovascular exam: PRESENT: RRR, +S1, +S2 Vascular exam: PRESENT: normal capillary refill GI/Abdominal exam: PRESENT: normal bowel sounds, soft. ABSENT: distended, tenderness Rectal exam: PRESENT: deferred Extremities exam: ABSENT: calf tenderness, pedal edema Neurological exam: PRESENT: alert, awake, oriented to person, oriented to place, oriented to time, oriented to situation, CN II-XII grossly intact Psychiatric exam: PRESENT: depressed. ABSENT: agitated, anxious Skin exam: PRESENT: dry, normal color, warm Results Laboratory Results: 01/20/20 06:10 01/20/20 06:10 01/20/20 01/20/20 01/20/20 06:10 06:10 06:10 WBC 10.9 H RBC 2.52 L Hgb 8.2 L Hct 24.3 L MCV 96 MCH 32.3 MCHC 33.5 RDW 15.1 H Plt Count 564 H Sodium 135.8 L Potassium 4.5 Chloride 100 Carbon Dioxide 31 H Anion Gap 5 BUN 10 Creatinine 0.57 Est GFR ( Amer) > 60 Glucose 108 Calcium 8.8 C-Reactive Protein 190.4 H Impressions: Chest X-Ray 01/05/20 18:40 IMPRESSION: NO ACUTE RADIOGRAPHIC FINDING IN THE CHEST. Foot X-Ray 01/11/20 00:00 IMPRESSION: Cannot exclude osteomyelitis in the 1st distal phalanx. PICC Line Insertion 01/13/20 00:00 IMPRESSION: SUCCESSFUL PLACEMENT OF A 5 FR DUAL LUMEN 32 CM PICC IN THE RIGHT BASILIC VEIN. Knee X-Ray 01/15/20 00:00 IMPRESSION: Moderate knee joint effusion. No acute fracture or dislocation. Assessment and Plan - Diagnosis (1) Septic arthritis of knee, right Is this a current diagnosis for this admission?: Yes Plan: Ortho input/assistance appreciated Given the high amount of drainage from the patient's right knee orthopedic surgery is planning to take the patient back to the OR today for an open debridement S/P right knee arthroscopic I&D with debridement on 01/06/2020 and and arthro scopic irrigation and debridement with drain placement on 01/08/2020 Intraoperative cultures 01/06/2020: MRSA Continue vancomycin per pharmacy protocol (2) Bacteremia Is this a current diagnosis for this admission?: Yes Plan: ID input appreciated, will need to continue IV vancomycin for 6 weeks treatment end date 02/23/2020/ blood cultures from 01/05/2020 positive for MRSA Repeat blood cultures on 01/09/2020 NG at 5 days Above potentially the patient's septic right knee however also noted to have gangrene of the left toe, s/p amputation of left great toe on 01/12/2020 Toe pathology confirmed osteomyelitis (3) SIRS (systemic inflammatory response syndrome) Is this a current diagnosis for this admission?: Yes Plan: Patient has low-grade fever WBC trending up Nontoxic in appearance Antibiotics/treatment as noted above (4) Leucocytosis Is this a current diagnosis for this admission?: Yes Plan: WBC trending up with mild leukocytosis today Treatment as noted above (5) Diabetes mellitus type 2 in nonobese Is this a current diagnosis for this admission?: Yes Plan: Hemoglobin A1c 8.5% Good glucose control over past 48 hours with no further episodes of hypoglycemia since 01/17/20 at 16:49 Continue current basal (glargine) 20 units subcutaneously twice daily Continue FS BS with SSI correction scale Hypoglycemia protocol in place Registered dietitian and school vocational educator consulted (6) Hyponatremia Is this a current diagnosis for this admission?: Yes Plan: Overall gradual trend upward Patient remains asymptomatic Continue 1500 cc fluid restriction Liberalize dietary sodium Monitor periodically (7) Hypokalemia Is this a current diagnosis for this admission?: Yes Plan: Resolved Monitor (8) Anemia Qualifiers: Anemia type: iron deficiency Is this a current diagnosis for this admission?: Yes Plan: Patient received a total of 2 units PRBCs, posttransfusion hemoglobin 8.6 Since receiving transfusion H/H has trended down slowly but has improved today to 8.2 that is crazy Iron studies reviewed, likely acute phase response with mild iron deficiency Continue ferrous sulfate 325 mg p.o. daily Stool guaiac negative Monitor CBC (9) Toe necrosis Is this a current diagnosis for this admission?: Yes Plan: S/P amputation of left great toe on 01/12/2020 Bone pathology consistent with osteomyelitis - Time Time Spent with patient: 25-34 minutes Medications reviewed and adjusted accordingly: Yes Anticipated Discharge Disposition: Intermediate Care Facility Anticipated Discharge Timeframe: within 48 hours
[2020-01-20] MEDS: VANCOMYCIN HCL 1,000 MG in DEXTROSE 5%-WATER 250 ML IV SCH ×2 (14:12→22:22)
[2020-01-20] MEDS ORDERED: FENTANYL CITRATE INJ/PF 100 MCG/2 ML AMPUL ONE (15:12)
[2020-01-20] MEDS ORDERED: MIDAZOLAM 2 MG/2 ML INJ ONE (15:12)
[2020-01-20] MEDS ORDERED: ONDANSETRON HCL INJ/PF 4 MG/2 ML SDV ONE (15:13)
[2020-01-20] MEDS ORDERED: PROPOFOL INJ 200 MG/20 ML VIAL IV ONE (15:13)
[2020-01-20] MEDS ORDERED: BUPIVACAINE HCL 0.5 % INJ/PF 30 ML SDV ONE (15:39)
[2020-01-20] MEDS ORDERED: LIDOCAINE 1% INJ-PF (10 MG/ML) 30 ML SDV ONE (15:39)
[2020-01-20] MEDS ORDERED: MORPHINE SULFATE 10 MG/ML INJ IV PRN (16:26)
[2020-01-20] MEDS ORDERED: DIPHENHYDRAMINE HCL 50 MG/ML VIAL IV PRN (16:26)
[2020-01-20] MEDS ORDERED: FENTANYL CITRATE INJ/PF 100 MCG/2 ML AMPUL IV PRN ×3 (16:26)
[2020-01-20] MEDS ORDERED: MEPERIDINE HCL/PF INJ 25 MG/1 ML DISP.SYRIN IV PRN (16:26)
[2020-01-20] MEDS ORDERED: PROMETHAZINE HCL INJ 25 MG/1 ML VIAL IV PRN (16:26)
[2020-01-20] MEDS ORDERED: VANCOMYCIN HCL INJ 1000 MG VIAL ONE (16:52)
--- NOTE | 2020-01-20 17:36 | Operative Report ---
Operative Report DATE OF SURGERY: 01/20/20 PREOPERATIVE DIAGNOSIS: Right septic knee arthritis POSTOPERATIVE DIAGNOSIS: Right septic knee arthritis OPERATION: Right knee open irrigation and debridement SURGEON: KATELYN EDUARDO JR ANESTHESIA: GA TISSUE REMOVED OR ALTERED: Culture swabs taken as well as synovial sections sent for culture. COMPLICATIONS: None ESTIMATED BLOOD LOSS: 50 cc PROCEDURE: The patient is undergone 2 prior arthroscopic I&D is which have not led to resolution of septic arthritis. CRP began to trend up as well as a recent draining wound. After discussing risks and benefits as well as alternatives with the patient the decision was made to proceed with operative I&D of the right knee. Patient was brought to the operating suite laid supine on the operating table. He has been on continuous antibiotics. The right lower extremity was prepped and draped in standard sterile fashion. A timeout was performed. The right lower extremity was elevated for a period of time followed by tourniquet inflation. Sutures were removed from prior portal sites. A midline incision was made followed by a medial parapatellar arthrotomy. Care was taken to avoid contacting the joint surface or menisci. Cultures were taken. Upon entering the joint purulent fluid was encountered. The patellar fat pad was resected followed by a synovectomy of the medial lateral gutters as well as the fat pad and superior pouch. This tissue was all found to be hypertrophic and unhealthy in appearance. Upon complete resection of all accessible synovium, the wound was irrigated with 6 L of Betadine impregnated solution. Finally 3 L of sterile saline solution was irrigated with pulse lavage. All potential bleeders were then cauterized the tourniquet was then deflated and any other bleeders encountered were cauterized. There is no active pulsatile bleeding encountered. A drain was placed in the lateral gutter. 1 g of vancomycin was applied in the superior patellar pouch. The capsular closure was performed with a #2 Quill. Subcutaneously, 2-0 Monocryl was used in inverted interrupted fashion. A running horizontal mattress type nylon was used in the skin a sterile dressing was placed followed by a well-padded lightly compressive dressing. Patient was then awakened from anesthesia and transferred to the PACU in stable condition.
[2020-01-20] MEDS: FENTANYL CITRATE INJ/PF 100 MCG/2 ML AMPUL ONE ×2 (17:43→17:45)
[2020-01-20] MEDS: NORMAL SALINE 1000 ML 1,000 ML IV PRN (19:34)
[2020-01-21] MEDS: HYDROMORPHONE HCL INJ/PF 2 MG/ML AMPULE IV PRN ×5 (03:42→22:33)
[2020-01-21] MEDS: VANCOMYCIN HCL 1,000 MG in DEXTROSE 5%-WATER 250 ML IV SCH ×3 (06:35→21:47)
[2020-01-21] MEDS: GABAPENTIN 300 MG CAPSULE PO SCH ×3 (06:36→21:47)
[2020-01-21] MEDS: HEPARIN SOD (PORCINE) 5,000 UNIT/ML 1 ML VIAL SUBCUT SCH ×3 (06:36→21:48)
--- NOTE | 2020-01-21 06:46 | PDOC PROGRESS REPORT ---
Subjective Progress Note for:: 01/21/20 Subjective:: Patient is doing well this morning. Does report increased pain from this procedure of her prior procedures. Pain currently managed but patient asking for increased medication. Reason For Visit: SEPTIC ARTHRITIS RIGHT KNEE,DIABETES MELLITUS Physical Exam Vital Signs: Temp Pulse Resp BP Pulse Ox 99.1 F 93 16 144/75 H 98 01/20/20 23:07 01/20/20 23:07 01/20/20 23:07 01/20/20 23:07 01/20/20 23:07 Intake & Output 01/19/20 01/20/20 01/21/20 06:59 06:59 06:59 Intake Total 2575 2584 2460 Output Total 3030 2950 1857 Balance -225 -824 -7426 Weight 62.5 kg 64.6 kg Physical Exam: No acute distress alert and oriented x3 Right lower extremity -Pulses 2+ distally -Compartments soft -Sensation grossly intact to L3-4-5 S1, aside from baseline distal neuropathy -Motor grossly intact to EHL TA gastroc and quad -Bulb suction was applied this morning to the drain Results Laboratory Results: 01/20/20 06:10 01/20/20 06:10 01/20/20 01/20/20 06:10 06:10 Sodium 135.8 L Potassium 4.5 Chloride 100 Carbon Dioxide 31 H Anion Gap 5 BUN 10 Creatinine 0.57 Est GFR ( Amer) > 60 Glucose 108 Calcium 8.8 C-Reactive Protein 190.4 H Impressions: Chest X-Ray 01/05/20 18:40 IMPRESSION: NO ACUTE RADIOGRAPHIC FINDING IN THE CHEST. Foot X-Ray 01/11/20 00:00 IMPRESSION: Cannot exclude osteomyelitis in the 1st distal phalanx. PICC Line Insertion 01/13/20 00:00 IMPRESSION: SUCCESSFUL PLACEMENT OF A 5 FR DUAL LUMEN 32 CM PICC IN THE RIGHT BASILIC VEIN. Knee X-Ray 01/15/20 00:00 IMPRESSION: Moderate knee joint effusion. No acute fracture or dislocation. Assessment & Plan - Diagnosis (1) Septic arthritis of knee, right Is this a current diagnosis for this admission?: Yes Plan: -Continue antibiotics per ID -Continue drain until less than 5 cc per shift, I will continue to evaluate -Weightbearing as tolerated -PT to encourage full range of motion of right knee. -Follow cultures -Recommend trend CRP every other day (2) Septic arthritis Qualifiers: Septic arthritis location: knee Septic arthritis organism: due to unspecified organism Laterality: right Qualified Code(s): M00.9 - Pyogenic arthritis, unspecified Is this a current diagnosis for this admission?: Yes (3) Osteomyelitis of great toe of left foot Is this a current diagnosis for this admission?: Yes - Time Time Spent with patient: Less than 15 minutes
[2020-01-21] MEDS ORDERED: ACETAMINOPHEN 325 MG TABLET PO SCH (07:00)
[2020-01-21 07:01] LABS: ABSOLUTE BASOPHILS # (AUTO) 0.1 10^3/uL (0.0-0.2); ABSOLUTE NEUT (AUTO) 8.2 10^3/uL (1.7-8.2); BASOPHILS % (AUTO) 0.7 % (0-2); EOSINOPHILS % (AUTO) 0.1 % (0-6); LYMPHOCYTES % (AUTO) 9.6 % (13-45); MEAN CORPUSCULAR HGB CONC 34.6 g/dL (32.0-36.0); MEAN CORPUSCULAR VOLUME 95 fl (80-97); MONOCYTES % (AUTO) 9.9 % (3-13); PLATELET COUNT 516 10^3/uL (150-450); RED BLOOD COUNT 2.41 10^6/uL (4.35-5.55); RED CELL DISTRIBUTION WIDTH 15.4 % (11.5-14.0); SEGMENTED NEUTROPHILS % (AUTO) 79.7 % (42-78); TOTAL CELLS COUNTED % (AUTO) 100 %; WHITE BLOOD COUNT 10.3 10^3/uL (4.0-10.5)
[2020-01-21 07:19] LABS: BLOOD UREA NITROGEN 10 mg/dL (7-20); CALCIUM 8.3 mg/dL (8.4-10.2); CARBON DIOXIDE 31 mmol/L (22-30); CHLORIDE 98 mmol/L (98-107); GLUCOSE 189 mg/dL (75-110); POTASSIUM 4.5 mmol/L (3.6-5.0)
[2020-01-21 07:31] LABS: ANION GAP 3 (5-19)
[2020-01-21] MEDS: INSULIN LISPRO 100 UNIT/ML 3 ML VIAL SUBCUT SCH ×4 (07:49→21:49)
[2020-01-21] MEDS: FERROUS SULFATE 325 MG TABLET PO SCH (09:54)
[2020-01-21] MEDS: OXYCODONE HCL IR 5 MG TABLET PO PRN ×4 (09:55→22:40)
[2020-01-21] MEDS: DOCUSATE SODIUM 100 MG CAPSULE PO SCH ×2 (09:56→17:01)
[2020-01-21] MEDS: NORMAL SALINE 10 ML SDV (SCHEDULED) IV SCH ×2 (09:56→21:48)
[2020-01-21] MEDS: INSULIN GLARGINE,HUM.REC.ANLOG 1,000 UNIT/10 ML VIAL SUBCUT SCH ×2 (09:56→21:49)
[2020-01-21] MEDS: POLYETHYLENE GLYCOL 3350 POWDER 17 GM/1 PACKET PO SCH (09:56)
[2020-01-21] MEDS: FAMOTIDINE 20 MG TABLET PO SCH ×2 (09:58→21:47)
--- NOTE | 2020-01-21 15:02 | PDOC PROGRESS REPORT ---
Subjective Progress Note for:: 01/21/20 Subjective:: No complaints. Patient seems less depressed today Reason For Visit: SEPTIC ARTHRITIS RIGHT KNEE,DIABETES MELLITUS Physical Exam Vital Signs: Temp Pulse Resp BP Pulse Ox 100.5 F H 93 16 137/67 H 97 01/21/20 11:04 01/21/20 11:04 01/21/20 11:04 01/21/20 11:04 01/21/20 11:04 Intake & Output 01/20/20 01/21/20 01/22/20 06:59 06:59 06:59 Intake Total 2584 2920 610 Output Total 2950 9905 850 Balance -366 -6985 -240 Weight 64.6 kg 64.2 kg General appearance: PRESENT: no acute distress, well-developed, well-nourished Head exam: PRESENT: atraumatic, normocephalic Mouth exam: PRESENT: moist, tongue midline Neck exam: ABSENT: JVD Respiratory exam: PRESENT: clear to auscultation nora, symmetrical, unlabored. ABSENT: accessory muscle use Cardiovascular exam: PRESENT: RRR, +S1, +S2 Vascular exam: PRESENT: normal capillary refill GI/Abdominal exam: PRESENT: normal bowel sounds, soft. ABSENT: distended, tenderness Rectal exam: PRESENT: deferred Extremities exam: ABSENT: calf tenderness, pedal edema Musculoskeletal exam: PRESENT: full ROM Neurological exam: PRESENT: alert, awake, oriented to person, oriented to place, oriented to time, oriented to situation, CN II-XII grossly intact Psychiatric exam: PRESENT: appropriate affect, normal mood. ABSENT: agitated, anxious Skin exam: PRESENT: dry, normal color, warm Results Laboratory Results: 01/21/20 06:30 01/21/20 06:30 01/21/20 01/21/20 06:30 06:30 WBC 10.3 RBC 2.41 L Hgb 8.0 L Hct 23.0 L MCV 95 MCH 33.0 MCHC 34.6 RDW 15.4 H Plt Count 516 H Seg Neutrophils % 79.7 H Sodium 131.6 L Potassium 4.5 Chloride 98 Carbon Dioxide 31 H Anion Gap 3 L BUN 10 Creatinine 0.56 Est GFR ( Amer) > 60 Glucose 189 H Calcium 8.3 L Impressions: Chest X-Ray 01/05/20 18:40 IMPRESSION: NO ACUTE RADIOGRAPHIC FINDING IN THE CHEST. Foot X-Ray 01/11/20 00:00 IMPRESSION: Cannot exclude osteomyelitis in the 1st distal phalanx. PICC Line Insertion 01/13/20 00:00 IMPRESSION: SUCCESSFUL PLACEMENT OF A 5 FR DUAL LUMEN 32 CM PICC IN THE RIGHT BASILIC VEIN. Knee X-Ray 01/15/20 00:00 IMPRESSION: Moderate knee joint effusion. No acute fracture or dislocation. Assessment and Plan - Diagnosis (1) Septic arthritis of knee, right Is this a current diagnosis for this admission?: Yes Plan: Ortho input/assistance appreciated S/P right knee arthroscopic I&D with debridement on 01/06/2020, arthroscopic irrigation and debridement with drain placement on 01/08/2020, and right knee open irrigation and debridement on 01/20/2020 Intraoperative cultures 01/06/2020: MRSA Right knee fluid fungal smear negative Intraoperative cultures 01/20/2020 pending Continue vancomycin per pharmacy protocol Monitor CRP QOD (2) Bacteremia Is this a current diagnosis for this admission?: Yes Plan: ID input appreciated, will need to continue IV vancomycin for 6 weeks treatment end date 02/23/2020/ blood cultures from 01/05/2020 positive for MRSA Repeat blood cultures on 01/09/2020 NG at 5 days Above potentially the patient's septic right knee however also noted to have gangrene of the left toe, s/p amputation of left great toe on 01/12/2020 Toe pathology confirmed osteomyelitis (3) SIRS (systemic inflammatory response syndrome) Is this a current diagnosis for this admission?: Yes Plan: Patient continues to have low-grade fever WBC down today Nontoxic in appearance Antibiotics/treatment as noted above (4) Leucocytosis Is this a current diagnosis for this admission?: Yes Plan: As noted above, WBC WNL today Treatment as noted above (5) Diabetes mellitus type 2 in nonobese Is this a current diagnosis for this admission?: Yes Plan: Hemoglobin A1c 8.5% Patient had one episode of hypoglycemia on 01/20/20 at 11:54 however patient was n.p.o. at this time Continue current basal (glargine) 20 units subcutaneously twice daily Continue FS BS with SSI correction scale Hypoglycemia protocol in place Registered dietitian and auriculotherapist consulted (6) Hyponatremia Is this a current diagnosis for this admission?: Yes Plan: Overall gradual trend with decreased today, Patient remains asymptomatic Tighten fluid restriction to 1200 cc Liberalize dietary sodium Patient taking adequate p.o., stop IVF Monitor periodically (7) Hypokalemia Is this a current diagnosis for this admission?: Yes Plan: Resolved Monitor periodically (8) Anemia Qualifiers: Anemia type: iron deficiency Is this a current diagnosis for this admission?: Yes Plan: Patient received a total of 2 units PRBCs, posttransfusion hemoglobin 8.6 H/H stable over past 24 hours Iron studies reviewed, likely acute phase response with mild iron deficiency Continue ferrous sulfate 325 mg p.o. daily Stool guaiac negative Monitor CBC periodically (9) Toe necrosis Is this a current diagnosis for this admission?: Yes Plan: S/P amputation of left great toe on 01/12/2020 Bone pathology consistent with osteomyelitis - Plan Summary Summary: Patient will be admitted to the medical floor where he received routine supportive and symptomatic cares. He will be treated with IV vancomycin and Ancef per Dr. Douglas's request. He will receive morphine sulfate 2 to 4 mg IV every 2 hours as needed for pain. He will use Ativan 1 mg IV every 4 hours as needed for anxiety or restlessness. Dr. Douglas will be consulted for orthopedic management. CBCs, metabolic profiles and additional laboratory and/or radiographic evaluations will be obtained as needed. Accu-Cheks will be obtained before meals and at bedtime with sliding scale insulin to cover hyperglycemia and hypoglycemic protocol in place. Patient will receive a diabetic and cardiac restricted diet. Smoking cessation is advised and counseled briefly at the bedside. A nicotine replacement patch is available for patient's use, if desired. - Time Time Spent with patient: 25-34 minutes Medications reviewed and adjusted accordingly: Yes Anticipated Discharge Disposition: Intermediate Care Facility Anticipated Discharge Timeframe: within 72 hours
[2020-01-21] MEDS: NORMAL SALINE 10 ML SDV (AFTER EACH USE) IV PRN (21:48)
[2020-01-22] MEDS: OXYCODONE HCL IR 5 MG TABLET PO PRN ×6 (02:25→23:28)
[2020-01-22] MEDS: HYDROMORPHONE HCL INJ/PF 2 MG/ML AMPULE IV PRN ×6 (02:25→23:27)
[2020-01-22] MEDS: NORMAL SALINE 10 ML SDV (AFTER EACH USE) IV PRN ×2 (02:27→23:29)
[2020-01-22] MEDS: GABAPENTIN 300 MG CAPSULE PO SCH ×3 (06:05→21:37)
[2020-01-22] MEDS: HEPARIN SOD (PORCINE) 5,000 UNIT/ML 1 ML VIAL SUBCUT SCH ×3 (06:05→21:37)
[2020-01-22] MEDS: VANCOMYCIN HCL 1,000 MG in DEXTROSE 5%-WATER 250 ML IV SCH ×3 (06:06→21:36)
[2020-01-22 06:54] LABS: BLOOD UREA NITROGEN 9 mg/dL (7-20); CALCIUM 8.1 mg/dL (8.4-10.2); GLUCOSE 152 mg/dL (75-110); POTASSIUM 4.4 mmol/L (3.6-5.0)
[2020-01-22 06:57] LABS: ANION GAP 5 (5-19); CARBON DIOXIDE 32 mmol/L (22-30); CHLORIDE 95 mmol/L (98-107)
[2020-01-22 07:07] LABS: C-REACTIVE PROTEIN 193.2 mg/L (<10.0)
[2020-01-22] MEDS: INSULIN LISPRO 100 UNIT/ML 3 ML VIAL SUBCUT SCH ×4 (07:39→21:39)
[2020-01-22] MEDS: INSULIN GLARGINE,HUM.REC.ANLOG 1,000 UNIT/10 ML VIAL SUBCUT SCH ×2 (09:46→21:37)
[2020-01-22] MEDS: FERROUS SULFATE 325 MG TABLET PO SCH (09:46)
[2020-01-22] MEDS: FAMOTIDINE 20 MG TABLET PO SCH ×2 (09:46→21:37)
[2020-01-22] MEDS: DOCUSATE SODIUM 100 MG CAPSULE PO SCH ×2 (09:47→17:10)
[2020-01-22] MEDS: NORMAL SALINE 10 ML SDV (SCHEDULED) IV SCH ×2 (09:47→21:36)
[2020-01-22] MEDS: POLYETHYLENE GLYCOL 3350 POWDER 17 GM/1 PACKET PO SCH (09:47)
--- NOTE | 2020-01-22 16:19 | PDOC PROGRESS REPORT ---
Subjective Progress Note for:: 01/22/20 Subjective:: No complaints. Patient more cheerful today Reason For Visit: SEPTIC ARTHRITIS RIGHT KNEE,DIABETES MELLITUS Physical Exam Vital Signs: Temp Pulse Resp BP Pulse Ox 98.6 F 80 16 128/64 H 99 01/22/20 10:59 01/22/20 10:59 01/22/20 10:59 01/22/20 10:59 01/22/20 10:59 Intake & Output 01/21/20 01/22/20 01/23/20 06:59 06:59 06:59 Intake Total 2920 3914 1208 Output Total 9905 2965 800 Balance -6985 949 408 Weight 64.2 kg 65.2 kg General appearance: PRESENT: no acute distress, cooperative, well-developed, well-nourished Head exam: PRESENT: atraumatic, normocephalic Eye exam: PRESENT: conjunctiva pink Mouth exam: PRESENT: moist, tongue midline Neck exam: ABSENT: JVD Respiratory exam: PRESENT: clear to auscultation nora, symmetrical, unlabored. ABSENT: accessory muscle use Cardiovascular exam: PRESENT: RRR, +S1, +S2 Vascular exam: PRESENT: normal capillary refill GI/Abdominal exam: PRESENT: normal bowel sounds, soft. ABSENT: distended, tenderness Rectal exam: PRESENT: deferred Extremities exam: ABSENT: calf tenderness, pedal edema Neurological exam: PRESENT: alert, awake, oriented to person, oriented to place, oriented to time, oriented to situation, CN II-XII grossly intact Psychiatric exam: PRESENT: appropriate affect, normal mood. ABSENT: agitated, anxious, depressed Skin exam: PRESENT: dry, normal color, warm Results Laboratory Results: 01/21/20 06:30 01/22/20 06:05 01/22/20 06:05 Sodium 131.6 L Potassium 4.4 Chloride 95 L Carbon Dioxide 32 H Anion Gap 5 BUN 9 Creatinine 0.55 Est GFR ( Amer) > 60 Glucose 152 H Calcium 8.1 L C-Reactive Protein 193.2 H Impressions: Chest X-Ray 01/05/20 18:40 IMPRESSION: NO ACUTE RADIOGRAPHIC FINDING IN THE CHEST. Foot X-Ray 01/11/20 00:00 IMPRESSION: Cannot exclude osteomyelitis in the 1st distal phalanx. PICC Line Insertion 01/13/20 00:00 IMPRESSION: SUCCESSFUL PLACEMENT OF A 5 FR DUAL LUMEN 32 CM PICC IN THE RIGHT BASILIC VEIN. Knee X-Ray 01/15/20 00:00 IMPRESSION: Moderate knee joint effusion. No acute fracture or dislocation. Assessment and Plan - Diagnosis (1) Septic arthritis of knee, right Is this a current diagnosis for this admission?: Yes Plan: Ortho input/assistance appreciated S/P right knee arthroscopic I&D with debridement on 01/06/2020, arthroscopic irrigation and debridement with drain placement on 01/08/2020, and right knee open irrigation and debridement on 01/20/2020 Intraoperative culture 01/06/2020: MRSA Per operative culture from 01/20/2020, preliminary -GPC in clusters Right knee fluid fungal smear negative Per orthopedic surgery drain will need to remain until there is less than 5 cc per shift Continue vancomycin per pharmacy protocol Monitor CRP QOD, 193.2 today (2) Bacteremia Is this a current diagnosis for this admission?: Yes Plan: ID input appreciated, will need to continue IV vancomycin for 6 weeks treatment end date 02/23/2020/ blood cultures from 01/05/2020 positive for MRSA Repeat blood cultures on 01/09/2020 NG at 5 days Above potentially the patient's septic right knee however also noted to have gangrene of the left toe, s/p amputation of left great toe on 01/12/2020 Toe pathology confirmed osteomyelitis (3) SIRS (systemic inflammatory response syndrome) Is this a current diagnosis for this admission?: Yes Plan: Patient continues to have low-grade fever CBC WNL today Nontoxic in appearance Antibiotics/treatment as noted above (4) Leucocytosis Is this a current diagnosis for this admission?: Yes Plan: Resolved Treatment as noted above (5) Diabetes mellitus type 2 in nonobese Is this a current diagnosis for this admission?: Yes Plan: Hemoglobin A1c 8.5% Patient had one episode of hypoglycemia on 01/20/20 at 11:54 however patient was n.p.o. at this time, no further hypoglycemic episodes since Sugars trending high Increase basal (glargine) insulin to 21 units subcutaneously twice daily, may need to titrate further Continue FS BS with SSI correction scale Hypoglycemia protocol in place Registered dietitian and health educator consulted (6) Hyponatremia Is this a current diagnosis for this admission?: Yes Plan: Able today Patient remains asymptomatic Continue 1200 cc fluid restriction Liberalize dietary sodium Monitor periodically (7) Hypokalemia Is this a current diagnosis for this admission?: Yes Plan: Resolved Monitor periodically (8) Anemia Qualifiers: Anemia type: iron deficiency Is this a current diagnosis for this admission?: Yes Plan: Patient received a total of 2 units PRBCs, posttransfusion hemoglobin 8.6 H/H stable Iron studies reviewed, likely acute phase response with mild iron deficiency Continue ferrous sulfate 325 mg p.o. daily Stool guaiac negative Monitor CBC periodically (9) Toe necrosis Is this a current diagnosis for this admission?: Yes Plan: S/P amputation of left great toe on 01/12/2020 Bone pathology consistent with osteomyelitis - Plan Summary Summary: Patient will be admitted to the medical floor where he received routine supportive and symptomatic cares. He will be treated with IV vancomycin and Ancef per Dr. Douglas's request. He will receive morphine sulfate 2 to 4 mg IV every 2 hours as needed for pain. He will use Ativan 1 mg IV every 4 hours as needed for anxiety or restlessness. Dr. Douglas will be consulted for orthopedic management. CBCs, metabolic profiles and additional laboratory and/or radiographic evaluations will be obtained as needed. Accu-Cheks will be obtained before meals and at bedtime with sliding scale insulin to cover hyperglycemia and hypoglycemic protocol in place. Patient will receive a juliann betic and cardiac restricted diet. Smoking cessation is advised and counseled briefly at the bedside. A nicotine replacement patch is available for patient's use, if desired. - Time Time Spent with patient: 15-24 minutes Anticipated Discharge Disposition: Intermediate Care Facility Anticipated Discharge Timeframe: Unable to determine at this time
[2020-01-23] MEDS: HYDROMORPHONE HCL INJ/PF 2 MG/ML AMPULE IV PRN ×4 (06:34→22:34)
[2020-01-23] MEDS: OXYCODONE HCL IR 5 MG TABLET PO PRN ×4 (06:34→22:35)
[2020-01-23] MEDS: VANCOMYCIN HCL 1,000 MG in DEXTROSE 5%-WATER 250 ML IV SCH ×3 (06:35→22:35)
[2020-01-23] MEDS: HEPARIN SOD (PORCINE) 5,000 UNIT/ML 1 ML VIAL SUBCUT SCH ×3 (06:35→22:34)
[2020-01-23] MEDS: GABAPENTIN 300 MG CAPSULE PO SCH ×3 (06:35→22:34)
[2020-01-23 07:06] LABS: VANCOMYCIN,TROUGH 17.7 ug/mL (5.0-20.0)
[2020-01-23 07:08] LABS: BLOOD UREA NITROGEN 11 mg/dL (7-20); CALCIUM 8.3 mg/dL (8.4-10.2); CARBON DIOXIDE 32 mmol/L (22-30); CHLORIDE 97 mmol/L (98-107); GLUCOSE 116 mg/dL (75-110); POTASSIUM 4.3 mmol/L (3.6-5.0)
[2020-01-23 08:21] LABS: ANION GAP 4 (5-19)
[2020-01-23] MEDS: INSULIN LISPRO 100 UNIT/ML 3 ML VIAL SUBCUT SCH ×4 (09:54→22:36)
[2020-01-23] MEDS: INSULIN GLARGINE,HUM.REC.ANLOG 1,000 UNIT/10 ML VIAL SUBCUT SCH ×2 (10:02→22:36)
[2020-01-23] MEDS: FERROUS SULFATE 325 MG TABLET PO SCH (10:03)
[2020-01-23] MEDS: FAMOTIDINE 20 MG TABLET PO SCH ×2 (10:03→22:34)
[2020-01-23] MEDS: DOCUSATE SODIUM 100 MG CAPSULE PO SCH ×2 (10:06→18:02)
[2020-01-23] MEDS: POLYETHYLENE GLYCOL 3350 POWDER 17 GM/1 PACKET PO SCH (10:07)
[2020-01-23] MEDS: NORMAL SALINE 10 ML SDV (SCHEDULED) IV SCH ×2 (10:08→22:37)
[2020-01-23] MEDS ORDERED: ACETAMINOPHEN 325 MG TABLET PO PRN (12:36)
--- NOTE | 2020-01-23 12:44 | PDOC PROGRESS REPORT ---
Subjective Progress Note for:: 01/23/20 Subjective:: Patient seen and examined. No overnight events. Pain improved. Reason For Visit: SEPTIC ARTHRITIS RIGHT KNEE,DIABETES MELLITUS Physical Exam Vital Signs: Temp Pulse Resp BP Pulse Ox 99.6 F 95 18 123/61 99 01/23/20 00:57 01/23/20 00:57 01/23/20 00:57 01/23/20 00:57 01/23/20 00:57 Intake & Output 01/22/20 01/23/20 01/24/20 06:59 06:59 06:59 Intake Total 3914 2834 Output Total 2965 2650 Balance 949 184 Weight 65.2 kg 64.9 kg Physical Exam: NAD, AOX3 RLE NVI Drain output 25cc serosanguinous over last nights shift x 12 hours Wound C/D/I Results Laboratory Results: 01/21/20 06:30 01/23/20 05:30 01/23/20 05:30 Sodium 132.5 L Potassium 4.3 Chloride 97 L Carbon Dioxide 32 H Anion Gap 4 L BUN 11 Creatinine 0.64 Est GFR ( Amer) > 60 Glucose 116 H Calcium 8.3 L Impressions: Chest X-Ray 01/05/20 18:40 IMPRESSION: NO ACUTE RADIOGRAPHIC FINDING IN THE CHEST. Foot X-Ray 01/11/20 00:00 IMPRESSION: Cannot exclude osteomyelitis in the 1st distal phalanx. PICC Line Insertion 01/13/20 00:00 IMPRESSION: SUCCESSFUL PLACEMENT OF A 5 FR DUAL LUMEN 32 CM PICC IN THE RIGHT BASILIC VEIN. Knee X-Ray 01/15/20 00:00 IMPRESSION: Moderate knee joint effusion. No acute fracture or dislocation. Assessment & Plan - Diagnosis (1) Septic arthritis of knee, right Is this a current diagnosis for this admission?: Yes Plan: - Continue Abx per ID - Continue drain output monitoring q12 - Dressing change PRN - WBAT - Monitor CRP every other day (2) Septic arthritis Qualifiers: Septic arthritis location: knee Septic arthritis organism: due to unspecified organism Laterality: right Qualified Code(s): M00.9 - Pyogenic arthritis, unspecified Is this a current diagnosis for this admission?: Yes (3) Osteomyelitis of great toe of left foot Is this a current diagnosis for this admission?: Yes - Time Time Spent with patient: Less than 15 minutes
--- NOTE | 2020-01-23 16:03 | PDOC PROGRESS REPORT ---
Subjective Progress Note for:: 01/23/20 Subjective:: No complaints. Patient remains more cheerful Reason For Visit: SEPTIC ARTHRITIS RIGHT KNEE,DIABETES MELLITUS Physical Exam Vital Signs: Temp Pulse Resp BP Pulse Ox 98.8 F 92 17 130/68 H 98 01/23/20 12:00 01/23/20 12:00 01/23/20 12:00 01/23/20 12:00 01/23/20 12:00 Intake & Output 01/22/20 01/23/20 01/24/20 06:59 06:59 06:59 Intake Total 3914 2834 962 Output Total 2965 2650 800 Balance 949 184 162 Weight 65.2 kg 64.9 kg General appearance: PRESENT: no acute distress, cooperative Head exam: PRESENT: atraumatic, normocephalic Eye exam: PRESENT: conjunctiva pink Mouth exam: PRESENT: moist, tongue midline Neck exam: ABSENT: JVD Respiratory exam: PRESENT: clear to auscultation nora, symmetrical, unlabored. ABSENT: accessory muscle use Cardiovascular exam: PRESENT: RRR, +S1, +S2 Vascular exam: PRESENT: normal capillary refill GI/Abdominal exam: PRESENT: normal bowel sounds, soft. ABSENT: distended, tenderness Rectal exam: PRESENT: deferred Extremities exam: ABSENT: calf tenderness, pedal edema Neurological exam: PRESENT: alert, awake, oriented to person, oriented to place, oriented to time, oriented to situation, CN II-XII grossly intact Psychiatric exam: PRESENT: appropriate affect, normal mood. ABSENT: agitated, anxious Skin exam: PRESENT: dry, normal color, warm Results Laboratory Results: 01/21/20 06:30 01/23/20 05:30 01/23/20 05:30 Sodium 132.5 L Potassium 4.3 Chloride 97 L Carbon Dioxide 32 H Anion Gap 4 L BUN 11 Creatinine 0.64 Est GFR ( Amer) > 60 Glucose 116 H Calcium 8.3 L 01/20/20 16:22 Knee - Right Gram Stain - Final 01/20/20 16:22 Knee - Right Wound Culture - Final Mrsa (Meth Resis Staph Aureus) No Anaerobic Organisms 01/20/20 16:22 Knee - Right Gram Stain - Final 01/20/20 16:22 Knee - Right Wound Culture - Final Mrsa (Meth Resis Staph Aureus) No Anaerobic Organisms Impressions: Chest X-Ray 01/05/20 18:40 IMPRESSION: NO ACUTE RADIOGRAPHIC FINDING IN THE CHEST. Foot X-Ray 01/11/20 00:00 IMPRESSION: Cannot exclude osteomyelitis in the 1st distal phalanx. PICC Line Insertion 01/13/20 00:00 IMPRESSION: SUCCESSFUL PLACEMENT OF A 5 FR DUAL LUMEN 32 CM PICC IN THE RIGHT BASILIC VEIN. Knee X-Ray 01/15/20 00:00 IMPRESSION: Moderate knee joint effusion. No acute fracture or dislocation. Assessment and Plan - Diagnosis (1) Septic arthritis of knee, right Is this a current diagnosis for this admission?: Yes Plan: Ortho input/assistance appreciated S/P right knee arthroscopic I&D with debridement on 01/06/2020, arthroscopic irrigation and debridement with drain placement on 01/08/2020, and right knee open irrigation and debridement on 01/20/2020 Intraoperative culture 01/06/2020: MRSA Intraoperative culture from 01/20/2020: MRSA Right knee fluid fungal smear negative Per orthopedic surgery drain will need to remain until there is less than 5 cc per shift Continue vancomycin per pharmacy protocol at this time Request ID to reevaluate patient's antibiotics when persistent MRSA in synovial fluid Monitor CRP QOD (2) Bacteremia Is this a current diagnosis for this admission?: Yes Plan: ID input appreciated, will need to continue IV vancomycin for 6 weeks treatment end date 02/23/2020 -will request that they reevaluate the patient for antibiotic appropriateness given his ongoing MRSA synovitis 1/4 blood cultures from 01/05/2020 positive for MRSA Repeat blood cultures on 01/09/2020 NG at 5 days Above potentially 2/2 the patient's septic right knee however also noted to have gangrene of the left toe, s/p amputation of left great toe on 01/12/2020 Toe pathology confirmed osteomyelitis (3) SIRS (systemic inflammatory response syndrome) Is this a current diagnosis for this admission?: Yes Plan: Patient continues to have low-grade fever Nontoxic in appearance Antibiotics/treatment as noted above Repeat CBC in a.m. (4) Leucocytosis Is this a current diagnosis for this admission?: Yes Plan: Resolved Treatment as noted above Repeat CBC in a.m. as noted above (5) Diabetes mellitus type 2 in nonobese Is this a current diagnosis for this admission?: Yes Plan: Hemoglobin A1c 8.5% Patient had one episode of hypoglycemia on 08/06/20 at 11:54 however patient was n.p.o. at this time, no further hypoglycemic episodes since Sugars trending high, but improved since increasing basal insulin Continue basal (glargine) insulin 21 units subcutaneously twice daily, may need to titrate further Continue FS BS with SSI correction scale Hypoglycemia protocol in place Registered dietitian and extension educator consulted (6) Hyponatremia Is this a current diagnosis for this admission?: Yes Plan: Slight improvement today Patient remains asymptomatic Continue 1200 cc fluid restriction Liberalize dietary sodium Monitor periodically (7) Hypokalemia Is this a current diagnosis for this admission?: Yes Plan: Resolved Monitor periodically (8) Anemia Qualifiers: Anemia type: iron deficiency Is this a current diagnosis for this admission?: Yes Plan: Patient received a total of 2 units PRBCs, posttransfusion hemoglobin 8.6 Iron studies reviewed, likely acute phase response with mild iron deficiency Continue ferrous sulfate 325 mg p.o. daily Stool guaiac negative Recheck blood count in a.m. (9) Toe necrosis Is this a current diagnosis for this admission?: Yes Plan: S/P amputation of left great toe on 01/12/2020 Bone pathology consistent with osteomyelitis - Plan Summary Summary: Patient will be admitted to the medical floor where he received routine supportive and symptomatic cares. He will be treated with IV vancomycin and Ancef per Dr. Douglas's request. He will receive morphine sulfate 2 to 4 mg IV every 2 hours as needed for pain. He will use Ativan 1 mg IV every 4 hours as needed for anxiety or restlessness. Dr. Douglas will be consulted for orthopedic management. CBCs, metabolic profiles and additional laboratory and/or radiographic evaluations will be obtained as needed. Accu-Cheks will be obtained before meals and at bedtime with sliding scale insulin to cover hyperglycemia and hypoglycemic protocol in place. Patient will receive a diabetic and cardiac restricted diet. Smoking cessation is advised and coun seled briefly at the bedside. A nicotine replacement patch is available for patient's use, if desired. - Time Time Spent with patient: 25-34 minutes Medications reviewed and adjusted accordingly: Yes Anticipated Discharge Disposition: Intermediate Care Facility Anticipated Discharge Timeframe: Unable to determine at this time
[2020-01-23] MEDS: NORMAL SALINE 10 ML SDV (AFTER EACH USE) IV PRN (22:37)
[2020-01-24] MEDS: HYDROMORPHONE HCL INJ/PF 2 MG/ML AMPULE IV PRN ×6 (02:58→23:08)
[2020-01-24] MEDS: OXYCODONE HCL IR 5 MG TABLET PO PRN ×6 (02:58→23:08)
[2020-01-24] MEDS: VANCOMYCIN HCL 1,000 MG in DEXTROSE 5%-WATER 250 ML IV SCH ×3 (06:19→22:22)
[2020-01-24] MEDS: GABAPENTIN 300 MG CAPSULE PO SCH ×3 (06:20→22:23)
[2020-01-24] MEDS: HEPARIN SOD (PORCINE) 5,000 UNIT/ML 1 ML VIAL SUBCUT SCH ×3 (06:22→22:22)
[2020-01-24 07:20] LABS: MEAN CORPUSCULAR HEMOGLOBIN 32.6 pg (27.0-33.4); MEAN CORPUSCULAR HGB CONC 33.7 g/dL (32.0-36.0); MEAN CORPUSCULAR VOLUME 97 fl (80-97); PLATELET COUNT 417 10^3/uL (150-450); RED BLOOD COUNT 2.17 10^6/uL (4.35-5.55); RED CELL DISTRIBUTION WIDTH 15.6 % (11.5-14.0); WHITE BLOOD COUNT 7.5 10^3/uL (4.0-10.5)
[2020-01-24] MEDS: INSULIN LISPRO 100 UNIT/ML 3 ML VIAL SUBCUT SCH ×4 (07:49→22:23)
[2020-01-24 07:53] LABS: ANION GAP 5 (5-19); BLOOD UREA NITROGEN 14 mg/dL (7-20); C-REACTIVE PROTEIN 89.8 mg/L (<10.0); CALCIUM 8.5 mg/dL (8.4-10.2); CARBON DIOXIDE 31 mmol/L (22-30); CHLORIDE 97 mmol/L (98-107); POTASSIUM 4.2 mmol/L (3.6-5.0)
[2020-01-24 08:17] LABS: GLUCOSE 49 mg/dL (75-110)
[2020-01-24 08:28] LABS: HEMOGLOBIN 7.1 g/dL (13.5-17.0)
[2020-01-24 08:32] LABS: ABSOLUTE LYMPHOCYTES# (MANUAL) 2.6 10^3/uL (0.5-4.7); ABSOLUTE MONOCYTES # (MANUAL) 0.8 10^3/uL (0.1-1.4); BASOPHILS % (MANUAL) 0 % (0-2); EOSINOPHILS % (MANUAL) 2 % (0-6); LYMPHOCYTES % (MANUAL) 34 % (13-45); MONOCYTES % (MANUAL) 10 % (3-13); SEGMENTED NEUTROPHILS % (MAN) 54 % (42-78); TOTAL CELLS COUNTED 100
[2020-01-24 08:33] LABS: ANISOCYTOSIS 1+; HYPOCHROMASIA 1+; PLATELET COMMENT ADEQUATE
[2020-01-24] MEDS: FERROUS SULFATE 325 MG TABLET PO SCH (09:30)
[2020-01-24] MEDS: FAMOTIDINE 20 MG TABLET PO SCH ×2 (09:30→22:23)
[2020-01-24] MEDS: NORMAL SALINE 10 ML SDV (SCHEDULED) IV SCH ×2 (09:32→22:22)
[2020-01-24] MEDS: DOCUSATE SODIUM 100 MG CAPSULE PO SCH ×2 (09:33→18:24)
[2020-01-24] MEDS: POLYETHYLENE GLYCOL 3350 POWDER 17 GM/1 PACKET PO SCH (09:33)
[2020-01-24] MEDS ORDERED: INSULIN GLARGINE,HUM.REC.ANLOG 1,000 UNIT/10 ML VIAL (PYX) SUBCUT ONE (10:00)
--- NOTE | 2020-01-24 11:51 | PDOC PROGRESS REPORT ---
Subjective Progress Note for:: 01/24/20 Subjective:: Patient reports continued improved pain. Did have a febrile episode yesterday but has returned to baseline. Reason For Visit: SEPTIC ARTHRITIS RIGHT KNEE,DIABETES MELLITUS Physical Exam Vital Signs: Temp Pulse Resp BP Pulse Ox 99.0 F 91 17 130/60 H 100 01/24/20 08:21 01/24/20 08:21 01/24/20 08:21 01/24/20 08:21 01/24/20 08:21 Intake & Output 01/23/20 01/24/20 01/25/20 06:59 06:59 06:59 Intake Total 2834 2054 Output Total 2680 2530 20 Balance 154 -676 -20 Weight 64.9 kg 64.9 kg Physical Exam: NAD, AOX3 - RLE NVI to baseline, Wound C/D/I. Drain output 20 cc over last 12, will re- evaluate tomorrow Results Laboratory Results: 01/24/20 06:15 01/24/20 06:15 01/24/20 01/24/20 06:15 06:15 WBC 7.5 RBC 2.17 L Hgb 7.1 L Hct 21.0 L MCV 97 MCH 32.6 MCHC 33.7 RDW 15.6 H Plt Count 417 Seg Neutrophils % Not Reportable Sodium 132.7 L Potassium 4.2 Chloride 97 L Carbon Dioxide 31 H Anion Gap 5 BUN 14 Creatinine 0.64 Est GFR ( Amer) > 60 Glucose 49 L Calcium 8.5 C-Reactive Protein 89.8 H 01/20/20 16:22 Knee - Right Gram Stain - Final 01/20/20 16:22 Knee - Right Wound Culture - Final Mrsa (Meth Resis Staph Aureus) No Anaerobic Organisms 01/20/20 16:22 Knee - Right Gram Stain - Final 01/20/20 16:22 Knee - Right Wound Culture - Final Mrsa (Meth Resis Staph Aureus) No Anaerobic Organisms Impressions: Chest X-Ray 01/05/20 18:40 IMPRESSION: NO ACUTE RADIOGRAPHIC FINDING IN THE CHEST. Foot X-Ray 01/11/20 00:00 IMPRESSION: Cannot exclude osteomyelitis in the 1st distal phalanx. PICC Line Insertion 01/13/20 00:00 IMPRESSION: SUCCESSFUL PLACEMENT OF A 5 FR DUAL LUMEN 32 CM PICC IN THE RIGHT BASILIC VEIN. Knee X-Ray 01/15/20 00:00 IMPRESSION: Moderate knee joint effusion. No acute fracture or dislocation. Assessment & Plan - Diagnosis (1) Septic arthritis of knee, right Is this a current diagnosis for this admission?: Yes Plan: - May be able to pull drain if output slows tomorrow - Continue drain recording q12 - WBAT - ID for Abx recs - Continue trend CRP, most recent was lowest of all during his stay (2) Septic arthritis Qualifiers: Septic arthritis location: knee Septic arthritis organism: due to unspecified organism Laterality: right Qualified Code(s): M00.9 - Pyogenic arthritis, unspecified Is this a current diagnosis for this admission?: Yes (3) Osteomyelitis of great toe of left foot Is this a current diagnosis for this admission?: Yes - Time Time Spent with patient: Less than 15 minutes
--- NOTE | 2020-01-24 20:39 | PDOC PROGRESS REPORT ---
Subjective Progress Note for:: 01/24/20 Subjective:: Patient has no complaints. Eager for next step in his care plan Reason For Visit: SEPTIC ARTHRITIS RIGHT KNEE,DIABETES MELLITUS Physical Exam Vital Signs: Temp Pulse Resp BP Pulse Ox 100.1 F 92 16 151/74 H 97 01/24/20 15:22 01/24/20 15:22 01/24/20 15:22 01/24/20 15:22 01/24/20 15:22 Intake & Output 01/23/20 01/24/20 01/25/20 06:59 06:59 06:59 Intake Total 2834 2054 1780 Output Total 2680 2530 1070 Balance 154 -476 710 Weight 64.9 kg 64.9 kg General appearance: PRESENT: no acute distress, well-developed, well-nourished Head exam: PRESENT: atraumatic, normocephalic Eye exam: PRESENT: conjunctiva pink Mouth exam: PRESENT: moist, tongue midline Neck exam: ABSENT: JVD Respiratory exam: PRESENT: clear to auscultation nora, symmetrical, unlabored. ABSENT: accessory muscle use Cardiovascular exam: PRESENT: RRR, +S1, +S2 Vascular exam: PRESENT: normal capillary refill GI/Abdominal exam: PRESENT: normal bowel sounds, soft. ABSENT: distended, tenderness Rectal exam: PRESENT: deferred Extremities exam: PRESENT: other - Right knee dressing intact. VANDANA drain remains intact with serous sanguinous drainage noted in receptacle. ABSENT: pedal edema Neurological exam: PRESENT: alert, awake, oriented to person, oriented to place, oriented to time, oriented to situation, CN II-XII grossly intact Psychiatric exam: PRESENT: depressed, other - Slightly depressed affect. ABSENT: agitated, anxious Skin exam: PRESENT: dry, normal color, warm Results Laboratory Results: 01/24/20 06:15 01/24/20 06:15 01/24/20 01/24/20 06:15 06:15 WBC 7.5 RBC 2.17 L Hgb 7.1 L Hct 21.0 L MCV 97 MCH 32.6 MCHC 33.7 RDW 15.6 H Plt Count 417 Seg Neutrophils % Not Reportable Sodium 132.7 L Potassium 4.2 Chloride 97 L Carbon Dioxide 31 H Anion Gap 5 BUN 14 Creatinine 0.64 Est GFR ( Amer) > 60 Glucose 49 L Calcium 8.5 C-Reactive Protein 89.8 H Impressions: Chest X-Ray 01/05/20 18:40 IMPRESSION: NO ACUTE RADIOGRAPHIC FINDING IN THE CHEST. Foot X-Ray 01/11/20 00:00 IMPRESSION: Cannot exclude osteomyelitis in the 1st distal phalanx. PICC Line Insertion 01/13/20 00:00 IMPRESSION: SUCCESSFUL PLACEMENT OF A 5 FR DUAL LUMEN 32 CM PICC IN THE RIGHT BASILIC VEIN. Knee X-Ray 01/15/20 00:00 IMPRESSION: Moderate knee joint effusion. No acute fracture or dislocation. Assessment and Plan - Diagnosis (1) Septic arthritis of knee, right Is this a current diagnosis for this admission?: Yes Plan: Ortho input/assistance appreciated S/P right knee arthroscopic I&D with debridement on 01/06/2020, arthroscopic irrigation and debridement with drain placement on 01/08/2020, and right knee open irrigation and debridement on 01/20/2020 Intraoperative culture 01/06/2020: MRSA Intraoperative culture from 01/20/2020: MRSA Right knee fluid fungal smear negative Per orthopedic surgery drain will need to remain until there is less than 5 cc per shift Continue vancomycin per pharmacy protocol at this time Requested ID to reevaluate patient's antibiotics with persistent MRSA in synovial fluid, spoke with pharmacy who assures me that they will bring that up on the ID phone call tomorrow Monitor CRP QOD, trending down (2) Bacteremia Is this a current diagnosis for this admission?: Yes Plan: ID input appreciated, will need to continue IV vancomycin for 6 weeks treatment end date 02/23/2020 -will request that they reevaluate the patient for antibiotic appropriateness given his ongoing MRSA synovitis 1/ blood cultures from 01/05/2020 positive for MRSA Repeat blood cultures on 01/09/2020 NG at 5 days Above potentially 2/2 the patient's septic right knee however also noted to have gangrene of the left toe, s/p amputation of left great toe on 01/12/2020 Toe pathology confirmed osteomyelitis (3) SIRS (systemic inflammatory response syndrome) Is this a current diagnosis for this admission?: Yes Plan: Patient continues to have low-grade fever Nontoxic in appearance Antibiotics/treatment as noted above Repeat CBC in a.m. (4) Leucocytosis Is this a current diagnosis for this admission?: Yes Plan: Resolved Treatment as noted above Repeat CBC in a.m. as noted above (5) Diabetes mellitus type 2 in nonobese Is this a current diagnosis for this admission?: Yes Plan: Hemoglobin A1c 8.5% Patient had hypoglycemic episode this a.m. Continue basal (glargine) insulin 21 units subcutaneously twice daily, may need to titrate further Orders placed to ensure that patient gets an at bedtime snack Continue FS BS with SSI correction scale Hypoglycemia protocol in place Registered dietitian and telephone cleaner consulted (6) Hyponatremia Is this a current diagnosis for this admission?: Yes Plan: Slowly trending up Patient remains asymptomatic Continue 1200 cc fluid restriction Liberalize dietary sodium Monitor periodically (7) Hypokalemia Is this a current diagnosis for this admission?: Yes Plan: Resolved Monitor periodically (8) Anemia Qualifiers: Anemia type: iron deficiency Is this a current diagnosis for this admission?: Yes Plan: Patient received a total of 2 units PRBCs, posttransfusion hemoglobin 8.6 Iron studies reviewed, likely acute phase response with mild iron deficiency Continue ferrous sulfate 325 mg p.o. daily Stool guaiac negative Hemoglobin 7.1 this a.m. however patient asymptomatic Transfuse for Hgb < 7.0 Recheck blood count in a.m. (9) Toe necrosis Is this a current diagnosis for this admission?: Yes Plan: S/P amputation of left great toe on 01/12/2020 Bone pathology consistent with osteomyelitis - Time Time Spent with patient: 15-24 minutes Medications reviewed and adjusted accordingly: Yes Anticipated Discharge Disposition: Intermediate Care Facility Anticipated Discharge Timeframe: TBD
[2020-01-24] MEDS: INSULIN GLARGINE,HUM.REC.ANLOG 1,000 UNIT/10 ML VIAL SUBCUT SCH (22:59)
[2020-01-25] MEDS: HYDROMORPHONE HCL INJ/PF 2 MG/ML AMPULE IV PRN ×5 (03:29→20:45)
[2020-01-25] MEDS: OXYCODONE HCL IR 5 MG TABLET PO PRN ×5 (03:30→20:45)
[2020-01-25] MEDS: HEPARIN SOD (PORCINE) 5,000 UNIT/ML 1 ML VIAL SUBCUT SCH ×3 (06:05→21:43)
[2020-01-25] MEDS: GABAPENTIN 300 MG CAPSULE PO SCH ×3 (06:05→21:42)
[2020-01-25] MEDS: VANCOMYCIN HCL 1,000 MG in DEXTROSE 5%-WATER 250 ML IV SCH ×3 (06:06→23:39)
[2020-01-25 07:23] LABS: HEMATOCRIT 18.1 % (37.9-51.0); MEAN CORPUSCULAR HEMOGLOBIN 32.6 pg (27.0-33.4); MEAN CORPUSCULAR HGB CONC 33.3 g/dL (32.0-36.0); MEAN CORPUSCULAR VOLUME 98 fl (80-97); PLATELET COUNT 368 10^3/uL (150-450); RED BLOOD COUNT 1.85 10^6/uL (4.35-5.55); WHITE BLOOD COUNT 6.3 10^3/uL (4.0-10.5)
[2020-01-25] MEDS: INSULIN LISPRO 100 UNIT/ML 3 ML VIAL SUBCUT SCH ×4 (07:38→21:43)
[2020-01-25 07:40] LABS: BLOOD UREA NITROGEN 13 mg/dL (7-20); CALCIUM 8.2 mg/dL (8.4-10.2); CHLORIDE 97 mmol/L (98-107); GLUCOSE 175 mg/dL (75-110); POTASSIUM 4.5 mmol/L (3.6-5.0)
[2020-01-25 07:46] LABS: CARBON DIOXIDE 33 mmol/L (22-30)
[2020-01-25 07:53] LABS: ANION GAP 1 (5-19)
[2020-01-25 08:02] LABS: ABSOLUTE LYMPHOCYTES# (MANUAL) 1.4 10^3/uL (0.5-4.7); ABSOLUTE MONOCYTES # (MANUAL) 0.9 10^3/uL (0.1-1.4); BASOPHILS % (MANUAL) 0 % (0-2); EOSINOPHILS % (MANUAL) 0 % (0-6); HYPERSEGMENTED NEUTROPHILS PRESENT; LYMPHOCYTES % (MANUAL) 23 % (13-45); MONOCYTES % (MANUAL) 14 % (3-13); PLATELET COMMENT ADEQUATE; SEGMENTED NEUTROPHILS % (MAN) 63 % (42-78); TOTAL CELLS COUNTED 100
[2020-01-25 08:03] LABS: ANISOCYTOSIS 1+; HYPOCHROMASIA SLIGHT; POLYCHROMASIA SLIGHT
--- NOTE | 2020-01-25 08:34 | Progress Note ---
Provider Note Provider Note: [facility] Telephone Advice Follow UP Chart reviewed. Patient is a 59-year-old man admitted due to MRSA bacteremia, right septic arthritis and left great toe gangrene with osteomyelitis. He was initially evaluated and vacomycin recommended. He had new blood cultures on 01/08 that were negative. Leukocytosis resolved. He had 2 arthroscopic washouts on 01/05 and 01/07. Patient seemed to be improving per notes, started physical therapy. On 01/19 there was drainage from the wound. He was taken to the OR, pus was noted. Culture was positive for MRSA. Patient achieved therapeutic vancomycin levels on 01/07 and have maintained good levels throughout treatment. Vamcomycin REGINALD from most recetn culture on 01/19 in 1. PMH: DM2 Hypertension MRSA infections PSH: Toe amputation Allergies: naproxen [From Naprosyn] Allergy (Unknown, Verified 01/05/20 18:38) RASH Home Medications: Gabapentin 300 mg PO TID 01/06/20 Meloxicam [Mobic 15 mg Tablet] 15 mg PO DAILY 01/06/20 Vital Signs: Temp Pulse Resp BP Pulse Ox 98.5 F 86 17 145/71 H 100 01/25/20 08:00 01/25/20 08:00 01/25/20 08:00 01/25/20 08:00 01/25/20 08:00 Intake & Output 01/24/20 01/25/20 01/26/20 06:59 06:59 06:59 Intake Total 4 2030 Output Total 2530 1980 Balance -476 50 Weight 64.9 kg 64.9 kg Weight/Height Weight 64.9 kg Height 5 ft 9 in Laboratories: 01/25/20 06:45 01/25/20 06:45 MCV 98 fl (80-97) H 01/25/20 06:45 MCH 32.6 pg (27.0-33.4) 01/25/20 06:45 MCHC 33.3 g/dL (32.0-36.0) 01/25/20 06:45 RDW 16.0 % (11.5-14.0) H 01/25/20 06:45 Seg Neutrophils % Not Reportable 01/25/20 06:45 Retic Count (auto) 2.16 % (0.66-2.85) 01/08/20 06:25 VBG pH 7.41 (7.30-7.42) 01/05/20 19:05 VBG pCO2 45.4 mmHg (35-63) 01/05/20 19:05 VBG HCO3 28.4 mmol/L (20-32) 01/05/20 19:05 VBG Base Excess 3.4 mmol/L 01/05/20 19:05 Chloride 97 mmol/L (98-107) L 01/25/20 06:45 Carbon Dioxide 33 mmol/L (22-30) H 01/25/20 06:45 Anion Gap 1 (5-19) L 01/25/20 06:45 Est GFR ( Amer) > 60 (>60) 01/25/20 06:45 Glucose 175 mg/dL (75-110) H 01/25/20 06:45 Lactic Acid 1.0 mmol/L (0.7-2.1) 01/06/20 12:04 Uric Acid 3.1 mg/dL (3.5-8.5) L 01/05/20 19:05 Calcium 8.2 mg/dL (8.4-10.2) L 01/25/20 06:45 Magnesium 1.8 mg/dL (1.6-2.3) 01/19/20 06:20 Iron 21.3 ug/dL (49-181) L 01/08/20 06:25 TIBC 162 ug/dL (250-450) L 01/08/20 06:25 % Saturation 13 % 01/08/20 06:25 Ferritin 723.00 ng/mL (17.9-464.0) H 01/08/20 06:25 Total Bilirubin 0.5 mg/dL (0.2-1.3) 01/19/20 06:20 AST 22 U/L (17-59) 01/19/20 06:20 Alkaline Phosphatase 183 U/L (38-126) H 01/19/20 06:20 C-Reactive Protein 89.8 mg/L (<10.0) H 01/24/20 06:15 Total Protein 7.1 g/dL (6.3-8.2) 01/19/20 06:20 Albumin 2.6 g/dL (3.5-5.0) L 01/19/20 06:20 Vitamin B12 606.0 pg/mL (239-931) 01/08/20 06:25 Folate 6.01 ng/mL (>2.76) 01/08/20 06:25 Urine Color YELLOW 01/06/20 02:57 Urine Appearance CLEAR 01/06/20 02:57 Urine pH 6.0 (5.0-9.0) 01/06/20 02:57 Ur Specific [place] 1.024 01/06/20 02:57 Urine Protein 30 mg/dL (NEGATIVE) H 01/06/20 02:57 Urine Glucose (UA) >=500 mg/dL (NEGATIVE) H 01/06/20 02:57 Urine Ketones 80 mg/dL (NEGATIVE) H 01/06/20 02:57 Urine Blood SMALL (NEGATIVE) H 01/06/20 02:57 Urine RBC (Auto) 2 /HPF 01/06/20 02:57 Fluid Type SYNOVIAL 01/05/20 23:05 Fluid Type SYNOVIAL 01/05/20 23:05 Fluid Source KNEE 01/05/20 23:05 Fluid Color ORANGE 01/05/20 23:05 Fluid Appearance TURBID 01/05/20 23:05 Fluid Viscosity SLIGHTLY VISCOUS 01/05/20 23:05 Fluid WBC 53571 /uL 01/05/20 23:05 Fluid RBC 72457 /uL 01/05/20 23:05 Stool Occult Blood NEGATIVE (NEGATIVE) 01/15/20 16:20 Blood Type O POSITIVE 01/11/20 11:56 Antibody Screen NEGATIVE 01/11/20 11:56 Microbiology: Blood cultures: 01/04 1/ MRSA 01/08 Negative Synovial Fluid cultures: 01/04 MRSA (Vanc REGINALD 1) 01/05 MRSA 01/07 MRSA 8/ MRSA (Vanc REGINALD 1) Radiology: Chest X-Ray 01/05/20 18:40 IMPRESSION: NO ACUTE RADIOGRAPHIC FINDING IN THE CHEST. Foot X-Ray 01/11/20 00:00 IMPRESSION: Cannot exclude osteomyelitis in the 1st distal phalanx. PICC Line Insertion 01/13/20 00:00 IMPRESSION: SUCCESSFUL PLACEMENT OF A 5 FR DUAL LUMEN 32 CM PICC IN THE RIGHT BASILIC VEIN. Knee X-Ray 01/15/20 00:00 IMPRESSION: Moderate knee joint effusion. No acute fracture or dislocation. Assessment and Recommendations: Patient evaluated for MRSA bacteremia in the setting of left diabetic foot infection/gangrene and right septic knee. Patient has been on vancomycin with adequate trough (15-20) and normal GFR. New blood cultures remained negative. Synovial cultures all positive for MRSA including most recent on 01/19, however vancomycin REGINALD remains 1. He is s/p toe amputation to remove the initial source of infection, but his knee started to drain pus again. The first 2 procedures were done through arthroscopy, the most recent procedure was open irrigation and debridement. His CRP has improved since I&D (421->160->190->89 on 01/23). I believe that good source control has been achieved now with open I&D as vancomycin REGINALD is 1 and he has maintained good vancomycin trough. Would continue to monitor CRP if there is an increase or patient becomes febrile again, would change therapy to daptomycin 6mg/kg iv daily (would have to monitor CK and avoid any statins). Can add rifampin 600 mg po daily (to either vancomycin or daptomycin) if no DDI as there are concerns for osteomyelitis. Will recommend 6 weeks of therapy from the last procedure (01/19 with end date 03/02/20). While on therapy he will need CBC, CMP, ESR and CRP weekly, vanc trough weekly as well or CK depending if daptomycin is chosen. Please call if questions. Heather Romeo MD [facility] [id number]
[2020-01-25] MEDS: DOCUSATE SODIUM 100 MG CAPSULE PO SCH ×2 (09:44→16:59)
[2020-01-25] MEDS: POLYETHYLENE GLYCOL 3350 POWDER 17 GM/1 PACKET PO SCH (09:45)
[2020-01-25] MEDS: FERROUS SULFATE 325 MG TABLET PO SCH (09:49)
[2020-01-25] MEDS: INSULIN GLARGINE,HUM.REC.ANLOG 1,000 UNIT/10 ML VIAL SUBCUT SCH ×2 (09:49→23:37)
[2020-01-25] MEDS: NORMAL SALINE 10 ML SDV (SCHEDULED) IV SCH ×2 (09:49→21:44)
[2020-01-25] MEDS: FAMOTIDINE 20 MG TABLET PO SCH ×2 (09:49→21:42)
[2020-01-25 11:41] LABS: HEMATOCRIT 20.2 % (37.9-51.0); MEAN CORPUSCULAR HEMOGLOBIN 32.6 pg (27.0-33.4); MEAN CORPUSCULAR HGB CONC 33.4 g/dL (32.0-36.0); MEAN CORPUSCULAR VOLUME 98 fl (80-97); PLATELET COUNT 397 10^3/uL (150-450); RED BLOOD COUNT 2.07 10^6/uL (4.35-5.55); RED CELL DISTRIBUTION WIDTH 15.9 % (11.5-14.0); WHITE BLOOD COUNT 6.7 10^3/uL (4.0-10.5)
[2020-01-25 11:45] LABS: HEMOGLOBIN 6.7 g/dL (13.5-17.0)
[2020-01-25] MEDS ORDERED: NORMAL SALINE 250 ML IV PRN ×4 (11:51→14:58)
[2020-01-25] MEDS: RIFAMPIN 300 MG CAPSULE PO SCH ×2 (12:06→12:09)
[2020-01-25] MEDS ORDERED: FUROSEMIDE INJ/PF 20 MG/2 ML SDV IV PRN (14:58)
--- NOTE | 2020-01-25 17:40 | PDOC PROGRESS REPORT ---
Subjective Progress Note for:: 01/25/20 Subjective:: Patient was seen on morning rounds. He is found resting in bed, comfortably, on room air . He reports that he is feeling well today. Continued discomfort to his knee, although, slightly improved. VANDANA drain with serosanguineous drainage. No pain to his left foot. He denies fever, chills, chest pain, palpitations, dyspnea, orthopnea, abdominal pain, nausea vomiting diarrhea. He has no new questions or concerns. No concerns per nursing. Reason For Visit: SEPTIC ARTHRITIS RIGHT KNEE,DIABETES MELLITUS Physical Exam Vital Signs: Temp Pulse Resp BP Pulse Ox 98.8 F 78 16 130/62 H 100 01/25/20 16:49 01/25/20 16:49 01/25/20 16:49 01/25/20 16:49 01/25/20 16:49 Intake & Output 01/24/20 01/25/20 01/26/20 06:59 06:59 06:59 Intake Total 4 2030 740 Output Total 2530 1980 625 Balance -476 50 115 Weight 64.9 kg 64.9 kg General appearance: PRESENT: no acute distress, cooperative, well-developed, well-nourished Head exam: PRESENT: atraumatic, normocephalic Eye exam: PRESENT: conjunctiva pink, EOMI, PERRLA. ABSENT: scleral icterus Mouth exam: PRESENT: moist, tongue midline Respiratory exam: PRESENT: clear to auscultation nora, symmetrical, unlabored. ABSENT: rales, rhonchi, wheezes Cardiovascular exam: PRESENT: RRR, +S1, +S2. ABSENT: diastolic murmur, rubs, systolic murmur Pulses: PRESENT: normal dorsalis pedis pul Vascular exam: PRESENT: normal capillary refill Extremities exam: PRESENT: joint swelling - Right knee, tenderness - VANDANA drain with serosanguineous fluid; Scooby wrap in place.. ABSENT: calf tenderness, clubbing, pedal edema Neurological exam: PRESENT: alert, awake, oriented to person, oriented to place, oriented to time, oriented to situation, CN II-XII grossly intact. ABSENT: motor sensory deficit Psychiatric exam: PRESENT: appropriate affect, normal mood. ABSENT: homicidal ideation, suicidal ideation Skin exam: PRESENT: dry, intact, warm. ABSENT: cyanosis, rash Results Laboratory Results: 01/25/20 11:25 08/11/20 06:45 01/25/20 01/25/20 01/25/20 06:45 06:45 11:25 WBC 6.3 6.7 RBC 1.85 L 2.07 L Hgb 6.0 L 6.7 L Hct 18.1 L 20.2 L MCV 98 H 98 H MCH 32.6 32.6 MCHC 33.3 33.4 RDW 16.0 H 15.9 H Plt Count 368 397 Seg Neutrophils % Not Reportable Sodium 131.4 L Potassium 4.5 Chloride 97 L Carbon Dioxide 33 H Anion Gap 1 L BUN 13 Creatinine 0.70 Est GFR ( Amer) > 60 Glucose 175 H Calcium 8.2 L Blood Type Antibody Screen 01/25/20 12:30 WBC RBC Hgb Hct MCV MCH MCHC RDW Plt Count Seg Neutrophils % Sodium Potassium Chloride Carbon Dioxide Anion Gap BUN Creatinine Est GFR ( Amer) Glucose Calcium Blood Type O POSITIVE Antibody Screen NEGATIVE 01/20/20 16:22 Knee - Right Gram Stain - Final 01/20/20 16:22 Knee - Right Wound Culture - Final Mrsa (Meth Resis Staph Aureus) No Anaerobic Organisms Impressions: Chest X-Ray 01/05/20 18:40 IMPRESSION: NO ACUTE RADIOGRAPHIC FINDING IN THE CHEST. Foot X-Ray 01/11/20 00:00 IMPRESSION: Cannot exclude osteomyelitis in the 1st distal phalanx. PICC Line Insertion 01/13/20 00:00 IMPRESSION: SUCCESSFUL PLACEMENT OF A 5 FR DUAL LUMEN 32 CM PICC IN THE RIGHT BASILIC VEIN. Knee X-Ray 01/15/20 00:00 IMPRESSION: Moderate knee joint effusion. No acute fracture or dislocation. Assessment and Plan - Diagnosis (1) Septic arthritis of knee, right Is this a current diagnosis for this admission?: Yes Plan: Ortho input/assistance appreciated S/P right knee arthroscopic I&D with debridement on 01/06/2020, arthroscopic irrigation and debridement with drain placement on 01/08/2020, and right knee open irrigation and debridement on 01/20/2020 Intraoperative culture 01/06/2020: MRSA Intraoperative culture from 01/20/2020: MRSA Right knee fluid fungal smear negative Per orthopedic surgery drain will need to remain until there is less than 5 cc per shift Continue vancomycin per pharmacy protocol at this time Infectious disease consulted; recommend continuing vancomycin. EOT 03/02/2020. Recommend starting p.o. rifampin. Analgesics as needed. Physical therapy consulted. (2) Bacteremia Is this a current diagnosis for this admission?: Yes Plan: 1/4 blood cultures from 01/05/2020 positive for MRSA Repeat blood cultures on 01/09/2020 NG at 5 days Above potentially 2/2 the patient's septic right knee however also noted to have gangrene of the left toe, s/p amputation of left great toe on 01/12/2020 Toe pathology confirmed osteomyelitis ID input appreciated, will need to continue IV vancomycin for 6 weeks treatment end date 03/02/2020 Start rifampin per IDs recommendations. (3) Gangrene of toe of left foot Is this a current diagnosis for this admission?: Yes Plan: s/p amputation by Dr. Rajput Plain film cannot exclude osteomyelitis to the first distal phalanx. Pathology confirmed osteomyelitis. Surgery has signed off. Continue IV vancomycin. Infectious disease consulted to guide antibiotic course (MRSA bacteremia). Obtain tight glycemic control. (4) Anemia Qualifiers: Anemia type: iron deficiency Is this a current diagnosis for this admission?: Yes Plan: Persistent/recurrent; repeat H&H today confirms hemoglobin 6.7. Iron studies reviewed, likely acute phase response with mild iron deficiency Possibly related to multiple, small, orthopedic/surgical procedures. Stool guaiac negative Hematology consulted. Discussed with Dr. Cornejo today. He recommends 4 units PRBC to reach goal of hemoglobin greater than 10. He is also planning to send off multiple myeloma laboratory evaluation. Dr. Cornejo recommends stopping p.o. ferrous sulfate. Appreciate his assistance. (5) Diabetes mellitus type 2 in nonobese Is this a current diagnosis for this admission?: Yes Plan: Hemoglobin A1c 8.5% Continue Lantus 19 units subcutaneously twice daily Orders placed to ensure that patient gets an at bedtime snack Continue FS BS with SSI correction scale Hypoglycemia protocol in place Registered dietitian and staff development educator consulted (6) Hypokalemia Is this a current diagnosis for this admission?: Yes Plan: Resolved Monitor periodically (7) Hyponatremia Is this a current diagnosis for this admission?: Yes Plan: Slowly trending up Patient remains asymptomatic Continue 1200 cc fluid restriction Liberalize dietary sodium Monitor periodically (8) Leucocytosis Is this a current diagnosis for this admission?: Yes Plan: Resolved Treatment as noted above - Time Time Spent with patient: 35 or more minutes Medications reviewed and adjusted accordingly: Yes Anticipated Discharge Disposition: [facility] Anticipated Discharge Timeframe: pending Ortho/Hemeatology clearance.
[2020-01-26] MEDS: HYDROMORPHONE HCL INJ/PF 2 MG/ML AMPULE IV PRN ×6 (01:05→23:08)
[2020-01-26] MEDS: OXYCODONE HCL IR 5 MG TABLET PO PRN ×6 (01:06→22:08)
[2020-01-26] MEDS: VANCOMYCIN HCL 1,000 MG in DEXTROSE 5%-WATER 250 ML IV SCH ×3 (05:43→23:58)
[2020-01-26] MEDS: GABAPENTIN 300 MG CAPSULE PO SCH ×3 (05:44→23:11)
[2020-01-26] MEDS: HEPARIN SOD (PORCINE) 5,000 UNIT/ML 1 ML VIAL SUBCUT SCH ×3 (05:49→21:45)
--- NOTE | 2020-01-26 07:43 | PDOC PROGRESS REPORT ---
Subjective Progress Note for:: 01/26/20 Subjective:: Patient seen and examined. no acute events overnight. Pain well controlled. Reason For Visit: SEPTIC ARTHRITIS RIGHT KNEE,DIABETES MELLITUS Physical Exam Vital Signs: Temp Pulse Resp BP Pulse Ox 97.9 F 69 16 144/68 H 100 01/26/20 07:19 01/26/20 07:19 01/26/20 07:19 01/26/20 07:19 01/26/20 07:19 Intake & Output 01/25/20 01/26/20 01/27/20 06:59 06:59 06:59 Intake Total 2029 3350 0 Output Total 1979 2740 Balance 50 610 0 Weight 64.9 kg 65.2 kg Physical Exam: NAD, AOX3 - RLE NVI to baseline, Wound C/D/I. 30cc in drain over last 12. Serosanguinous drainage without signs of recurrent infection Results Laboratory Results: 01/25/20 11:25 01/25/20 01/25/20 01/25/20 06:45 11:25 12:30 WBC 6.7 RBC 2.07 L Hgb 6.7 L Hct 20.2 L MCV 98 H MCH 32.6 MCHC 33.4 RDW 15.9 H Plt Count 397 Sodium 131.4 L Potassium 4.5 Chloride 97 L Carbon Dioxide 33 H Anion Gap 1 L BUN 13 Creatinine 0.70 Est GFR ( Amer) > 60 Glucose 175 H Calcium 8.2 L Blood Type O POSITIVE Antibody Screen NEGATIVE 01/20/20 16:22 Knee - Right Gram Stain - Final 01/20/20 16:22 Knee - Right Wound Culture - Final Mrsa (Meth Resis Staph Aureus) No Anaerobic Organisms Impressions: Chest X-Ray 01/05/20 18:40 IMPRESSION: NO ACUTE RADIOGRAPHIC FINDING IN THE CHEST. Foot X-Ray 01/11/20 00:00 IMPRESSION: Cannot exclude osteomyelitis in the 1st distal phalanx. PICC Line Insertion 01/13/20 00:00 IMPRESSION: SUCCESSFUL PLACEMENT OF A 5 FR DUAL LUMEN 32 CM PICC IN THE RIGHT BASILIC VEIN. Knee X-Ray 01/15/20 00:00 IMPRESSION: Moderate knee joint effusion. No acute fracture or dislocation. Assessment & Plan - Diagnosis (1) Septic arthritis of knee, right Is this a current diagnosis for this admission?: Yes Plan: - Drain monitoring and recording as not been completely consistent. Reviewing output since surgery appears to indicate overall decrease on a 24 hour basis. Due to the duration of the drain, it was pulled this AM. - Place compressive dressing over knee to avoid re-accumulation of fluid - Follow CRP, if no major increase over the next 2-3 days, consider discharge - Follow ID recs - WBAT (2) Septic arthritis Qualifiers: Septic arthritis location: knee Septic arthritis organism: due to unspecified organism Laterality: right Qualified Code(s): M00.9 - Pyogenic arthritis, unspecified Is this a current diagnosis for this admission?: Yes (3) Osteomyelitis of great toe of left foot Is this a current diagnosis for this admission?: Yes - Time Time Spent with patient: Less than 15 minutes
[2020-01-26] MEDS: RIFAMPIN 300 MG CAPSULE PO SCH (08:00)
[2020-01-26] MEDS: INSULIN LISPRO 100 UNIT/ML 3 ML VIAL SUBCUT SCH ×4 (08:00→23:11)
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
[2020-01-26 08:38] LABS: BLOOD UREA NITROGEN 18 mg/dL (7-20); CALCIUM 8.2 mg/dL (8.4-10.2); GLUCOSE 169 mg/dL (75-110); POTASSIUM 4.5 mmol/L (3.6-5.0)
[2020-01-26 08:43] LABS: CARBON DIOXIDE 31 mmol/L (22-30); CHLORIDE 98 mmol/L (98-107)
[2020-01-26 08:48] LABS: ANION GAP 4 (5-19)
[2020-01-26] MEDS: POLYETHYLENE GLYCOL 3350 POWDER 17 GM/1 PACKET PO SCH (09:40)
[2020-01-26] MEDS: DOCUSATE SODIUM 100 MG CAPSULE PO SCH ×2 (09:40→17:24)
[2020-01-26] MEDS ORDERED: LISINOPRIL 10 MG TABLET ONE (09:48)
[2020-01-26] MEDS: FAMOTIDINE 20 MG TABLET PO SCH ×2 (09:49→23:10)
[2020-01-26] MEDS: INSULIN GLARGINE,HUM.REC.ANLOG 1,000 UNIT/10 ML VIAL SUBCUT SCH ×2 (09:50→23:11)
[2020-01-26] MEDS: LISINOPRIL 10 MG TABLET PO SCH (09:51)
[2020-01-26] MEDS: NORMAL SALINE 10 ML SDV (SCHEDULED) IV SCH ×2 (10:00→23:13)
[2020-01-26 13:12] LABS: HEMATOCRIT 31.9 % (37.9-51.0); MEAN CORPUSCULAR HEMOGLOBIN 32.1 pg (27.0-33.4); MEAN CORPUSCULAR HGB CONC 34.1 g/dL (32.0-36.0); PLATELET COUNT 328 10^3/uL (150-450); RED CELL DISTRIBUTION WIDTH 16.4 % (11.5-14.0); WHITE BLOOD COUNT 8.3 10^3/uL (4.0-10.5)
[2020-01-26 13:13] LABS: HEMOGLOBIN 10.9 g/dL (13.5-17.0); MEAN CORPUSCULAR VOLUME 94 fl (80-97)
[2020-01-26] MEDS ORDERED: OXYCODONE HCL IR 5 MG TABLET PO PRN (13:44)
--- NOTE | 2020-01-26 13:57 | PDOC PROGRESS REPORT ---
Subjective Progress Note for:: 01/26/20 Subjective:: Patient was seen on morning rounds. He is found resting in bed, comfortably, on room air . He reports that he is feeling well today, though fatigued. Continued discomfort to his knee, although, slightly improved. VANDANA drain removed this morning. No pain to his left foot. He denies fever, chills, chest pain, palpitations, dyspnea, orthopnea, abdominal pain, nausea vomiting diarrhea. He has no new questions or concerns. No concerns per nursing. Reason For Visit: SEPTIC ARTHRITIS RIGHT KNEE,DIABETES MELLITUS Physical Exam Vital Signs: Temp Pulse Resp BP Pulse Ox 98.3 F 66 16 148/75 H 99 01/26/20 11:00 01/26/20 11:00 01/26/20 11:00 01/26/20 11:00 01/26/20 11:00 Intake & Output 01/25/20 01/26/20 01/27/20 06:59 06:59 06:59 Intake Total 2029 3350 600 Output Total 1979 2740 Balance 50 610 600 Weight 64.9 kg 65.2 kg General appearance: PRESENT: no acute distress, cooperative, well-developed, well-nourished Head exam: PRESENT: atraumatic, normocephalic Eye exam: PRESENT: conjunctiva pink, EOMI, PERRLA. ABSENT: scleral icterus Mouth exam: PRESENT: moist, tongue midline Respiratory exam: PRESENT: clear to auscultation nora, symmetrical, unlabored. ABSENT: rales, rhonchi, wheezes Cardiovascular exam: PRESENT: RRR. ABSENT: diastolic murmur, rubs, systolic murmur Pulses: PRESENT: normal dorsalis pedis pul Vascular exam: PRESENT: normal capillary refill Extremities exam: PRESENT: tenderness - Rt knee; mp wrap in place. ABSENT: calf tenderness, clubbing, pedal edema Musculoskeletal exam: PRESENT: ambulatory Neurological exam: PRESENT: alert, awake, oriented to person, oriented to place, oriented to time, oriented to situation, CN II-XII grossly intact. ABSENT: motor sensory deficit Psychiatric exam: PRESENT: appropriate affect, normal mood. ABSENT: homicidal ideation, suicidal ideation Skin exam: PRESENT: dry, intact, warm. ABSENT: cyanosis, rash Results Laboratory Results: 01/26/20 13:00 01/26/20 06:30 0801/26/20 01/26/20 12:30 06:30 06:30 WBC RBC Hgb Hct MCV MCH MCHC RDW Plt Count Sodium 132.8 L Potassium 4.5 Chloride 98 Carbon Dioxide 31 H Anion Gap 4 L BUN 18 Creatinine 0.65 Est GFR ( Amer) > 60 Glucose 169 H Calcium 8.2 L C-Reactive Protein 65.6 H Blood Type O POSITIVE Antibody Screen NEGATIVE 01/26/20 13:00 WBC 8.3 RBC 3.40 L Hgb 10.9 L D Hct 31.9 L MCV 94 D MCH 32.1 MCHC 34.1 RDW 16.4 H Plt Count 328 Sodium Potassium Chloride Carbon Dioxide Anion Gap BUN Creatinine Est GFR ( Amer) Glucose Calcium C-Reactive Protein Blood Type Antibody Screen 01/20/20 16:22 Knee - Right Gram Stain - Final 01/20/20 16:22 Knee - Right Wound Culture - Final Mrsa (Meth Resis Staph Aureus) No Anaerobic Organisms Impressions: Chest X-Ray 01/05/20 18:40 IMPRESSION: NO ACUTE RADIOGRAPHIC FINDING IN THE CHEST. Foot X-Ray 01/11/20 00:00 IMPRESSION: Cannot exclude osteomyelitis in the 1st distal phalanx. PICC Line Insertion 01/13/20 00:00 IMPRESSION: SUCCESSFUL PLACEMENT OF A 5 FR DUAL LUMEN 32 CM PICC IN THE RIGHT BASILIC VEIN. Knee X-Ray 01/15/20 00:00 IMPRESSION: Moderate knee joint effusion. No acute fracture or dislocation. Assessment and Plan - Diagnosis (1) Septic arthritis of knee, right Is this a current diagnosis for this admission?: Yes Plan: Ortho input/assistance appreciated S/P right knee arthroscopic I&D with debridement on 01/06/2020, arthroscopic irrigation and debridement with drain placement on 01/08/2020, and right knee open irrigation and debridement on 01/20/2020 Intraoperative culture 01/06/2020: MRSA Intraoperative culture from 01/20/2020: MRSA Right knee fluid fungal smear negative Orthopedic surgery consulted; VANDANA drain removed today. From Ortho perspective, may d/c if CRP continues to trend down. Continue vancomycin per pharmacy protocol at this time Infectious disease consulted; recommend continuing vancomycin. EOT 03/02/2020. Continue p.o. rifampin. Analgesics as needed. Physical therapy consulted. (2) Bacteremia Is this a current diagnosis for this admission?: Yes Plan: 1/4 blood cultures from 01/05/2020 positive for MRSA Repeat blood cultures on 01/09/2020 NG at 5 days Above potentially 2/2 the patient's septic right knee however also noted to have gangrene of the left toe, s/p amputation of left great toe on 01/12/2020 Toe pathology confirmed osteomyelitis ID input appreciated, will need to continue IV vancomycin for 6 weeks treatment end date 03/02/2020 Continue rifampin per IDs recommendations. (3) Gangrene of toe of left foot Is this a current diagnosis for this admission?: Yes Plan: s/p amputation by Dr. Rajput Plain film cannot exclude osteomyelitis to the first distal phalanx. Pathology confirmed osteomyelitis. Surgery has signed off. Continue IV vancomycin. Infectious disease consulted to guide antibiotic course (MRSA bacteremia). Obtain tight glycemic control. (4) Anemia Qualifiers: Anemia type: iron deficiency Is this a current diagnosis for this admission?: Yes Plan: Persistent/recurrent; repeat H&H today confirms hemoglobin 6.7. Possibly related to multiple, small, orthopedic/surgical procedures with ongoing acute infectious process Stool guaiac negative Now s/p 6 units PRBC this admission Hematology consulted; appreciate Dr. Cornejo and Dr. Hicks's assistance. Multiple myeloma laboratory evaluation pending. Dr. Cornejo recommended stopping p.o. ferrous sulfate. (5) Diabetes mellitus type 2 in nonobese Is this a current diagnosis for this admission?: Yes Plan: Hemoglobin A1c 8.5% Continue Lantus 19 units subcutaneously twice daily Orders placed to ensure that patient gets an at bedtime snack Continue FS BS with SSI correction scale Hypoglycemia protocol in place Registered dietitian and electrical lineman consulted (6) Hypokalemia Is this a current diagnosis for this admission?: Yes Plan: Resolved Monitor periodically (7) Hyponatremia Is this a current diagnosis for this admission?: Yes Plan: Slowly trending up Patient remains asymptomatic Continue 1200 cc fluid restriction Liberalize dietary sodium Monitor periodically (8) Leucocytosis Is this a current diagnosis for this admission?: Yes Plan: Resolved Treatment as noted above - Time Time Spent with patient: 35 or more minutes Medications reviewed and adjusted accordingly: Yes Anticipated Discharge Disposition: Snf Facility Anticipated Discharge Timeframe: within 72 hours
[2020-01-27] MEDS: OXYCODONE HCL IR 5 MG TABLET PO PRN ×5 (02:08→19:37)
[2020-01-27] MEDS: HYDROMORPHONE HCL INJ/PF 2 MG/ML AMPULE IV PRN ×4 (03:47→18:17)
[2020-01-27] MEDS: HEPARIN SOD (PORCINE) 5,000 UNIT/ML 1 ML VIAL SUBCUT SCH ×3 (06:41→22:15)
[2020-01-27] MEDS: VANCOMYCIN HCL 1,000 MG in DEXTROSE 5%-WATER 250 ML IV SCH ×3 (06:44→22:17)
[2020-01-27] MEDS: GABAPENTIN 300 MG CAPSULE PO SCH ×3 (06:46→22:17)
[2020-01-27] MEDS: INSULIN LISPRO 100 UNIT/ML 3 ML VIAL SUBCUT SCH ×4 (07:55→22:19)
[2020-01-27] MEDS: RIFAMPIN 300 MG CAPSULE PO SCH (08:04)
[2020-01-27 10:14] LABS: HEMOGLOBIN 10.8 g/dL (13.5-17.0); MEAN CORPUSCULAR HEMOGLOBIN 31.6 pg (27.0-33.4); MEAN CORPUSCULAR HGB CONC 33.8 g/dL (32.0-36.0); MEAN CORPUSCULAR VOLUME 94 fl (80-97); PLATELET COUNT 342 10^3/uL (150-450); RED BLOOD COUNT 3.42 10^6/uL (4.35-5.55); RED CELL DISTRIBUTION WIDTH 16.7 % (11.5-14.0); WHITE BLOOD COUNT 7.1 10^3/uL (4.0-10.5)
[2020-01-27] MEDS: DOCUSATE SODIUM 100 MG CAPSULE PO SCH ×2 (10:20→17:06)
[2020-01-27] MEDS: POLYETHYLENE GLYCOL 3350 POWDER 17 GM/1 PACKET PO SCH (10:21)
[2020-01-27 10:30] LABS: BLOOD UREA NITROGEN 15 mg/dL (7-20); C-REACTIVE PROTEIN 71.2 mg/L (<10.0); CALCIUM 8.5 mg/dL (8.4-10.2); GLUCOSE 204 mg/dL (75-110); POTASSIUM 4.3 mmol/L (3.6-5.0)
[2020-01-27 10:34] LABS: ANION GAP 4 (5-19); CARBON DIOXIDE 30 mmol/L (22-30); CHLORIDE 99 mmol/L (98-107)
[2020-01-27] MEDS: NORMAL SALINE 10 ML SDV (SCHEDULED) IV SCH (10:47)
[2020-01-27] MEDS: INSULIN GLARGINE,HUM.REC.ANLOG 1,000 UNIT/10 ML VIAL SUBCUT SCH ×2 (10:49→22:20)
[2020-01-27] MEDS: LISINOPRIL 10 MG TABLET PO SCH (10:49)
[2020-01-27] MEDS: FAMOTIDINE 20 MG TABLET PO SCH ×2 (10:49→22:17)
--- NOTE | 2020-01-27 12:33 | PDOC PROGRESS REPORT ---
Subjective Progress Note for:: 01/27/20 Subjective:: Patient doing well. No acute events overnight. No fevers overnight. Reports walking well with therapy without substantial right knee pain. Reason For Visit: SEPTIC ARTHRITIS RIGHT KNEE,DIABETES MELLITUS Physical Exam Vital Signs: Temp Pulse Resp BP Pulse Ox 98.1 F 78 16 133/62 H 98 01/27/20 10:58 01/27/20 10:58 01/27/20 10:58 01/27/20 10:58 01/27/20 10:58 Intake & Output 01/26/20 01/27/20 01/28/20 06:59 06:59 06:59 Intake Total 3350 1100 250 Output Total 2740 1225 Balance 610 -125 250 Weight 65.2 kg 65.2 kg Physical Exam: Right lower extremity -Pulses 2+ distally -Compartments soft -Sensation grossly intact to L3-4-5 S1 2 baseline level of peripheral neuropathy -Motor grossly intact to EHL TA gastroc and quad Wound clean dry and intact, no drainage. Results Laboratory Results: 01/27/20 09:51 01/27/20 09:51 01/26/20 01/27/20 01/27/20 13:00 07:04 07:04 WBC 8.3 Cancelled RBC 3.40 L Cancelled Hgb 10.9 L D Cancelled Hct 31.9 L Cancelled MCV 94 D Cancelled MCH 32.1 Cancelled MCHC 34.1 Cancelled RDW 16.4 H Cancelled Plt Count 328 Cancelled Sodium Cancelled Potassium Cancelled Chloride Cancelled Carbon Dioxide Cancelled Anion Gap Cancelled BUN Cancelled Creatinine Cancelled Est GFR ( Amer) Cancelled Est GFR (Non-Af Amer) Cancelled Glucose Cancelled Calcium Cancelled C-Reactive Protein Cancelled 01/27/20 01/27/20 09:51 09:51 WBC 7.1 RBC 3.42 L Hgb 10.8 L Hct 32.0 L MCV 94 MCH 31.6 MCHC 33.8 RDW 16.7 H Plt Count 342 Sodium 132.8 L Potassium 4.3 Chloride 99 Carbon Dioxide 30 Anion Gap 4 L BUN 15 Creatinine 0.70 Est GFR ( Amer) > 60 Est GFR (Non-Af Amer) Glucose 204 H Calcium 8.5 C-Reactive Protein 71.2 H Impressions: Chest X-Ray 07/22/20 18:40 IMPRESSION: NO ACUTE RADIOGRAPHIC FINDING IN THE CHEST. Foot X-Ray 01/11/20 00:00 IMPRESSION: Cannot exclude osteomyelitis in the 1st distal phalanx. PICC Line Insertion 01/13/20 00:00 IMPRESSION: SUCCESSFUL PLACEMENT OF A 5 FR DUAL LUMEN 32 CM PICC IN THE RIGHT BASILIC VEIN. Knee X-Ray 01/15/20 00:00 IMPRESSION: Moderate knee joint effusion. No acute fracture or dislocation. Assessment & Plan - Diagnosis (1) Septic arthritis of knee, right Is this a current diagnosis for this admission?: Yes Plan: -CRP is improved, patient has no recurrent swelling at this time, no recurrent erythema. Wound remains clean and dry without drainage. Overall appears to have potentially cleared infection. -When medically appropriate patient may be discharged home with ID Rayshawn for home antibiotic course. -Weightbearing as tolerated -Dressing change as needed -Return to the emergency department if any recurrent drainage swelling or symptoms of right knee infection. (2) Septic arthritis Qualifiers: Septic arthritis location: knee Septic arthritis organism: due to unspecified organism Laterality: right Qualified Code(s): M00.9 - Pyogenic arthritis, unspecified Is this a current diagnosis for this admission?: Yes (3) Osteomyelitis of great toe of left foot Is this a current diagnosis for this admission?: Yes - Time Time Spent with patient: Less than 15 minutes
[2020-01-27 13:37] LABS: FREE KAPPA LIGHT CHAINS 170.3 mg/L (3.3-19.4); FREE LAMBDA LIGHT CHAINS 102.4 mg/L (5.7-26.3)
[2020-01-27 16:37] LABS: A/G RATIO 0.5 (0.7-1.7); ALBUMIN 2 2.2 g/dL (2.9-4.4); ALPHA-2-GLOBULIN 2 0.4 g/dL (0.4-1.0); BETA GLOBULINS 1.3 g/dL (0.7-1.3); GAMMA GLOBULIN 2.4 g/dL (0.4-1.8); GLOBULIN TOTAL 4.6 g/dL (2.2-3.9); MONOCLONAL SPIKE Not Observed g/dL (Not Observ); PROTEIN TOTAL SERUM 6.8 g/dL (6.0-8.5)
--- NOTE | 2020-01-27 17:19 | PDOC PROGRESS REPORT ---
Subjective Progress Note for:: 01/27/20 Subjective:: Patient was seen on morning rounds. He is found up to the recliner, comfortably, on room air . He reports that he is feeling well today, though fatigued. Continued discomfort to his knee, although, slightly improved. No pain to his left foot. Primary complaint is boredom. He denies fever, chills, chest pain, palpitations, dyspnea, orthopnea, abdominal pain, nausea vomiting diarrhea. He has no new questions or concerns. No concerns per nursing. Reason For Visit: SEPTIC ARTHRITIS RIGHT KNEE,DIABETES MELLITUS Physical Exam Vital Signs: Temp Pulse Resp BP Pulse Ox 98.2 F 71 16 139/75 H 100 01/27/20 15:03 01/27/20 15:03 01/27/20 15:03 01/27/20 15:03 01/27/20 15:03 Intake & Output 01/26/20 01/27/20 01/28/20 06:59 06:59 06:59 Intake Total 3350 1100 500 Output Total 2740 1225 Balance 610 -125 500 Weight 65.2 kg 65.2 kg General appearance: PRESENT: no acute distress, cooperative, thin, well-dev eloped, well-nourished Head exam: PRESENT: atraumatic, normocephalic Eye exam: PRESENT: conjunctiva pink, EOMI, PERRLA. ABSENT: scleral icterus Mouth exam: PRESENT: moist, tongue midline Respiratory exam: PRESENT: clear to auscultation nora, symmetrical, unlabored. ABSENT: rales, rhonchi, wheezes Cardiovascular exam: PRESENT: RRR. ABSENT: diastolic murmur, rubs, systolic murmur Pulses: PRESENT: normal dorsalis pedis pul Vascular exam: PRESENT: normal capillary refill Extremities exam: PRESENT: tenderness - Rt knee. ABSENT: calf tenderness, clubbing, pedal edema Neurological exam: PRESENT: alert, awake, oriented to person, oriented to place, oriented to time, oriented to situation, CN II-XII grossly intact. ABSENT: motor sensory deficit Psychiatric exam: PRESENT: appropriate affect, normal mood. ABSENT: homicidal ideation, suicidal ideation Skin exam: PRESENT: dry, intact, warm. ABSENT: cyanosis, rash Results Laboratory Results: 01/27/20 09:51 01/27/20 09:51 01/27/20 01/27/2001/26/20 07:04 07:04 09:51 WBC Cancelled RBC Cancelled Hgb Cancelled Hct Cancelled MCV Cancelled MCH Cancelled MCHC Cancelled RDW Cancelled Plt Count Cancelled Sodium Cancelled 132.8 L Potassium Cancelled 4.3 Chloride Cancelled 99 Carbon Dioxide Cancelled 30 Anion Gap Cancelled 4 L BUN Cancelled 15 Creatinine Cancelled 0.70 Est GFR ( Amer) Cancelled > 60 Est GFR (Non-Af Amer) Cancelled Glucose Cancelled 204 H Calcium Cancelled 8.5 C-Reactive Protein Cancelled 71.2 H 01/27/20 09:51 WBC 7.1 RBC 3.42 L Hgb 10.8 L Hct 32.0 L MCV 94 MCH 31.6 MCHC 33.8 RDW 16.7 H Plt Count 342 Sodium Potassium Chloride Carbon Dioxide Anion Gap BUN Creatinine Est GFR ( Amer) Est GFR (Non-Af Amer) Glucose Calcium C-Reactive Protein Impressions: Chest X-Ray 01/05/20 18:40 IMPRESSION: NO ACUTE RADIOGRAPHIC FINDING IN THE CHEST. Foot X-Ray 01/11/20 00:00 IMPRESSION: Cannot exclude osteomyelitis in the 1st distal phalanx. PICC Line Insertion 01/13/20 00:00 IMPRESSION: SUCCESSFUL PLACEMENT OF A 5 FR DUAL LUMEN 32 CM PICC IN THE RIGHT BASILIC VEIN. Knee X-Ray 01/15/20 00:00 IMPRESSION: Moderate knee joint effusion. No acute fracture or dislocation. Assessment and Plan - Diagnosis (1) Septic arthritis of knee, right Qualifiers: Septic arthritis organism: staphylococcal Qualified Code(s): M00.061 - Staphylococcal arthritis, right knee Is this a current diagnosis for this admission?: Yes Plan: Ortho input/assistance appreciated S/P right knee arthroscopic I&D with debridement on 01/06/2020, arthroscopic irrigation and debridement with drain placement on 01/08/2020, and right knee open irrigation and debridement on 01/20/2020 Intraoperative culture 01/06/2020: MRSA Intraoperative culture from 01/20/2020: MRSA Right knee fluid fungal smear negative Orthopedic surgery consulted; approved for d/c. Continue vancomycin per pharmacy protocol at this time Infectious disease consulted; recommend continuing vancomycin. EOT 03/02/2020. Continue p.o. rifampin. Analgesics as needed. Physical therapy consulted. (2) Bacteremia Is this a current diagnosis for this admission?: Yes Plan: 1/4 blood cultures from 01/05/2020 positive for MRSA Repeat blood cultures on 01/09/2020 NG at 5 days Above potentially 2/2 the patient's septic right knee however also noted to have gangrene of the left toe, s/p amputation of left great toe on 01/12/2020 Toe pathology confirmed osteomyelitis ID input appreciated, will need to continue IV vancomycin for 6 weeks treatment end date 03/02/2020 Continue rifampin per IDs recommendations. (3) Gangrene of toe of left foot Is this a current diagnosis for this admission?: Yes Plan: s/p amputation by Dr. Rajput Plain film cannot exclude osteomyelitis to the first distal phalanx. Pathology confirmed osteomyelitis. Surgery has signed off. Continue IV vancomycin. Infectious disease consulted to guide antibiotic course (MRSA bacteremia). Obtain tight glycemic control. (4) Anemia Qualifiers: Anemia type: iron deficiency Is this a current diagnosis for this admission?: Yes Plan: Persistent/recurrent; repeat H&H today confirms hemoglobin 6.7. Possibly related to multiple, small, orthopedic/surgical procedures with ongoing acute infectious process Stool guaiac negative Now s/p 6 units PRBC this admission Hematology consulted; appreciate Dr. Cornejo and Dr. Hicks's assistance. Multiple myeloma laboratory evaluation pending. Dr. Cornejo recommended stopping p.o. ferrous sulfate. (5) Diabetes mellitus type 2 in nonobese Is this a current diagnosis for this admission?: Yes Plan: Hemoglobin A1c 8.5% Continue Lantus 19 units subcutaneously twice daily Orders placed to ensure that patient gets an at bedtime snack Continue FS BS with SSI correction scale Hypoglycemia protocol in place Registered dietitian and family life educator consulted (6) Hypokalemia Is this a current diagnosis for this admission?: Yes Plan: Resolved Monitor periodically (7) Hyponatremia Is this a current diagnosis for this admission?: Yes Plan: Slowly trending up Patient remains asymptomatic Continue 1200 cc fluid restriction Liberalize dietary sodium Monitor periodically (8) Leucocytosis Is this a current diagnosis for this admission?: Yes Plan: Resolved Treatment as noted above - Time Time Spent with patient: 15-24 minutes Medications reviewed and adjusted accordingly: Yes Anticipated Discharge Disposition[facility] Facility Anticipated Discharge Timeframe: within 24 hours
[2020-01-28] MEDS: OXYCODONE HCL IR 5 MG TABLET PO PRN ×5 (00:04→20:35)
[2020-01-28] MEDS: NORMAL SALINE 10 ML SDV (SCHEDULED) IV SCH ×3 (00:06→22:23)
[2020-01-28] MEDS: HYDROMORPHONE HCL INJ/PF 2 MG/ML AMPULE IV PRN ×3 (00:57→20:34)
[2020-01-28] MEDS: HEPARIN SOD (PORCINE) 5,000 UNIT/ML 1 ML VIAL SUBCUT SCH ×3 (05:16→22:57)
[2020-01-28] MEDS: GABAPENTIN 300 MG CAPSULE PO SCH ×3 (05:18→22:22)
[2020-01-28] MEDS: VANCOMYCIN HCL 1,000 MG in DEXTROSE 5%-WATER 250 ML IV SCH ×3 (05:19→22:22)
[2020-01-28 06:59] LABS: C-REACTIVE PROTEIN 75.5 mg/L (<10.0)
[2020-01-28 07:05] LABS: KAPPA LAMBDA RATIO 1.66 (0.26-1.65)
[2020-01-28 07:48] LABS: VANCOMYCIN,TROUGH 16.7 ug/mL (5.0-20.0)
[2020-01-28] MEDS: INSULIN LISPRO 100 UNIT/ML 3 ML VIAL SUBCUT SCH ×4 (07:58→22:24)
[2020-01-28] MEDS: RIFAMPIN 300 MG CAPSULE PO SCH (08:00)
--- NOTE | 2020-01-28 08:58 | PDOC PROGRESS REPORT ---
Subjective Progress Note for:: 01/28/20 Subjective:: Patient states that he is feeling better. He asks when he will "move to the other place?" He denies dyspnea, chest pain, but states that his legs still hurt. Reason For Visit: SEPTIC ARTHRITIS RIGHT KNEE,DIABETES MELLITUS Physical Exam Vital Signs: Temp Pulse Resp BP Pulse Ox 98.8 F 76 16 151/77 H 100 01/28/20 07:43 01/28/20 07:43 01/28/20 07:43 01/28/20 07:43 01/28/20 07:43 Intake & Output 01/27/20 01/28/20 01/29/20 06:59 06:59 06:59 Intake Total 1100 750 250 Output Total 1225 1175 Balance -125 -425 250 Weight 65.2 kg 65.2 kg General appearance: PRESENT: no acute distress, thin Head exam: PRESENT: normocephalic Respiratory exam: PRESENT: unlabored Neurological exam: PRESENT: alert, awake Psychiatric exam: PRESENT: appropriate affect Skin exam: PRESENT: normal color Results Laboratory Results: 01/27/20 09:51 01/28/20 05:30 01/25/20 01/27/20 01/27/20 15:55 09:51 09:51 WBC 7.1 RBC 3.42 L Hgb 10.8 L Hct 32.0 L MCV 94 MCH 31.6 MCHC 33.8 RDW 16.7 H Plt Count 342 Sodium 132.8 L Potassium 4.3 Chloride 99 Carbon Dioxide 30 Anion Gap 4 L BUN 15 Creatinine 0.70 Est GFR ( Amer) > 60 Glucose 204 H Calcium 8.5 C-Reactive Protein 71.2 H Total Protein 6.8 Albumin 2.2 L 01/28/20 05:30 WBC RBC Hgb Hct MCV MCH MCHC RDW Plt Count Sodium Potassium Chloride Carbon Dioxide Anion Gap BUN Creatinine 0.61 Est GFR ( Amer) > 60 Glucose Calcium C-Reactive Protein 75.5 H Total Protein Albumin Impressions: Chest X-Ray 01/05/20 18:40 IMPRESSION: NO ACUTE RADIOGRAPHIC FINDING IN THE CHEST. Foot X-Ray 01/11/20 00:00 IMPRESSION: Cannot exclude osteomyelitis in the 1st distal phalanx. PICC Line Insertion 01/13/20 00:00 IMPRESSION: SUCCESSFUL PLACEMENT OF A 5 FR DUAL LUMEN 32 CM PICC IN THE RIGHT BASILIC VEIN. Knee X-Ray 01/15/20 00:00 IMPRESSION: Moderate knee joint effusion. No acute fracture or dislocation. Assessment & Plan - Diagnosis (1) Anemia Qualifiers: Other causes of anemia: chronic disease, other Is this a current diagnosis for this admission?: Yes Plan: He responded well to blood transfusions. His LDH was elevated, but peripheral blood smear show no evidence of increased schistocytes or hemolysis. His Myeloma panel was negative. All work-up indicated acute infection as cause of his anemia. He is not currently a candidate for EPO, although this may help. Continue transfusion support. I will follow as outpatient as well. (2) Septic arthritis of knee, right Qualifiers: Septic arthritis organism: staphylococcal Qualified Code(s): M00.061 - Sta phylococcal arthritis, right knee Is this a current diagnosis for this admission?: Yes - Time Time Spent with patient: Less than 15 minutes
[2020-01-28] MEDS: LISINOPRIL 10 MG TABLET PO SCH (10:09)
[2020-01-28] MEDS: INSULIN GLARGINE,HUM.REC.ANLOG 1,000 UNIT/10 ML VIAL SUBCUT SCH ×2 (10:10→22:23)
[2020-01-28] MEDS: FAMOTIDINE 20 MG TABLET PO SCH ×2 (10:10→22:22)
[2020-01-28] MEDS: DOCUSATE SODIUM 100 MG CAPSULE PO SCH ×2 (10:13→17:21)
[2020-01-28] MEDS: POLYETHYLENE GLYCOL 3350 POWDER 17 GM/1 PACKET PO SCH (10:14)
--- NOTE | 2020-01-28 14:36 | PDOC PROGRESS REPORT ---
Subjective Progress Note for:: 01/28/20 Subjective:: Patient was seen on morning rounds. He is found resting in bed, comfortably, on room air . He reports that he is feeling well today. Continued discomfort to his knee, although, improved. No pain to his left foot. Primary complaint is boredom; wants to discharge. He denies fever, chills, chest pain, palpitations, dyspnea, orthopnea, abdominal pain, nausea vomiting diarrhea. He has no new questions or concerns. Nursing reports macerated appearance of left toe amputation site w/ drainage. Reason For Visit: SEPTIC ARTHRITIS RIGHT KNEE,DIABETES MELLITUS Physical Exam Vital Signs: Temp Pulse Resp BP Pulse Ox 98.6 F 77 16 140/84 H 99 01/28/20 11:45 01/28/20 11:45 01/28/20 11:45 01/28/20 11:45 01/28/20 11:45 Intake & Output 01/27/20 01/28/20 01/29/20 06:59 06:59 06:59 Intake Total 1100 750 250 Output Total 1225 1175 Balance -125 -425 250 Weight 65.2 kg 65.2 kg General appearance: PRESENT: no acute distress, cooperative, thin, well- developed, well-nourished Head exam: PRESENT: atraumatic, normocephalic Eye exam: PRESENT: conjunctiva pink, EOMI, PERRLA. ABSENT: scleral icterus Mouth exam: PRESENT: moist, tongue midline Respiratory exam: PRESENT: clear to auscultation nora, symmetrical, unlabored. ABSENT: rales, rhonchi, wheezes Cardiovascular exam: PRESENT: RRR. ABSENT: diastolic murmur, rubs, systolic murmur Pulses: PRESENT: normal dorsalis pedis pul Vascular exam: PRESENT: normal capillary refill Rectal exam: PRESENT: deferred Extremities exam: PRESENT: tenderness - rt knee, other - mp wrap to right knee. ABSENT: calf tenderness, clubbing, pedal edema Neurological exam: PRESENT: alert, awake, oriented to person, oriented to place, oriented to time, oriented to situation, CN II-XII grossly intact. ABSENT: motor sensory deficit Psychiatric exam: PRESENT: appropriate affect, normal mood. ABSENT: homicidal ideation, suicidal ideation Skin exam: PRESENT: dry, warm, other - left foot toe amputation site w/ macerated appearance. No surrounding erythema/edema. scant serous drainage. ABSENT: cyanosis, rash Results Laboratory Results: 01/27/20 09:51 01/28/20 05:30 01/25/20 01/28/20 15:55 05:30 Creatinine 0.61 Est GFR ( Amer) > 60 C-Reactive Protein 75.5 H Total Protein 6.8 Albumin 2.2 L Impressions: Chest X-Ray 01/05/20 18:40 IMPRESSION: NO ACUTE RADIOGRAPHIC FINDING IN THE CHEST. Foot X-Ray 01/11/20 00:00 IMPRESSION: Cannot exclude osteomyelitis in the 1st distal phalanx. PICC Line Insertion 01/13/20 00:00 IMPRESSION: SUCCESSFUL PLACEMENT OF A 5 FR DUAL LUMEN 32 CM PICC IN THE RIGHT BASILIC VEIN. Knee X-Ray 01/15/20 00:00 IMPRESSION: Moderate knee joint effusion. No acute fracture or dislocation. Assessment and Plan - Diagnosis (1) Septic arthritis of knee, right Qualifiers: Septic arthritis organism: staphylococcal Qualified Code(s): M00.061 - Staphylococcal arthritis, right knee Is this a current diagnosis for this admission?: Yes Plan: Ortho input/assistance appreciated S/P right knee arthroscopic I&D with debridement on 01/06/2020, arthroscopic irrigation and debridement with drain placement on 01/08/2020, and right knee open irrigation and debridement on 01/20/2020 Intraoperative culture 01/06/2020: MRSA Intraoperative culture from 01/20/2020: MRSA Right knee fluid fungal smear negative Orthopedic surgery consulted CRP trending up; will monitor, would like to see further downward trend prior to discharge. 421-> 89-> 65-> 71-> 75 Continue vancomycin per pharmacy protocol at this time Infectious disease consulted; recommend continuing vancomycin. EOT 03/02/2020. Continue p.o. rifampin. Analgesics as needed. Physical therapy consulted. (2) Bacteremia Is this a current diagnosis for this admission?: Yes Plan: 1/4 blood cultures from 01/05/2020 positive for MRSA Repeat blood cultures on 01/09/2020 NG at 5 days Above potentially 2/2 the patient's septic right knee however also noted to have gangrene of the left toe, s/p amputation of left great toe on 01/12/2020 Toe pathology confirmed osteomyelitis ID input appreciated, will need to continue IV vancomycin for 6 weeks treatment end date 03/02/2020 Continue rifampin per IDs recommendations. (3) Gangrene of toe of left foot Is this a current diagnosis for this admission?: Yes Plan: s/p amputation by Dr. Rajput Plain film cannot exclude osteomyelitis to the first distal phalanx. Pathology confirmed osteomyelitis. Surgery has signed off. Continue IV vancomycin. Infectious disease consulted to guide antibiotic course (MRSA bacteremia). Obtain tight glycemic control. Discussed wound care w/ DrAleja safely today; dry dressing x24 hours then return to barely damp to dry. No Vaseline gauze. (4) Anemia Qualifiers: Other causes of anemia: chronic disease, other Is this a current diagnosis for this admission?: Yes Plan: Persistent/recurrent; repeat H&H today confirms hemoglobin 6.7. Possibly related to multiple, small, orthopedic/surgical procedures with ongoing acute infectious process Stool guaiac negative Now s/p 6 units PRBC this admission Hematology consulted; appreciate Dr. Cornejo and Dr. Hicks's assistance. Multiple myeloma laboratory evaluation pending. Dr. Cornejo recommended stopping p.o. ferrous sulfate. (5) Diabetes mellitus type 2 in nonobese Is this a current diagnosis for this admission?: Yes Plan: Hemoglobin A1c 8.5% Continue Lantus 19 units subcutaneously twice daily Orders placed to ensure that patient gets an at bedtime snack Continue FS BS with SSI correction scale Hypoglycemia protocol in place Registered dietitian and clinical trial educator consulted (6) Hypokalemia Is this a current diagnosis for this admission?: Yes Plan: Resolved Monitor periodically (7) Hyponatremia Is this a current diagnosis for this admission?: Yes Plan: Slowly trending up Patient remains asymptomatic Continue 1200 cc fluid restriction Liberalize dietary sodium Monitor periodically (8) Leucocytosis Is this a current diagnosis for this admission?: Yes Plan: Resolved Treatment as noted above - Time Anticipated Discharge Disposition[facility] Facility Anticipated Discharge Timeframe: within 24 hours - if CRP improved
[2020-01-29] MEDS: OXYCODONE HCL IR 5 MG TABLET PO PRN ×5 (01:41→23:03)
[2020-01-29] MEDS: HYDROMORPHONE HCL INJ/PF 2 MG/ML AMPULE IV PRN ×3 (02:32→14:40)
[2020-01-29] MEDS: HEPARIN SOD (PORCINE) 5,000 UNIT/ML 1 ML VIAL SUBCUT SCH ×3 (05:20→21:35)
[2020-01-29] MEDS: GABAPENTIN 300 MG CAPSULE PO SCH ×3 (05:22→21:33)
[2020-01-29] MEDS: VANCOMYCIN HCL 1,000 MG in DEXTROSE 5%-WATER 250 ML IV SCH ×3 (05:23→21:35)
[2020-01-29] MEDS: INSULIN LISPRO 100 UNIT/ML 3 ML VIAL SUBCUT SCH ×4 (08:08→21:34)
[2020-01-29] MEDS: RIFAMPIN 300 MG CAPSULE PO SCH (08:39)
--- NOTE | 2020-01-29 09:30 | PDOC TRANSFER SUMMARY ---
Impression - Admit/DC Date/PCP Admission Date/Primary Care Provider: 01/06/20 00:57 JEANCARLOS DALTON MD Discharge Date: 01/29/20 - Discharge Diagnosis (1) Septic arthritis of knee, right Is this a current diagnosis for this admission?: Yes (2) Bacteremia Is this a current diagnosis for this admission?: Yes (3) Gangrene of toe of left foot Is this a current diagnosis for this admission?: Yes (4) Anemia Is this a current diagnosis for this admission?: Yes (5) Diabetes mellitus type 2 in nonobese Is this a current diagnosis for this admission?: Yes (6) Hypokalemia Is this a current diagnosis for this admission?: Yes (7) Hyponatremia Is this a current diagnosis for this admission?: Yes (8) Leucocytosis Is this a current diagnosis for this admission?: Yes - Additional Information Resuscitation Status: Full Code Discharge Diet: Cardiac, Diabetic Discharge Activity: Activity As Tolerated, Balance Activity w/Rest, Supervised Activity Referrals: JOANNE HICKS MD [ACTIVE STAFF] - (in 2 weeks with CBC on arrival. Please call my office to schedule. ) KATELYN DOUGLAS JR, DO [ACTIVE PROVISIONAL STAFF] - 01/26/20 9:25 am JOVANIN RAJPUT MD [ACTIVE STAFF] - 01/24/20 9:15 am Prescriptions: Insulin Lispro [Humalog Insulin (Lispro) 100 unit/mL] 0 - 12 unit SUBCUT ACHS #1 vial Insulin Glargine,Hum.rec.anlog [Lantus Insulin 100 Unit/1 ml 10 ml] 16 unit SUBCUT Q12 #1 vial Nicotine [Nicoderm 21 mg/24 Hr Transderm Patch] 1 each TD DAILYP PRN #30 patch.td24 PRN Reason: Oxycodone HCl [Oxy-Ir 5 mg Tablet] 10 mg PO Q4HP PRN #20 tablet PRN Reason: Lisinopril [Prinivil 10 mg Tablet] 10 mg PO DAILY #30 tablet Rifampin [Rifadin 300 mg Capsule] 600 mg PO ACBRKFST #66 capsule Vancomycin HCl [Vancocin Inj 1000 mg Vial] 1,000 mg IV Q8 #100 vial Home Medications: Gabapentin 300 mg PO TID 01/06/20 Acetaminophen [Tylenol 325 mg Tablet] 650 mg PO Q4HP PRN tablet 01/11/20 Docusate Sodium [Colace 100 mg Capsule] 100 mg PO BID capsule 01/11/20 Nicotine [Nicoderm 21 mg/24 Hr Transderm Patch] 1 each TD DAILYP PRN #30 patch.td24 01/11/20 Polyethylene Glycol 3350 [Miralax Powder 17 gm/Packet] 17 gm PO DAILY powd.pack 01/11/20 Acetaminophen [Tylenol 325 mg Tablet] 650 mg PO Q4HP PRN tablet 01/29/20 Insulin Glargine,Hum.rec.anlog [Lantus Insulin 100 Unit/1 ml 10 ml] 16 unit SUBCUT Q12 #1 vial 01/29/20 Insulin Lispro [Humalog Insulin (Lispro) 100 unit/mL] 0 - 12 unit SUBCUT ACHS #1 vial 01/29/20 Lisinopril [Prinivil 10 mg Tablet] 10 mg PO DAILY #30 tablet 01/29/20 Oxycodone HCl [Oxy-Ir 5 mg Tablet] 10 mg PO Q4HP PRN #20 tablet 01/29/20 Rifampin [Rifadin 300 mg Capsule] 600 mg PO ACBRKFST #66 capsule 01/29/20 Vancomycin HCl [Vancocin Inj 1000 mg Vial] 1,000 mg IV Q8 #100 vial 01/29/20 History of Present Illiness History of Present Illness: Per H&P by Dr. Cutler: MEG GHOTRA is a 59 year old male who presented to the emergency room with a 4-day history of right knee pain. He admits progressively worsening constant throbbing pain in his right knee becoming extremely severe today. Pain is been accompanied by redness and swelling. The pain is worsened by weightbearing or efforts at walking. He denies other associated or accompanying signs and symptoms. He denies prior similar episodes. He has not identified any additional aggravating or ameliorating factors for his right knee pain. In the emergency room he was found to have a white blood count of 18,000 with a fever of 102 F. His right knee was found to have an purulent effusion on aspiration and joint cultures as well as blood cultures were obtained prior to starting IV antibiotics. Dr. Douglas was consulted by the ER physician and plans to take the patient to the OR in the a.m. Hospital Course Hospital Course: (1) Septic arthritis of knee, right S/P right knee arthroscopic I&D with debridement on 01/06/2020, arthroscopic irrigation and debridement with drain placement on 01/08/2020, and right knee open irrigation and debridement on 01/20/2020 Intraoperative culture 01/06/2020: MRSA Intraoperative culture from 01/20/2020: MRSA Right knee fluid fungal smear negative CRP trending down; 421-> 89-> 65-> 71-> 75-> 69 Orthopedic surgery consulted; have signed off. Outpatient follow up in 7-10 days. Infectious disease consulted; recommend continuing vancomycin. EOT 03/02/2020. Continue p.o. rifampin. Analgesics as needed. 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 (3) Gangrene of toe of left foot s/p amputation by Dr. Rajput Plain film cannot exclude osteomyelitis to the first distal phalanx. Pathology confirmed osteomyelitis. Surgery has signed off. Continue IV vancomycin. Infectious disease consulted to guide antibiotic course (MRSA bacteremia). Obtain tight glycemic control. Discussed wound care w/ Dr. hart today; dry dressing x24 hours then return to barely damp to dry. No Vaseline gauze. (4) Anemia Related to multiple, small, orthopedic/surgical procedures with ongoing acute infectious process Stool guaiac negative Now s/p 6 units PRBC this admission Hgb stable at 10.6 Hematology consulted; appreciate Dr. Cornejo and Dr. Hicks's assistance. Multiple myeloma laboratory evaluation negative. Dr. Cornejo recommended stopping p.o. ferrous sulfate. Outpatient follow up in 4-6 week (5) Diabetes mellitus type 2 in nonobese Hemoglobin A1c 8.5% Continue Lantus 19 units subcutaneously twice daily Continue FS BS with SSI correction scale (6) Hypokalemia Resolved Monitor periodically (7) Hyponatremia Slowly trending up Patient remains asymptomatic Continue 1200 cc fluid restriction Liberalize dietary sodium Monitor periodically with routine chemistry (8) Leucocytosis Resolved Treatment as noted above Physical Exam Vital Signs: Temp Pulse Resp BP Pulse Ox 97.8 F 57 L 18 136/75 H 99 01/29/20 08:00 01/29/20 08:00 01/29/20 08:00 01/29/20 08:00 01/29/20 08:00 Intake & Output 01/28/20 01/29/20 01/30/20 06:59 06:59 06:59 Intake Total 750 1106 250 Output Total 1175 2125 Balance -425 -1019 250 Weight 65.2 kg 60.3 kg General appearance: PRESENT: no acute distress, cooperative, thin, well- developed, well-nourished Head exam: PRESENT: atraumatic, normocephalic Eye exam: PRESENT: conjunctiva pink, EOMI, PERRLA. ABSENT: scleral icterus Ear exam: PRESENT: normal external ear exam Mouth exam: PRESENT: moist, tongue midline Respiratory exam: PRESENT: clear to auscultation nora, symmetrical, unlabored. ABSENT: rales, rhonchi, wheezes Cardiovascular exam: PRESENT: RRR. ABSENT: diastolic murmur, rubs, systolic murmur Pulses: PRESENT: normal dorsalis pedis pul Vascular exam: PRESENT: normal capillary refill Extremities exam: PRESENT: tenderness - Rt knee. ABSENT: calf tenderness, clubbing, pedal edema Musculoskeletal exam: PRESENT: ambulatory Neurological exam: PRESENT: alert, awake, oriented to person, oriented to place, oriented to time, oriented to situation, CN II-XII grossly intact. ABSENT: motor sensory deficit Psychiatric exam: PRESENT: appropriate affect, normal mood. ABSENT: homicidal ideation, suicidal ideation Skin exam: PRESENT: dry, warm, other - recent amputation to left great toe. ABSENT: cyanosis, rash Results Laboratory Results: WBC 7.1 10^3/uL (4.0-10.5) 01/27/20 09:51 RBC 3.42 10^6/uL (4.35-5.55) L 01/27/20 09:51 Hgb 10.8 g/dL (13.5-17.0) L 01/27/20 09:51 Hct 32.0 % (37.9-51.0) L 01/27/20 09:51 MCV 94 fl (80-97) 01/27/20 09:51 MCH 31.6 pg (27.0-33.4) 01/27/20 09:51 MCHC 33.8 g/dL (32.0-36.0) 01/27/20 09:51 RDW 16.7 % (11.5-14.0) H 01/27/20 09:51 Plt Count 342 10^3/uL (150-450) 01/27/20 09:51 Lymph % (Auto) Not Reportable 01/25/20 06:45 Page % (Auto) Not Reportable 01/25/20 06:45 Eos % (Auto) Not Reportable 01/25/20 06:45 Baso % (Auto) Not Reportable 01/25/20 06:45 Reticulocyte # 0.051 10^6/uL (0.028-0.122) 01/08/20 06:25 Absolute Neuts (auto) Not Reportable 01/25/20 06:45 Absolute Lymphs (auto) Not Reportable 01/25/20 06:45 Absolute Monos (auto) Not Reportable 01/25/20 06:45 Absolute Eos (auto) Not Reportable 01/25/20 06:45 Absolute Basos (auto) Not Reportable 01/25/20 06:45 Total Counted 100 01/25/20 06:45 Seg Neutrophils % Not Reportable 01/25/20 06:45 Seg Neuts % (Manual) 63 % (42-78) 01/25/20 06:45 Lymphocytes % (Manual) 23 % (13-45) 01/25/20 06:45 Monocytes % (Manual) 14 % (3-13) H 01/25/20 06:45 Eosinophils % (Manual) 0 % (0-6) 01/25/20 06:45 Basophils % (Manual) 0 % (0-2) 01/25/20 06:45 Abs Neuts (Manual) 4.0 10^3/uL (1.7-8.2) 01/25/20 06:45 Abs Lymphs (Manual) 1.4 10^3/uL (0.5-4.7) 01/25/20 06:45 Abs Monocytes (Manual) 0.9 10^3/uL (0.1-1.4) 01/25/20 06:45 Absolute Eos (Manual) 0.0 10^3/uL (0.0-0.6) 01/25/20 06:45 Abs Basophils (Manual) 0.0 10^3/uL (0.0-0.2) 01/25/20 06:45 Hypersegmented Neuts PRESENT 01/25/20 06:45 Platelet Estimate Cancelled 01/27/20 07:04 Platelet Comment ADEQUATE 01/25/20 06:45 Polychromasia SLIGHT 01/25/20 06:45 Hypochromasia SLIGHT 01/25/20 06:45 Anisocytosis 1+ 01/25/20 06:45 Ovalocytes SLIGHT 01/05/20 19:05 ESR > 120 mm/hr (0-20) H 01/18/20 12:35 Retic Count (auto) 2.16 % (0.66-2.85) 01/08/20 06:25 PT 14.1 SEC (11.4-15.4) 01/05/20 19:05 INR 1.09 01/05/20 19:05 VBG pH 7.41 (7.30-7.42) 01/05/20 19:05 VBG pCO2 45.4 mmHg (35-63) 01/05/20 19:05 VBG HCO3 28.4 mmol/L (20-32) 01/05/20 19:05 VBG Base Excess 3.4 mmol/L 01/05/20 19:05 Sodium 132.8 mmol/L (137-145) L 01/27/20 09:51 Potassium 4.3 mmol/L (3.6-5.0) 01/27/20 09:51 Chloride 99 mmol/L (98-107) 01/27/20 09:51 Carbon Dioxide 30 mmol/L (22-30) 01/27/20 09:51 Anion Gap 4 (5-19) L 01/27/20 09:51 BUN 15 mg/dL (7-20) 01/27/20 09:51 Creatinine 0.61 mg/dL (0.52-1.25) 01/28/20 05:30 Est GFR ( Amer) > 60 (>60) 01/28/20 05:30 Est GFR (Non-Af Amer) Cancelled 01/27/20 07:04 Est GFR (MDRD) Non-Af > 60 (>60) 01/28/20 05:30 Glucose 204 mg/dL (75-110) H 01/27/20 09:51 POC Glucose 170 mg/dL (70-110) H 01/29/20 06:09 Hemoglobin A1c % 8.5 % (4.7-6.0) H 01/08/20 06:25 Lactic Acid 1.0 mmol/L (0.7-2.1) 01/06/20 12:04 Uric Acid 3.1 mg/dL (3.5-8.5) L 01/05/20 19:05 Calcium 8.5 mg/dL (8.4-10.2) 01/27/20 09:51 Magnesium 1.8 mg/dL (1.6-2.3) 01/19/20 06:20 Iron 21.3 ug/dL (49-181) L 01/08/20 06:25 TIBC 162 ug/dL (250-450) L 01/08/20 06:25 % Saturation 13 % 01/08/20 06:25 Ferritin 723.00 ng/mL (17.9-464.0) H 01/08/20 06:25 Total Bilirubin 0.5 mg/dL (0.2-1.3) 01/19/20 06:20 Direct Bilirubin 0.0 mg/dL (0.0-0.4) 01/19/20 06:20 Neonat Total Bilirubin Not Reportable 01/19/20 06:20 Neonat Direct Bilirubin Not Reportable 01/19/20 06:20 Neonat Indirect Bili Not Reportable 01/19/20 06:20 AST 22 U/L (17-59) 01/19/20 06:20 ALT 13 U/L (<50) 01/19/20 06:20 Alkaline Phosphatase 183 U/L (38-126) H 01/19/20 06:20 Lactate Dehydrogenase 962 U/L (120-246) H 01/26/20 06:30 C-Reactive Protein 69.2 mg/L (<10.0) H 01/29/20 05:20 Total Protein 6.8 g/dL (6.0-8.5) 01/25/20 15:55 Albumin 2.2 g/dL (2.9-4.4) L 01/25/20 15:55 Globulin 4.6 g/dL (2.2-3.9) H 01/25/20 15:55 Albumin/Globulin Ratio 0.5 (0.7-1.7) L 01/25/20 15:55 Dthfg-3-Jayymhbia 0.5 g/dL (0.0-0.4) H 01/25/20 15:55 Beta Globulins 1.3 g/dL (0.7-1.3) 01/25/20 15:55 Gamma Globulins 2.4 g/dL (0.4-1.8) H 01/25/20 15:55 M-Saurabh Not Observed g/dL (Not Observ) 01/25/20 15:55 PEP Note Comment (.) 01/25/20 15:55 PEP Interpretation Comment (.) 01/25/20 15:55 EGFR Cancelled 01/27/20 07:04 Vitamin B12 606.0 pg/mL (239-931) 01/08/20 06:25 Folate 6.01 ng/mL (>2.76) 01/08/20 06:25 Urine Color YELLOW 01/06/20 02:57 Urine Appearance CLEAR 01/06/20 02:57 Urine pH 6.0 (5.0-9.0) 01/06/20 02:57 Ur Specific [place] 1.024 01/06/20 02:57 Urine Protein 30 mg/dL (NEGATIVE) H 01/06/20 02:57 Urine Glucose (UA) >=500 mg/dL (NEGATIVE) H 01/06/20 02:57 Urine Ketones 80 mg/dL (NEGATIVE) H 01/06/20 02:57 Urine Blood SMALL (NEGATIVE) H 01/06/20 02:57 Urine Nitrite (Reflex) NEGATIVE (NEGATIVE) 01/06/20 02:57 Urine Bilirubin NEGATIVE (NEGATIVE) 01/06/20 02:57 Urine Urobilinogen 4.0 mg/dL (<2.0) H 01/06/20 02:57 Leukocyte Esterase Rfl NEGATIVE (NEGATIVE) 01/06/20 02:57 Urine RBC (Auto) 2 /HPF 01/06/20 02:57 Urine WBC (Reflex) 1 /HPF 01/06/20 02:57 Squamous Epi Cells Auto <1 /HPF 01/06/20 02:57 Urine Mucus (Auto) RARE /LPF 01/06/20 02:57 Urine Ascorbic Acid NEGATIVE (NEGATIVE) 01/06/20 02:57 Fluid Type SYNOVIAL 01/05/20 23:05 Fluid Type SYNOVIAL 01/05/20 23:05 Fluid Source KNEE 01/05/20 23:05 Fluid Color ORANGE 01/05/20 23:05 Fluid Appearance TURBID 01/05/20 23:05 Fluid Viscosity SLIGHTLY VISCOUS 01/05/20 23:05 Fluid WBC 63890 /uL 01/05/20 23:05 Fluid RBC 06150 /uL 01/05/20 23:05 Fluid Seg Neutrophils 97 % 01/05/20 23:05 Fluid Lymphocytes 1 % 01/05/20 23:05 Fluid Monocytes 2 % 01/05/20 23:05 Fluid Crystals NONE OBSERVED 01/05/20 23:05 Fluid Crystal Source RIGHT KNEE 01/05/20 23:05 Ca Pyrophosphate Cryst NONE OBSERVED 01/05/20 23:05 Synov Monosodium Urate NONE OBSERVED 01/05/20 23:05 Stool Occult Blood NEGATIVE (NEGATIVE) 01/15/20 16:20 Time Trough Drawn 0530 01/28/20 05:30 Vancomycin Trough 16.7 ug/mL (5.0-20.0) 01/28/20 05:30 IgD <1.28 mg/dL (<14.11) 01/26/20 13:00 Wuyfy-4-Muawmzgla MADISON 0.4 g/dL (0.4-1.0) 01/25/20 15:55 Free Murdo LC, Quant 170.3 mg/L (3.3-19.4) H 01/25/20 15:55 Free Lambda LC, Quant 102.4 mg/L (5.7-26.3) H 01/25/20 15:55 Free Murdo/Lambda Ratio 1.66 (0.26-1.65) H 01/25/20 15:55 COVID-19 Source NASOPHARYNGEAL 01/17/20 15:30 COVID-19 (MATTHIEU) NOT DETECTED 01/17/20 15:30 SARS-CoV-2 (PCR) NEGATIVE (NEGATIVE) 01/06/20 00:10 Slides for Path Review Cancelled 01/27/20 07:04 Blood Type O POSITIVE 01/25/20 12:30 Blood Type Confirm O POSITIVE 01/25/20 12:30 Antibody Screen NEGATIVE 08/11/20 12:30 Crossmatch See Detail 01/25/20 12:30 Impressions: Chest X-Ray 01/05/20 18:40 IMPRESSION: NO ACUTE RADIOGRAPHIC FINDING IN THE CHEST. Knee X-Ray 01/05/20 18:41 IMPRESSION: Moderate knee joint effusion. No acute fracture or dislocation. Foot X-Ray 01/11/20 00:00 IMPRESSION: Cannot exclude osteomyelitis in the 1st distal phalanx. PICC Line Insertion 01/13/20 00:00 IMPRESSION: SUCCESSFUL PLACEMENT OF A 5 FR DUAL LUMEN 32 CM PICC IN THE RIGHT BASILIC VEIN. Knee X-Ray 01/15/20 00:00 IMPRESSION: Moderate knee joint effusion. No acute fracture or dislocation. Plan Plan of Treatment: Follow up with PCP within 1 week of discharge from SNF. Complete full course of Vancomycin; last day of treatment is 03/02/20. Recommend weekly CBC, BMP, and CRP through end of course. Complete full course of Rifampin, EOT 03/02/20. Take your other medications as prescribed. Follow up with Dr. Douglas in 1-2 weeks. Follow up with the [facility] as needed. Follow up with Dr. Hicks in 4-6 weeks. Return to the emergency department as needed for concerning symptoms. Time Spent: Greater than 30 Minutes Stroke Is this a Stroke Patient?: No Acute Heart Failure - Is this a Heart Failure Patient?: No
[2020-01-29] MEDS: POLYETHYLENE GLYCOL 3350 POWDER 17 GM/1 PACKET PO SCH (10:42)
[2020-01-29] MEDS: DOCUSATE SODIUM 100 MG CAPSULE PO SCH ×2 (10:42→17:02)
[2020-01-29] MEDS: LISINOPRIL 10 MG TABLET PO SCH (10:45)
[2020-01-29] MEDS: FAMOTIDINE 20 MG TABLET PO SCH ×2 (10:45→21:33)
[2020-01-29] MEDS: NORMAL SALINE 10 ML SDV (SCHEDULED) IV SCH ×2 (10:45→21:33)
[2020-01-29] MEDS: INSULIN GLARGINE,HUM.REC.ANLOG 1,000 UNIT/10 ML VIAL SUBCUT SCH ×2 (10:46→21:33)
[2020-01-30] MEDS: OXYCODONE HCL IR 5 MG TABLET PO PRN ×5 (04:25→20:36)
[2020-01-30] MEDS: GABAPENTIN 300 MG CAPSULE PO SCH ×3 (05:17→21:14)
[2020-01-30] MEDS: VANCOMYCIN HCL 1,000 MG in DEXTROSE 5%-WATER 250 ML IV SCH ×3 (05:17→21:16)
[2020-01-30] MEDS: HEPARIN SOD (PORCINE) 5,000 UNIT/ML 1 ML VIAL SUBCUT SCH ×3 (05:18→21:14)
[2020-01-30] MEDS: INSULIN LISPRO 100 UNIT/ML 3 ML VIAL SUBCUT SCH ×4 (07:37→21:12)
--- NOTE | 2020-01-30 08:28 | PDOC PROGRESS REPORT ---
Subjective Progress Note for:: 01/30/20 Subjective:: Patient doing well. Reports being able to ambulate without severe pain right knee. Pain well controlled at this time. No current symptoms of recurrent effusion or increasing right knee pain or warmth. Reason For Visit: SEPTIC ARTHRITIS RIGHT KNEE,DIABETES MELLITUS Physical Exam Vital Signs: Temp Pulse Resp BP Pulse Ox 98.1 F 79 18 135/72 H 100 01/30/20 07:06 01/30/20 07:06 01/30/20 07:06 01/30/20 07:06 01/30/20 07:06 Intake & Output 01/29/20 01/30/20 01/31/20 06:59 06:59 06:59 Intake Total 1106 2302 250 Output Total 2125 2200 Balance -1019 102 250 Weight 60.3 kg 61.9 kg Physical Exam: No acute distress, alert and orient x3 Right lower extremity -Pulses 2+ distally -Compartments soft -Sensation grossly intact to L3-4-5 S1, with baseline neuropathy -Motor grossly intact to EHL TA gastroc and quad Wounds clean dry and intact, appears to be healing well. -No recurrent effusion or erythema, no signs of recurrent infection at this time. Mildly tender to palpation. Results Laboratory Results: 01/27/20 09:51 01/28/20 05:30 Impressions: Chest X-Ray 01/05/20 18:40 IMPRESSION: NO ACUTE RADIOGRAPHIC FINDING IN THE CHEST. Foot X-Ray 01/11/20 00:00 IMPRESSION: Cannot exclude osteomyelitis in the 1st distal phalanx. PICC Line Insertion 01/13/20 00:00 IMPRESSION: SUCCESSFUL PLACEMENT OF A 5 FR DUAL LUMEN 32 CM PICC IN THE RIGHT BASILIC VEIN. Knee X-Ray 01/15/20 00:00 IMPRESSION: Moderate knee joint effusion. No acute fracture or dislocation. Assessment & Plan - Diagnosis (1) Septic arthritis of knee, right Qualifiers: Septic arthritis organism: staphylococcal Qualified Code(s): M00.061 - Staphylococcal arthritis, right knee Is this a current diagnosis for this admission?: Yes Plan: -Continue antibiotics per infectious disease recommendations -Right knee appears stable at this time, may continue to trend CRP, however may be complicated by ongoing concerns for left foot. -Weightbearing as tolerated with physical therapy -Follow-up with Dr. Taurus Douglas, orthopedic surgeon at [facility] for surgery, in 10 days. Call for an appointment. . [address], [place] [address] (2) Septic arthritis Qualifiers: Septic arthritis location: knee Septic arthritis organism: due to unspecified organism Laterality: right Qualified Code(s): M00.9 - Pyogenic arthritis, unspecified Is this a current diagnosis for this admission?: Yes (3) Osteomyelitis of great toe of left foot Is this a current diagnosis for this admission?: Yes - Time Time Spent with patient: Less than 15 minutes
[2020-01-30] MEDS: RIFAMPIN 300 MG CAPSULE PO SCH (08:31)
[2020-01-30] MEDS: POLYETHYLENE GLYCOL 3350 POWDER 17 GM/1 PACKET PO SCH (09:23)
[2020-01-30] MEDS: DOCUSATE SODIUM 100 MG CAPSULE PO SCH ×2 (09:23→17:19)
[2020-01-30] MEDS: NORMAL SALINE 10 ML SDV (SCHEDULED) IV SCH ×2 (09:23→21:13)
[2020-01-30] MEDS: INSULIN GLARGINE,HUM.REC.ANLOG 1,000 UNIT/10 ML VIAL SUBCUT SCH ×2 (09:24→21:13)
[2020-01-30] MEDS: LISINOPRIL 10 MG TABLET PO SCH (09:24)
[2020-01-30] MEDS: FAMOTIDINE 20 MG TABLET PO SCH ×2 (09:24→21:12)
--- NOTE | 2020-01-30 10:44 | PDOC PROGRESS REPORT ---
Subjective Progress Note for:: 01/30/20 Subjective:: left great toe amp Reason For Visit: SEPTIC ARTHRITIS RIGHT KNEE,DIABETES MELLITUS Physical Exam Vital Signs: Temp Pulse Resp BP Pulse Ox 98.1 F 79 18 135/72 H 100 01/30/20 07:06 01/30/20 07:06 01/30/20 07:06 01/30/20 07:06 01/30/20 07:06 Intake & Output 01/29/20 01/30/20 01/31/20 06:59 06:59 06:59 Intake Total 1106 2302 250 Output Total 2125 2200 Balance -1019 102 250 Weight 60.3 kg 61.9 kg General appearance: PRESENT: no acute distress Head exam: PRESENT: normocephalic Eye exam: PRESENT: EOMI Ear exam: PRESENT: normal external ear exam Mouth exam: PRESENT: moist Neck exam: PRESENT: full ROM Respiratory exam: PRESENT: clear to auscultation nora Cardiovascular exam: PRESENT: RRR Pulses: PRESENT: +1 pedal pulses bilateral Breast: PRESENT: Normal GI/Abdominal exam: PRESENT: soft Rectal exam: PRESENT: deferred Extremities exam: PRESENT: other - left amputation site healing well min epidermal slough wound clean, no purulence Skin exam: PRESENT: dry Results Laboratory Results: 01/27/20 09:51 01/28/20 05:30 Impressions: Chest X-Ray 01/05/20 18:40 IMPRESSION: NO ACUTE RADIOGRAPHIC FINDING IN THE CHEST. Foot X-Ray 01/11/20 00:00 IMPRESSION: Cannot exclude osteomyelitis in the 1st distal phalanx. PICC Line Insertion 01/13/20 00:00 IMPRESSION: SUCCESSFUL PLACEMENT OF A 5 FR DUAL LUMEN 32 CM PICC IN THE RIGHT BASILIC VEIN. Knee X-Ray 01/15/20 00:00 IMPRESSION: Moderate knee joint effusion. No acute fracture or dislocation. Assessment & Plan - Time Anticipated Discharge Disposition: [facility] Anticipated Discharge Timeframe: within 24 hours - Plan Summary Plan Summary: satisfactory healing of left great toe amp site cont wet to dry dressing changes.
--- NOTE | 2020-01-30 16:31 | PDOC PROGRESS REPORT ---
Subjective Progress Note for:: 01/30/20 Subjective:: Patient was seen on morning rounds. He is found resting in bed, comfortably, on room air . He reports that he is feeling well today. Continued discomfort to his knee, although, improved. Ambulatory in halls. No pain to his left foot. Primary complaint is boredom; wants to discharge. He denies fever, chills, chest pain, palpitations, dyspnea, orthopnea, abdominal pain, nausea vomiting diarrhea. He has no new questions or concerns. Nursing reports macerated appearance of left toe amputation site Reason For Visit: SEPTIC ARTHRITIS RIGHT KNEE,DIABETES MELLITUS Physical Exam Vital Signs: Temp Pulse Resp BP Pulse Ox 98.1 F 84 20 121/60 99 01/30/20 16:00 01/30/20 16:00 01/30/20 16:00 01/30/20 16:00 01/30/20 16:00 Intake & Output 01/29/20 01/30/20 01/31/20 06:59 06:59 06:59 Intake Total 1106 2302 1240 Output Total 2125 2200 900 Balance -1019 102 340 Weight 60.3 kg 61.9 kg General appearance: PRESENT: no acute distress, cooperative, thin, well- developed, well-nourished Head exam: PRESENT: atraumatic, normocephalic Eye exam: PRESENT: conjunctiva pink, EOMI, PERRLA. ABSENT: scleral icterus Mouth exam: PRESENT: moist, tongue midline Respiratory exam: PRESENT: clear to auscultation nora, symmetrical, unlabored. ABSENT: rales, rhonchi, wheezes Cardiovascular exam: PRESENT: RRR, +S1, +S2. ABSENT: diastolic murmur, rubs, systolic murmur Pulses: PRESENT: normal dorsalis pedis pul Vascular exam: PRESENT: normal capillary refill Extremities exam: PRESENT: full ROM, tenderness - rt knee. ABSENT: calf tenderness, clubbing, pedal edema Neurological exam: PRESENT: alert, awake, oriented to person, oriented to place, oriented to time, oriented to situation, CN II-XII grossly intact. ABSENT: motor sensory deficit Psychiatric exam: PRESENT: appropriate affect, normal mood. ABSENT: homicidal ideation, suicidal ideation Skin exam: PRESENT: dry, warm, other - recent amputation to left great toe. ABSENT: cyanosis, rash Results Laboratory Results: 01/27/20 09:51 01/28/20 05:30 01/28/20 08:09 Foot - Left Gram Stain - Final 01/28/20 08:09 Foot - Left Wound Culture - Final Enterobacter Cloacae Impressions: Chest X-Ray 01/05/20 18:40 IMPRESSION: NO ACUTE RADIOGRAPHIC FINDING IN THE CHEST. Foot X-Ray 01/11/20 00:00 IMPRESSION: Cannot exclude osteomyelitis in the 1st distal phalanx. PICC Line Insertion 01/13/20 00:00 IMPRESSION: SUCCESSFUL PLACEMENT OF A 5 FR DUAL LUMEN 32 CM PICC IN THE RIGHT BASILIC VEIN. Knee X-Ray 01/15/20 00:00 IMPRESSION: Moderate knee joint effusion. No acute fracture or dislocation. Assessment and Plan - Diagnosis (1) Septic arthritis of knee, right Qualifiers: Septic arthritis organism: staphylococcal Qualified Code(s): M00.061 - Staphylococcal arthritis, right knee Is this a current diagnosis for this admission?: Yes Plan: Ortho input/assistance appreciated S/P right knee arthroscopic I&D with debridement on 01/06/2020, arthroscopic irrigation and debridement with drain placement on 01/08/2020, and right knee open irrigation and debridement on 01/20/2020 Intraoperative culture 01/06/2020: MRSA Intraoperative culture from 01/20/2020: MRSA Right knee fluid fungal smear negative Orthopedic surgery consulted CRP trending up; will monitor, would like to see further downward trend prior to discharge. 421-> 89-> 65-> 71-> 75-> 69 Continue vancomycin per pharmacy protocol at this time Infectious disease consulted; recommend continuing vancomycin. EOT 03/02/2020. Continue p.o. rifampin. Analgesics as needed. Physical therapy consulted. (2) Gangrene of toe of left foot Is this a current diagnosis for this admission?: Yes Plan: s/p amputation by Dr. Rajput Plain film cannot exclude osteomyelitis to the first distal phalanx. Pathology confirmed osteomyelitis. Surgery has signed off. Continue IV vancomycin. Infectious disease consulted to guide antibiotic course (MRSA bacteremia). Obtain tight glycemic control. Discussed w/ Dr. Singh; has evaluated foot and recommends continued wet-to-dry dressings. Appreciate assistance. (3) Bacteremia Is this a current diagnosis for this admission?: Yes Plan: 1/ blood cultures from 01/05/2020 positive for MRSA Repeat blood cultures on 01/09/2020 NG at 5 days Above potentially 2/2 the patient's septic right knee however also noted to have gangrene of the left toe, s/p amputation of left great toe on 01/12/2020 Toe pathology confirmed osteomyelitis ID input appreciated, will need to continue IV vancomycin for 6 weeks treatment end date 03/02/2020 Continue rifampin per IDs recommendations. (4) Anemia Qualifiers: Other causes of anemia: chronic disease, other Is this a current diagnosis for this admission?: Yes Plan: Related to multiple, small, orthopedic/surgical procedures with ongoing acute infectious process Stool guaiac negative Now s/p 6 units PRBC this admission Hgb stable at 10.6 Hematology consulted; appreciate Dr. Cornejo and Dr. Hicks's assistance. Multiple myeloma laboratory evaluation pending. Dr. Cornejo recommended stopping p.o. ferrous sulfate. Outpatient follow up in 4-6 week (5) Diabetes mellitus type 2 in nonobese Is this a current diagnosis for this admission?: Yes Plan: Hemoglobin A1c 8.5% Continue Lantus 19 units subcutaneously twice daily Orders placed to ensure that patient gets an at bedtime snack Continue FS BS with SSI correction scale Hypoglycemia protocol in place Registered dietitian and porcelain mixer consulted (6) Hypokalemia Is this a current diagnosis for this admission?: Yes Plan: Resolved Monitor periodically (7) Hyponatremia Is this a current diagnosis for this admission?: Yes Plan: Slowly trending up Patient remains asymptomatic Continue 1200 cc fluid restriction Liberalize dietary sodium Monitor periodically (8) Leucocytosis Is this a current diagnosis for this admission?: Yes Plan: Resolved Treatment as noted above - Time Time Spent with patient: 25-34 minutes Medications reviewed and adjusted accordingly: Yes Anticipated Discharge Disposition: [facility]-Way Facility Anticipated Discharge Timeframe: when bed available
[2020-01-31] MEDS: OXYCODONE HCL IR 5 MG TABLET PO PRN ×4 (00:39→11:47)
[2020-01-31] MEDS: HEPARIN SOD (PORCINE) 5,000 UNIT/ML 1 ML VIAL SUBCUT SCH (05:07)
[2020-01-31] MEDS: VANCOMYCIN HCL 1,000 MG in DEXTROSE 5%-WATER 250 ML IV SCH (05:09)
[2020-01-31] MEDS: GABAPENTIN 300 MG CAPSULE PO SCH (05:09)
[2020-01-31 09:04] VITALS: BP 124/62
[2020-01-31] MEDS: INSULIN LISPRO 100 UNIT/ML 3 ML VIAL SUBCUT SCH ×2 (09:04→11:41)
[2020-01-31] MEDS: RIFAMPIN 300 MG CAPSULE PO SCH (09:05)
[2020-01-31] MEDS: DOCUSATE SODIUM 100 MG CAPSULE PO SCH (09:05)
[2020-01-31] MEDS: FAMOTIDINE 20 MG TABLET PO SCH (09:05)
[2020-01-31] MEDS: INSULIN GLARGINE,HUM.REC.ANLOG 1,000 UNIT/10 ML VIAL SUBCUT SCH (09:05)
[2020-01-31] MEDS: POLYETHYLENE GLYCOL 3350 POWDER 17 GM/1 PACKET PO SCH (09:06)
[2020-01-31] MEDS: NORMAL SALINE 10 ML SDV (SCHEDULED) IV SCH (09:06)
[2020-01-31] MEDS: LISINOPRIL 10 MG TABLET PO SCH (09:06)
== END 2020-01-31 12:17 | DRG 475 ==
LOC: ER 18:15 → EH 23:35 → OBSVTOIN 01-06 00:57 → 4W 01-06 02:49 → 4S 01-07 17:59
PROVIDERS: ADMIT Emergency Medicine; ATTEND Registered Nurse
PROC: 0S9C4ZZ Drainage of Right Knee Joint, Percutaneous Endoscopic Approach (ICD-10-PCS; 2020-01-06)
PROC: 0JDN3ZZ Extraction of Right Lower Leg Subcutaneous Tissue and Fascia, Percutaneous Approach (ICD-10-PCS; 2020-01-08)
PROC: 30233N1 Transfusion of Nonautologous Red Blood Cells into Peripheral Vein, Percutaneous Approach (ICD-10-PCS; 2020-01-11)
PROC: 0Y6N0Z9 Detachment at Left Foot, Partial 1st Ray, Open Approach (ICD-10-PCS; principal; 2020-01-12 10:00)
PROC: 02HV33Z Insertion of Infusion Device into Superior Vena Cava, Percutaneous Approach (ICD-10-PCS; 2020-01-13)
PROC: 0SBC4ZZ Excision of Right Knee Joint, Percutaneous Endoscopic Approach (ICD-10-PCS; 2020-01-20)
DX: M00.061 Staphylococcal arthritis, right knee (principal); E11.52 Type 2 diabetes mellitus with diabetic peripheral angiopathy with gangrene; I96 Gangrene, not elsewhere classified; E87.1 Hypo-osmolality and hyponatremia; R78.81 Bacteremia; E87.6 Hypokalemia; B95.62 Methicillin resistant Staphylococcus aureus infection as the cause of diseases classified elsewhere; D50.9 Iron deficiency anemia, unspecified; I10 Essential (primary) hypertension; F17.210 Nicotine dependence, cigarettes, uncomplicated; Z11.59 Encounter for screening for other viral diseases; Z79.4 Long term (current) use of insulin; Z79.899 Other long term (current) drug therapy; Z88.8 Allergy status to other drugs, medicaments and biological substances
CPT/HCPCS: 01400; 01480; 36415; 36430; 36573; 71045; 80048; 80053; 80076; 80202; 81001; 82272; 82565; 82607; 82728; 82746; 82784; 82803; 82962; 83036; 83540; 83550; 83605; 83615; 83735; 83883; 84165; 84550; 85025; 85027; 85045; 85610; 85652; 86140; 86850; 86900; 86901; 86920; 87015; 87040; 87070; 87075; 87077; 87101; 87116; 87186; 87205; 87206; 87635; 88305; 88311; 89050; 89060; 93005; 93010; 93306; 96361; 96365; 96367; 96375; 99140; 99285; C9803; J0171; J0690; J1100; J1170; J1580; J1642; J1644; J1815; J1885; J2250; J2270; J2405; J2704; J3010; J3301; J3370; J3490; J7030; J7060; J7120; P9016

== ENCOUNTER 2020-02-24 17:58 | Inpatient (IN) | payer MEDICARE ==
[2020-02-24] MEDS ORDERED: OXYCODONE-ACETAMINOPHEN 5-325 MG TABLET PO ONE (20:29)
--- NOTE | 2020-02-24 20:35 | ER Document Report ---
ED Extremity Problem, Lower - General Chief Complaint: Knee Pain Stated Complaint: POSSIBLE KNEE INFECTION - RIGHT Time Seen by Provider: 02/24/20 20:06 Mode of Arrival: Stretcher Information source: Patient Notes: 59-year-old male past medical history significant for diabetes right knee MRSA presents emergency room via EMS after being called at [facility] after having an MRI of his right knee today which showed a large effusion subchondral edema inflammatory or infiltrate of the right knee. Patient was referred to the hospital by his orthopedist Dr. Douglas who has been following him since he did surgery approximately 6 weeks ago. Patient is understanding that he is to be admitted for further evaluation and treatment. Continues to complain of persistent right knee pain since surgery TRAVEL OUTSIDE OF THE [place] IN LAST 30 DAYS: No - Related Data Allergies/Adverse Reactions: naproxen [From Naprosyn] Allergy (Unknown, Verified 01/05/20 18:38) RASH Past Medical History - General Information source: Patient - Social History Smoking Status: Former Smoker Frequency of alcohol use: None Drug Abuse: None Family History: denies: CAD, DM, Hypertension, Malignancy - Past Medical History Cardiac Medical History: Reports: Hx Hypertension Denies: Hx Coronary Artery Disease, Hx DVT, Hx Heart Attack, Hx Hypercholesterolemia Pulmonary Medical History: Denies: Hx Asthma, Hx Bronchitis, Hx COPD, Hx Pneumonia Neurological Medical History: Denies: Hx Cerebrovascular Accident, Hx Seizures Endocrine Medical History: Reports: Hx Diabetes Mellitus Type 2. Denies: Hx Diabetes Mellitus Type 1, Hx Hyperthyroidism, Hx Hypothyroidism Renal/ Medical History: Denies: Hx Peritoneal Dialysis GI Medical History: Reports: Hx Hiatal Hernia. Denies: Hx Cirrhosis, Hx Hepatitis Musculoskeletal Medical History: Reports Hx Arthritis, Denies Hx Gout, Reports Hx Musculoskeletal Deformity, Reports Hx Musculoskeletal Trauma Skin Medical History: Reports Hx Cellulitis, Denies Hx Eczema, Denies Hx Psoriasis Psychiatric Medical History: Denies: Hx Depression Infectious Medical History: Reports: Hx MRSA. Denies: Hx Hepatitis Past Surgical History: Reports: Hx Abdominal Surgery - hiatal hernia repair, Hx Orthopedic Surgery - L4-L5 w/ hardware, 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, Other - Ventral hernia repair in the past - Immunizations Hx Diphtheria, Pertussis, Tetanus Vaccination: Yes Review of Systems - Review of Systems Constitutional: No symptoms reported Cardiovascular: No symptoms reported Respiratory: No symptoms reported Musculoskeletal: Joint pain, Joint swelling Skin: Other - Erythema, warmth, right knee Neurological/Psychological: No symptoms reported -: Yes All other systems reviewed and negative Physical Exam - Vital signs Vitals: Temp Pulse Resp BP Pulse Ox 98.9 F 90 18 148/74 H 98 02/24/20 18:45 02/24/20 18:45 02/24/20 18:45 02/24/20 18:45 02/24/20 18:45 - General General appearance: Appears well, Alert In distress: Mild - Respiratory Respiratory status: No respiratory distress Chest status: Nontender Breath sounds: Normal Chest palpation: Normal - Cardiovascular Rhythm: Regular Heart sounds: Normal auscultation Murmur: No - Extremities General upper extremity: Normal inspection, Nontender, Normal color, Normal ROM, Normal temperature General lower extremity: Normal inspection, Nontender, Normal color, Normal ROM, Normal temperature, Normal weight bearing. No: Sole's sign Knee: Tender - Right posterior knee with erythema, swelling, warm and tender to palpation. Limited range of motion with flexion extension to the right knee., Joint effusion, Pain with ROM - Skin Skin Temperature: Warm Skin Moisture: Dry Skin Color: Normal, Erythema Location of irregularity: Extremities Character of irregularity: Erythematous Irregularity with: Swelling, Tenderness, Warmth Course - Vital Signs Vital signs: Temp Pulse Resp BP Pulse Ox 98.8 F 86 18 142/76 H 97 02/24/20 21:45 02/24/20 21:45 02/24/20 21:45 02/24/20 21:45 02/24/20 21:45 - Laboratory Result Diagrams: 02/24/20 20:55 02/24/20 20:55 Laboratory results interpreted by me: 02/24/20 02/24/20 20:55 20:55 RBC 2.92 L Hgb 9.5 L Hct 27.6 L RDW 15.5 H Alkaline Phosphatase 137 H Albumin 3.3 L - Diagnostic Test Radiology reviewed: Reports reviewed - EKG Interpretation by Me EKG shows normal: Sinus rhythm Additional EKG results interpreted by me: 02/24/20 21:36 EKG was reviewed by ED physician Dr. Ferraro No acute STEMI Normal sinus rhythm Rate 91 Left axis deviation Normal ST-T wave segments - Consults Dr. Douglas Time consulted: 20:25 - Discussed case and patient was to be direct admit to hospitalist Reason for consultation: 02/24/20 20:[address] Douglas, orthopedist plan for patient. Per Dr. Douglas patient is to be admitted to the hospitalist for surgical intervention in the morning for persistent septic arthritis of the right knee. Per Dr. Douglas patient can eat tonight will have surgery in the morning. Call was placed to hospitalist to discuss. Dr. Sanchez Time consulted: 21:24 Reason for consultation: 02/24/20 21:24 Discussed with hospitalist, Dr. Sanchez that I have spoken with Dr. Douglas who is going to take the patient to the OR in the morning. However patient is to be admitted for medical management. Hospitalist is aware that Dr. Douglas had spoken earlier today with Dr. Douglas and thought the patient was going to be a direct admit unfortunately patient wanted up in the emergency room and now needs to be admitted. Dr. Sanchez is agreeable to accept admission. She is requesting CMP, EKG, and chest x-ray in addition to the CBC that was previously ordered. Consulted provider: will come to ER Discharge - Discharge Clinical Impression: Septic arthritis of knee, right Qualifiers: Septic arthritis organism: due to other bacteria Qualified Code(s): M00.861 - Arthritis due to other bacteria, right knee Condition: Stable Disposition: ADMITTED INPATIENT Admitting Provider: Laura Unit Admitted: Surgical Floor
[2020-02-24 21:22] LABS: HEMATOCRIT 27.6 % (37.9-51.0); HEMOGLOBIN 9.5 g/dL (13.5-17.0); MEAN CORPUSCULAR HEMOGLOBIN 32.5 pg (27.0-33.4); MEAN CORPUSCULAR HGB CONC 34.4 g/dL (32.0-36.0); MEAN CORPUSCULAR VOLUME 94 fl (80-97); PLATELET COUNT 319 10^3/uL (150-450); RED BLOOD COUNT 2.92 10^6/uL (4.35-5.55); RED CELL DISTRIBUTION WIDTH 15.5 % (11.5-14.0); WHITE BLOOD COUNT 6.6 10^3/uL (4.0-10.5)
[2020-02-24 21:39] LABS: ALBUMIN 3.3 g/dL (3.5-5.0); ALKALINE PHOSPHATASE 137 U/L (38-126); ANION GAP 7 (5-19); ASPARTATE AMINO TRANSFERASE 23 U/L (17-59); BILIRUBIN,DIRECT 0.4 mg/dL (0.0-0.4); BILIRUBIN,TOTAL 0.6 mg/dL (0.2-1.3); BLOOD UREA NITROGEN 20 mg/dL (7-20); CARBON DIOXIDE 27 mmol/L (22-30); CHLORIDE 104 mmol/L (98-107); GLUCOSE 88 mg/dL (75-110); POTASSIUM 4.1 mmol/L (3.6-5.0); TOTAL PROTEIN 8.1 g/dL (6.3-8.2)
[2020-02-24] MEDS ORDERED: OXYCODONE-ACETAMINOPHEN 5-325 MG TABLET PO PRN (22:06)
[2020-02-24] MEDS ORDERED: DEXTROSE 50%-WATER 25 GM/50 ML DISP.SYRIN IV PRN ×2 (22:06)
[2020-02-24] MEDS ORDERED: DEXTROSE 40% GEL 15 GM TUBE PO PRN ×2 (22:06)
[2020-02-24] MEDS ORDERED: GLUCAGON,HUMAN RECOMB 1 MG INJ IM PRN (22:06)
--- NOTE | 2020-02-24 22:06 | RADIOLOGY REPORT (SQ) ---
XR CHEST 1 VIEW HISTORY: Preoperative. COMPARISON: 01/05/2020 FINDINGS: The heart size is within normal limits. There is no pulmonary vascular congestion. No consolidation, pleural effusion, or pneumothorax is seen. No acute bony findings are seen. There is a right upper extremity PICC with the tip in the SVC. IMPRESSION: No evidence of acute cardiopulmonary disease.
[2020-02-24] MEDS ORDERED: HEPARIN SOD (PORCINE) 5,000 UNIT/ML 1 ML VIAL SUBCUT ONE (22:45)
[2020-02-24] MEDS ORDERED: INSULIN GLARGINE,HUM.REC.ANLOG 1,000 UNIT/10 ML VIAL SUBCUT ONE (22:45)
--- NOTE | 2020-02-24 23:46 | PDOC H&P ---
History of Present Illness Admission Date/PCP: 02/24/20 21:43 KATELYN EDUARDO JR, DO Patient complains of: right knee pain History of Present Illness: MEG GHOTRA is a 59 year old male, PMH of DM type 2 on lantus, septic arthritis 2/2 MRSA, admitted due to right knee pain. About 2 months [employer], he had his first episode of right knee pain and swelling. He underwent arthroscopic washout twice 01/05- 01/08. Blood culture and wound culture grew MRSA and he was started on IV vanc. He also underwent left big toe amputation 2/2 osteomyelitis 01/06/20. He underwent open irrigation on 01/20/20 due to wound drainage on his right knee. ID was consulted who recommended to continue vanc. He was discharged to [facility] where he continued to get Vanc IV with last dose supposedly on Mar.02. About 1 week [employer], he again noted right knee swelling and pain, unable to bear weight. He was advised to be readmitted by Dr. Eduardo for possible irrigation again. Past Medical History Cardiac Medical History: Reports: Hypertension Denies: Coronary Artery Disease, DVT, Myocardial Infarction, Hyperlipidema Pulmonary Medical History: Denies: Asthma, Bronchitis, Chronic Obstructive Pulmonary Disease (COPD), Pneumonia EENT Medical History: Reports: None Neurological Medical History: Reports: None Denies: Seizures Endocrine Medical History: Reports: Diabetes Mellitus Type 2 - on lantus Denies: Diabetes Mellitus Type 1, Hyperthyroidism, Hypothyroidism Renal/ Medical History: Reports: None Malignancy Medical History: Reports: None GI Medical History: Reports: None, Hiatal Hernia Denies: Cirrhosis, Hepatitis Musculoskeltal Medical History: Reports: Arthritis - recurrent septic arthritis Denies: Gout Skin Medical History: Denies: Eczema, Psoriasis Psychiatric Medical History: Reports: None Denies: Depression Hematology: Denies: Anemia, Bleeding Tendencies Infectious Medical History: Reports: Methicillin-Resistant Staph Aureus Past Surgical History Past Surgical History: Reports: Orthopedic Surgery - L4-L5 w/ hardware, 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, Other - Ventral hernia repair in the past Social History Information Source: Patient Smoking Status: Former Smoker Cigarettes Packs Per Day: 3 Number of Years Smokin Frequency of Alcohol Use: None Hx Recreational Drug Use: No Drugs: None Hx Prescription Drug Abuse: No Family History Family History: denies: CAD, DM - father, Hypertension, Malignancy Parental Family History Reviewed: Yes Children Family History Reviewed: Yes Sibling(s) Family History Reviewed.: Yes Medication/Allergy Home Medications: Gabapentin 300 mg PO TID 01/06/20 Acetaminophen [Tylenol 325 mg Tablet] 650 mg PO Q4HP PRN tablet 01/11/20 Docusate Sodium [Colace 100 mg Capsule] 100 mg PO BID capsule 01/11/20 Nicotine [Nicoderm 21 mg/24 Hr Transderm Patch] 1 each TD DAILYP PRN #30 patch.td24 01/11/20 Polyethylene Glycol 3350 [Miralax Powder 17 gm/Packet] 17 gm PO DAILY powd.pack 01/11/20 Acetaminophen [Tylenol 325 mg Tablet] 650 mg PO Q4HP PRN tablet 01/29/20 Insulin Glargine,Hum.rec.anlog [Lantus Insulin 100 Unit/1 ml 10 ml] 16 unit SUBCUT Q12 #1 vial 01/29/20 Insulin Lispro [Humalog Insulin (Lispro) 100 unit/mL] 0 - 12 unit SUBCUT ACHS #1 vial 01/29/20 Lisinopril [Prinivil 10 mg Tablet] 10 mg PO DAILY #30 tablet 01/29/20 Oxycodone HCl [Oxy-Ir 5 mg Tablet] 10 mg PO Q4HP PRN #20 tablet 01/29/20 Rifampin [Rifadin 300 mg Capsule] 600 mg PO ACBRKFST #66 capsule 01/29/20 Vancomycin HCl [Vancocin Inj 1000 mg Vial] 1,000 mg IV Q8 #100 vial 01/29/20 Allergies/Adverse Reactions: naproxen [From Naprosyn] Allergy (Unknown, Verified 01/05/20 18:38) RASH Review of Systems Constitutional: PRESENT: weakness Cardiovascular: ABSENT: chest pain, dyspnea on exertion, palpitations Respiratory: ABSENT: cough, dyspnea Gastrointestinal: ABSENT: abdominal pain, dysphagia Musculoskeletal: PRESENT: back pain, joint swelling Integumentary: PRESENT: erythema Neurological: ABSENT: abnormal speech, focal weakness, frequent falls Physical Exam Vital Signs: Temp Pulse Resp BP Pulse Ox 98.8 F 86 18 142/76 H 97 02/24/20 21:45 02/24/20 21:45 02/24/20 21:45 02/24/20 21:45 02/24/20 21:45 Intake & Output 02/23/20 02/24/20 02/25/20 06:59 06:59 06:59 Weight 65.771 kg General appearance: PRESENT: no acute distress, cooperative, well-developed, well-nourished Head exam: PRESENT: atraumatic, normocephalic Eye exam: PRESENT: EOMI, PERRLA Mouth exam: PRESENT: moist Respiratory exam: PRESENT: clear to auscultation nora, symmetrical, unlabored. ABSENT: wheezes Pulses: PRESENT: normal radial pulses Vascular exam: PRESENT: normal capillary refill GI/Abdominal exam: PRESENT: normal bowel sounds, soft. ABSENT: rebound, tenderness Rectal exam: PRESENT: deferred Extremities exam: PRESENT: joint swelling - right knee, limited ROM, right knee Musculoskeletal exam: PRESENT: tenderness - right knee, other - surgically absent left big toe Neurological exam: PRESENT: alert, awake, oriented to person, oriented to place, oriented to time Psychiatric exam: PRESENT: normal mood Results Laboratory Results: 02/24/20 20:55 02/24/20 20:55 02/24/20 02/24/20 20:55 20:55 WBC 6.6 RBC 2.92 L Hgb 9.5 L Hct 27.6 L MCV 94 MCH 32.5 MCHC 34.4 RDW 15.5 H Plt Count 319 Sodium 138.0 Potassium 4.1 Chloride 104 Carbon Dioxide 27 Anion Gap 7 BUN 20 Creatinine 0.75 Est GFR ( Amer) > 60 Glucose 88 Calcium 9.0 Total Bilirubin 0.6 AST 23 Alkaline Phosphatase 137 H Total Protein 8.1 Albumin 3.3 L Impressions: Chest X-Ray 02/24/20 21:23 IMPRESSION: No evidence of acute cardiopulmonary disease. Assessment and Plan - Diagnosis (1) Septic arthritis of knee, right Qualifiers: Septic arthritis organism: staphylococcal Qualified Code(s): M00.061 - Staphylococcal arthritis, right knee Is this a current diagnosis for this admission?: Yes Plan: - hx of septic arthritis 2/ MRSA December 2019 - s/p arthroscopic debridement 2x December 2019 - s/p open irrigation 01/20/20 - On vanc since December supposedly until 03/02/20 - +ve right knee pain, swelling and erythema - WBC count 8.6 - continue Vanc - blood cultures drawn - ID consult - Dr. Eduardo on consult (2) Diabetes type 2, uncontrolled Qualifiers: Glycemic state: with hyperglycemia Qualified Code(s): E11.65 - Type 2 diabetes mellitus with hyperglycemia Is this a current diagnosis for this admission?: Yes Plan: - on Lantus 18 u BID - resume lantus - NPO for procedure - accucheck q6 - sliding scale insulin - hypoglycemia protocol (3) MRSA bacteremia Is this a current diagnosis for this admission?: Yes Plan: -hx of MRSA bacteremia - awaiting repeat blood culture - continue vanc - would need echo - he also has hardware on his back that can seed MRSA (4) Tobacco use disorder Is this a current diagnosis for this admission?: Yes Plan: - counseled on smoking cessation - Time Time Spent with patient: 35 or more minutes Smoking Cessation Education: 3 to 10 minutes Anticipated Discharge Disposition: to be determined Anticipated Discharge Timeframe: to be determined - Inpatient Certification Based on my medical assessment, after consideration of the patient's comorbidities, presenting symptoms, or acuity I expect that the services needed warrant INPATIENT care.: Yes I certify that my determination is in accordance with my understanding of Medicare's requirements for reasonable and necessary INPATIENT services [42 CFR 412.3e].: Yes Medical Necessity: Need for IV Antibiotics
[2020-02-25] MEDS ORDERED: OXYCODONE-ACETAMINOPHEN 5-325 MG TABLET ONE (00:26)
[2020-02-25] MEDS: OXYCODONE-ACETAMINOPHEN 5-325 MG TABLET PO PRN ×5 (00:34→21:43)
[2020-02-25] MEDS: MORPHINE SULFATE 10 MG/ML INJ IV PRN ×4 (02:06→18:55)
[2020-02-25] MEDS ORDERED: VANCOMYCIN HCL 0 MG in DEXTROSE 5%-WATER 250 ML IV NR (02:15)
[2020-02-25] MEDS ORDERED: VANCOMYCIN HCL INJ 1000 MG VIAL IV PRN (02:17)
[2020-02-25] MEDS ORDERED: VANCOMYCIN HCL 1,000 MG in DEXTROSE 5%-WATER 250 ML IV ONE (02:30)
[2020-02-25 04:26] LABS: ABSOLUTE EOSINOPHILS # (AUTO) 0.2 10^3/uL (0.0-0.6); ABSOLUTE LYMPHOCYTES (AUTO) 1.7 10^3/uL (0.5-4.7); ABSOLUTE MONOCYTES (AUTO) 0.6 10^3/uL (0.1-1.4); ABSOLUTE NEUT (AUTO) 2.5 10^3/uL (1.7-8.2); BASOPHILS % (AUTO) 0.8 % (0-2); EOSINOPHILS % (AUTO) 4.7 % (0-6); HEMOGLOBIN 8.9 g/dL (13.5-17.0); MEAN CORPUSCULAR HEMOGLOBIN 32.6 pg (27.0-33.4); MEAN CORPUSCULAR HGB CONC 34.3 g/dL (32.0-36.0); MEAN CORPUSCULAR VOLUME 95 fl (80-97); MONOCYTES % (AUTO) 11.2 % (3-13); PLATELET COUNT 262 10^3/uL (150-450); RED BLOOD COUNT 2.73 10^6/uL (4.35-5.55); RED CELL DISTRIBUTION WIDTH 15.1 % (11.5-14.0); SEGMENTED NEUTROPHILS % (AUTO) 50.3 % (42-78); TOTAL CELLS COUNTED % (AUTO) 100 %
[2020-02-25 04:49] LABS: ALBUMIN 2.8 g/dL (3.5-5.0); ALKALINE PHOSPHATASE 129 U/L (38-126); ASPARTATE AMINO TRANSFERASE 21 U/L (17-59); BILIRUBIN,DIRECT 0.3 mg/dL (0.0-0.4); BILIRUBIN,TOTAL 0.4 mg/dL (0.2-1.3); BLOOD UREA NITROGEN 21 mg/dL (7-20); C-REACTIVE PROTEIN 40.3 mg/L (<10.0); CALCIUM 8.6 mg/dL (8.4-10.2); CARBON DIOXIDE 28 mmol/L (22-30); GLUCOSE 106 mg/dL (75-110); TOTAL PROTEIN 7.2 g/dL (6.3-8.2)
[2020-02-25 05:00] LABS: ANION GAP 5 (5-19); CHLORIDE 105 mmol/L (98-107); POTASSIUM 4.2 mmol/L (3.6-5.0)
[2020-02-25 05:03] LABS: ERYTHROCYTE SEDIMENTATION RATE 109 mm/hr (0-20)
[2020-02-25] MEDS: HEPARIN SOD (PORCINE) 5,000 UNIT/ML 1 ML VIAL SUBCUT SCH ×2 (05:18→15:10)
[2020-02-25] MEDS: INSULIN LISPRO 100 UNIT/ML 3 ML VIAL SUBCUT SCH ×3 (06:45→22:18)
--- NOTE | 2020-02-25 06:54 | PDOC CONSULTATION ---
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 The foot is been treated by general surgery and appears to be healing well. The right knee how ever has undergone 3 interventions, 2 arthroscopic I&D's, most recently an open I&D with complete synovectomy on 01/20/2020. In spite of this and subsequent IV antibiotics, his septic arthritis appears to have recurred even given his continuous antibiotics at this time. A thorough work-up was performed in the office with multiple lab studies that demonstrate continued septic arthritis of the right knee. At this time the patient needs further operative intervention including repeat I&D. I discussed with the patient who understands. He has been able to progress with weightbearing and range of motion in spite of his septic arthritis. He reports pain in the right knee that is up to 8 out of 10, associated with swelling, associated with warmth and occasional fevers. Otherwise patient appears stable without signs of septic or systemic involvement. Pain improved with rest, aching nature, worse with activity. Past Medical History Cardiac Medical History: Reports: Hypertension Denies: Coronary Artery Disease, DVT, Myocardial Infarction, Hyperlipidema Pulmonary Medical History: Denies: Asthma, Bronchitis, Chronic Obstructive Pulmonary Disease (COPD), Pneumonia EENT Medical History: Reports: None Neurological Medical History: Reports: None Denies: Seizures Endocrine Medical History: Reports: Diabetes Mellitus Type 2 - on lantus Denies: Diabetes Mellitus Type 1, Hyperthyroidism, Hypothyroidism Renal/ Medical History: Reports: None Malignancy Medical History: Reports: None GI Medical History: Reports: None, Hiatal Hernia Denies: Cirrhosis, Hepatitis Musculoskeltal Medical History: Reports: Arthritis - recurrent septic arthritis Denies: Gout Skin Medical History: Denies: Eczema, Psoriasis Psychiatric Medical History: Reports: None Denies: Depression Hematology: Denies: Anemia, Bleeding Tendencies Infectious Medical History: Reports: Methicillin-Resistant Staph Aureus Past Surgical History Past Surgical History: Reports: Orthopedic Surgery - L4-L5 w/ hardware, 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, Other - Ventral hernia repair in the past Social History Smoking Status: Former Smoker Cigarettes Packs Per Day: 3 Electronic Cigarette use?: No Number of Years Smokin Last Time Smoked: 01/15/20 Frequency of Alcohol Use: None Hx Recreational Drug Use: No Drugs: None Hx Prescription Drug Abuse: No Family History Family History: denies: CAD, DM - father, Hypertension, Malignancy Parental Family History Reviewed: No Children Family History Reviewed: NA Sibling(s) Family History Reviewed.: NA Medication/Allergy Home Medications: Gabapentin 300 mg PO TID 01/06/20 Acetaminophen [Tylenol 325 mg Tablet] 650 mg PO Q4HP PRN tablet 01/11/20 Docusate Sodium [Colace 100 mg Capsule] 100 mg PO BID capsule 01/11/20 Nicotine [Nicoderm 21 mg/24 Hr Transderm Patch] 1 each TD DAILYP PRN #30 patch.td24 01/11/20 Polyethylene Glycol 3350 [Miralax Powder 17 gm/Packet] 17 gm PO DAILY powd.pack 01/11/20 Acetaminophen [Tylenol 325 mg Tablet] 650 mg PO Q4HP PRN tablet 01/29/20 Insulin Glargine,Hum.rec.anlog [Lantus Insulin 100 Unit/1 ml 10 ml] 16 unit SUBCUT Q12 #1 vial 01/29/20 Insulin Lispro [Humalog Insulin (Lispro) 100 unit/mL] 0 - 12 unit SUBCUT ACHS #1 vial 01/29/20 Lisinopril [Prinivil 10 mg Tablet] 10 mg PO DAILY #30 tablet 01/29/20 Oxycodone HCl [Oxy-Ir 5 mg Tablet] 10 mg PO Q4HP PRN #20 tablet 01/29/20 Rifampin [Rifadin 300 mg Capsule] 600 mg PO ACBRKFST #66 capsule 01/29/20 Vancomycin HCl [Vancocin Inj 1000 mg Vial] 1,000 mg IV Q8 #100 vial 01/29/20 Allergies/Adverse Reactions: naproxen [From Naprosyn] Allergy (Unknown, Verified 01/05/20 18:38) RASH Review of Systems Review of Systems: Constitutional: ABSENT: anorexia, chills, night sweats Cardiovascular: ABSENT: chest pain Respiratory: ABSENT: dyspnea Gastrointestinal: ABSENT: vomiting Genitourinary: ABSENT: dysuria Integumentary: ABSENT: rash Neurological: ABSENT: confusion, memory loss, numbness Psychiatric: ABSENT: hallucinations Hematologic/Lymphatic: ABSENT: easy bleeding All negative as above aside from that reported in the HPI and the following: Few but occasional fevers. Physical Exam Vital Signs: Temp Pulse Resp BP Pulse Ox 98.2 F 86 16 141/85 H 100 02/25/20 06:00 02/25/20 06:00 02/25/20 06:00 02/25/20 06:00 02/25/20 06:00 Intake & Output 02/23/20 02/24/20 02/25/20 06:59 06:59 06:59 Intake Total 500 Output Total 1300 Balance -800 Weight 68.2 kg Physical Exam: General appearance: PRESENT: no acute distress, cooperative, well-nourished Head exam: PRESENT: atraumatic, normocephalic Eye exam: PRESENT: EOMI Ear exam: PRESENT: normal external ear exam Mouth exam: PRESENT: neck supple Neck exam: ABSENT: tracheal deviation Respiratory exam: PRESENT: symmetrical, unlabored. ABSENT: accessory muscle use, wheezes Pulses: PRESENT: normal radial pulses, normal dorsalis pedis pulse Vascular exam: PRESENT: normal capillary refill GI/Abdominal exam: ABSENT: distended, firm Extremities exam: PRESENT: full ROM of bilateral shoulders, elbows wrists, knees, hips and ankles without pain -Patient has a left foot wound that is been chronically managed by wound care. There is no active drainage in the foot at this time. The nurse recently remove the dressing and said it appears to be healing well. Musculoskeletal exam: PRESENT: full ROM, normal inspection of all 4 extremities aside from that noted below. Neurological exam: PRESENT: alert, awake, oriented to person, oriented to place, oriented to time Psychiatric exam: PRESENT: appropriate affect. ABSENT: agitated Focused psych exam: ABSENT: catatonic Skin exam: PRESENT: intact. ABSENT: dry All as above aside from that noted in the HPI and the following: -Right lower extremity, neurovascular intact, severe effusion. No drainage. Prior drain portal in the superior lateral aspect of the superior patellar pouch has a mild to moderate erythema about it but appears to be healed without signs of continuous communication or any recent drainage. Pain with palpation of the knee pain with any range of motion. Prior anterior incision is well-healed. Results Laboratory Results: 02/25/20 04:18 02/25/20 04:18 09/04/0402/24/20 02/25/20 20:55 20:55 04:18 WBC 6.6 5.0 RBC 2.92 L 2.73 L Hgb 9.5 L 8.9 L Hct 27.6 L 26.0 L MCV 94 95 MCH 32.5 32.6 MCHC 34.4 34.3 RDW 15.5 H 15.1 H Plt Count 319 262 Seg Neutrophils % 50.3 Sodium 138.0 Potassium 4.1 Chloride 104 Carbon Dioxide 27 Anion Gap 7 BUN 20 Creatinine 0.75 Est GFR ( Amer) > 60 Glucose 88 Calcium 9.0 Total Bilirubin 0.6 AST 23 Alkaline Phosphatase 137 H C-Reactive Protein Total Protein 8.1 Albumin 3.3 L 02/25/20 04:18 WBC RBC Hgb Hct MCV MCH MCHC RDW Plt Count Seg Neutrophils % Sodium 137.8 Potassium 4.2 Chloride 105 Carbon Dioxide 28 Anion Gap 5 BUN 21 H Creatinine 0.77 Est GFR ( Amer) > 60 Glucose 106 Calcium 8.6 Total Bilirubin 0.4 AST 21 Alkaline Phosphatase 129 H C-Reactive Protein 40.3 H Total Protein 7.2 Albumin 2.8 L Impressions: Chest X-Ray 02/24/20 21:23 IMPRESSION: No evidence of acute cardiopulmonary disease. Assessment & Plan - Diagnosis (1) Septic arthritis of knee, right Qualifiers: Septic arthritis organism: staphylococcal Qualified Code(s): M00.061 - Staphylococcal arthritis, right knee Is this a current diagnosis for this admission?: Yes Plan: Keep n.p.o., plan for operative intervention this afternoon Weightbearing as tolerated right knee We will have surgical service reevaluate left foot Follow CRP Reconsult ID
--- NOTE | 2020-02-25 07:37 | RADIOLOGY REPORT (SQ) ---
EXAM: XR Left Foot Complete, 3 or More Views EXAM DATE/TIME: 02/25/2020 7:19 AM CLINICAL HISTORY: The patient is 59 years old and is Male; Osteomyelitis TECHNIQUE: Frontal, lateral and oblique views of the left foot. COMPARISON: Radiographs of the left foot from 01/11/2020. FINDINGS: BONES/JOINTS: There has been interval amputation of the 1st digit at the level of the mid metatarsal. A hallux sesamoid remains in place. There has also been prior amputation of the 5th digit at the level of the distal metatarsal. There is some cortical irregularity of the hallux sesamoid which could be postsurgical. No definite osseous erosion. SOFT TISSUES: There is osseous spurring along the plantar aspect of the calcaneus, at the origin of the plantar fascia. There is mild soft tissue swelling of the forefoot. IMPRESSION: Soft tissue swelling of the forefoot. No definite osteomyelitis. However, if not contraindicated, MRI could be performed for further evaluation.
[2020-02-25] MEDS: DOCUSATE SODIUM 100 MG/10 ML UDC PO SCH (09:07)
[2020-02-25] MEDS: INSULIN GLARGINE,HUM.REC.ANLOG 1,000 UNIT/10 ML VIAL SUBCUT SCH (10:31)
[2020-02-25] MEDS: VANCOMYCIN HCL 1,000 MG in DEXTROSE 5%-WATER 250 ML IV SCH ×2 (11:25→21:44)
[2020-02-25] MEDS ORDERED: ALTEPLASE INJ 2 MG VIAL (CATH CLEARANCE) IV ONE ×3 (12:30→13:30)
[2020-02-25] MEDS: DEXTROSE 5%-1/2 NORMAL SALINE 1,000 ML IV PRN (13:05)
[2020-02-25] MEDS ORDERED: VANCOMYCIN HCL INJ 1000 MG VIAL ONE (15:12)
--- NOTE | 2020-02-25 15:57 | Progress Note ---
Provider Note Provider Note: [facility] ID Telephone Advice Follow UP Chart reviewed. Patient is a 59-year-old man known to our service due to MRSA bacteremia and right septic knee admitted in December with left great toe gangrene with osteomyelitis which was amputated during that admission for source control. He was initially evaluated and vacomycin recommended. He cleared the bacteremia on 01/08. TTE was negative for vegetations. He had 2 arthroscopic washouts on 01/05 and 01/07. Patient seemed to be improving initially and was able to start physical therapy, but on 01/19 there was drainage from the wound. He was taken to the OR for open I&D, pus was noted. Culture was positive for MRSA. Patient achieved therapeutic vancomycin levels on 01/07 and have maintained good levels throughout treatment (most recent from 02/21 was 20). Vancomycin REGINALD was 1. He was discharged from the hospital to complete 6 weeks of antibiotic therapy on 03/02 (vancomycin + rifampin). ESR from >120 -> 109 still elevated and CRP from 421 -> 36.9 significantly improved. He was readmitted due to swelling and pain on his right knee again. He was evaluated by orthopedics and he will be going to the OR for washout later today. There are also concerns about recurrent foot infection after amputation, surgery evaluation was recommended. ID consulted for recommendations. PMH: DM2 - uncontrolled Hypertension MRSA infections PSH: Toe amputation 2 Arthroscopic I&D Knee (12/2019) Open I&D knee Allergies: naproxen [From Naprosyn] Allergy (Unknown, Verified 01/05/20 18:38) RASH Home Medications: Gabapentin 300 mg PO Q8 01/06/20 0.9 % Sodium Chloride [Sodium Chloride] 8 ml IV Q8 02/25/20 Acetaminophen [Tylenol 325 mg Tablet] 650 mg PO Q6HP PRN 02/25/20 Amino Acids/Protein Hydrolys [Pro-Stat [facility] Liquid Packet] 2 pkt PO BID 02/25/20 Docusate Sodium [Colace 100 mg Capsule] 100 mg PO BID 02/25/20 Heparin Sodium,Porcine [Heparin Flush 10 Unit/ml 5 ml Disp.syrg] 50 unit IV Q8 02/25/20 Insulin Glargine,Hum.rec.anlog [Lantus Insulin 100 Unit/1 ml 10 ml] 25 unit SUBCUT DAILY 02/25/20 Insulin Lispro [Humalog Insulin 100 Unit/1 ml 3 ml Vial] 0 unit SUBCUT .SLD SCALE 02/25/20 Oxycodone HCl [Oxy-Ir 5 mg Tablet] 10 mg PO Q4HP PRN 02/25/20 Polyethylene Glycol 3350 [Miralax Powder 17 gm/Packet] 1 packet PO DAILY 02/25/20 Vancomycin HCl in 5 % Dextrose [Vancomycin 1.25 Gram/250Ml-D5w] 1,300 mg IV Q12 02/25/20 Vital Signs: Temp Pulse Resp BP Pulse Ox 98.0 F 83 9 L 136/71 H 99 02/25/20 15:24 02/25/20 15:24 02/25/20 15:24 02/25/20 15:24 02/25/20 15:24 Intake & Output 02/24/20 02/25/20 02/26/20 06:59 06:59 06:59 Intake Total 500 250 Output Total 1300 600 Balance -800 -350 Weight 68.2 kg Weight/Height Weight 68.2 kg Height 5 ft 11 in Laboratories: 02/25/20 04:18 02/25/20 04:18 MCV 95 fl (80-97) 02/25/20 04:18 MCH 32.6 pg (27.0-33.4) 02/25/20 04:18 MCHC 34.3 g/dL (32.0-36.0) 02/25/20 04:18 RDW 15.1 % (11.5-14.0) H 02/25/20 04:18 Seg Neutrophils % 50.3 % (42-78) 02/25/20 04:18 Chloride 105 mmol/L (98-107) 02/25/20 04:18 Carbon Dioxide 28 mmol/L (22-30) 02/25/20 04:18 Anion Gap 5 (5-19) 02/25/20 04:18 Est GFR ( Amer) > 60 (>60) 02/25/20 04:18 Glucose 106 mg/dL (75-110) 02/25/20 04:18 Calcium 8.6 mg/dL (8.4-10.2) 02/25/20 04:18 Total Bilirubin 0.4 mg/dL (0.2-1.3) 02/25/20 04:18 AST 21 U/L (17-59) 02/25/20 04:18 Alkaline Phosphatase 129 U/L (38-126) H 02/25/20 04:18 C-Reactive Protein 36.9 mg/L (<10.0) H 02/25/20 07:28 Total Protein 7.2 g/dL (6.3-8.2) 02/25/20 04:18 Albumin 2.8 g/dL (3.5-5.0) L 02/25/20 04:18 Microbiology: Blood cultures: 02/23 NGTD Previous admission Blood cultures: 01/04 1 MRSA 01/08 Negative Synovial Fluid cultures: 01/04 MRSA (Vanc REGINALD 1) 01/05 MRSA 01/07 MRSA 01/19 MRSA (Vanc REGINALD 1) Radiology: Chest X-Ray 02/24/20 21:23 IMPRESSION: No evidence of acute cardiopulmonary disease. Foot X-Ray 02/25/20 00:00 IMPRESSION: Soft tissue swelling of the forefoot. No definite osteomyelitis. However, if not contraindicated, MRI could be performed for further evaluation. Assessment and Recommendations: Patient previously evaluated for MRSA bacteremia in the setting of left diabetic foot infection/gangrene and right septic knee. Patient has been on vancomycin with adequate trough (15-20) and normal GFR. He cleared the bacteremia in December. New blood cultures remain negative in 24 hr, no signs of sepsis. Synovial cultures from December and January all positive for MRSA including most recent on 01/19, however vancomycin REGINALD remained 1. He is s/p toe amputation to remove the initial source of infection. He returned with concerns of recurrent foot infection and right knee infection while on vancomycin and rifampin. Inflammation markers improved but ESR still elevated. Possible explanations would be MRSA with a higher vancomycin REGINALD failing therapy now, New infection due to CLABSI or DFI seeding the knee. Healing delayed/impaired due to smoking, perfussion/microvascular disease due to uncontrolled DM. Will recommend to continue vancomycin and rifampin awaiting for operative cultures. If pure MRSA grows again, will change therapy to high dose daptomycin 8mg/kg daily + rifampin 300 mg po bid. After the surgery, may add zosyn or meropenem for the foot infection until further information is available. Can send fluid for crystals, tissue for cultures aerobic/anaerobic, fungal and AFB. Will follow. Please call if questions/updates. Heather Romeo MD [facility] [place] [phone]
[2020-02-25] MEDS ORDERED: BUPIVACAINE HCL 0.5 % INJ/PF 30 ML SDV ONE (16:24)
--- NOTE | 2020-02-25 16:59 | EKG REPORT ---
SEVERITY:- OTHERWISE NORMAL ECG - SINUS RHYTHM LEFT AXIS DEVIATION : Confirmed by: Elie Pack MD 25-Feb-2020 16:58:20
[2020-02-25] MEDS ORDERED: ONDANSETRON HCL INJ/PF 4 MG/2 ML SDV IV PRN (17:05)
[2020-02-25] MEDS ORDERED: DIPHENHYDRAMINE HCL 50 MG/ML VIAL IV PRN (17:05)
[2020-02-25] MEDS ORDERED: FENTANYL CITRATE INJ/PF 100 MCG/2 ML AMPUL IV PRN ×3 (17:05)
[2020-02-25] MEDS ORDERED: PROMETHAZINE HCL INJ 25 MG/1 ML VIAL IV PRN ×2 (17:05)
[2020-02-25] MEDS ORDERED: MEPERIDINE HCL/PF INJ 25 MG/1 ML DISP.SYRIN IV PRN (17:05)
[2020-02-25] MEDS ORDERED: OXYCODONE-ACETAMINOPHEN 5-325 MG TABLET PO PRN ×2 (17:05)
--- NOTE | 2020-02-25 18:15 | Operative Report ---
Operative Report DATE OF SURGERY: 02/25/20 PREOPERATIVE DIAGNOSIS: [place] right recurrent septic arthritis POSTOPERATIVE DIAGNOSIS: [place] right recurrent septic arthritis OPERATION: Right knee incision and debridement SURGEON: KATELYN EDUARDO JR ANESTHESIA: GA TISSUE REMOVED OR ALTERED: Culture sent COMPLICATIONS: None ESTIMATED BLOOD LOSS: 100 cc PROCEDURE: Patient has a history of multiple episodes of recurrent septic arthritis. This will be the fourth washout that I have performed since December. He has previously been treated by infectious disease and is currently still receiving continuous IV antibiotics through a PICC line. He was worked up in my clinic and found to have continued septic arthritis from synovial fluid. I explained to the patient that at this point repeat I&D may not be any more successful than it previously was. We obtained an MRI that does not demonstrate any overt abscess or oste omyelitis aside from diffuse bone edema that may represent potential infectious process but is throughout the subarticular distal femur. Given the need to proceed with more definitive treatment I have counseled the patient on options including the plan to provide intra-articular continuous antibiotics biotics through Huertas catheters which may be chondroid toxic. I explained to the patient that though his cartilage may be damaged by high doses of antibiotics at this point there is not good alternatives that may preserve his cartilage. He has elected to proceed with surgery as planned. The patient was brought in the operating room and placed supine on the operating table. He was on continuous IV antibiotics preoperatively. He was placed under general anesthesia followed by the right lower extremity being prepped and draped in sterile sterile fashion. An appropriate timeout was performed and the prior incision was marked. We did not inflate tourniquet during the case. Incision was made and a standard medial parapatellar approach was continued through the prior arthrotomy. Upon reaching the joint gross purulence was encountered and was evacuated. Cultures were sent. Following this all existing suture material was removed and the wound was copiously irrigated with 9 L of Betadine impregnated solution. We stopped at 6 L to perform in Aricept soak. At that time we also explored the wound for any potential bleeders as well as any necrotic material which was thoroughly removed. 2 Huertas catheters were placed in the superior patellar pouch and sewn into place with 3-0 nylon. The intra-articular Huertas portion was cut in order to not impinge on normal knee motion. We then washed the wound once again with the remaining 3 L of solution followed by the application of 1 g of vancomycin powder. The periarticular structures were injected with half percent Marcaine. The capsule was then closed with #2 Quill and interrupted 0 PDS. The subcutaneous tissue was closed with inverted interrupted 2-0 Monocryl followed by a running 3-0 nylon in the skin. A sterile lightly compressive dressing was placed. The patient was then waken from anesthesia and transferred to PACU in stable condition.
--- NOTE | 2020-02-25 18:18 | PDOC PROGRESS REPORT ---
Subjective Progress Note for:: 02/25/20 Reason For Visit: SEPTIC ARTHRITIS Physical Exam Vital Signs: Temp Pulse Resp BP Pulse Ox 98.0 F 83 9 L 136/71 H 99 02/25/20 15:24 02/25/20 15:24 02/25/20 15:24 02/25/20 15:24 02/25/20 15:24 Intake & Output 02/24/20 02/25/20 02/26/20 06:59 06:59 06:59 Intake Total 500 250 Output Total 1300 600 Balance -800 -350 Weight 68.2 kg Results Laboratory Results: 02/25/20 04:18 02/25/20 04:18 02/24/20 02/24/20 02/25/20 20:55 20:55 04:18 WBC 6.6 5.0 RBC 2.92 L 2.73 L Hgb 9.5 L 8.9 L Hct 27.6 L 26.0 L MCV 94 95 MCH 32.5 32.6 MCHC 34.4 34.3 RDW 15.5 H 15.1 H Plt Count 319 262 Seg Neutrophils % 50.3 Sodium 138.0 Potassium 4.1 Chloride 104 Carbon Dioxide 27 Anion Gap 7 BUN 20 Creatinine 0.75 Est GFR ( Amer) > 60 Glucose 88 Calcium 9.0 Total Bilirubin 0.6 AST 23 Alkaline Phosphatase 137 H C-Reactive Protein Total Protein 8.1 Albumin 3.3 L 02/25/20 02/25/20 04:18 07:28 WBC RBC Hgb Hct MCV MCH MCHC RDW Plt Count Seg Neutrophils % Sodium 137.8 Potassium 4.2 Chloride 105 Carbon Dioxide 28 Anion Gap 5 BUN 21 H Creatinine 0.77 Est GFR ( Amer) > 60 Glucose 106 Calcium 8.6 Total Bilirubin 0.4 AST 21 Alkaline Phosphatase 129 H C-Reactive Protein 40.3 H 36.9 H Total Protein 7.2 Albumin 2.8 L Impressions: Chest X-Ray 02/24/20 21:23 IMPRESSION: No evidence of acute cardiopulmonary disease. Foot X-Ray 02/25/20 00:00 IMPRESSION: Soft tissue swelling of the forefoot. No definite osteomyelitis. However, if not contraindicated, MRI could be performed for further evaluation. Assessment & Plan - Diagnosis (1) Septic arthritis of knee, right Qualifiers: Septic arthritis organism: staphylococcal Qualified Code(s): M00.061 - Staphylococcal arthritis, right knee Is this a current diagnosis for this admission?: Yes Plan: - Patient is underwent a repeat I&D of the right knee. The plan at this point will be to begin daily infusions of 500 mg of vancomycin. There are 2 Huertas catheters which should be differentiated superior and inferior. - These should be alternated daily in order to maintain patency of the catheters. - Vancomycin troughs should be obtained as well as regular BMPs to ensure that kidney function remains safe and if the trough becomes high that the IV antibiotic is adjusted appropriately. -Between infusions the catheter should be clamped shut. Immediately prior to infusion they can be released and allow for some drainage. - Time Time Spent with patient: Less than 15 minutes
[2020-02-25] MEDS: FENTANYL CITRATE INJ/PF 100 MCG/2 ML AMPUL ONE ×2 (18:30→18:40)
[2020-02-25] MEDS ORDERED: MORPHINE SULFATE 10 MG/ML INJ ONE (18:38)
[2020-02-25] MEDS: HYDROMORPHONE HCL INJ/PF 2 MG/ML AMPULE ONE ×3 (18:50→19:00)
--- NOTE | 2020-02-25 19:38 | RADIOLOGY REPORT (SQ) ---
EXAM DESCRIPTION: FOOT RIGHT COMPLETE IMAGES COMPLETED DATE/TIME: 02/25/2020 7:26 pm REASON FOR STUDY: great toe osteomyelitis? COMPARISON: None. NUMBER OF VIEWS: Three views. TECHNIQUE: AP, lateral and oblique radiographic images acquired of the right foot. LIMITATIONS: None. FINDINGS: MINERALIZATION: Normal. BONES: There is no evidence of osteomyelitis. JOINTS: No effusions. SOFT TISSUES: There appears be a wound on the great toe. OTHER: No other significant finding. IMPRESSION: No osteomyelitis is appreciated. TECHNICAL DOCUMENTATION: JOB ID: [id number] 2010 [employer]- All Rights Reserved Reading location - IP/workstation name: [email or web address]
--- NOTE | 2020-02-25 20:39 | PDOC PROGRESS REPORT ---
Subjective Progress Note for:: 02/25/20 Subjective:: NAEO Reason For Visit: SEPTIC ARTHRITIS Physical Exam Vital Signs: Temp Pulse Resp BP Pulse Ox 98.0 F 83 9 L 136/71 H 99 02/25/20 15:24 02/25/20 15:24 02/25/20 15:24 02/25/20 15:24 02/25/20 15:24 Intake & Output 02/24/20 02/25/20 02/26/20 06:59 06:59 06:59 Intake Total 500 250 Output Total 1300 600 Balance -800 -350 Weight 68.2 kg General appearance: PRESENT: no acute distress Respiratory exam: PRESENT: clear to auscultation onra Cardiovascular exam: PRESENT: RRR GI/Abdominal exam: PRESENT: normal bowel sounds, soft Musculoskeletal exam: PRESENT: other - R knee red/swollen with limited ROM Neurological exam: PRESENT: alert, awake Psychiatric exam: PRESENT: appropriate affect Results Laboratory Results: 02/25/20 04:18 02/25/20 04:18 02/24/20 02/24/20 02/25/20 20:55 20:55 04:18 WBC 6.6 5.0 RBC 2.92 L 2.73 L Hgb 9.5 L 8.9 L Hct 27.6 L 26.0 L MCV 94 95 MCH 32.5 32.6 MCHC 34.4 34.3 RDW 15.5 H 15.1 H Plt Count 319 262 Seg Neutrophils % 50.3 Sodium 138.0 Potassium 4.1 Chloride 104 Carbon Dioxide 27 Anion Gap 7 BUN 20 Creatinine 0.75 Est GFR ( Amer) > 60 Glucose 88 Calcium 9.0 Total Bilirubin 0.6 AST 23 Alkaline Phosphatase 137 H C-Reactive Protein Total Protein 8.1 Albumin 3.3 L 02/25/20 02/25/20 04:18 07:28 WBC RBC Hgb Hct MCV MCH MCHC RDW Plt Count Seg Neutrophils % Sodium 137.8 Potassium 4.2 Chloride 105 Carbon Dioxide 28 Anion Gap 5 BUN 21 H Creatinine 0.77 Est GFR ( Amer) > 60 Glucose 106 Calcium 8.6 Total Bilirubin 0.4 AST 21 Alkaline Phosphatase 129 H C-Reactive Protein 40.3 H 36.9 H Total Protein 7.2 Albumin 2.8 L Impressions: Chest X-Ray 02/24/20 21:23 IMPRESSION: No evidence of acute cardiopulmonary disease. Foot X-Ray 02/25/20 00:00 IMPRESSION: No osteomyelitis is appreciated. Assessment and Plan - Plan Summary Summary: recurrent right knee septic arthritis: Patient has been on vancomycin with adequate trough (15-20) and normal GFR. He cleared the bacteremia in December. Synovial cultures from December and January all positive for MRSA including most recent on 01/19, however vancomycin REGINALD remained 1. He is s/p toe amputation to remove the initial source of infection. He returned with concerns of recurrent foot infection and right knee infection while on vancomycin and rifampin. Inflammation markers improved but ESR still elevated. Possible explanations would be MRSA with a higher vancomycin REGINALD failing therapy now, new infection due to CLABSI or DFI seeding the knee. Healing delayed/impaired due to smoking, perfussion/microvascular disease due to uncontrolled DM. - ID consulted, recommended to continue vancomycin and rifampin while awaiting operative cultures. If pure MRSA grows again, will change therapy to high dose daptomycin 8mg/kg daily + rifampin 300 mg po bid. After the surgery, may add zosyn or meropenem for the foot infection until further information is available. - orthopedic surgery consulted, patient underwent repeat I&D on 02/25/2020, with placement of 2 Huertas catheters through which to provide intra-articular continuous antibiotics - general surgery consulted to assess R foot DM2 c/b hypoglycemia - check A1c - D5W ggt - Q4H accuchecks + SSI Q4H if needed - DC Lantus - Time Time Spent with patient: 35 or more minutes Anticipated Discharge Disposition: [facility] Anticipated Discharge Timeframe: within 72 hours
[2020-02-25] MEDS ORDERED: INSULIN LISPRO 100 UNIT/ML 3 ML VIAL SUBCUT SCH (20:45)
[2020-02-25] MEDS ORDERED: INSULIN GLARGINE,HUM.REC.ANLOG 1,000 UNIT/10 ML VIAL SUBCUT SCH (22:00)
[2020-02-25] MEDS ORDERED: MEROPENEM 1 GM VIAL IV SCH (22:00)
[2020-02-25] MEDS ORDERED: MORPHINE SULFATE 10 MG/ML INJ IV ONE (23:14)
[2020-02-26] MEDS: MEROPENEM 1 GM in NORMAL SALINE 50 ML IV SCH ×2 (00:07→05:50)
[2020-02-26] MEDS: OXYCODONE-ACETAMINOPHEN 5-325 MG TABLET PO PRN ×3 (03:35→19:37)
[2020-02-26] MEDS: DEXTROSE 5%-1/2 NORMAL SALINE 1,000 ML IV PRN (05:54)
[2020-02-26 06:58] LABS: ABSOLUTE EOSINOPHILS # (AUTO) 0.2 10^3/uL (0.0-0.6); ABSOLUTE LYMPHOCYTES (AUTO) 0.9 10^3/uL (0.5-4.7); ABSOLUTE MONOCYTES (AUTO) 0.9 10^3/uL (0.1-1.4); ABSOLUTE NEUT (AUTO) 5.5 10^3/uL (1.7-8.2); BASOPHILS % (AUTO) 0.6 % (0-2); EOSINOPHILS % (AUTO) 2.2 % (0-6); HEMATOCRIT 23.9 % (37.9-51.0); HEMOGLOBIN 8.3 g/dL (13.5-17.0); LYMPHOCYTES % (AUTO) 12.5 % (13-45); MEAN CORPUSCULAR HEMOGLOBIN 32.8 pg (27.0-33.4); MEAN CORPUSCULAR HGB CONC 34.6 g/dL (32.0-36.0); MEAN CORPUSCULAR VOLUME 95 fl (80-97); MONOCYTES % (AUTO) 11.4 % (3-13); PLATELET COUNT 268 10^3/uL (150-450); RED BLOOD COUNT 2.52 10^6/uL (4.35-5.55); RED CELL DISTRIBUTION WIDTH 14.7 % (11.5-14.0); SEGMENTED NEUTROPHILS % (AUTO) 73.3 % (42-78); TOTAL CELLS COUNTED % (AUTO) 100 %; WHITE BLOOD COUNT 7.5 10^3/uL (4.0-10.5)
--- NOTE | 2020-02-26 08:09 | PDOC PROGRESS REPORT ---
Subjective Progress Note for:: 02/26/20 Subjective:: Patient doing well this morning. Reports soreness in the right knee but otherwise tolerating it well, no acute events overnight, no fevers. Reason For Visit: SEPTIC ARTHRITIS Physical Exam Vital Signs: Temp Pulse Resp BP Pulse Ox 98.2 F 109 H 16 159/81 H 99 02/26/20 02:00 02/26/20 02:00 02/26/20 02:00 02/26/20 02:00 02/26/20 02:00 Intake & Output 02/25/20 02/26/20 02/27/20 06:59 06:59 06:59 Intake Total 500 3200 Output Total 1300 1105 Balance -800 2095 Weight 68.2 kg 68.7 kg Physical Exam: No acute distress, alert and orient x3 Right Lower extremity -Pulses 2+ distally -Compartments soft -Sensation grossly intact to L3-4-5 S1 -Motor grossly intact to EHL TA gastroc and quad -Dressing clean dry and intact -Huertas catheter is in place. Right great toe inspected at the time of surgery yesterday, significantly callused, potentially dysvascular, capillary refill greater than 3 seconds, no overt signs of infection. Results Laboratory Results: 02/26/20 06:20 02/25/20 04:18 02/25/20 02/26/20 07:28 06:20 WBC 7.5 RBC 2.52 L Hgb 8.3 L Hct 23.9 L MCV 95 MCH 32.8 MCHC 34.6 RDW 14.7 H Plt Count 268 Seg Neutrophils % 73.3 C-Reactive Protein 36.9 H Impressions: Chest X-Ray 02/24/20 21:23 IMPRESSION: No evidence of acute cardiopulmonary disease. Foot X-Ray 02/25/20 00:00 IMPRESSION: No osteomyelitis is appreciated. Assessment & Plan - Diagnosis (1) Septic arthritis of knee, right Qualifiers: Septic arthritis organism: staphylococcal Qualified Code(s): M00.061 - Staphylococcal arthritis, right knee Is this a current diagnosis for this admission?: Yes Plan: Spoke with Dr. Romeo, [facility] infectious disease, regarding ongoing treatment plan. Will follow the REGINALD for vancomycin while in house. May consider alternating to daptomycin. Until that time we will continue with vancomycin intra-articular and follow vancomycin troughs per pharmacy. Intra-articular 500 mg in 10 cc of sterile water daily, alternate between catheter a in catheter be in order to maintain patency. Inject 2 cc of sterile water into the unused catheter daily to maintain patency. Weightbearing as tolerated Will follow Vanco troughs and BMPs to evaluate for safety of discharge to residential facility -I specifically demonstrated the method of delivery with the nurse at the patient's bedside this morning. We are also going to teach the patient how to deliver the medication into his knee himself so that he may be discharged and continue doing the treatment for approximately 3 or more weeks. -We will follow cultures. (2) Gangrene of toe of right foot Is this a current diagnosis for this admission?: No Plan: Reviewed x-ray of right foot does not show any current concerns of osteomyelitis in his great toe. Would encourage him to continue careful daily foot exams to evaluate for any ulceration or gangrenous change. The toe was conservatively callused with sluggish refill. - Time Time Spent with patient: Less than 15 minutes
[2020-02-26] MEDS: VANCOMYCIN HCL 1,000 MG in DEXTROSE 5%-WATER 250 ML IV SCH ×2 (09:38→21:49)
[2020-02-26 09:43] LABS: ANION GAP 6 (5-19); BLOOD UREA NITROGEN 16 mg/dL (7-20); CALCIUM 8.7 mg/dL (8.4-10.2); CARBON DIOXIDE 27 mmol/L (22-30); CHLORIDE 103 mmol/L (98-107); GLUCOSE 134 mg/dL (75-110); POTASSIUM 4.2 mmol/L (3.6-5.0)
[2020-02-26 09:49] LABS: VANCOMYCIN,TROUGH 19.2 ug/mL (5.0-20.0)
[2020-02-26] MEDS: RIFAMPIN 300 MG CAPSULE PO SCH (10:13)
[2020-02-26] MEDS: ENOXAPARIN SODIUM INJ 40 MG/0.4 ML DISP.SYRIN SUBCUT SCH (10:14)
[2020-02-26] MEDS: VANCOMYCIN HCL INJ 500 MG VIAL INJ SCH (10:14)
[2020-02-26] MEDS: INSULIN LISPRO 100 UNIT/ML 3 ML VIAL SUBCUT SCH ×3 (12:31→21:50)
[2020-02-26] MEDS: DOCUSATE SODIUM 100 MG/10 ML UDC PO SCH (12:56)
[2020-02-26] MEDS: INSULIN GLARGINE,HUM.REC.ANLOG 1,000 UNIT/10 ML VIAL SUBCUT SCH (12:57)
[2020-02-26] MEDS: HYDROMORPHONE HCL INJ/PF 2 MG/ML AMPULE IV PRN ×3 (13:24→21:49)
[2020-02-26 14:48] LABS: VANCOMYCIN,TROUGH 19.2 ug/mL (5.0-20.0)
--- NOTE | 2020-02-26 17:27 | PDOC PROGRESS REPORT ---
Subjective Progress Note for:: 02/26/20 Subjective:: he feels well, denies fevers/chills, R knee pain controlled Reason For Visit: SEPTIC ARTHRITIS Physical Exam Vital Signs: Temp Pulse Resp BP Pulse Ox 99.6 F 101 H 18 147/74 H 100 02/26/20 15:15 02/26/20 15:15 02/26/20 15:15 02/26/20 15:15 02/26/20 15:15 Intake & Output 02/25/20 02/26/20 02/27/20 06:59 06:59 06:59 Intake Total 500 3200 1545 Output Total 1300 1105 650 Balance -800 2095 895 Weight 68.2 kg 68.7 kg General appearance: PRESENT: no acute distress Mouth exam: PRESENT: moist Neck exam: ABSENT: JVD Respiratory exam: PRESENT: clear to auscultation nora Cardiovascular exam: PRESENT: RRR GI/Abdominal exam: PRESENT: normal bowel sounds, soft Musculoskeletal exam: PRESENT: other - RLE surgical wraps not removed Neurological exam: PRESENT: alert, awake, oriented to person, oriented to place, oriented to time, oriented to situation Results Laboratory Results: 02/26/20 06:20 02/26/20 08:45 02/26/20 02/26/20 02/26/20 06:20 08:45 08:45 WBC 7.5 RBC 2.52 L Hgb 8.3 L Hct 23.9 L MCV 95 MCH 32.8 MCHC 34.6 RDW 14.7 H Plt Count 268 Seg Neutrophils % 73.3 Sodium 135.8 L Potassium 4.2 Chloride 103 Carbon Dioxide 27 Anion Gap 6 BUN 16 Creatinine Cancelled 0.73 Est GFR ( Amer) Cancelled > 60 Est GFR (Non-Af Amer) Cancelled Glucose 134 H Calcium 8.7 Magnesium 1.8 TSH 02/26/20 08:45 WBC RBC Hgb Hct MCV MCH MCHC RDW Plt Count Seg Neutrophils % Sodium Potassium Chloride Carbon Dioxide Anion Gap BUN Creatinine Est GFR ( Amer) Est GFR (Non-Af Amer) Glucose Calcium Magnesium TSH 2.59 Impressions: Chest X-Ray 02/24/20 21:23 IMPRESSION: No evidence of acute cardiopulmonary disease. Foot X-Ray 02/25/20 00:00 IMPRESSION: No osteomyelitis is appreciated. Assessment and Plan - Plan Summary Summary: recurrent right knee septic arthritis: Patient has been on vancomycin with adequate trough (15-20) and normal GFR. He cleared the bacteremia in December. Synovial cultures from December and January all positive for MRSA including most recent on 01/19, however vancomycin REGINALD remained 1. He is s/p toe amputation to remove the initial source of infection. He returned with concerns of recurrent right knee infection while on vancomycin and rifampin. Inflammation markers improved but ESR still elevated. Possible explanations would be MRSA with a higher vancomycin REGINALD failing therapy now versus new infection due to CLABSI or diabetic foot infection seeding the knee. - ID consulted, recommended to continue vancomycin and rifampin while awaiting operative cultures. If pure MRSA grows again, will change therapy to high dose daptomycin 8mg/kg daily + rifampin 300 mg po bid. - per surgery, R foot does not appear on exam or imaging to be actively infected, so will not add on GNR coverage - orthopedic surgery consulted, patient underwent repeat I&D on 02/25/2020, with placement of 2 Huertas catheters through which to provide intra-articular continuous antibiotics - vanc trough 19 on 02/26/2020 DM2 c/b hypoglycemia: HbA1c dangerously low at 4.8 and has had several episodes of hypoglycemia while inpatient. Long-acting insulin discontinued. - accuchecks + SSI TIDAC - carb-controlled diet essential HTN - restart lisinopril at decreased dose of 5 mg daily DVT ppx: held due to recent surgery and post-operative anemia (repeat CBC in AM) - Time Time Spent with patient: 35 or more minutes Anticipated Discharge Disposition: Long Term Facility Anticipated Discharge Timeframe: within 24 hours
[2020-02-26] MEDS ORDERED: POLYETHYLENE GLYCOL 3350 POWDER 17 GM/1 PACKET PO ONE (19:30)
[2020-02-26] MEDS: GABAPENTIN 300 MG CAPSULE PO SCH (21:47)
[2020-02-26] MEDS ORDERED: LISINOPRIL 5 MG TABLET PO SCH (22:00)
[2020-02-27] MEDS: OXYCODONE-ACETAMINOPHEN 5-325 MG TABLET PO PRN ×3 (00:59→14:57)
[2020-02-27] MEDS: HYDROMORPHONE HCL INJ/PF 2 MG/ML AMPULE IV PRN ×4 (02:40→17:38)
--- NOTE | 2020-02-27 05:21 | PDOC PROGRESS REPORT ---
Subjective Progress Note for:: 02/27/20 Subjective:: Patient feeling well this morning, no acute events or new symptoms. Reason For Visit: SEPTIC ARTHRITIS Physical Exam Vital Signs: Temp Pulse Resp BP Pulse Ox 98.3 F 93 17 106/56 L 100 02/27/20 03:29 02/27/20 03:29 02/27/20 03:29 02/27/20 03:29 02/27/20 03:29 Intake & Output 02/25/20 02/26/20 02/27/20 06:59 06:59 06:59 Intake Total 500 3200 2747 Output Total 1300 1105 1650 Balance -800 2095 1097 Weight 68.2 kg 68.7 kg Physical Exam: No acute distress alert and oriented x3 Right lower extremity -Pulses 2+ distally -Compartments soft -Sensation grossly intact to L3-4-5 S1 -Motor grossly intact to EHL TA gastroc and quad -Dressing clean dry and intact Results Laboratory Results: 02/26/20 06:20 02/26/20 08:45 02/26/20 02/26/20 02/26/20 06:20 08:45 08:45 WBC 7.5 RBC 2.52 L Hgb 8.3 L Hct 23.9 L MCV 95 MCH 32.8 MCHC 34.6 RDW 14.7 H Plt Count 268 Seg Neutrophils % 73.3 Sodium 135.8 L Potassium 4.2 Chloride 103 Carbon Dioxide 27 Anion Gap 6 BUN 16 Creatinine Cancelled 0.73 Est GFR ( Amer) Cancelled > 60 Est GFR (Non-Af Amer) Cancelled Glucose 134 H Calcium 8.7 Magnesium 1.8 TSH 02/26/20 08:45 WBC RBC Hgb Hct MCV MCH MCHC RDW Plt Count Seg Neutrophils % Sodium Potassium Chloride Carbon Dioxide Anion Gap BUN Creatinine Est GFR ( Amer) Est GFR (Non-Af Amer) Glucose Calcium Magnesium TSH 2.59 Impressions: Chest X-Ray 02/24/20 21:23 IMPRESSION: No evidence of acute cardiopulmonary disease. Foot X-Ray 02/25/20 00:00 IMPRESSION: No osteomyelitis is appreciated. Assessment & Plan - Diagnosis (1) Septic arthritis of knee, right Qualifiers: Septic arthritis organism: staphylococcal Qualified Code(s): M00.061 - Staphylococcal arthritis, right knee Is this a current diagnosis for this admission?: Yes Plan: I discussed the plan with Dr. Romeo, infectious disease. Awaiting cultures and will determine further antibiotic course pending Keep right lower extremity elevated, ice, pain control Weightbearing as tolerated Continue injections into the right knee through Huertas catheters alternating use. 500 mg of vancomycin and 10 cc of sterile water. (2) Gangrene of toe of right foot Is this a current diagnosis for this admission?: No - Time Time Spent with patient: Less than 15 minutes
[2020-02-27] MEDS: GABAPENTIN 300 MG CAPSULE PO SCH ×2 (05:51→14:38)
[2020-02-27 06:38] LABS: ABSOLUTE EOSINOPHILS # (AUTO) 0.2 10^3/uL (0.0-0.6); ABSOLUTE LYMPHOCYTES (AUTO) 1.2 10^3/uL (0.5-4.7); ABSOLUTE MONOCYTES (AUTO) 0.8 10^3/uL (0.1-1.4); ABSOLUTE NEUT (AUTO) 4.5 10^3/uL (1.7-8.2); BASOPHILS % (AUTO) 0.6 % (0-2); EOSINOPHILS % (AUTO) 2.5 % (0-6); HEMATOCRIT 22.9 % (37.9-51.0); LYMPHOCYTES % (AUTO) 17.6 % (13-45); MEAN CORPUSCULAR HEMOGLOBIN 32.8 pg (27.0-33.4); MEAN CORPUSCULAR HGB CONC 34.9 g/dL (32.0-36.0); MEAN CORPUSCULAR VOLUME 94 fl (80-97); MONOCYTES % (AUTO) 12.5 % (3-13); PLATELET COUNT 261 10^3/uL (150-450); RED BLOOD COUNT 2.44 10^6/uL (4.35-5.55); RED CELL DISTRIBUTION WIDTH 14.6 % (11.5-14.0); SEGMENTED NEUTROPHILS % (AUTO) 66.8 % (42-78); TOTAL CELLS COUNTED % (AUTO) 100 %; WHITE BLOOD COUNT 6.7 10^3/uL (4.0-10.5)
[2020-02-27] MEDS: RIFAMPIN 300 MG CAPSULE PO SCH (08:02)
[2020-02-27] MEDS: INSULIN LISPRO 100 UNIT/ML 3 ML VIAL SUBCUT SCH ×3 (08:02→17:38)
[2020-02-27] MEDS: ENOXAPARIN SODIUM INJ 40 MG/0.4 ML DISP.SYRIN SUBCUT SCH (09:29)
[2020-02-27] MEDS: VANCOMYCIN HCL 1,000 MG in DEXTROSE 5%-WATER 250 ML IV SCH (09:29)
[2020-02-27] MEDS: VANCOMYCIN HCL INJ 500 MG VIAL INJ SCH (09:29)
[2020-02-27] MEDS ORDERED: POLYETHYLENE GLYCOL 3350 POWDER 17 GM/1 PACKET PO SCH (10:00)
[2020-02-27 10:13] LABS: ANION GAP 6 (5-19); BLOOD UREA NITROGEN 14 mg/dL (7-20); CALCIUM 8.4 mg/dL (8.4-10.2); CARBON DIOXIDE 28 mmol/L (22-30); CHLORIDE 101 mmol/L (98-107); GLUCOSE 223 mg/dL (75-110); POTASSIUM 3.9 mmol/L (3.6-5.0)
--- NOTE | 2020-02-27 13:30 | PDOC TRANSFER SUMMARY ---
Impression - Admit/DC Date/PCP Admission Date/Primary Care Provider: 02/24/20 21:43 KATELYN EDUARDO JR, Discharge Date: 02/27/20 - Discharge Diagnosis (1) Septic arthritis of knee, right Is this a current diagnosis for this admission?: Yes (2) Diabetes mellitus type 2 in nonobese Is this a current diagnosis for this admission?: Yes (3) Hyperglycemia Is this a current diagnosis for this admission?: Yes (4) MRSA (methicillin resistant Staphylococcus aureus) infection Is this a current diagnosis for this admission?: Yes - Assessment Summary: Recurrent right knee septic arthritis: Patient has been on vancomycin IV with adequate trough (15-20) and normal kidney function. He cleared the bacteremia in December. However, synovial cultures from December and January were all positive for MRSA including most recent culture on 01/20/2020, even though his vancomycin REGINALD remained at 1. He is s/p remote toe amputation to remove the initial source of infection. He returned with concerns of recurrent right knee infection while on vancomycin IV and rifampin PO. Inflammation markers have improved but ESR is still elevated. ID was consulted and recommended to continue vancomycin and rifampin while awaiting operative cultures, which have shown no growth to date. General surgery and orthopedic surgery evaluated his R foot, and felt that it does not appear on exam or imaging to be actively infected, so no intervention was undertaken on the R foot. He underwent repeat I&D of the R knee by orthopedic surgery on 02/25/2020, with placement of two Huertas catheters through which to provide intra-articular vancomycin daily. - check CBC, BMP, CRP, vancomycin trough weekly (goal trough is between 15 to 20) continue intra-articular Vancomycin at 500 mg in 10 mL of sterile water daily x4 weeks (alternate between the two catheters in order to maintain patency) inject 2 mL of sterile water into the unused catheter daily to maintain patency weight-bearing as tolerated - follow up with Dr. Eduardo (orthopedic surgery) as outpatient on 03/01/2020 DM2 c/b Hypoglycemia and Hyperglycemia: HbA1c dangerously low at 4.8 and he has had several episodes of hypoglycemia while inpatient. Long-acting insulin dose w as decreased from 25 to 10 units daily. Recheck HbA1c in 3 months. - Additional Information Resuscitation Status: Full Code Discharge Diet: Cardiac, Diabetic Discharge Activity: Keep Legs Elevated Referrals: EDUARDO,KATELYN W JR, DO [Primary Care Provider] - Follow up as needed Prescriptions: Insulin Glargine,Hum.rec.anlog [Lantus Insulin 100 Unit/1 ml 10 ml] 10 unit SUBCUT DAILY #1 unit Home Medications: Gabapentin 300 mg PO Q8 01/06/20 Lisinopril [Prinivil 10 mg Tablet] 10 mg PO DAILY #30 tablet 01/29/20 Rifampin [Rifadin 300 mg Capsule] 600 mg PO ACBRKFST #66 capsule 01/29/20 0.9 % Sodium Chloride [Sodium Chloride] 8 ml IV Q8 02/25/20 Acetaminophen [Tylenol 325 mg Tablet] 650 mg PO Q6HP PRN 02/25/20 Amino Acids/Protein Hydrolys [Pro-Stat Awc Liquid Packet] 2 pkt PO BID 02/25/20 Heparin Sodium,Porcine [Heparin Flush 10 Unit/ml 5 ml Disp.syrg] 50 unit IV Q8 02/25/20 Insulin Lispro [Humalog Insulin (Lispro) 100 unit/mL] 0 unit SUBCUT .SLD SCALE 02/25/20 Oxycodone HCl [Oxy-Ir 5 mg Tablet] 10 mg PO Q4HP PRN 02/25/20 Polyethylene Glycol 3350 [Miralax Powder 17 gm/Packet] 1 packet PO DAILY 02/25/20 Vancomycin HCl in 5 % Dextrose [Vancomycin 1.25 Gram/250Ml-D5w] 1,300 mg IV Q12 02/25/20 Insulin Glargine,Hum.rec.anlog [Lantus Insulin 100 Unit/1 ml 10 ml] 10 unit SUBCUT DAILY #1 unit 02/27/20 Vancomycin HCl [Vancocin Inj 500 mg Vial] 500 mg INJ DAILY vial 02/27/20 History of Present Illiness History of Present Illness: MEG GHOTRA is a 59 year old male Physical Exam Vital Signs: Temp Pulse Resp BP Pulse Ox 98.4 F 88 16 120/65 99 02/27/20 11:16 02/27/20 11:16 02/27/20 11:16 02/27/20 11:16 02/27/20 11:16 Intake & Output 02/26/20 02/27/20 02/28/20 06:59 06:59 06:59 Intake Total 3200 2968 260 Output Total 1105 1650 Balance 2095 1318 260 Weight 68.7 kg 68.4 kg Results Laboratory Results: WBC 6.7 10^3/uL (4.0-10.5) 02/27/20 06:15 RBC 2.44 10^6/uL (4.35-5.55) L 02/27/20 06:15 Hgb 8.0 g/dL (13.5-17.0) L 02/27/20 06:15 Hct 22.9 % (37.9-51.0) L 02/27/20 06:15 MCV 94 fl (80-97) 02/27/20 06:15 MCH 32.8 pg (27.0-33.4) 02/27/20 06:15 MCHC 34.9 g/dL (32.0-36.0) 02/27/20 06:15 RDW 14.6 % (11.5-14.0) H 02/27/20 06:15 Plt Count 261 10^3/uL (150-450) 02/27/20 06:15 Lymph % (Auto) 17.6 % (13-45) 02/27/20 06:15 [place] % (Auto) 12.5 % (3-13) 02/27/20 06:15 Eos % (Auto) 2.5 % (0-6) 02/27/20 06:15 Baso % (Auto) 0.6 % (0-2) 02/27/20 06:15 Absolute Neuts (auto) 4.5 10^3/uL (1.7-8.2) 02/27/20 06:15 Absolute Lymphs (auto) 1.2 10^3/uL (0.5-4.7) 02/27/20 06:15 Absolute Monos (auto) 0.8 10^3/uL (0.1-1.4) 02/27/20 06:15 Absolute Eos (auto) 0.2 10^3/uL (0.0-0.6) 02/27/20 06:15 Absolute Basos (auto) 0.0 10^3/uL (0.0-0.2) 02/27/20 06:15 Seg Neutrophils % 66.8 % (42-78) 02/27/20 06:15 ESR 109 mm/hr (0-20) H 02/25/20 04:18 Sodium 134.7 mmol/L (137-145) L 02/27/20 09:30 Potassium 3.9 mmol/L (3.6-5.0) 02/27/20 09:30 Chloride 101 mmol/L (98-107) 02/27/20 09:30 Carbon Dioxide 28 mmol/L (22-30) 02/27/20 09:30 Anion Gap 6 (5-19) 02/27/20 09:30 BUN 14 mg/dL (7-20) 02/27/20 09:30 Creatinine 0.71 mg/dL (0.52-1.25) 02/27/20 09:30 Est GFR ( Amer) > 60 (>60) 02/27/20 09:30 Est GFR (Non-Af Amer) Cancelled 02/26/20 08:45 Est GFR (MDRD) Non-Af > 60 (>60) 02/27/20 09:30 Glucose 223 mg/dL (75-110) H 02/27/20 09:30 POC Glucose 285 mg/dL (70-110) H 02/27/20 11:17 Hemoglobin A1c % 4.8 % (4.7-6.0) 02/26/20 08:45 Calcium 8.4 mg/dL (8.4-10.2) 02/27/20 09:30 Magnesium 1.9 mg/dL (1.6-2.3) 02/27/20 09:30 Total Bilirubin 0.4 mg/dL (0.2-1.3) 02/25/20 04:18 Direct Bilirubin 0.3 mg/dL (0.0-0.4) 02/25/20 04:18 Neonat Total Bilirubin Not Reportable 02/25/20 04:18 Neonat Direct Bilirubin Not Reportable 02/25/20 04:18 Neonat Indirect Bili Not Reportable 02/25/20 04:18 AST 21 U/L (17-59) 02/25/20 04:18 ALT 14 U/L (<50) 02/25/20 04:18 Alkaline Phosphatase 129 U/L (38-126) H 02/25/20 04:18 C-Reactive Protein 36.9 mg/L (<10.0) H 02/25/20 07:28 Total Protein 7.2 g/dL (6.3-8.2) 02/25/20 04:18 Albumin 2.8 g/dL (3.5-5.0) L 02/25/20 04:18 EGFR Cancelled 02/26/20 08:45 TSH 2.59 uIU/mL (0.47-4.68) 02/26/20 08:45 Time Trough Drawn 0935 02/26/20 09:35 Vancomycin Trough 19.2 ug/mL (5.0-20.0) 02/26/20 09:35 SARS-CoV-2 (PCR) NEGATIVE (NEGATIVE) 02/25/20 11:50 Impressions: Chest X-Ray 02/24/20 21:23 IMPRESSION: No evidence of acute cardiopulmonary disease. Foot X-Ray 02/25/20 00:00 IMPRESSION: Soft tissue swelling of the forefoot. No definite osteomyelitis. However, if not contraindicated, MRI could be performed for further evaluation. Foot X-Ray 02/25/20 00:00 IMPRESSION: No osteomyelitis is appreciated. Stroke Is this a Stroke Patient?: No Acute Heart Failure Is this a Heart Failure Patient?: No
[2020-02-27 15:57] VITALS: BP 167/85
[2020-02-27] MEDS ORDERED: VANCOMYCIN HCL 1,000 MG in DEXTROSE 5%-WATER 250 ML IV SCH (18:00)
== END 2020-02-27 19:28 | DRG 550 ==
LOC: ER 17:58 → EH 21:43 → ICU 23:52 → 5 02-25 15:30
PROVIDERS: ADMIT Internal Medicine; ATTEND Hospitalist
PROC: 0S9C40Z Drainage of Right Knee Joint with Drainage Device, Percutaneous Endoscopic Approach (ICD-10-PCS; principal; 2020-02-25 15:00)
DX: M00.061 Staphylococcal arthritis, right knee (principal); E11.65 Type 2 diabetes mellitus with hyperglycemia; E11.649 Type 2 diabetes mellitus with hypoglycemia without coma; I10 Essential (primary) hypertension; B95.62 Methicillin resistant Staphylococcus aureus infection as the cause of diseases classified elsewhere; Z89.421 Acquired absence of other right toe(s); Z79.899 Other long term (current) drug therapy; Z79.4 Long term (current) use of insulin; Z03.818 Encounter for observation for suspected exposure to other biological agents ruled out; Z87.891 Personal history of nicotine dependence; Z88.8 Allergy status to other drugs, medicaments and biological substances; Z79.891 Long term (current) use of opiate analgesic; Z95.9 Presence of cardiac and vascular implant and graft, unspecified
CPT/HCPCS: 01400; 36415; 71045; 80048; 80053; 80202; 82962; 83036; 83735; 84443; 85025; 85652; 86140; 87040; 87070; 87075; 87205; 87635; 93005; 93010; 99140; 99285; C1751; C9803; J1170; J1644; J1650; J1815; J2185; J2270; J2997; J3010; J3370; J3490; J7060

== ENCOUNTER → 2020-02-24 | Outpatient (CLI) | payer MEDICARE ==
[2020-02-24 15:01] LABS: ABSOLUTE EOSINOPHILS # (AUTO) 0.2 10^3/uL (0.0-0.6); ABSOLUTE LYMPHOCYTES (AUTO) 1.2 10^3/uL (0.5-4.7); ABSOLUTE MONOCYTES (AUTO) 0.5 10^3/uL (0.1-1.4); BASOPHILS % (AUTO) 0.7 % (0-2); EOSINOPHILS % (AUTO) 3.2 % (0-6); HEMATOCRIT 31.2 % (37.9-51.0); HEMOGLOBIN 10.5 g/dL (13.5-17.0); LYMPHOCYTES % (AUTO) 19.8 % (13-45); MEAN CORPUSCULAR HEMOGLOBIN 32.4 pg (27.0-33.4); MEAN CORPUSCULAR HGB CONC 33.6 g/dL (32.0-36.0); MEAN CORPUSCULAR VOLUME 96 fl (80-97); MONOCYTES % (AUTO) 9.1 % (3-13); PLATELET COUNT 304 10^3/uL (150-450); RED BLOOD COUNT 3.24 10^6/uL (4.35-5.55); RED CELL DISTRIBUTION WIDTH 15.6 % (11.5-14.0); SEGMENTED NEUTROPHILS % (AUTO) 67.2 % (42-78); TOTAL CELLS COUNTED % (AUTO) 100 %
--- NOTE | 2020-02-24 15:06 | RADIOLOGY REPORT (SQ) ---
EXAM DESCRIPTION: MRI RT LOWER JOINT WITHOUT IMAGES COMPLETED DATE/TIME: 02/24/2020 2:16 pm REASON FOR STUDY: M00.869 ARTHRITIS DUE TO OTHER BACTERIA, UNSPECIFIED KNEE M00.869 ARTHRITIS DUE T O OTHER BACTERIA, UNSPECIFIED KNEE COMPARISON: None. TECHNIQUE: Rightknee images acquired and stored on PACS. Multiplanar images include fat sensitive s equences as T1, water sensitive sequences as FST2 or STIR, cartilage sensitive sequences as FSPD, and gradient echo sequences. LIMITATIONS: Motion artifact. FINDINGS: JOINT AND BURSAE: Large effusion. BONE CORTEX AND MARROW: Diffuse subchondral edema in the femoral condyles and tibial plateau. No fra cture line is identified. No evidence of bone abscess. ACL: Intact. No degeneration or ganglion cyst. PCL: Intact. MCL: Intact. No periligamentous edema or fluid. LCL: Intact. No periligamentous edema or fluid. MEDIAL MENISCUS: Increased signal posterior horn without definite extension to the articular surface. LATERAL MENISCUS: No tears. No abnormal signal. MEDIAL COMPARTMENT: Cartilage intact. No significant osteophytes. LATERAL COMPARTMENT: Cartilage intact. No significant osteophytes. PATELLA: All focal fissuring of the patellar cartilage along the medial margin. No significant osteo phytes. EXTENSOR MECHANISM: Intact. Quadriceps and patella tendons normal. SOFT TISSUES: Diffuse subcutaneous edema. OTHER: No other significant finding. IMPRESSION: 1. Large effusion and periarticular subchondral edema consistent with inflammatory or infectious proc ess. 2. No evidence of acute ligament or meniscal tear. TECHNICAL DOCUMENTATION: JOB ID: [id number] 2010 [employer]- All Rights Reserved Reading location - IP/workstation name: [email or web address]
[2020-02-24 15:32] LABS: ALBUMIN 3.7 g/dL (3.5-5.0); ALKALINE PHOSPHATASE 172 U/L (38-126); ANION GAP 9 (5-19); ASPARTATE AMINO TRANSFERASE 27 U/L (17-59); BILIRUBIN,DIRECT 0.4 mg/dL (0.0-0.4); BILIRUBIN,TOTAL 0.7 mg/dL (0.2-1.3); BLOOD UREA NITROGEN 15 mg/dL (7-20); C-REACTIVE PROTEIN 40.1 mg/L (<10.0); CALCIUM 9.4 mg/dL (8.4-10.2); CARBON DIOXIDE 27 mmol/L (22-30); CHLORIDE 104 mmol/L (98-107); GLUCOSE 140 mg/dL (75-110); POTASSIUM 4.3 mmol/L (3.6-5.0); TOTAL PROTEIN 9.4 g/dL (6.3-8.2)
[2020-02-24 16:21] LABS: ERYTHROCYTE SEDIMENTATION RATE > 120 mm/hr (0-20)
== END ==
LOC: RAD 13:27
PROVIDERS: ATTEND Orthopaedic Surgery
DX: M00.861 Arthritis due to other bacteria, right knee (principal)
CPT/HCPCS: 36415; 80053; 85025; 85652; 86140

== ENCOUNTER → 2020-03-08 | Outpatient (CLI) | payer MEDICARE, OTHER ==
--- NOTE | 2020-03-08 14:07 | RADIOLOGY REPORT (SQ) ---
EXAM DESCRIPTION: VENOUS UNILATERAL LOWER IMAGES COMPLETED DATE/TIME: 03/08/2020 1:52 pm REASON FOR STUDY: RLE SWELLING/PAIN I82.409 ACUTE EMBOLISM AND THOMBOS UNSP DEEP VN UNSP LOWER E COMPARISON: None. TECHNIQUE: Dynamic and static mason scale and color images acquired of the right leg venous system. S elected spectral images acquired with additional compression and augmentation maneuvers. The contrala teral common femoral vein and saphenofemoral junction were also imaged. Images stored on PACS. LIMITATIONS: None. FINDINGS: COMMON FEMORAL: Normal phasicity, compression and augmentation. No visualized echogenic ma terial on mason scale. No defects on color images. FEMORAL: Normal compression and augmentation. No visualized echogenic material on mason scale. No defe cts on color images. POPLITEAL: Normal compression, augmentation. No visualized echogenic material on mason scale. No defec ts on color images. CALF VESSELS: Normal compression, augmentation. No visualized echogenic material on mason scale. No de fects on color images. GSV and SSV: Normal compression, augmentation. No visualized echogenic material on mason scale. No def ects on color images. ANY DEEP VENOUS INSUFFICIENCY: Not evaluated. ANY EVIDENCE OF POPLITEAL CYST: No. OTHER: There is interstitial edema. CONTRALATERAL COMMON FEMORAL VEIN AND SAPHENOFEMORAL JUNCTION: Normal phasicity, compression and augmentation. No visualized echogenic material on mason scale. No de fects on color images. IMPRESSION: NO EVIDENCE DVT OR SVT IN THE RIGHT LEG. TECHNICAL DOCUMENTATION: JOB ID: [id number] 2010 [employer]- All Rights Reserved Reading location - IP/workstation name: [email or web address]
== END ==
LOC: RAD 12:28
PROVIDERS: ATTEND Orthopaedic Surgery
DX: I82.409 Acute embolism and thrombosis of unspecified deep veins of unspecified lower extremity (principal)
CPT/HCPCS: 93971

== ENCOUNTER 2020-04-10 09:23 | Day surgery (SDC) | payer MEDICARE ==
--- NOTE | 2020-04-06 18:06 | EKG REPORT ---
SEVERITY:- ABNORMAL ECG - SINUS RHYTHM PROBABLE LEFT ATRIAL ABNORMALITY LEFT AXIS DEVIATION LEFT VENTRICULAR HYPERTROPHY ANTERIOR Q WAVES, POSSIBLY DUE TO LVH BORDERLINE PROLONGED QT INTERVAL : Confirmed by: Elie Pack MD 06-Apr-2020 18:05:41
[~2020-04-10 09:23] MED LIST: LACTATED RINGERS 1000 ML IV PRN; LIDOCAINE 0.5% INJ-PF (5 MG/ML) 50 ML SDV SUBCUT PRN
[2020-04-10] MEDS ORDERED: FENTANYL CITRATE INJ/PF 100 MCG/2 ML AMPUL ONE ×2 (11:08→13:59)
[2020-04-10] MEDS ORDERED: EPHEDRINE SULFATE INJ 50 MG/1 ML AMPULE ONE (11:09)
[2020-04-10] MEDS ORDERED: MIDAZOLAM 2 MG/2 ML INJ ONE (11:09)
[2020-04-10] MEDS ORDERED: PROPOFOL INJ 200 MG/20 ML VIAL IV ONE (11:09)
[2020-04-10] MEDS ORDERED: LIDOCAINE 2% INJ-PF (100 MG/5 ML) SYRINGE ONE (12:15)
[2020-04-10] MEDS ORDERED: ONDANSETRON HCL INJ/PF 4 MG/2 ML SDV ONE (12:15)
[2020-04-10] MEDS ORDERED: BUPIVACAINE HCL 0.25 % INJ/PF (2.5 MG/1 ML) 30 ML VIAL ONE (13:04)
[2020-04-10] MEDS ORDERED: PROMETHAZINE HCL INJ 25 MG/1 ML VIAL IV PRN ×2 (13:12)
[2020-04-10] MEDS ORDERED: FENTANYL CITRATE INJ/PF 100 MCG/2 ML AMPUL IV PRN ×2 (13:12)
[2020-04-10] MEDS ORDERED: MEPERIDINE HCL/PF INJ 25 MG/1 ML DISP.SYRIN IV PRN (13:12)
[2020-04-10] MEDS ORDERED: DIPHENHYDRAMINE HCL 50 MG/ML VIAL IV PRN (13:12)
[2020-04-10] MEDS ORDERED: OXYCODONE-ACETAMINOPHEN 5-325 MG TABLET PO PRN ×3 (13:12→14:41)
--- NOTE | 2020-04-10 13:53 | Operative Report ---
Operative Report DATE OF SURGERY: 04/10/20 PREOPERATIVE DIAGNOSIS: right knee septic arthritis sequela, arthrofibrosis POSTOPERATIVE DIAGNOSIS: right knee septic arthritis sequela, arthrofibrosis OPERATION: Right knee oviedo catheter removal under conscious sedation, man ipulation under anesthesia SURGEON: KATELYN EDUARDO JR ANESTHESIA: Moderate Sedation TISSUE REMOVED OR ALTERED: cultures sent COMPLICATIONS: none ESTIMATED BLOOD LOSS: minimal PROCEDURE: History: Patient has a history of right knee septic arthritis with multiple prior debridements most recently involving the placement of 2 Oviedo catheters for which she received 6 weeks of intra-articular antibiotics. At the completion of his 6 weeks we have decided to remove the Oviedo catheters. Of note we did recently aspirate this past Friday and sent to the lab which is returned with low white cell count however there is yeast growing which may r epresent contaminant. Patient is still receiving IV antibiotics and will continue to do so until further discussion with infectious disease specialist. He is currently referred to Fany Lomeli MD, in [place]. Also of note, the patient previously developed arthrofibrosis after the first open I&D, and gentle manipulation during his last surgery yielded similar results today were much more easily obtainable. In the interval he is developed recurrent arthrofibrosis with substantial resistance at approximately 85 degrees of flexion in spite of ongoing physical therapy and counseling from me in the office. Patient was brought in operating suite and placed supine on the operating table. The right lower extremity was then prepped and draped in sterile sterile fashion. An appropriate timeout was performed. A small stab incision was made just adjacent to the distal Oviedo catheter followed by gentle spreading with a hemostat and then removal of the Oviedo catheter. Unfortunately the cuff remained inside the tissue and I was able to remove the rest of that with the hemostat. The same procedure was performed for the proximal Oviedo catheter. After removal of each a substantial amount of fluid was expressed, this was serosanguineous with white particulate matter and communicated with the joint. I expressed as much as possible and captured some for culture. The wound was th en injected with local Marcaine followed by leaving open and placing a sterile dressing. We then proceeded to perform a manipulation under anesthesia. Full extension was obtained within margin of approximately 2 to 3 degrees in relation to the contralateral side. Flexion of the knee to approximately 80 to 85 degrees yielded resistance through which we were able to push and obtain approximately 135 degrees. This did require the maximal amount of force that I considered safe as well as duration. Clinical photos were taken. Patient was then awakened from anesthesia and transferred the PACU in stable condition.
[2020-04-10] MEDS: FENTANYL CITRATE INJ/PF 100 MCG/2 ML AMPUL IV PRN ×2 (13:55→14:08)
[2020-04-10] MEDS ORDERED: ONDANSETRON HCL INJ/PF 4 MG/2 ML SDV IV PRN (14:39)
[2020-04-10] MEDS ORDERED: RINGERS SOLUTION,LACTATED 1,000 ML IV PRN (14:40)
[2020-04-10] MEDS ORDERED: MORPHINE SULFATE 10 MG/ML INJ IV PRN (14:41)
[2020-04-10] MEDS ORDERED: OXYCODONE-ACETAMINOPHEN 5-325 MG TABLET ONE (14:51)
[2020-04-10] MEDS ORDERED: MORPHINE SULFATE 10 MG/ML INJ ONE (14:51)
[2020-04-10 15:45] VITALS: BP 135/75
== END 2020-04-10 15:45 | disposition home or self-care (01) ==
LOC: OROUT 09:23
PROVIDERS: ATTEND Orthopaedic Surgery
DX: M00.861 Arthritis due to other bacteria, right knee (principal); B94.8 Sequelae of other specified infectious and parasitic diseases; M24.661 Ankylosis, right knee; Z03.818 Encounter for observation for suspected exposure to other biological agents ruled out; R63.5 Abnormal weight gain; I10 Essential (primary) hypertension; E11.9 Type 2 diabetes mellitus without complications; Z79.4 Long term (current) use of insulin
CPT/HCPCS: 93005; 87070 ×2; 87205; 82962; 87075; 93010; 27570; 36589; U0003; J3010; J2001; J2270; A9270; J2405; J2704; C9803; 400; 87635; J2250; J3490

== ENCOUNTER 2020-04-19 14:31 | Emergency (ER) | payer MEDICARE, OTHER ==
--- NOTE | 2020-04-19 15:28 | ER Document Report ---
ED Medical Screen (RME) - General Chief Complaint: Knee Pain Stated Complaint: KNEE PAIN Time Seen by Provider: 04/19/20 15:18 Primary Care Provider: MEME DOVE MD [Primary Care Provider] - Follow up as needed Notes: 59-year-old male presented to ED with to be transferred to [facility] by Dr. Douglas. I spoke with Dr. Becerra she stated the doctor when he came in and said that he was going to be sending him to [facility]. He states he was at [facility] now family brought him to the emergency room. Went back and asked Dr Bryant if he knew anything about the patient going to [facility]. He states that Dr. Castellanos came in and spoke with him and told him that the patient was go to be going to [facility] he did not know about any orders he did not leave any orders. He asked me to speak with Dr. Douglas. I called Dr. Douglas and the nurse in the ER talked with him and I heard him say to put the patient in the bed and he will see him as soon as he got her to the OR. Conveyed to the charge nurse that this patient needs to be in a bed for Dr. Douglas to see. I have greeted and performed a rapid initial assessment of this patient. A comprehensive ED assessment and evaluation of the patient, analysis of test results and completion of medical decision making process will be conducted by an additional ED providers. TRAVEL OUTSIDE OF THE [place] IN LAST 30 DAYS: No - Related Data Allergies/Adverse Reactions: naproxen [From Naprosyn] Allergy (Unknown, Verified 04/06/20 12:10) RASH Past Medical History - Past Medical History Cardiac Medical History: Reports: Hx Hypertension Denies: Hx Coronary Artery Disease, Hx DVT, Hx Heart Attack, Hx Hypercholesterolemia Pulmonary Medical History: Denies: Hx Asthma, Hx Bronchitis, Hx COPD, Hx Pneumonia Neurological Medical History: Denies: Hx Cerebrovascular Accident, Hx Seizures Endocrine Medical History: Reports: Hx Diabetes Mellitus Type 2 - on lantus. Denies: Hx Diabetes Mellitus Type 1, Hx Hyperthyroidism, Hx Hypothyroidism Renal/ Medical History: Denies: Hx Peritoneal Dialysis GI Medical History: Reports: Hx Hiatal Hernia. Denies: Hx Cirrhosis, Hx Hepatitis Musculoskeltal Medical History: Reports Hx Arthritis - recurrent septic arthritis, Denies Hx Gout, Reports Hx Musculoskeletal Deformity, Reports Hx Musculoskeletal Trauma Skin Medical History: Reports Hx Cellulitis, Denies Hx Eczema, Denies Hx Psoriasis Psychiatric Medical History: Denies: Hx Depression Infectious Medical History: Reports: Hx MRSA. Denies: Hx Hepatitis Past Surgical History: Reports: Hx Abdominal Surgery - hiatal hernia repair, Hx Orthopedic Surgery - L4-L5 w/ hardware, 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, Other - Ventral hernia repair in the past - Immunizations Hx Diphtheria, Pertussis, Tetanus Vaccination: Yes Physical Exam - Vital signs Vitals: Temp Pulse Resp BP Pulse Ox 99.0 F 87 16 139/67 H 98 04/19/20 14:51 04/19/20 14:51 04/19/20 14:51 04/19/20 14:51 04/19/20 14:51 Course - Vital Signs Vital signs: Temp Pulse Resp BP Pulse Ox 99.0 F 87 16 139/67 H 98 04/19/20 14:51 04/19/20 14:51 04/19/20 14:51 04/19/20 14:51 04/19/20 14:51 Doctor's Discharge - Discharge Referrals: MEME DOVE MD [Primary Care Provider] - Follow up as needed
[2020-04-19] MEDS ORDERED: HYDROMORPHONE HCL INJ/PF 2 MG/ML AMPULE IM ONE (20:33)
--- NOTE | 2020-04-19 20:39 | ER Document Report ---
ED General - General Chief Complaint: Knee Pain Stated Complaint: KNEE PAIN Time Seen by Provider: 04/19/20 15:18 Primary Care Provider: MEME DOVE MD [Primary Care Provider] - Follow up as needed TRAVEL OUTSIDE OF THE [place] IN LAST 30 DAYS: No - HPI Notes: Patient is a 59-year-old male sent into the emergency department for evaluation by Dr. Douglas. Evidently the patient had a right knee replacement. He has had multiple washouts for septic joints. The orthopedist believes he may have a septic joint again, is unsure what he can do further for him, and believes that evaluation to the higher level of care would be appropriate. The patient states he cannot bend his knee. He has significant pain. Describes it as a pressure, sharp, stabbing. He rates it a 4 out of 5. He has been taking oxycodone 15 mg at the [facility]. No fevers or chills. No nausea or vomiting. He states he has been overall just depressed as he has been in the hospital frequently since December. He denies any other acute complaints or concerns. - Related Data Allergies/Adverse Reactions: naproxen [From Naprosyn] Allergy (Unknown, Verified 04/06/20 12:10) RASH Past Medical History - General Information source: Patient - Social History Smoking Status: Current Some Day Smoker Chew tobacco use (# tins/day): No Frequency of alcohol use: None Drug Abuse: None Family History: denies: CAD, DM - father, Hypertension, Malignancy - Past Medical History Cardiac Medical History: Reports: Hx Hypertension Denies: Hx Coronary Artery Disease, Hx DVT, Hx Heart Attack, Hx Hypercholesterolemia Pulmonary Medical History: Denies: Hx Asthma, Hx Bronchitis, Hx COPD, Hx Pneumonia Neurological Medical History: Denies: Hx Cerebrovascular Accident, Hx Seizures Endocrine Medical History: Reports: Hx Diabetes Mellitus Type 2 - on lantus. Denies: Hx Diabetes Mellitus Type 1, Hx Hyperthyroidism, Hx Hypothyroidism Renal/ Medical History: Denies: Hx Peritoneal Dialysis GI Medical History: Reports: Hx Hiatal Hernia. Denies: Hx Cirrhosis, Hx Hepatitis Musculoskeletal Medical History: Reports Hx Arthritis - recurrent septic arthritis, Denies Hx Gout, Reports Hx Musculoskeletal Deformity, Reports Hx Musculoskeletal Trauma Skin Medical History: Reports Hx Cellulitis, Denies Hx Eczema, Denies Hx Psoriasis Psychiatric Medical History: Denies: Hx Depression Infectious Medical History: Reports: Hx MRSA. Denies: Hx Hepatitis Past Surgical History: Reports: Hx Abdominal Surgery - hiatal hernia repair, Hx Orthopedic Surgery - L4-L5 w/ hardware, 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, Other - Ventral hernia repair in the past - Immunizations Hx Diphtheria, Pertussis, Tetanus Vaccination: Yes Review of Systems - Review of Systems Constitutional: No symptoms reported EENT: No symptoms reported Cardiovascular: No symptoms reported Respiratory: No symptoms reported Gastrointestinal: No symptoms reported Genitourinary: No symptoms reported Musculoskeletal: See HPI Skin: No symptoms reported Neurological/Psychological: See HPI -: Yes All other systems reviewed and negative Physical Exam - Vital signs Vitals: Temp Pulse Resp BP Pulse Ox 99.0 F 87 16 139/67 H 98 04/19/20 14:51 04/19/20 14:51 04/19/20 14:51 04/19/20 14:51 04/19/20 14:51 - Notes Notes: This is a 59-year-old male who appears his stated age, in mild to moderate distress. He is tearful, but calm and cooperative with examiner. Vital signs reviewed, please refer to chart. Head is normocephalic, atraumatic. Pupils equal round, reactive to light. Neck is supple without meningismus. Heart is regular rate and rhythm. Lungs are clear to auscultation bilaterally. Abdomen is soft, nontender, normoactive bowel sounds throughout. Examination of the right lower extremity is a well-healing midline surgical scar consistent with a recent right TKA. He has a bandaged wound on the superior aspect of the patella, lateral aspect, without any significant purulent drainage. Calor and erythema, as well as edema, or associated throughout the joint. No posterior calf tenderness. Peripheral pulses are equal. Course - Re-evaluation Re-evalutation: 04/19/20 20:37 Patient presents to the emergency department for evaluation. He was actually seen here by Dr. Douglas. Dr. Douglas has begun the process of trying to get him transferred to another facility for an evaluation, but he states that he does not believe it needs to necessarily be done acutely. He states he can see him in the office, his office will reach out to schedule an appointment with the [facility]. We discussed this patient, he does not think that any antibiotics are indicated. He did recommend a CBC and a CRP, they are ordered and pending at this time. I ordered Dilaudid 2 mg IM here in the emergency department. 04/19/20 21:15 Patient has no significant leukocytosis. His CRP remains elevated but markedly less than it has been in the recent past. He is to follow-up with Dr. Douglas, return to the ED with worsening. - Vital Signs Vital signs: Temp Pulse Resp BP Pulse Ox 98.3 F 90 16 146/83 H 100 04/19/20 19:55 04/19/20 19:41 04/19/20 19:41 04/19/20 19:41 04/19/20 19:41 - Laboratory Result Diagrams: 04/19/20 20:56 Laboratory results interpreted by me: 04/19/20 04/19/20 20:25 20:56 RBC 2.84 L Hgb 8.9 L Hct 25.8 L RDW 14.3 H Eos % (Auto) 6.5 H C-Reactive Protein 19.4 H Discharge - Discharge Clinical Impression: Septic arthritis of knee, right Qualifiers: Septic arthritis organism: due to unspecified organism Qualified Code(s): M00.9 - Pyogenic arthritis, unspecified Condition: Stable Disposition: HOME-SNF (ED ONLY) Additional Instructions: Dr. Douglas's office will reach out to schedule an appointment for follow-up. Please continue your pain medication as prescribed. Return to the emergency department if you develop fever, increased pain, vomiting, or any other new or concerning symptoms. Referrals: MEME DOVE MD [Primary Care Provider] - Follow up as needed
[2020-04-19 21:09] LABS: ABSOLUTE BASOPHILS # (AUTO) 0.1 10^3/uL (0.0-0.2); ABSOLUTE EOSINOPHILS # (AUTO) 0.4 10^3/uL (0.0-0.6); ABSOLUTE LYMPHOCYTES (AUTO) 1.6 10^3/uL (0.5-4.7); ABSOLUTE MONOCYTES (AUTO) 0.6 10^3/uL (0.1-1.4); ABSOLUTE NEUT (AUTO) 3.3 10^3/uL (1.7-8.2); EOSINOPHILS % (AUTO) 6.5 % (0-6); HEMATOCRIT 25.8 % (37.9-51.0); HEMOGLOBIN 8.9 g/dL (13.5-17.0); LYMPHOCYTES % (AUTO) 27.2 % (13-45); MEAN CORPUSCULAR HEMOGLOBIN 31.3 pg (27.0-33.4); MEAN CORPUSCULAR HGB CONC 34.4 g/dL (32.0-36.0); MEAN CORPUSCULAR VOLUME 91 fl (80-97); MONOCYTES % (AUTO) 9.6 % (3-13); PLATELET COUNT 319 10^3/uL (150-450); RED BLOOD COUNT 2.84 10^6/uL (4.35-5.55); RED CELL DISTRIBUTION WIDTH 14.3 % (11.5-14.0); SEGMENTED NEUTROPHILS % (AUTO) 55.7 % (42-78); TOTAL CELLS COUNTED % (AUTO) 100 %; WHITE BLOOD COUNT 5.9 10^3/uL (4.0-10.5)
[2020-04-19 23:14] VITALS: BP 158/66
--- NOTE | 2020-04-20 10:40 | Progress Note ---
Provider Note Provider Note: The patient was brought to the emergency department for ongoing [place] septic arthritis of his right knee. He has undergone multiple procedures and his most recently begun growing out fungus as well as corny bacterium. He is seeing Dr. Fany Lomeli for infectious disease and she is currently treating him with flu conazole. Upon reviewing his documentation, she has recommended transfer of care to a tertiary care facility. Additionally I have referred the patient to [facility] however the orthopedic provider there suggested his presentation to the ER for treatment. Patient presents tonight with ongoing right knee pain, swelling, and difficulty moving. I discussed with the emergency department physicians and ER to ER transfer given the information above, however they have not deemed that appropriate. Due to ongoing concerns I have attempted to contact [facility] for transfer. I spent time speaking both with the hospitalist as well as the orthopedist recreation leader both of which who have refused transfer. I have had prior conversations with the patient regards to transporting himself however this has not been successful either as he is not able to find a ride. At this time the patient is not septic and will return to his nursing facility. We will schedule to see him in the near future for scheduled repeat I&D of his right knee.
== END 2020-04-19 22:38 ==
LOC: ER 14:31
DX: M00.9 Pyogenic arthritis, unspecified (principal); Z96.651 Presence of right artificial knee joint; I10 Essential (primary) hypertension; E11.9 Type 2 diabetes mellitus without complications; F17.200 Nicotine dependence, unspecified, uncomplicated; Z86.14 Personal history of Methicillin resistant Staphylococcus aureus infection; Z79.891 Long term (current) use of opiate analgesic; Z88.8 Allergy status to other drugs, medicaments and biological substances
CPT/HCPCS: 99284; 96372; 36415; 86140; 85025; J1170